=== PATIENT | male | born 1955 | race Caucasian/White ===

== ENCOUNTER 2016-11-24 07:02 | Inpatient (IN) | payer BC, OTHER ==
--- NOTE | 2016-11-24 07:23 | DR.GENAD ---
HPI - PCP Primary Care Physician: Dr Zhao - Complaint/Symptoms Chief Complaint Doctors Comments: Patient admits to vomiting up blood early this morning and had a large red rectal bleed this morning. PMH - PMH Past Medical History: Angina, Anxiety, Arthritis, Dyslipidemia, GERD, Hypertension, Kidney Stones, [place] Past Surgical History: Yes Surgical History: Angioplasty/Stents - Family History Family Medical History: Coronary Artery Disease, Heart Failure, Sudden Cardiac , Hypertension - Social History Do you use any recreational Drugs:: No ROS - Review of Systems Constitutional: negative: Diaphoresis Eyes: No Symptoms Reported ENTM: No Symptoms Reported Respiratoy: No Symptoms Reported Cardiovascular: No Symptoms Reported Gastrointestinal/Abdominal: No Symptoms Reported Genitourinary: No Symptoms Reported Neurological: No Symptoms Reported, Headache Integumentary: No Symptoms Reported Hematologic/Lymphatic: No Symptoms Reported Endocrine: No Symptoms Reported Psychiatric: No Symptoms Reported All Other Systems: Reviewed and Negative PE - Vital Signs Vitals: Temperature 98 F Pulse Rate 132 Respiratory Rate 18 Blood Pressure [Right Arm] 182/100 Blood Pressure [Left Arm] 154/99 Blood Pressure 149/69 - General Limitations: No Limitations General Appearance: Alert, In No Apparent Distress - Head Head Exam: Normal Inspection, Atraumatic - Eyes Eye exam: Normal Appearance, PERRL, EOMI - ENT ENT Exam: Normal Exam External Ear Exam: Normal External Inspection TM/Canal Exam: Bilateral Normal Nose Exam: Normal Nose Exam Mouth Exam: Normal Inspection Throat Exam: Normal Inspection - Neck Neck Exam: Normal Inspection, Full ROM - Chest Chest Inspection: Normal Inspection - Respiratory Respiratory Exam: Normal Lung Sounds Bilat Respiratory Exam: Bilateral Clear to Auscultation - Cardiovascular Cardiovascular Exam: Regular Rate, Normal Rhythm - Abdominal Exam Abdominal Exam: Normal Inspection, Normal Bowel Sounds Abdominal Tenderness: negative: RUQ, RLQ, LUQ, LLQ, Epigastrium, Suprapubic, Diffuse, Mild, Moderate, Severe, Other - Back Back Exam: Normal Inspection - Neurologic Neurological Exam: Alert, Oriented X3, CN II-XII Intact - Psychiatric Psychiatric Exam: Normal Affect, Normal Mood - Skin Skin Exam: Warm, Dry, Intact - Other Exam Other Exam: Rectally a large external hemorrhoid and bright red blood externally Course - Reevaluation 1st: Unchanged - Diagnosis Discharge Problem: GI bleed Qualifiers: GI bleed type/associated pathology: gastrointestinal hemorrhage with hematemesis Qualified Code(s): K92.0 - Hematemesis - Discharge Plan Condition: Stable - Follow ups/Referrals Follow ups/Referrals: Bronson Zhao [Primary Care Provider] - 3 days - Instructions
[2016-11-24 07:26] VITALS: BMI 25.0
--- NOTE | 2016-11-24 08:10 | RAD ---
AP abdomen Indication: NG tube placement. Vomiting. Findings: The tip of the gastric tube overlies the proximal stomach. The distal side port is not def initely seen, but is likely approximately at the level of the GE junction. The visualized bowel gas pattern is nonspecific. No free air is identified. Impression: Slightly high positioning of the gastric tube, although the tip overlies the proximal st omach. Consider advancing approximately 4-5 cm for more proper positioning. Reported By:
[2016-11-24] MEDS: NS 1000 ML 1,000 ML IV SCH ×2 (08:24→18:22)
[2016-11-24 09:05] LABS: BASOPHILS % (AUTO) 0.8 % (0.2-1.0); HEMOGLOBIN 8.1 g/dL (13.5-18.0); LYMPHOCYTES # (AUTO) 0.4 X10^3/uL (1.3-2.9); LYMPHOCYTES % (AUTO) 6.5 % (21.0-51.0); MEAN CORPUSCULAR HEMOGLOBIN 30.4 pg (27.0-34.0); MEAN CORPUSCULAR HGB CONC 32.5 g/dL (33.0-35.0); MEAN CORPUSCULAR VOLUME 93.4 fL (80.0-100.0); MEAN PLATELET VOLUME 8.6 fL (7.4-11.0); MONOCYTES # (AUTO) 0.9 x10^3/uL (0.3-0.8); MONOCYTES % (AUTO) 13.9 % (0.0-13.0); NEUTROPHILS # (AUTO) 4.9 x10^3/uL (2.2-4.8); NEUTROPHILS % (AUTO) 78.8 % (42.0-75.0); PLATELET COUNT 117 X10^3/uL (150.0-450.0); RED BLOOD COUNT 2.67 X10^6/uL (4.7-6.0); RED CELL DISTRIBUTION WIDTH 20.9 % (11.6-16.5); WHITE BLOOD COUNT 6.2 X10^3/uL (3.6-10.0)
[2016-11-24 09:10] LABS: ALANINE AMINOTRANSFERASE 24 Units/L (12-78); ALBUMIN 2.3 g/dL (3.4-5.0); ALKALINE PHOSPHATASE 134 Units/L (46-116); ASPARTATE AMINO TRANSFERASE 60 Units/L (15-37); BLOOD UREA NITROGEN 25 mg/dL (7-18); CARBON DIOXIDE 21.3 mmol/L (21-32); CHLORIDE 109 mmol/L (98-107); COR CA(FOR HYPOALB) 9.4 mg/dL (8.5-10.1); COR NA(FOR HYPERGLY) 149 mmol/L (136-145); CREATININE 1.14 mg/dL (0.70-1.30); GLUCOSE 120 mg/dL (65-99); SODIUM 149 mmol/L (136-145); TOTAL PROTEIN 6.3 g/dL (6.4-8.2); eGFR BLACK RACES > 60 (>60); eGFR NON BLACK RACES > 60 (>60)
[2016-11-24 09:26] LABS: ANISOCYTOSIS 1+; HYPOCHROMASIA SLIGHT; PLATELET MORPHOLOGY COMMENT NORMAL (NORMAL)
[2016-11-24] MEDS ORDERED: NS 500 ML IV 500 ML IV ONE (10:01)
--- NOTE | 2016-11-24 10:03 | RAD ---
History: Nasogastric tube placement Study: KUB Comparison: Today at 8:00 a.m. Findings: There is no significant change of a nasogastric tube with the tip in the proximal stomach. The visualized bowel gas pattern is unremarkable. Impression: Nasogastric tube in proximal stomach Reported By:
--- NOTE | 2016-11-24 11:03 | DR.H&P ---
H&P - History & Physical for Day of: H&P Date: 11/24/16 - Chief Complaint Chief Complaint: GI BLEED - Allergies Allergies/Adverse Reactions: Allergies Allergy/AdvReac Type Severity Reaction Status Date / Time No Known Drug Allergy Allergy Verified 11/24/16 07:17 - History of Present Illness History of Present Illness: MR. SANTORO IS A 61 YEAR OLD PATIENT OF OURS. HE PRESENTED TO THE ER THIS MORNING WITH COMPLAINTS OF VOMITING BLOOD AND HAVING LARGE AMOUNTS OF BRIGHT RED BLOOD IN STOOL. PATIENT REPORTS TAKING COUMADIN FOR PULMONARY EMBOLISMS, BUT STOPPED TAKING IT 1 WEEK AGO DUE TO HIS LIPS AND GUMS BLEEDING. ON EXAMINATION IN ER, PATIENT WAS NOTED WITH A LARGE EXTERNAL HEMORRHOID AND BRIGHT RED BLOOD FROM RECTUM EXTERNALLY. LABS AND XRAY WERE OBTAINED IN THE ER AND REPORT THE FOLLOWING CBC WNL EXCEPT HBG/HCT 8.1/25, PLATELET COUNT 117. CMP WNL EXCEPT SODIUM 149, CHLORIDE 109, BUN 25, GLUCOSE 120 , CALCIUM 8.0, TOTAL PROTEIN 6.3, ALBUMIN 2.3. INR 12.0, STOOL OCCULT BLOOD POSITIVE. NG TUBE WAS PLACED IN THE ER AND A KUB CONFIRMED PLACEMENT. PATIENT WILL BE ADMITTED FOR FURTHER TREATMENT AND EVALUATION. PATIENT WILL BE GIVEN 2 UNITS OF FFP WITH INR EVERY 6 HOURS, MONITOR ON TELEMETRY, H&H Q 6 HOURS, START ON PEPCID, PROTONIX, IVF, AND ALBUMIN IV. WE WILL FOLLOW UP ON LABS IN AM. - Past Medical History Past Medical History: Angina, Anxiety, Arthritis, Dyslipidemia, GERD, Hypertension, Kidney Stones, [place] Additional Medical History: Hx PVD, Hx DVT, Diarrhea, Back Pain - Past Surgical History Surgical History: Angioplasty/Stents Additional Surgical History: Cardiac Stent placement in December 2015 - Family History Family Medical History: Coronary Artery Disease, Heart Failure, Sudden Cardiac , Hypertension - Social History Does patient currently use any type of tobacco product: Yes Have you used tobacco products in the last 12 months: Yes Type of Tobacco Use: Cigarettes How many years tobacco product used: 42 Does any household member use tobacco: No Alcohol Use: Heavy - Review of Systems Constitutional: No Symptoms Reported. denies: Fever, Chills, Sweats, Weakness, Malaise, Other Eyes: No Symptoms Reported. denies: Pain, Vision Change, Conjunctivae Inflammation, Eyelid Inflammation, Redness, Other ENT: No Symptoms Reported. denies: Ear Pain, Ear Discharge, Nose Pain, Nose Discharge, Nose Congestion, Mouth Pain, Mouth Swelling, Throat Pain, Throat Swelling, Other Respiratory: No Symptoms Reported. denies: Cough, Dry, Shortness of Breath, Hemoptysis, SOB with Excertion, Pleuritic Pain, Sputum, Wheezing, Other Cardiovascular: No Symptoms Reported. denies: See HPI, Palpitations, Orthopnea , Paroxysmal Noc. Dyspnea, Edema, Light Headedness, Other Gastrointestinal: See HPI, Vomiting, Hematochezia Genitourinary: No Symptoms Reported Musculoskeletal: No Symptoms Reported Skin: No Symptoms Reported. denies: Bruising, Wound, Ecchymosis Neurological: No Symptoms Reported - Physical Exam Vital Signs: Temperature 99.5 F Pulse Rate [Left Brachial] 123 Respiratory Rate 18 Blood Pressure [Left Arm] 129/85 O2 Sat by Pulse Oximetry 95 Oriented: Normal, Time, Person, Place Eyes: Normal. negative: Blurred Vision, Diplopia, Discharge, Pain, Redness, Photophobia Ear: Normal. negative: Swelling, Ecchymosis, Hemotypanum, Abrasion, Laceration Nose: Normal. negative: Discharge, Blood Throat: Normal. negative: Tonsillar Hypertrophy, Exudate Respiratory: Clear Throughout Cardiovascular: Tachycardia. negative: Murmur : Normal. negative: Dysuria, Hematuria, Testicular Pain Auscultation: Bowel Sounds: Normal. negative: Bruit Palpation: Normal. negative: Spleen Enlarged, Liver Enlarged, Mass Pulsatile Tenderness: Normal. negative: Rebound, Guarding, Rigidity Skin: Decreased Turgur. negative: Wound, Bruising, Ecchymosis Musculoskeletal: Normal Psychiatric: Normal Mood Description: Calm Affect: Normal Speech Pattern: Clear, Appropriate - Assessment/Plan (1) GI bleed Qualifiers: GI bleed type/associated pathology: gastrointestinal hemorrhage with hematemesis Gastritis type: G Qualified Code(s): K92.0 - Hematemesis Status: Acute Plan: START ON IVF, NG TUBE, ADMINISTER FFP, START PEPCID, START PROTONIX, MONITOR LABS IN AM. (2) Hypothyroidism Qualifiers: Hypothyroidism type: acquired Qualified Code(s): E03.9 - Hypothyroidism, unspecified Status: Chronic Plan: CONTINUE TO MONITOR (3) Hypertension Qualifiers: Hypertension type: essential hypertension Qualified Code(s): I10 - Essential (primary) hypertension Status: Chronic Plan: CONTINUE TO MONITOR (4) Gastroesophageal reflux disease Status: Chronic Plan: CONTINUE TO MONITOR (5) History of DVT (deep vein thrombosis) Status: Chronic Plan: CONTINUE TO MONITOR (6) Hyperlipidemia Qualifiers: Hyperlipidemia type: mixed hyperlipidemia Qualified Code(s): E78.2 - Mixed hyperlipidemia Status: Chronic Plan: CONTINUE TO MONITOR
[2016-11-24] MEDS ORDERED: AQUA-MEPHYTON ADULT INJ SC ONE (11:29)
[2016-11-24] MEDS: PROTONIX INJ 40 MG VIAL IVP SCH ×2 (11:52→20:00)
[2016-11-24] MEDS: PEPCID 20 MG IV PREMIX* 20 MG/50 ML BAG IV SCH ×2 (11:52→20:00)
[2016-11-24 11:59] LABS: HEMATOCRIT 23.8 % (42.0-54.0); HEMOGLOBIN 7.9 g/dL (13.5-18.0)
[2016-11-24 12:37] LABS: CKMB % 1.2 % (<4); CREATINE KINASE 81 Units/L (39-308); CREATINE KINASE MB < 1.0 ng/mL (0-4.0); TROPONIN I 0.02 ng/mL (0-1.5)
[2016-11-24 14:22] LABS: HEMATOCRIT 21.6 % (42.0-54.0); HEMOGLOBIN 7.1 g/dL (13.5-18.0)
[2016-11-24 14:47] LABS: CKMB % 1.3 % (<4); CREATINE KINASE 77 Units/L (39-308); CREATINE KINASE MB < 1.0 ng/mL (0-4.0); TROPONIN I 0.02 ng/mL (0-1.5)
[2016-11-24] MEDS ORDERED: AQUA-MEPHYTON ADULT INJ SC SCH (15:00)
[2016-11-24 15:40] LABS: BILIRUBIN,URINE NEGATIVE (NEGATIVE); BLOOD/HEMOGLOBIN,URINE 1+ (NEGATIVE); GLUCOSE, URINE NEGATIVE (NEGATIVE); KETONES,URINE 2+ (NEGATIVE); LEUKOCYTE ESTERASE ,URINE NEGATIVE (NEGATIVE); NITRITES,URINE NEGATIVE (NEGATIVE); PROTEIN,URINE 2+ (NEGATIVE); UROBILINOGEN,URINE NORMAL (NORMAL)
[2016-11-24 15:53] LABS: APPEARANCE,URINE SLIGHTLY HAZY (CLEAR); COLOR,URINE AMBER (YELLOW)
[2016-11-24 15:58] LABS: BACTERIA,URINE TRACE /HPF (NEGATIVE); HYALINE CASTS, URINE FEW /LPF (NEGATIVE); SQUAMOUS EPITHELIAL CELL,UR FEW /HPF (NEGATIVE)
[2016-11-24 15:59] LABS: COARSE GRANULAR CASTS,URINE MODERATE /HPF (NEGATIVE); MUCUS,URINE FEW /HPF (NEGATIVE)
[2016-11-24] MEDS ORDERED: TYLENOL SUPP 650 MG PR PRN (16:30)
[2016-11-24] MEDS ORDERED: BENADRYL INJ 50 MG VIAL IVP ONE (18:34)
[2016-11-24] MEDS ORDERED: LASIX IVP ONE (18:35)
[2016-11-24 19:06] LABS: CKMB % 0.8 % (<4); TROPONIN I 0.06 ng/mL (0-1.5)
[2016-11-24 19:27] LABS: HEMATOCRIT 18.1 % (42.0-54.0)
[2016-11-24] MEDS ORDERED: NS 250 ML IV 250 ML IV ONE (19:46)
[2016-11-25] MEDS: NS 1000 ML 1,000 ML IV SCH (02:13)
[2016-11-25 04:34] LABS: BASOPHILS % (AUTO) 0.8 % (0.2-1.0); EOSINOPHILS % (AUTO) 0.1 % (0.9-2.9); HEMATOCRIT 23.8 % (42.0-54.0); HEMOGLOBIN 8.1 g/dL (13.5-18.0); LYMPHOCYTES # (AUTO) 0.6 X10^3/uL (1.3-2.9); LYMPHOCYTES % (AUTO) 19.4 % (21.0-51.0); MEAN CORPUSCULAR HEMOGLOBIN 30.5 pg (27.0-34.0); MEAN CORPUSCULAR HGB CONC 33.9 g/dL (33.0-35.0); MEAN CORPUSCULAR VOLUME 90.2 fL (80.0-100.0); MEAN PLATELET VOLUME 8.7 fL (7.4-11.0); MONOCYTES # (AUTO) 0.4 x10^3/uL (0.3-0.8); MONOCYTES % (AUTO) 13.9 % (0.0-13.0); NEUTROPHILS # (AUTO) 2.1 x10^3/uL (2.2-4.8); NEUTROPHILS % (AUTO) 65.8 % (42.0-75.0); PLATELET COUNT 48 X10^3/uL (150.0-450.0); RED BLOOD COUNT 2.64 X10^6/uL (4.7-6.0); WHITE BLOOD COUNT 3.2 X10^3/uL (3.6-10.0)
[2016-11-25 04:35] LABS: ALANINE AMINOTRANSFERASE 21 Units/L (12-78); ALBUMIN 2.5 g/dL (3.4-5.0); ALKALINE PHOSPHATASE 102 Units/L (46-116); ASPARTATE AMINO TRANSFERASE 53 Units/L (15-37); BLOOD UREA NITROGEN 31 mg/dL (7-18); CALCIUM 8.2 mg/dL (8.5-10.1); CARBON DIOXIDE 28.3 mmol/L (21-32); CHLORIDE 112 mmol/L (98-107); COR CA(FOR HYPOALB) 9.4 mg/dL (8.5-10.1); CREATININE 1.13 mg/dL (0.70-1.30); GLUCOSE 107 mg/dL (65-99); TOTAL PROTEIN 6.1 g/dL (6.4-8.2); eGFR BLACK RACES > 60 (>60); eGFR NON BLACK RACES > 60 (>60)
[2016-11-25 04:46] LABS: PLATELET MORPHOLOGY COMMENT NORMAL (NORMAL)
[2016-11-25 04:52] LABS: SODIUM 150 mmol/L (136-145)
[2016-11-25] MEDS ORDERED: POTASSIUM CHLORIDE LIQ 20 MEQ UDC PO PRN (05:00)
[2016-11-25] MEDS: K-RIDER 10 MEQ/NS 100 ML 10 MEQ/100 ML BAG IV PRN ×4 (05:24→12:42)
[2016-11-25] MEDS: BUTT CREAM (COMPOUND) TOP PRN ×4 (05:27→19:45)
[2016-11-25] MEDS ORDERED: BENADRYL INJ 50 MG VIAL IVP PRN (09:30)
[2016-11-25] MEDS ORDERED: TYLENOL 325 MG TAB PO PRN (09:30)
[2016-11-25] MEDS ORDERED: NS 500 ML IV 500 ML IV ONE (09:30)
[2016-11-25] MEDS ORDERED: LASIX IVP PRN (09:31)
[2016-11-25] MEDS: PROTONIX INJ 40 MG VIAL IVP SCH (09:40)
[2016-11-25] MEDS: PEPCID 20 MG IV PREMIX* 20 MG/50 ML BAG IV SCH ×2 (09:40→20:00)
[2016-11-25] MEDS ORDERED: AQUA-MEPHYTON ADULT INJ SC ONE (11:34)
--- NOTE | 2016-11-25 11:46 | PCM.PROG ---
Progress Note - Progress Note for Day of Date: 11/25/16 - Subjective Subjective: PATIENT RESTS IN BED, NG TUBE TO LOW INTERMITTENT SUCTION. BLOODY DRAINAGE IS NOTED IN SUCTION CANISTER. PATIENT STATES HE IS THIRSTY. GI HAS BEEN CONSULTED FOR GI BLEEDING. VOMITING HAS SLOWED; HOWEVER, ABDOMEN IS NOTED WITH HEMORRHAGIC BULLAE AND CAPUT MEDUSAE ALONG WITH SEVERE DISTENTION. ABDOMEN IS NOTED WITH DIFFUSE TENDERNESS UPON PALPATION. PATIENT REPORTS NUMEROUS BRIGHT, RED, BLOODY BOWEL MOVEMENTS THROUGH THE NIGHT. PATIENT'S HEMOGLOBIN DROPPED TO 6.0 LAST EVENING AND PATIENT RECEIVED TWO UNITS PRBC'S AND TOLERATED WELL. HEMOGLOBIN THIS MORNING IS 8.1. CBC WNL EXCEPT: WBC 3.2, H /H 8.1/23.8, PLT COUNT 48. CMP WNL EXCEPT: SODIUM 150, POTASSIUM 3.2, BUN 31, GLUCOSE 107, CALCIUM 8.2, TOT BILIRUBIN 1.30, AST 53, TOT PROTEIN 6.1, ALBUMIN 2.5. INR IS IMPROVED FROM 12.00 TO 2.02 AFTER RECEIVING FFP AND VITAMIN K YESTERDAY. WE WILL TRANSFUSE TWO MORE UNITS OF PRBC'S TODAY, START POTASSIUM PROTOCOL, CONTINUE PEPCID, PROTONIX, START PATIENT ON ICE CHIPS, CONTINUE NG TUBE, AND OBTAIN A NCCT OF ABD/PELVIS. WE WILL CONTINUE TO MONITOR H/H EVERY 6 HOURS. - Past Medical Family Social History Past Med/Fam/Surg Hx: No changes since H&P Allergies: Allergies No Known Drug Allergy Allergy (Verified 11/24/16 07:17) - Review of Systems ROS: No change since H&P - Vital Signs and I&O's Vital Signs: Temperature 99.1 F Pulse Rate [Apical] 95 Pulse Rate [Right Brachial] 137 Pulse Rate [Left Brachial] 123 Respiratory Rate 22 Blood Pressure [Right Arm] 120/85 Blood Pressure [Left Arm] 115/68 O2 Sat by Pulse Oximetry 98 Intake and Output: Intake & Output 11/22/16 11/23/16 11/24/16 11/25/16 11:59 11:59 11:59 11:59 Intake Total 2452 Output Total 150 2595 Balance -150 -143 - Physical Exam Oriented: Normal, Time, Person, Place Eyes: Normal. negative: Blurred Vision, Diplopia, Discharge, Pain, Redness, Photophobia Ear: Normal. negative: Swelling, Ecchymosis, Hemotypanum, Abrasion, Laceration Nose: Normal. negative: Discharge, Blood Throat: Normal. negative: Tonsillar Hypertrophy, Exudate Respiratory: Normal Cardiovascular: Tachycardia. negative: Murmur : Normal. negative: Dysuria, Hematuria, Testicular Pain Auscultation: Bowel Sounds: Normal. negative: Bruit Palpation: Normal. negative: Spleen Enlarged, Liver Enlarged, Mass Pulsatile Tenderness: Diffuse, Moderate, Other (Distention; Caput Medusae; Hemorrhagic bullae). negative: Rebound, Guarding, Rigidity Skin: Decreased Turgur. negative: Wound, Bruising, Ecchymosis Musculoskeletal: Normal Psychiatric: Normal Mood Description: Calm Affect: Normal Speech Pattern: Clear, Appropriate - Laboratory and Diagnostics Result Diagrams: 11/25/16 04:05 11/25/16 04:05 Labs: Laboratory WBC 3.2 X10^3/uL (3.6-10.0) L 11/25/16 04:05 RBC 2.64 X10^6/uL (4.7-6.0) L 11/25/16 04:05 Hgb 8.1 g/dL (13.5-18.0) L 11/25/16 04:05 Hct 23.8 % (42.0-54.0) L 11/25/16 04:05 MCV 90.2 fL (80.0-100.0) 11/25/16 04:05 MCH 30.5 pg (27.0-34.0) 11/25/16 04:05 MCHC 33.9 g/dL (33.0-35.0) 11/25/16 04:05 RDW 19.0 % (11.6-16.5) H 11/25/16 04:05 Plt Count 48 X10^3/uL (150.0-450.0) L 11/25/16 04:05 Plt Count Comment Decreased (ADEQUATE) 11/25/16 04:05 MPV 8.7 fL (7.4-11.0) 11/25/16 04:05 Neut % 65.8 % (42.0-75.0) 11/25/16 04:05 Lymph % 19.4 % (21.0-51.0) L 11/25/16 04:05 [place] % 13.9 % (0.0-13.0) H 11/25/16 04:05 Eos % 0.1 % (0.9-2.9) L 11/25/16 04:05 Baso % 0.8 % (0.2-1.0) 11/25/16 04:05 Neut # 2.1 x10^3/uL (2.2-4.8) L 11/25/16 04:05 Lymph # 0.6 X10^3/uL (1.3-2.9) L 11/25/16 04:05 [place] # 0.4 x10^3/uL (0.3-0.8) 11/25/16 04:05 Eos # 0.0 x10^3/uL (0.0-0.2) 11/25/16 04:05 Baso # 0.0 X10^3/uL (0.0-0.1) 11/25/16 04:05 Absolute Nucleated RBC 0.2 /100WBC 11/25/16 04:05 Plt Morphology Comment Normal (NORMAL) 11/25/16 04:05 RBC Morphology Abnormal (NORMAL) 11/25/16 04:05 Dimorphic RBCs Present 11/25/16 04:05 Hypochromasia Slight A 11/24/16 08:28 Anisocytosis 1+ A 11/24/16 08:28 INR Target Range - 11/25/16 07:45 INR 2.02 (0.8-1.3) H 11/25/16 07:45 Sodium 150 mmol/L (136-145) H* 11/25/16 04:05 Corrected Sodium TNP 11/25/16 04:05 Potassium 3.2 mmol/L (3.5-5.1) L 11/25/16 04:05 Chloride 112 mmol/L (98-107) H 11/25/16 04:05 Carbon Dioxide 28.3 mmol/L (21-32) 11/25/16 04:05 BUN 31 mg/dL (7-18) H 11/25/16 04:05 Creatinine 1.13 mg/dL (0.70-1.30) 11/25/16 04:05 Est GFR (MDRD) Af Amer > 60 (>60) 11/25/16 04:05 Est GFR (MDRD) Non-Af > 60 (>60) 11/25/16 04:05 Glucose 107 mg/dL (65-99) H 11/25/16 04:05 Calcium 8.2 mg/dL (8.5-10.1) L 11/25/16 04:05 Corrected Calcium 9.4 mg/dL (8.5-10.1) 11/25/16 04:05 Total Bilirubin 1.30 mg/dL (0.2-1.0) H 11/25/16 04:05 AST 53 Units/L (15-37) H 11/25/16 04:05 ALT 21 Units/L (12-78) 11/25/16 04:05 Alkaline Phosphatase 102 Units/L (46-116) 11/25/16 04:05 Creatine Kinase 120 Units/L (39-308) 11/24/16 18:33 CK-MB (CK-2) 1.0 ng/mL (0-4.0) 11/24/16 18:33 CK/CKMB % Calc 0.8 % (<4) 11/24/16 18:33 Troponin I 0.06 ng/mL (0-1.5) 11/24/16 18:33 Total Protein 6.1 g/dL (6.4-8.2) L 11/25/16 04:05 Albumin 2.5 g/dL (3.4-5.0) L 11/25/16 04:05 Globulin 3.6 g/dL (2.5-4.5) 11/25/16 04:05 Albumin/Globulin Ratio 0.7 Ratio (1.1-2.1) L 11/25/16 04:05 Specimen Type Clean catch urine 11/24/16: Urine Color Brenna (YELLOW) 11/24/16 15: Urine Appearance Slightly hazy (CLEAR) 11/24/16 15: Urine pH 5.0 (5.0 - 8.0) 11/24/16 15: Ur Specific [place] 1.020 (1.000-1.030) 11/24/16 15: Urine Protein 2+ (NEGATIVE) 11/24/16 15: Urine Glucose (UA) Negative (NEGATIVE) 11/24/16 15: Urine Ketones 2+ (NEGATIVE) 11/24/16: Urine Occult Blood 1+ (NEGATIVE) 11/24/16 15:19 Urine Nitrite Negative (NEGATIVE) 11/24/16 15:19 Urine Bilirubin Negative (NEGATIVE) 11/24/16 15:19 Urine Urobilinogen Normal (NORMAL) 11/24/16 15:19 Ur Leukocyte Esterase Negative (NEGATIVE) 11/24/16 15:19 Urine RBC 1 - 3 /HPF (NEGATIVE) 11/24/16 15:19 Urine WBC Rare /HPF (NEGATIVE) 11/24/16 15:19 Ur Squamous Epith Cells Few /HPF (NEGATIVE) 11/24/16 15:19 Urine Bacteria Trace /HPF (NEGATIVE) 11/24/16 15:19 Hyaline Casts Few /LPF (NEGATIVE) 11/24/16 15:19 Coarse Granular Casts Moderate /HPF (NEGATIVE) 11/24/16 15:19 Urine Mucus Few /HPF (NEGATIVE) 11/24/16 15:19 Ur Culture Indicated? No/not indicated 11/24/16 15:19 Stool Description Fob tube 11/24/16 07:53 Stl Occult Blood (IFOB) Positive (NEGATIVE) A 11/24/16 07:53 Blood Type A NEGATIVE 11/24/16 10:01 Antibody Screen Negative 11/24/16 10:01 Crossmatch See Detail 11/24/16 10:01 - Plan (1) Anemia due to GI blood loss Status: Acute Plan: TRANSFUSE TWO UNITS PRBC'S, MONITOR H/H Q6H. (2) GI bleed Status: Acute Qualifiers: GI bleed type/associated pathology: gastrointestinal hemorrhage with hematemesis Gastritis type: G Qualified Code(s): K92.0 - Hematemesis Plan: GI CONSULT, ABD/PELVIS NCCT, TRANSFUSE 2 UNITS PRBC'S, CONTINUE IVF, NG TUBE, PEPCID, PROTONIX, MONITOR LABS IN AM. (3) Hypothyroidism Status: Chronic Qualifiers: Hypothyroidism type: acquired Qualified Code(s): E03.9 - Hypothyroidism, unspecified Plan: CONTINUE TO MONITOR (4) Hypertension Status: Chronic Qualifiers: Hypertension type: essential hypertension Qualified Code(s): I10 - Essential (primary) hypertension Plan: CONTINUE TO MONITOR (5) Gastroesophageal reflux disease Status: Chronic Plan: CONTINUE TO MONITOR (6) History of DVT (deep vein thrombosis) Status: Chronic Plan: CONTINUE TO MONITOR (7) Hyperlipidemia Status: Chronic Qualifiers: Hyperlipidemia type: mixed hyperlipidemia Qualified Code(s): E78.2 - Mixed hyperlipidemia Plan: CONTINUE TO MONITOR
[2016-11-25] MEDS: PROTONIX INJ 40 MG VIAL 80 MG in NS 100 ML IV 80 ML IV SCH ×3 (12:00→17:20)
[2016-11-25] MEDS ORDERED: NS 1/2 1000 ML IV 1,000 ML IV ONE (13:42)
[2016-11-25] MEDS: NS 1/2 1000 ML IV 1,000 ML IV SCH ×2 (13:58→22:42)
[2016-11-25 14:47] LABS: HEMOGLOBIN 8.8 g/dL (13.5-18.0)
--- NOTE | 2016-11-25 18:09 | CT ---
HISTORY: Abdominal distention Study: CT abdomen and pelvis without contrast Comparison: September 07, 2016 Technique: Multiple axial images of the abdomen and pelvis were obtained from the lung bases to the pubic symph ysis without the administration of IV contrast. Sagittal and coronal reformations were provided. Findings: The visualized portions of the lung bases are unremarkable. There are bilateral small renal calculi . There is no hydronephrosis. The liver and spleen and pancreas and adrenal glands are unremarkable. . The gallbladder is unremarkable in its CT appearance. There is severe ascites. There is increased ill-defined density in the greater omentum. No bowel wall thickening or bowel dilatation is presen t. The colon is unremarkable. Specifically, there is no diverticulosis noted within the sigmoid co donald. The urinary bladder is grossly unremarkable. The bony structures are grossly intact. IMPRESSION: 1. Severe ascites 2. Abnormal omentum suggesting metastatic disease 3. Nasogastric tube in the stomach Reported By:
[2016-11-25] MEDS ORDERED: NS 250 ML IV 250 ML IV ONE (19:39)
[2016-11-25 20:52] LABS: HEMATOCRIT 22.2 % (42.0-54.0); HEMOGLOBIN 7.5 g/dL (13.5-18.0)
[2016-11-25] MEDS: NICODERM PATCH 21 MG/24 HR TD SCH (21:45)
[2016-11-26] MEDS: PROTONIX INJ 40 MG VIAL 80 MG in NS 100 ML IV 80 ML IV SCH ×5 (00:26→21:07)
[2016-11-26 03:19] LABS: HEMATOCRIT 31.2 % (42.0-54.0); HEMOGLOBIN 10.5 g/dL (13.5-18.0)
[2016-11-26] MEDS ORDERED: NS 1/2 1000 ML IV 1,000 ML IV ONE (05:06)
[2016-11-26] MEDS: NS 1/2 1000 ML IV 1,000 ML IV SCH ×2 (05:10→21:04)
[2016-11-26] MEDS: BUTT CREAM (COMPOUND) TOP PRN (05:35)
[2016-11-26] MEDS ORDERED: VALIUM INJ IVP PRN (07:32)
[2016-11-26] MEDS: NICODERM PATCH 21 MG/24 HR TD SCH (08:53)
[2016-11-26] MEDS ORDERED: AQUA-MEPHYTON ADULT INJ SC ONE (09:00)
[2016-11-26 09:40] LABS: BASOPHILS % (AUTO) 0.5 % (0.2-1.0); EOSINOPHILS % (AUTO) 0.2 % (0.9-2.9); HEMATOCRIT 30.2 % (42.0-54.0); HEMOGLOBIN 10.2 g/dL (13.5-18.0); LYMPHOCYTES # (AUTO) 0.5 X10^3/uL (1.3-2.9); LYMPHOCYTES % (AUTO) 13.7 % (21.0-51.0); MEAN CORPUSCULAR HGB CONC 33.8 g/dL (33.0-35.0); MEAN CORPUSCULAR VOLUME 88.7 fL (80.0-100.0); MEAN PLATELET VOLUME 9.3 fL (7.4-11.0); MONOCYTES # (AUTO) 0.4 x10^3/uL (0.3-0.8); MONOCYTES % (AUTO) 10.4 % (0.0-13.0); NEUTROPHILS # (AUTO) 2.7 x10^3/uL (2.2-4.8); NEUTROPHILS % (AUTO) 75.2 % (42.0-75.0); PLATELET COUNT 46 X10^3/uL (150.0-450.0); RED BLOOD COUNT 3.41 X10^6/uL (4.7-6.0); RED CELL DISTRIBUTION WIDTH 17.7 % (11.6-16.5); WHITE BLOOD COUNT 3.6 X10^3/uL (3.6-10.0)
[2016-11-26] MEDS ORDERED: NS 1000 ML 2,000 ML IV ONE (09:41)
[2016-11-26 09:44] LABS: PLATELET MORPHOLOGY COMMENT NORMAL (NORMAL)
[2016-11-26 10:01] LABS: ALANINE AMINOTRANSFERASE 21 Units/L (12-78); ALBUMIN 2.7 g/dL (3.4-5.0); ALKALINE PHOSPHATASE 100 Units/L (46-116); ASPARTATE AMINO TRANSFERASE 43 Units/L (15-37); BLOOD UREA NITROGEN 22 mg/dL (7-18); CALCIUM 8.6 mg/dL (8.5-10.1); CARBON DIOXIDE 28.7 mmol/L (21-32); CHLORIDE 110 mmol/L (98-107); COR CA(FOR HYPOALB) 9.6 mg/dL (8.5-10.1); CREATININE 1.04 mg/dL (0.70-1.30); GLUCOSE 75 mg/dL (65-99); TOTAL PROTEIN 6.6 g/dL (6.4-8.2); eGFR BLACK RACES > 60 (>60); eGFR NON BLACK RACES > 60 (>60)
[2016-11-26 10:07] LABS: SODIUM 151 mmol/L (136-145)
--- NOTE | 2016-11-26 10:32 | PCM.PROG ---
Progress Note - Progress Note for Day of Date: 11/26/16 - Subjective Subjective: PATIENT IS ALERT IN BED ON MORNING ROUNDS. PATIENT IS CONFUSED. STAFF REPORTS THAT PATIENT IS AGITATED AND HAS JUST REMOVED HIS NG TUBE. WE WILL LEAVE NG TUBE OUT AND CONTINUE TO MONITOR. GI HAS BEEN CONSULTED AND SAW PATIENT YESTERDAY. THEY PLAN TO DO EGD IN AM. VOMITING HAS SLOWED; HOWEVER, ABDOMEN IS NOTED WITH HEMORRHAGIC BULLAE AND CAPUT MEDUSAE ALONG WITH SEVERE DISTENTION. ABDOMEN IS NOTED WITH DIFFUSE TENDERNESS UPON PALPATION. PATIENT REPORTS NUMEROUS BRIGHT, RED, BLOODY BOWEL MOVEMENTS THROUGH THE NIGHT. CBC WNL EXCEPT: H/H 10.2/30.2, PLT COUNT 46. CMP WNL EXCEPT: SODIUM 151, POTASSIUM 2.2 , BUN 22, TOT BILIRUBIN 1.40, AST 43, ALBUMIN 2.7. INR IS IMPROVED FROM 12.00 TO 1.17 AFTER RECEIVING FFP AND VITAMIN K YESTERDAY. CT ABD/PELVIS FROM YESTERDAY REPORTS SEVERE ASCITES AND ABNORMAL OMENTUM SUGGESTING METASTATIC DISEASE. WE WILL OBTAIN A CT CHEST AND ABDOMEN WITH CONTRAST AND BOLUS [address] PRIOR TO CT. WE WILL OBTAIN PSA, CEA, AND CA19-9 LEVELS. WE WILL CONTINUE POTASSIUM PROTOCOL, CONTINUE PEPCID, PROTONIX, START CLEAR LIQUID DIET AT DINNER. WE WILL ALSO START VALIUM PO FOR AGITATION. WE WILL CONTINUE TO MONITOR H/H EVERY 6 HOURS AND CBC/CMP/INR IN AM. BILATERAL VENOUS DOPPLER WILL BE OBTAINED TO RULE OUT CLOTS. - Past Medical Family Social History Past Med/Fam/Surg Hx: No changes since H&P Allergies: Allergies No Known Drug Allergy Allergy (Verified 11/24/16 07:17) - Review of Systems ROS: No change since H&P - Vital Signs and I&O's Vital Signs: Temperature 99.0 F Pulse Rate [Apical] 73 Pulse Rate [Right Brachial] 137 Pulse Rate [Left Brachial] 84 Respiratory Rate 15 Blood Pressure [Right Arm] 120/85 Blood Pressure [Left Arm] 135/79 O2 Sat by Pulse Oximetry 96 Intake and Output: Intake & Output 11/23/16 11/24/16 11/25/16 11/26/16 11:59 11:59 11:59 11:59 Intake Total 6184 3567 Output Total 150 5215 7033 Balance -006 -461 -1623 - Physical Exam Oriented: Normal, Time, Person, Place Eyes: Normal. negative: Blurred Vision, Diplopia, Discharge, Pain, Redness, Photophobia Ear: Normal. negative: Swelling, Ecchymosis, Hemotypanum, Abrasion, Laceration Nose: Normal. negative: Discharge, Blood Throat: Normal. negative: Tonsillar Hypertrophy, Exudate Respiratory: Normal Cardiovascular: Tachycardia. negative: Murmur : Normal. negative: Dysuria, Hematuria, Testicular Pain Auscultation: Bowel Sounds: Normal. negative: Bruit Palpation: Normal Tenderness: Normal. negative: Rebound, Guarding, Rigidity Skin: Decreased [place], Bruising. negative: Wound, Ecchymosis Musculoskeletal: Normal Psychiatric: Normal Mood Description: Calm Affect: Normal Speech Pattern: Clear - Laboratory and Diagnostics Result Diagrams: 11/26/16 08:37 11/26/16 08:37 Labs: Laboratory WBC 3.6 X10^3/uL (3.6-10.0) 11/26/16 08:37 RBC 3.41 X10^6/uL (4.7-6.0) L 11/26/16 08:37 Hgb 10.2 g/dL (13.5-18.0) L 11/26/16 08:37 Hct 30.2 % (42.0-54.0) L 11/26/16 08:37 MCV 88.7 fL (80.0-100.0) 11/26/16 08:37 MCH 30.0 pg (27.0-34.0) 11/26/16 08:37 MCHC 33.8 g/dL (33.0-35.0) 11/26/16 08:37 RDW 17.7 % (11.6-16.5) H 11/26/16 08:37 Plt Count 46 X10^3/uL (150.0-450.0) L 11/26/16 08:37 Plt Count Comment Adequate (ADEQUATE) 11/26/16 08:37 MPV 9.3 fL (7.4-11.0) 11/26/16 08:37 Neut % 75.2 % (42.0-75.0) H 11/26/16 08:37 Lymph % 13.7 % (21.0-51.0) L 11/26/16 08:37 [place] % 10.4 % (0.0-13.0) 11/26/16 08:37 Eos % 0.2 % (0.9-2.9) L 11/26/16 08:37 Baso % 0.5 % (0.2-1.0) 11/26/16 08:37 Neut # 2.7 x10^3/uL (2.2-4.8) 11/26/16 08:37 Lymph # 0.5 X10^3/uL (1.3-2.9) L 11/26/16 08:37 [place] # 0.4 x10^3/uL (0.3-0.8) 11/26/16 08:37 Eos # 0.0 x10^3/uL (0.0-0.2) 11/26/16 08:37 Baso # 0.0 X10^3/uL (0.0-0.1) 11/26/16 08:37 Absolute Nucleated RBC 0.2 /100WBC 11/26/16 08:37 Plt Morphology Comment Normal (NORMAL) 11/26/16 08:37 RBC Morphology Normal (NORMAL) 11/26/16 08:37 Dimorphic RBCs Present 11/25/16 04:05 Hypochromasia Slight A 11/24/16 08:28 Anisocytosis 1+ A 11/24/16 08:28 INR Target Range - 11/26/16 02:55 INR 1.17 (0.8-1.3) 11/26/16 02:55 Sodium 151 mmol/L (136-145) H* 11/26/16 08:37 Corrected Sodium TNP 11/26/16 08:37 Potassium 2.2 mmol/L (3.5-5.1) L* 11/26/16 08:37 Chloride 110 mmol/L (98-107) H 11/26/16 08:37 Carbon Dioxide 28.7 mmol/L (21-32) 11/26/16 08:37 BUN 22 mg/dL (7-18) H 11/26/16 08:37 Creatinine 1.04 mg/dL (0.70-1.30) 11/26/16 08:37 Est GFR (MDRD) Af Amer > 60 (>60) 11/26/16 08:37 Est GFR (MDRD) Non-Af > 60 (>60) 11/26/16 08:37 Glucose 75 mg/dL (65-99) 11/26/16 08:37 Calcium 8.6 mg/dL (8.5-10.1) 11/26/16 08:37 Corrected Calcium 9.6 mg/dL (8.5-10.1) 11/26/16 08:37 Total Bilirubin 1.40 mg/dL (0.2-1.0) H 11/26/16 08:37 AST 43 Units/L (15-37) H 11/26/16 08:37 ALT 21 Units/L (12-78) 11/26/16 08:37 Alkaline Phosphatase 100 Units/L (46-116) 11/26/16 08:37 Creatine Kinase 120 Units/L (39-308) 11/24/16 18:33 CK-MB (CK-2) 1.0 ng/mL (0-4.0) 11/24/16 18:33 CK/CKMB % Calc 0.8 % (<4) 11/24/16 18:33 Troponin I 0.06 ng/mL (0-1.5) 11/24/16 18:33 Total Protein 6.6 g/dL (6.4-8.2) 11/26/16 08:37 Albumin 2.7 g/dL (3.4-5.0) L 11/26/16 08:37 Globulin 3.9 g/dL (2.5-4.5) 11/26/16 08:37 Albumin/Globulin Ratio 0.7 Ratio (1.1-2.1) L 11/26/16 08:37 Specimen Type Clean catch urine 11/24/16: Urine Color Brenna (YELLOW) 11/24/16 15: Urine Appearance Slightly hazy (CLEAR) 11/24/16 15: Urine pH 5.0 (5.0 - 8.0) 11/24/16: Ur Specific [place] 1.020 (1.000-1.030) 11/24/16 15: Urine Protein 2+ (NEGATIVE) 11/24/16: Urine Glucose (UA) Negative (NEGATIVE) 11/24/16: Urine Ketones 2+ (NEGATIVE) 11/24/16: Urine Occult Blood 1+ (NEGATIVE) 11/24/16 15:19 Urine Nitrite Negative (NEGATIVE) 11/24/16 15:19 Urine Bilirubin Negative (NEGATIVE) 11/24/16 15:19 Urine Urobilinogen Normal (NORMAL) 11/24/16 15:19 Ur Leukocyte Esterase Negative (NEGATIVE) 11/24/16 15:19 Urine RBC 1 - 3 /HPF (NEGATIVE) 11/24/16 15:19 Urine WBC Rare /HPF (NEGATIVE) 11/24/16 15:19 Ur Squamous Epith Cells Few /HPF (NEGATIVE) 11/24/16 15:19 Urine Bacteria Trace /HPF (NEGATIVE) 11/24/16 15:19 Hyaline Casts Few /LPF (NEGATIVE) 11/24/16 15:19 Coarse Granular Casts Moderate /HPF (NEGATIVE) 11/24/16 15:19 Urine Mucus Few /HPF (NEGATIVE) 11/24/16 15:19 Ur Culture Indicated? No/not indicated 11/24/16 15:19 Stool Description Fob tube 11/24/16 07:53 Stl Occult Blood (IFOB) Positive (NEGATIVE) A 11/24/16 07:53 Blood Type A NEGATIVE 11/24/16 10:01 Antibody Screen Negative 11/24/16 10:01 Crossmatch See Detail 11/24/16 10:01 - Plan (1) GI bleed Status: Acute Qualifiers: GI bleed type/associated pathology: gastrointestinal hemorrhage with hematemesis Gastritis type: G Qualified Code(s): K92.0 - Hematemesis Plan: CONTINUE ON IVF, PEPCID,PROTONIX, MONITOR LABS IN AM. (2) Hypothyroidism Status: Chronic Qualifiers: Hypothyroidism type: acquired Qualified Code(s): E03.9 - Hypothyroidism, unspecified Plan: CONTINUE TO MONITOR (3) Hypertension Status: Chronic Qualifiers: Hypertension type: essential hypertension Qualified Code(s): I10 - Essential (primary) hypertension Plan: CONTINUE TO MONITOR (4) Gastroesophageal reflux disease Status: Chronic Plan: CONTINUE TO MONITOR (5) History of DVT (deep vein thrombosis) Status: Chronic Plan: CONTINUE TO MONITOR (6) Hyperlipidemia Status: Chronic Qualifiers: Hyperlipidemia type: mixed hyperlipidemia Qualified Code(s): E78.2 - Mixed hyperlipidemia Plan: CONTINUE TO MONITOR
[2016-11-26] MEDS ORDERED: LR 1000 ML IV 2,000 ML IV ONE (10:42)
[2016-11-26] MEDS: PEPCID 20 MG IV PREMIX* 20 MG/50 ML BAG IV SCH ×2 (10:44→20:30)
[2016-11-26] MEDS: VALIUM PO SCH ×3 (10:45→22:30)
[2016-11-26] MEDS: K-RIDER 10 MEQ/NS 100 ML 10 MEQ/100 ML BAG IV PRN ×5 (13:15→22:15)
[2016-11-26] MEDS ORDERED: NS 100 ML IV 100 ML IV ONE (15:03)
[2016-11-26] MEDS: PHENOBARBITAL SODIUM INJ 65 MG VIAL IVP PRN (17:05)
--- NOTE | 2016-11-26 17:08 | VAS ---
HISTORY: Bilateral calf pain Study: Doppler ultrasound of the deep veins of both legs Comparison: February 2015 TECHNIQUE: Multiple godoy scale and color flow Doppler images of the deep venous system were obtaine d of the right and left lower extremity. FINDINGS: The deep venous system of the right and left lower extremities were evaluated from the level of the common femoral vein through the popliteal vein. Normal color flow and augmentation can be observed. In addition, normal compression is seen throughout the deep venous system. IMPRESSION: 1. Negative for DVT. Reported By:
[2016-11-26] MEDS ORDERED: HALDOL INJ IM ONE (17:15)
[2016-11-26] MEDS ORDERED: HALDOL INJ IVP PRN (17:15)
--- NOTE | 2016-11-26 17:20 | CT ---
HISTORY: Abdominal distention for 6 months and diarrhea Study: CT abdomen and pelvis with IV and oral contrast Comparison: Yesterday Technique: Multiple axial images of the abdomen and pelvis were obtained from the lung bases to the pubic symph ysis with the administration of IV contrast. Sagittal and coronal reformations were provided. Findings: There is a very small right pleural effusion. There is mild splenomegaly with the spleen measuring over 13 centimeters sagittal length. The liver is small without focal mass. The pancreas and kidney s and adrenal glands are unremarkable except for a small cyst in the right kidney. There is no hydro nephrosis.. The gallbladder is contracted.. There is severe ascites.. There is stranding and incre ased density in the greater omentum . No bowel wall thickening or bowel dilatation is present. The colon is unremarkable. Specifically, there is no diverticulosis noted within the sigmoid colon. The urinary bladder is grossly unremarkable. The bony structures are grossly intact. IMPRESSION: 1. Unchanged severe ascites and tiny right pleural effusion 2. Abnormal greater omentum that may reflect metastatic disease 3. Mild splenomegaly 4. Suggest paracentesis with cytology for further evaluation Reported By:
--- NOTE | 2016-11-26 18:09 | CT ---
CT CHEST WITH IV CONTRAST HISTORY: Shortness of breath Comparison: 09/07/2016 showing bilateral pulmonary emboli Technique: Multiple axial images of the chest were obtained from the thoracic inlet to the upper abd omen after the administration of IV contrast.Dose reduction techniques including Automated Exposure Control (AEC) and adjustment of mA and kV were utlized. Findings: The heart is normal in size. No pericardial effusion. No suspicious mediastinal or axillary lymph n odes. No identifiable residual pulmonary emboli can be seen. No focal consolidations, pleural effusions or pneumothorax. Mild emphysema. Airways are patent. No s uspicious pulmonary nodules or masses. Cirrhosis and large volume ascites. No aggressive osseous lesions. IMPRESSION: 1. No definite source of patient's shortness of breath is identified on this examination. 2. Apparent interval resolution of macroscopic pulmonary emboli. 3. Cirrhosis and large volume ascites. Reported By:
[2016-11-26] MEDS ORDERED: NS 500 ML IV 500 ML IV ONE (20:13)
[2016-11-27] MEDS: HALDOL INJ IVP PRN ×3 (01:15→14:47)
[2016-11-27] MEDS ORDERED: NS 1/2 1000 ML IV 1,000 ML IV ONE ×2 (04:06→20:14)
[2016-11-27] MEDS: PROTONIX INJ 40 MG VIAL 80 MG in NS 100 ML IV 80 ML IV SCH ×2 (04:14→16:37)
[2016-11-27] MEDS: NS 1/2 1000 ML IV 1,000 ML IV SCH ×3 (04:14→20:47)
[2016-11-27] MEDS: VALIUM PO SCH ×3 (06:01→22:08)
[2016-11-27 06:38] LABS: BASOPHILS % (AUTO) 0.4 % (0.2-1.0); EOSINOPHILS # (AUTO) 0.1 x10^3/uL (0.0-0.2); EOSINOPHILS % (AUTO) 2.6 % (0.9-2.9); HEMOGLOBIN 9.4 g/dL (13.5-18.0); LYMPHOCYTES # (AUTO) 0.5 X10^3/uL (1.3-2.9); LYMPHOCYTES % (AUTO) 11.9 % (21.0-51.0); MEAN CORPUSCULAR HEMOGLOBIN 30.8 pg (27.0-34.0); MEAN CORPUSCULAR HGB CONC 34.8 g/dL (33.0-35.0); MEAN CORPUSCULAR VOLUME 88.6 fL (80.0-100.0); MEAN PLATELET VOLUME 9.5 fL (7.4-11.0); MONOCYTES # (AUTO) 0.4 x10^3/uL (0.3-0.8); NEUTROPHILS # (AUTO) 3.2 x10^3/uL (2.2-4.8); NEUTROPHILS % (AUTO) 75.1 % (42.0-75.0); PLATELET COUNT 50 X10^3/uL (150.0-450.0); RED BLOOD COUNT 3.05 X10^6/uL (4.7-6.0); WHITE BLOOD COUNT 4.3 X10^3/uL (3.6-10.0)
[2016-11-27 06:40] LABS: ALANINE AMINOTRANSFERASE 17 Units/L (12-78); ALBUMIN 2.4 g/dL (3.4-5.0); ALKALINE PHOSPHATASE 86 Units/L (46-116); ASPARTATE AMINO TRANSFERASE 34 Units/L (15-37); BLOOD UREA NITROGEN 17 mg/dL (7-18); CALCIUM 8.1 mg/dL (8.5-10.1); CARBON DIOXIDE 24.5 mmol/L (21-32); CHLORIDE 110 mmol/L (98-107); COR CA(FOR HYPOALB) 9.4 mg/dL (8.5-10.1); CREATININE 0.92 mg/dL (0.70-1.30); GLUCOSE 70 mg/dL (65-99); SODIUM 147 mmol/L (136-145); TOTAL PROTEIN 5.7 g/dL (6.4-8.2); eGFR BLACK RACES > 60 (>60); eGFR NON BLACK RACES > 60 (>60)
[2016-11-27 07:00] LABS: PLATELET MORPHOLOGY COMMENT NORMAL (NORMAL)
[2016-11-27] MEDS: K-RIDER 10 MEQ/NS 100 ML 10 MEQ/100 ML BAG IV PRN ×6 (07:42→16:38)
[2016-11-27] MEDS ORDERED: MAGNESIUM SULFATE 1 GM/100 mL PREMIX 1 GM/100 ML BAG IV SCH (08:00)
[2016-11-27] MEDS: PHENOBARBITAL SODIUM INJ 65 MG VIAL IVP PRN (08:03)
[2016-11-27] MEDS ORDERED: D5 LR 1000 ML 1,000 ML IV ONE (09:26)
[2016-11-27] MEDS ORDERED: DIPRIVAN VIAL 20 ML ONE (10:30)
[2016-11-27] MEDS: PEPCID 20 MG IV PREMIX* 20 MG/50 ML BAG IV SCH ×2 (11:04→20:45)
[2016-11-27] MEDS: NICODERM PATCH 21 MG/24 HR TD SCH (11:04)
[2016-11-27] MEDS: ALBUMIN HUMAN 25%- 100ML 100 ML IV SCH (11:05)
[2016-11-27] MEDS: MAGNESIUM SULFATE 1 GM/100 mL PREMIX 1 GM/100 ML BAG IV SCH ×2 (11:51→13:14)
[2016-11-27] MEDS ORDERED: ALDACTONE TAB 25 MG PO SCH ×3 (12:00→13:00)
[2016-11-27] MEDS: LOPRESSOR TAB 25 MG PO SCH ×2 (13:12→20:46)
[2016-11-27] MEDS: NEURONTIN CAP 300 MG PO SCH (13:13)
[2016-11-27] MEDS: ALDACTONE TAB 25 MG PO SCH (13:18)
--- NOTE | 2016-11-27 14:11 | PCM.PROG ---
Progress Note - Progress Note for Day of Date: 11/27/16 - Subjective Subjective: PATIENT HAS BEEN CONFUSED THROUGHOUT THE NIGHT. PATIENT WAS STARTED ON HALDOL DUE TO EXTREME AGITATION AND BEING UNCOOPERATIVE WITH TREATMENT. PATIENT IS SLEEPING UPON ROUNDS. AT BEDSIDE. PATIENT IS CURRENTLY NPO FOR AN EGD TODAY PER DR. PERALTA. PATIENT HAS NO VOMITING. ABDOMEN CONTINUES WITH DISTENTION AND DIFFUSE TENDERNESS UPON PALPATION. WE OBTAINED A CHEST CT YESTERDAY AND IT REPORTED: APPARENT INTERVAL RESOLUTION OF MACROSCOPIC PULMONARY EMBOLI; CIRRHOSIS AND LARGE VOLUME ASCITES. CT OF ABD/ PELVIS WITH IV AND PO CONTRAST REPORTS: UNCHANGED SEVERE ASCITES AND TINY RIGHT PLEURAL EFFUSION; ABNORMAL GREATER OMENTUM THAT MAY REFLECT METASTATIC DISEASE; MILD SPLENOMEGALY. CBC WNL EXCEPT: H/H 9.4/27.0, PLT COUNT 50. CMP WNL EXCEPT : SODIUM 147, POTASSIUM 2.5, TOT BILIRUBIN 1.50, TOT PROTEIN 5.7, ALBUMIN 2.4. BILATERAL VENOUS DOPLLER REPORTED NEGATIVE FOR DVT. PSA, CEA, AND CA19-9 ARE PENDING. WE WILL CONTINUE POTASSIUM PROTOCOL, CONTINUE PEPCID, PROTONIX. WE WILL CONTINUE TO MONITOR AND FOLLOW UP IN AM WITH LABS. - Past Medical Family Social History Past Med/Fam/Surg Hx: No changes since H&P Allergies: Allergies No Known Drug Allergy Allergy (Verified 11/24/16 07:17) - Review of Systems ROS: No change since H&P - Vital Signs and I&O's Vital Signs: Temperature 97.9 F Pulse Rate [Apical] 72 Pulse Rate [Right Brachial] 137 Pulse Rate [Left Brachial] 65 Pulse Rate 84 Respiratory Rate 22 Blood Pressure [Right Calf] 126/74 Blood Pressure [Right Arm] 120/85 Blood Pressure [Left Arm] 131/66 Blood Pressure 135/76 O2 Sat by Pulse Oximetry 100 Intake and Output: Intake & Output 11/25/16 11/26/16 11/27/16 11/28/16 11:59 11:59 11:59 11:59 Intake Total 5705 1867 3462 Output Total 3868 8768 Balance -143 -2061 3462 - Physical Exam Oriented: Normal, Time, Person, Place Eyes: Normal. negative: Blurred Vision, Diplopia, Discharge, Pain, Redness, Photophobia Ear: Normal. negative: Swelling, Ecchymosis, Hemotypanum, Abrasion, Laceration Nose: Normal. negative: Discharge, Blood Throat: Normal. negative: Tonsillar Hypertrophy, Exudate Respiratory: Normal Cardiovascular: Tachycardia. negative: Murmur : Normal. negative: Dysuria, Hematuria, Testicular Pain Auscultation: Bowel Sounds: Normal. negative: Bruit Palpation: Normal. negative: Spleen Enlarged, Liver Enlarged, Mass Pulsatile Tenderness: Diffuse, Mild. negative: Rebound, Guarding, Rigidity Skin: Normal, Bruising. negative: Wound, Ecchymosis Musculoskeletal: Normal Mood Description: Calm Affect: Normal Speech Pattern: Inappropriate - Laboratory and Diagnostics Result Diagrams: 11/27/16 04:50 11/27/16 04:50 Labs: Laboratory WBC 4.3 X10^3/uL (3.6-10.0) 11/27/16 04:50 RBC 3.05 X10^6/uL (4.7-6.0) L 11/27/16 04:50 Hgb 9.4 g/dL (13.5-18.0) L 11/27/16 04:50 Hct 27.0 % (42.0-54.0) L 11/27/16 04:50 MCV 88.6 fL (80.0-100.0) 11/27/16 04:50 MCH 30.8 pg (27.0-34.0) 11/27/16 04:50 MCHC 34.8 g/dL (33.0-35.0) 11/27/16 04:50 RDW 18.0 % (11.6-16.5) H 11/27/16 04:50 Plt Count 50 X10^3/uL (150.0-450.0) L 11/27/16 04:50 Plt Count Comment Decreased (ADEQUATE) 11/27/16 04:50 MPV 9.5 fL (7.4-11.0) 11/27/16 04:50 Neut % 75.1 % (42.0-75.0) H 11/27/16 04:50 Lymph % 11.9 % (21.0-51.0) L 11/27/16 04:50 [place] % 10.0 % (0.0-13.0) 11/27/16 04:50 Eos % 2.6 % (0.9-2.9) 11/27/16 04:50 Baso % 0.4 % (0.2-1.0) 11/27/16 04:50 Neut # 3.2 x10^3/uL (2.2-4.8) 11/27/16 04:50 Lymph # 0.5 X10^3/uL (1.3-2.9) L 11/27/16 04:50 [place] # 0.4 x10^3/uL (0.3-0.8) 11/27/16 04:50 Eos # 0.1 x10^3/uL (0.0-0.2) 11/27/16 04:50 Baso # 0.0 X10^3/uL (0.0-0.1) 11/27/16 04:50 Absolute Nucleated RBC 0.1 /100WBC 11/27/16 04:50 Plt Morphology Comment Normal (NORMAL) 11/27/16 04:50 RBC Morphology Normal (NORMAL) 11/27/16 04:50 Dimorphic RBCs Present 11/25/16 04:05 Hypochromasia Slight A 11/24/16 08:28 Anisocytosis 1+ A 11/24/16 08:28 INR Target Range - 11/27/16 04:50 INR 1.15 (0.8-1.3) 11/27/16 04:50 Sodium 147 mmol/L (136-145) H 11/27/16 04:50 Corrected Sodium TNP 11/27/16 04:50 Potassium 2.5 mmol/L (3.5-5.1) L* 11/27/16 04:50 Chloride 110 mmol/L (98-107) H 11/27/16 04:50 Carbon Dioxide 24.5 mmol/L (21-32) 11/27/16 04:50 BUN 17 mg/dL (7-18) 11/27/16 04:50 Creatinine 0.92 mg/dL (0.70-1.30) 11/27/16 04:50 Est GFR (MDRD) Af Amer > 60 (>60) 11/27/16 04:50 Est GFR (MDRD) Non-Af > 60 (>60) 11/27/16 04:50 Glucose 70 mg/dL (65-99) 11/27/16 04:50 Calcium 8.1 mg/dL (8.5-10.1) L 11/27/16 04:50 Corrected Calcium 9.4 mg/dL (8.5-10.1) 11/27/16 04:50 Magnesium 1.3 mg/dL (1.7-2.9) L 11/27/16 04:50 Total Bilirubin 1.50 mg/dL (0.2-1.0) H 11/27/16 04:50 AST 34 Units/L (15-37) 11/27/16 04:50 ALT 17 Units/L (12-78) 11/27/16 04:50 Alkaline Phosphatase 86 Units/L (46-116) 11/27/16 04:50 Ammonia 22 umol/L (11-32) 11/27/16 07:45 Creatine Kinase 120 Units/L (39-308) 11/24/16 18:33 CK-MB (CK-2) 1.0 ng/mL (0-4.0) 11/24/16 18:33 CK/CKMB % Calc 0.8 % (<4) 11/24/16 18:33 Troponin I 0.06 ng/mL (0-1.5) 11/24/16 18:33 Total Protein 5.7 g/dL (6.4-8.2) L 11/27/16 04:50 Albumin 2.4 g/dL (3.4-5.0) L 11/27/16 04:50 Globulin 3.3 g/dL (2.5-4.5) 11/27/16 04:50 Albumin/Globulin Ratio 0.7 Ratio (1.1-2.1) L 11/27/16 04:50 Specimen Type Clean catch urine 11/24/16: Urine Color [place]na (YELLOW) 11/24/16 15: Urine Appearance Slightly hazy (CLEAR) 11/24/16 15: Urine pH 5.0 (5.0 - 8.0) 11/24/16 15: Ur Specific [place] 1.020 (1.000-1.030) 11/24/16 15: Urine Protein 2+ (NEGATIVE) 11/24/16: Urine Glucose (UA) Negative (NEGATIVE) 11/24/16 15: Urine Ketones 2+ (NEGATIVE) 11/24/16: Urine Occult Blood 1+ (NEGATIVE) 11/24/16 15:19 Urine Nitrite Negative (NEGATIVE) 11/24/16 15:19 Urine Bilirubin Negative (NEGATIVE) 11/24/16 15:19 Urine Urobilinogen Normal (NORMAL) 11/24/16 15:19 Ur Leukocyte Esterase Negative (NEGATIVE) 11/24/16 15:19 Urine RBC 1 - 3 /HPF (NEGATIVE) 11/24/16 15:19 Urine WBC Rare /HPF (NEGATIVE) 11/24/16 15:19 Ur Squamous Epith Cells Few /HPF (NEGATIVE) 11/24/16 15:19 Urine Bacteria Trace /HPF (NEGATIVE) 11/24/16 15:19 Hyaline Casts Few /LPF (NEGATIVE) 11/24/16 15:19 Coarse Granular Casts Moderate /HPF (NEGATIVE) 11/24/16 15:19 Urine Mucus Few /HPF (NEGATIVE) 11/24/16 15:19 Ur Culture Indicated? No/not indicated 11/24/16 15:19 Stool Description Fob tube 11/24/16 07:53 Stl Occult Blood (IFOB) Positive (NEGATIVE) A 11/24/16 07:53 Blood Type A NEGATIVE 11/24/16 10:01 Antibody Screen Negative 11/24/16 10:01 Crossmatch See Detail 11/24/16 10:01 - Plan (1) GI bleed Status: Acute Qualifiers: GI bleed type/associated pathology: gastrointestinal hemorrhage with hematemesis Gastritis type: G Qualified Code(s): K92.0 - Hematemesis Plan: EGD TODAY, CONTINUE ON IVF, PEPCID, PROTONIX, MONITOR LABS IN AM. (2) Anemia due to GI blood loss Status: Acute Plan: CONTINUE TO MONITOR H/H, TRANSFUSE NEEDED. (3) Hypokalemia Status: Acute Plan: CONTINUE POTASSIUM PROTOCOL, MONITOR LABS. (4) Hypomagnesemia Status: Acute Plan: ADMINISTER TWO MAG-RIDERS, MONITOR LABS. (5) Hypoalbuminemia Status: Acute Plan: CONTINUE ALBUMIN IV DAILY, MONITOR LABS. 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 (7) Hypertension Status: Chronic Qualifiers: Hypertension type: essential hypertension Qualified Code(s): I10 - Essential (primary) hypertension Plan: CONTINUE TO MONITOR (8) Gastroesophageal reflux disease Status: Chronic Plan: CONTINUE TO MONITOR (9) History of DVT (deep vein thrombosis) Status: Chronic Plan: CONTINUE TO MONITOR (10) Hyperlipidemia Status: Chronic Qualifiers: Hyperlipidemia type: mixed hyperlipidemia Qualified Code(s): E78.2 - Mixed hyperlipidemia Plan: CONTINUE TO MONITOR (11) Hypothyroidism Status: Chronic Qualifiers: Hypothyroidism type: acquired Qualified Code(s): E03.9 - Hypothyroidism, unspecified Plan: CONTINUE TO MONITOR
[2016-11-27] MEDS: LASIX PO SCH (14:41)
[2016-11-27] MEDS: LIPITOR TAB 40 MG PO SCH (20:46)
[2016-11-27] MEDS ORDERED: LIPITOR TAB 40 MG PO SCH (21:00)
[2016-11-27] MEDS ORDERED: PATIENT'S HOME MEDICATION (Atorvastatin Calcium [Lipitor] 80 MG) PO SCH (21:00)
[2016-11-27] MEDS: K-LYTE EFFERVESCENT PO PRN (22:06)
[2016-11-28] MEDS: PROTONIX INJ 40 MG VIAL 80 MG in NS 100 ML IV 80 ML IV SCH ×3 (03:48→20:00)
[2016-11-28] MEDS: NS 1/2 1000 ML IV 1,000 ML IV SCH ×3 (05:05→21:00)
[2016-11-28] MEDS ORDERED: NS 1/2 1000 ML IV 1,000 ML IV ONE ×2 (05:11→13:20)
[2016-11-28 05:51] LABS: BASOPHILS % (AUTO) 0.4 % (0.2-1.0); EOSINOPHILS # (AUTO) 0.1 x10^3/uL (0.0-0.2); EOSINOPHILS % (AUTO) 3.7 % (0.9-2.9); HEMATOCRIT 30.2 % (42.0-54.0); HEMOGLOBIN 10.1 g/dL (13.5-18.0); LYMPHOCYTES # (AUTO) 0.6 X10^3/uL (1.3-2.9); LYMPHOCYTES % (AUTO) 14.4 % (21.0-51.0); MEAN CORPUSCULAR HEMOGLOBIN 30.3 pg (27.0-34.0); MEAN CORPUSCULAR HGB CONC 33.5 g/dL (33.0-35.0); MEAN CORPUSCULAR VOLUME 90.4 fL (80.0-100.0); MEAN PLATELET VOLUME 9.2 fL (7.4-11.0); MONOCYTES # (AUTO) 0.5 x10^3/uL (0.3-0.8); MONOCYTES % (AUTO) 13.2 % (0.0-13.0); NEUTROPHILS # (AUTO) 2.8 x10^3/uL (2.2-4.8); NEUTROPHILS % (AUTO) 68.3 % (42.0-75.0); PLATELET COUNT 67 X10^3/uL (150.0-450.0); RED BLOOD COUNT 3.34 X10^6/uL (4.7-6.0); RED CELL DISTRIBUTION WIDTH 18.2 % (11.6-16.5)
[2016-11-28 05:56] LABS: ALANINE AMINOTRANSFERASE 16 Units/L (12-78); ALBUMIN 2.5 g/dL (3.4-5.0); ALKALINE PHOSPHATASE 85 Units/L (46-116); ASPARTATE AMINO TRANSFERASE 29 Units/L (15-37); BLOOD UREA NITROGEN 14 mg/dL (7-18); CALCIUM 8.3 mg/dL (8.5-10.1); CARBON DIOXIDE 29.9 mmol/L (21-32); CHLORIDE 110 mmol/L (98-107); COR CA(FOR HYPOALB) 9.5 mg/dL (8.5-10.1); CREATININE 0.99 mg/dL (0.70-1.30); GLUCOSE 95 mg/dL (65-99); SODIUM 146 mmol/L (136-145); TOTAL PROTEIN 5.9 g/dL (6.4-8.2); eGFR BLACK RACES > 60 (>60); eGFR NON BLACK RACES > 60 (>60)
[2016-11-28] MEDS: VALIUM PO SCH ×3 (06:25→22:00)
[2016-11-28] MEDS: K-DUR TAB 20 MEQ PO PRN (06:26)
[2016-11-28 07:25] LABS: PSA TOTAL 0.4 ng/mL (0.0-4.0)
[2016-11-28] MEDS: ALDACTONE TAB 25 MG PO SCH (08:05)
[2016-11-28] MEDS: ALBUMIN HUMAN 25%- 100ML 100 ML IV SCH (10:46)
[2016-11-28] MEDS: LOPRESSOR TAB 25 MG PO SCH ×2 (10:46→21:27)
[2016-11-28] MEDS: PEPCID 20 MG IV PREMIX* 20 MG/50 ML BAG IV SCH ×2 (10:46→21:27)
[2016-11-28] MEDS: NICODERM PATCH 21 MG/24 HR TD SCH (10:47)
[2016-11-28] MEDS: NEURONTIN CAP 300 MG PO SCH (10:48)
[2016-11-28] MEDS: LASIX PO SCH (10:48)
--- NOTE | 2016-11-28 16:16 | PCM.PROG ---
Progress Note - Progress Note for Day of Date: 11/28/16 - Subjective Subjective: PATIENT CONTINUES WITH INTERMITTENT CONFUSION. PATIENT IS AWAKE AND EATING BREAKFAST. AND SON AT BEDSIDE. EGD WAS PERFORMED PER DR. 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 PATIENT HAS HAD NO FURTHER VOMITING AND IS TOLERATING SOFT DIET FAIR. ABDOMEN CONTINUES WITH DISTENTION AND DIFFUSE TENDERNESS UPON PALPATION. CBC WNL EXCEPT: H/H 10.1/30.2, PLT COUNT 67. CMP WNL EXCEPT: SODIUM 146, POTASSIUM 3.1, TOT BILIRUBIN 1.50, TOT PROTEIN 5.9, ALBUMIN 2.5. MAGNESIUM 1.6. PSA 0.4. CEA 4.3. CA19-9 39. WE WILL CONTINUE POTASSIUM PROTOCOL, SUPPLEMENT MAGNESIUM, CONTINUE PEPCID, PROTONIX, ALBUMIN. WE WILL CONTINUE TO MONITOR AND FOLLOW UP IN AM WITH LABS. - Past Medical Family Social History Past Med/Fam/Surg Hx: No changes since H&P Allergies: Allergies No Known Drug Allergy Allergy (Verified 11/24/16 07:17) - Review of Systems ROS: No change since H&P - Vital Signs and I&O's Vital Signs: Temperature 97.3 F Pulse Rate [Apical] 83 Pulse Rate [Right Brachial] 137 Pulse Rate [Left Brachial] 72 Pulse Rate 84 Respiratory Rate 18 Blood Pressure [Right Calf] 126/74 Blood Pressure [Right Arm] 120/85 Blood Pressure [Left Arm] 129/86 Blood Pressure 135/76 O2 Sat by Pulse Oximetry 95 Intake and Output: Intake & Output 11/26/16 11/27/16 11/28/16 11/29/16 11:59 11:59 11:59 11:59 Intake Total 3567 3462 3883 0 Output Total 7050 Balance -3483 3462 3883 0 - Physical Exam Oriented: Normal, Time, Person, Place Eyes: Normal. negative: Blurred Vision, Diplopia, Discharge, Pain, Redness, Photophobia Ear: Normal. negative: Swelling, Ecchymosis, Hemotypanum, Abrasion, Laceration Nose: Normal. negative: Discharge, Blood Throat: Normal. negative: Tonsillar Hypertrophy, Exudate Respiratory: Normal Cardiovascular: Tachycardia. negative: Murmur : Normal. negative: Dysuria, Hematuria, Testicular Pain Auscultation: Bowel Sounds: Normal. negative: Bruit Palpation: Normal. negative: Spleen Enlarged, Liver Enlarged, Mass Pulsatile Tenderness: Diffuse, Mild, Other (Distention). negative: Rebound, Guarding, Rigidity Skin: Normal, Bruising (scattered). negative: Wound, Ecchymosis Musculoskeletal: Normal Psychiatric: Normal Mood Description: Calm Affect: Normal Speech Pattern: Clear, Appropriate - Laboratory and Diagnostics Result Diagrams: 11/28/16 03:40 11/28/16 09:30 Labs: Laboratory WBC 4.0 X10^3/uL (3.6-10.0) 11/28/16 03:40 RBC 3.34 X10^6/uL (4.7-6.0) L 11/28/16 03:40 Hgb 10.1 g/dL (13.5-18.0) L 11/28/16 03:40 Hct 30.2 % (42.0-54.0) L 11/28/16 03:40 MCV 90.4 fL (80.0-100.0) 11/28/16 03:40 MCH 30.3 pg (27.0-34.0) 11/28/16 03:40 MCHC 33.5 g/dL (33.0-35.0) 11/28/16 03:40 RDW 18.2 % (11.6-16.5) H 11/28/16 03:40 Plt Count 67 X10^3/uL (150.0-450.0) L 11/28/16 03:40 Plt Count Comment Decreased (ADEQUATE) 11/27/16 04:50 MPV 9.2 fL (7.4-11.0) 11/28/16 03:40 Neut % 68.3 % (42.0-75.0) 11/28/16 03:40 Lymph % 14.4 % (21.0-51.0) L 11/28/16 03:40 [place] % 13.2 % (0.0-13.0) H 11/28/16 03:40 Eos % 3.7 % (0.9-2.9) H 11/28/16 03:40 Baso % 0.4 % (0.2-1.0) 11/28/16 03:40 Neut # 2.8 x10^3/uL (2.2-4.8) 11/28/16 03:40 Lymph # 0.6 X10^3/uL (1.3-2.9) L 11/28/16 03:40 [place] # 0.5 x10^3/uL (0.3-0.8) 11/28/16 03:40 Eos # 0.1 x10^3/uL (0.0-0.2) 11/28/16 03:40 Baso # 0.0 X10^3/uL (0.0-0.1) 11/28/16 03:40 Absolute Nucleated RBC 0.2 /100WBC 11/28/16 03:40 Plt Morphology Comment Normal (NORMAL) 11/27/16 04:50 RBC Morphology Normal (NORMAL) 11/27/16 04:50 Dimorphic RBCs Present 11/25/16 04:05 Hypochromasia Slight A 11/24/16 08:28 Anisocytosis 1+ A 11/24/16 08:28 INR Target Range - 11/28/16 03:40 INR 1.05 (0.8-1.3) 11/28/16 03:40 Sodium 146 mmol/L (136-145) H 11/28/16 03:40 Corrected Sodium TNP 11/28/16 03:40 Potassium 4.0 mmol/L (3.5-5.1) 11/28/16 09:30 Chloride 110 mmol/L (98-107) H 11/28/16 03:40 Carbon Dioxide 29.9 mmol/L (21-32) 11/28/16 03:40 BUN 14 mg/dL (7-18) 11/28/16 03:40 Creatinine 0.99 mg/dL (0.70-1.30) 11/28/16 03:40 Est GFR (MDRD) Af Amer > 60 (>60) 11/28/16 03:40 Est GFR (MDRD) Non-Af > 60 (>60) 11/28/16 03:40 Glucose 95 mg/dL (65-99) 11/28/16 03:40 Calcium 8.3 mg/dL (8.5-10.1) L 11/28/16 03:40 Corrected Calcium 9.5 mg/dL (8.5-10.1) 11/28/16 03:40 Magnesium 1.6 mg/dL (1.7-2.9) L 11/28/16 03:40 Total Bilirubin 1.50 mg/dL (0.2-1.0) H 11/28/16 03:40 AST 29 Units/L (15-37) 11/28/16 03:40 ALT 16 Units/L (12-78) 11/28/16 03:40 Alkaline Phosphatase 85 Units/L (46-116) 11/28/16 03:40 Ammonia 22 umol/L (11-32) 11/27/16 07:45 Creatine Kinase 120 Units/L (39-308) 11/24/16 18:33 CK-MB (CK-2) 1.0 ng/mL (0-4.0) 11/24/16 18:33 CK/CKMB % Calc 0.8 % (<4) 11/24/16 18:33 Troponin I 0.06 ng/mL (0-1.5) 11/24/16 18:33 Total Protein 5.9 g/dL (6.4-8.2) L 11/28/16 03:40 Albumin 2.5 g/dL (3.4-5.0) L 11/28/16 03:40 Globulin 3.4 g/dL (2.5-4.5) 11/28/16 03:40 Albumin/Globulin Ratio 0.7 Ratio (1.1-2.1) L 11/28/16 03:40 Carcinoembryonic Ag 4.3 ng/mL (0.0-3.0) H 11/26/16 04:05 CA 19-9 Antigen 39 U/mL (0-37) H 11/26/16 04:05 Free PSA 0.1 ng/mL 11/26/16 04:05 % Free PSA Calc 25 % 11/26/16 04:05 Total PSA 0.4 ng/mL (0.0-4.0) 11/26/16 04:05 Specimen Type Clean catch urine 11/24/16 15:19 Urine Color Brenna (YELLOW) 11/24/16 15:19 Urine Appearance Slightly hazy (CLEAR) 11/24/16 15: Urine pH 5.0 (5.0 - 8.0) 11/24/16 15:19 Ur Specific [place] 1.020 (1.000-1.030) 11/24/16 15: Urine Protein 2+ (NEGATIVE) 11/24/16 15: Urine Glucose (UA) Negative (NEGATIVE) 11/24/16 15:19 Urine Ketones 2+ (NEGATIVE) 11/24/16 15:19 Urine Occult Blood 1+ (NEGATIVE) 11/24/16 15: Urine Nitrite Negative (NEGATIVE) 11/24/16 15: Urine Bilirubin Negative (NEGATIVE) 11/24/16 15: Urine Urobilinogen Normal (NORMAL) 11/24/16 15:19 Ur Leukocyte Esterase Negative (NEGATIVE) 11/24/16 15: Urine RBC 1 - 3 /HPF (NEGATIVE) 11/24/16 15: Urine WBC Rare /HPF (NEGATIVE) 11/24/16 15:19 Ur Squamous Epith Cells Few /HPF (NEGATIVE) 11/24/16 15: Urine Bacteria Trace /HPF (NEGATIVE) 11/24/16 15: Hyaline Casts Few /LPF (NEGATIVE) 11/24/16 15: Coarse Granular Casts Moderate /HPF (NEGATIVE) 11/24/16 15: Urine Mucus Few /HPF (NEGATIVE) 11/24/16 15:19 Ur Culture Indicated? No/not indicated 11/24/16 15: Stool Description Fob tube 11/24/16 07:53 Stl Occult Blood (IFOB) Positive (NEGATIVE) A 11/24/16 07:53 Blood Type A NEGATIVE 11/24/16 10:01 Antibody Screen Negative 11/24/16 10:01 Crossmatch See Detail 11/24/16 10:01 - Plan (1) GI bleed Status: Acute Qualifiers: GI bleed type/associated pathology: gastrointestinal hemorrhage with hematemesis Gastritis type: G Qualified Code(s): K92.0 - Hematemesis Plan: CONTINUE ON IVF, PEPCID, PROTONIX, MONITOR LABS IN AM. (2) Anemia due to GI blood loss Status: Acute Plan: CONTINUE TO MONITOR H/H, TRANSFUSE NEEDED. (3) Hypokalemia Status: Acute Plan: CONTINUE POTASSIUM PROTOCOL, MONITOR LABS. (4) Hypomagnesemia Status: Acute Plan: ADMINISTER TWO MAG-RIDERS, MONITOR LABS. (5) Hypoalbuminemia Status: Acute Plan: CONTINUE ALBUMIN IV DAILY, MONITOR LABS. 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 (7) Hypertension Status: Chronic Qualifiers: Hypertension type: essential hypertension Qualified Code(s): I10 - Essential (primary) hypertension Plan: CONTINUE TO MONITOR (8) Gastroesophageal reflux disease Status: Chronic Plan: CONTINUE TO MONITOR (9) History of DVT (deep vein thrombosis) Status: Chronic Plan: CONTINUE TO MONITOR (10) Hyperlipidemia Status: Chronic Qualifiers: Hyperlipidemia type: mixed hyperlipidemia Qualified Code(s): E78.2 - Mixed hyperlipidemia Plan: CONTINUE TO MONITOR (11) Hypothyroidism Status: Chronic Qualifiers: Hypothyroidism type: acquired Qualified Code(s): E03.9 - Hypothyroidism, unspecified Plan: CONTINUE TO MONITOR
[2016-11-28] MEDS: MAGNESIUM SULFATE 1 GM/100 mL PREMIX 1 GM/100 ML BAG IV SCH ×2 (17:15→18:05)
[2016-11-28] MEDS: LIPITOR TAB 40 MG PO SCH (21:27)
[2016-11-29] MEDS: PROTONIX INJ 40 MG VIAL 80 MG in NS 100 ML IV 80 ML IV SCH (02:40)
[2016-11-29] MEDS: NS 1/2 1000 ML IV 1,000 ML IV SCH (05:00)
[2016-11-29] MEDS: VALIUM PO SCH ×3 (06:14→21:55)
[2016-11-29 06:20] LABS: ALANINE AMINOTRANSFERASE 17 Units/L (12-78); ALBUMIN 2.8 g/dL (3.4-5.0); ALKALINE PHOSPHATASE 87 Units/L (46-116); ASPARTATE AMINO TRANSFERASE 23 Units/L (15-37); BLOOD UREA NITROGEN 11 mg/dL (7-18); CALCIUM 8.4 mg/dL (8.5-10.1); CARBON DIOXIDE 29.5 mmol/L (21-32); CHLORIDE 109 mmol/L (98-107); COR CA(FOR HYPOALB) 9.4 mg/dL (8.5-10.1); CREATININE 1.02 mg/dL (0.70-1.30); GLUCOSE 99 mg/dL (65-99); MAGNESIUM 1.8 mg/dL (1.7-2.9); SODIUM 144 mmol/L (136-145); TOTAL PROTEIN 6.5 g/dL (6.4-8.2); eGFR BLACK RACES > 60 (>60); eGFR NON BLACK RACES > 60 (>60)
[2016-11-29 06:30] LABS: BASOPHILS % (AUTO) 0.4 % (0.2-1.0); EOSINOPHILS # (AUTO) 0.1 x10^3/uL (0.0-0.2); EOSINOPHILS % (AUTO) 2.7 % (0.9-2.9); HEMATOCRIT 33.7 % (42.0-54.0); HEMOGLOBIN 11.2 g/dL (13.5-18.0); LYMPHOCYTES # (AUTO) 0.6 X10^3/uL (1.3-2.9); MEAN CORPUSCULAR HGB CONC 33.3 g/dL (33.0-35.0); MEAN CORPUSCULAR VOLUME 89.9 fL (80.0-100.0); MEAN PLATELET VOLUME 9.2 fL (7.4-11.0); MONOCYTES # (AUTO) 0.7 x10^3/uL (0.3-0.8); NEUTROPHILS # (AUTO) 3.2 x10^3/uL (2.2-4.8); NEUTROPHILS % (AUTO) 68.9 % (42.0-75.0); PLATELET COUNT 91 X10^3/uL (150.0-450.0); RED BLOOD COUNT 3.75 X10^6/uL (4.7-6.0); RED CELL DISTRIBUTION WIDTH 18.6 % (11.6-16.5); WHITE BLOOD COUNT 4.7 X10^3/uL (3.6-10.0)
[2016-11-29] MEDS: PEPCID 20 MG IV PREMIX* 20 MG/50 ML BAG IV SCH ×2 (08:36→20:20)
[2016-11-29] MEDS: NICODERM PATCH 21 MG/24 HR TD SCH (08:37)
[2016-11-29] MEDS: ALBUMIN HUMAN 25%- 100ML 100 ML IV SCH (08:37)
[2016-11-29] MEDS: NEURONTIN CAP 300 MG PO SCH (08:40)
[2016-11-29] MEDS: ALDACTONE TAB 25 MG PO SCH (08:40)
[2016-11-29] MEDS: LOPRESSOR TAB 25 MG PO SCH ×2 (08:40→20:21)
[2016-11-29] MEDS: LASIX PO SCH (08:41)
[2016-11-29] MEDS: MORPHINE SULFATE INJ 2 MG IVP PRN (12:07)
[2016-11-29] MEDS: ULTRAM PO PRN (14:19)
[2016-11-29] MEDS: K-DUR TAB 20 MEQ PO PRN (14:20)
[2016-11-29] MEDS: PROTONIX INJ 40 MG VIAL IVP SCH (20:20)
[2016-11-29] MEDS: LIPITOR TAB 40 MG PO SCH (20:21)
[2016-11-30] MEDS ORDERED: NS 1/2 1000 ML IV 1,000 ML IV ONE (05:07)
[2016-11-30] MEDS: NS 1/2 1000 ML IV 1,000 ML IV SCH ×3 (05:26→17:37)
[2016-11-30] MEDS: VALIUM PO SCH ×3 (05:27→21:55)
[2016-11-30 06:56] LABS: BASOPHILS % (AUTO) 0.6 % (0.2-1.0); EOSINOPHILS # (AUTO) 0.1 x10^3/uL (0.0-0.2); EOSINOPHILS % (AUTO) 1.8 % (0.9-2.9); HEMATOCRIT 33.1 % (42.0-54.0); HEMOGLOBIN 10.9 g/dL (13.5-18.0); LYMPHOCYTES # (AUTO) 0.5 X10^3/uL (1.3-2.9); LYMPHOCYTES % (AUTO) 11.3 % (21.0-51.0); MEAN CORPUSCULAR HEMOGLOBIN 29.8 pg (27.0-34.0); MEAN CORPUSCULAR HGB CONC 33.1 g/dL (33.0-35.0); MEAN CORPUSCULAR VOLUME 89.9 fL (80.0-100.0); MEAN PLATELET VOLUME 9.2 fL (7.4-11.0); MONOCYTES # (AUTO) 0.9 x10^3/uL (0.3-0.8); MONOCYTES % (AUTO) 18.8 % (0.0-13.0); NEUTROPHILS # (AUTO) 3.1 x10^3/uL (2.2-4.8); NEUTROPHILS % (AUTO) 67.5 % (42.0-75.0); PLATELET COUNT 105 X10^3/uL (150.0-450.0); RED BLOOD COUNT 3.68 X10^6/uL (4.7-6.0); RED CELL DISTRIBUTION WIDTH 18.5 % (11.6-16.5); WHITE BLOOD COUNT 4.6 X10^3/uL (3.6-10.0)
[2016-11-30 07:12] LABS: ALANINE AMINOTRANSFERASE 15 Units/L (12-78); ALBUMIN 2.8 g/dL (3.4-5.0); ALKALINE PHOSPHATASE 79 Units/L (46-116); ASPARTATE AMINO TRANSFERASE 19 Units/L (15-37); BLOOD UREA NITROGEN 11 mg/dL (7-18); CALCIUM 8.5 mg/dL (8.5-10.1); CARBON DIOXIDE 28.2 mmol/L (21-32); CHLORIDE 109 mmol/L (98-107); COR CA(FOR HYPOALB) 9.5 mg/dL (8.5-10.1); CREATININE 1.02 mg/dL (0.70-1.30); GLUCOSE 89 mg/dL (65-99); SODIUM 146 mmol/L (136-145); TOTAL PROTEIN 6.2 g/dL (6.4-8.2); eGFR BLACK RACES > 60 (>60); eGFR NON BLACK RACES > 60 (>60)
[2016-11-30] MEDS: PEPCID 20 MG IV PREMIX* 20 MG/50 ML BAG IV SCH ×2 (09:36→20:12)
[2016-11-30] MEDS: LASIX PO SCH (09:37)
[2016-11-30] MEDS: NICODERM PATCH 21 MG/24 HR TD SCH (09:37)
[2016-11-30] MEDS: ALDACTONE TAB 25 MG PO SCH (09:39)
[2016-11-30] MEDS: LOPRESSOR TAB 25 MG PO SCH ×2 (09:39→20:11)
[2016-11-30] MEDS: PROTONIX INJ 40 MG VIAL IVP SCH ×2 (09:40→20:11)
[2016-11-30] MEDS: NEURONTIN CAP 300 MG PO SCH (09:41)
[2016-11-30] MEDS: MORPHINE SULFATE INJ 2 MG IVP PRN (09:56)
[2016-11-30] MEDS: ALBUMIN HUMAN 25%- 100ML 100 ML IV SCH (09:57)
[2016-11-30] MEDS: K-LYTE EFFERVESCENT PO PRN (12:33)
[2016-11-30] MEDS: K-DUR TAB 20 MEQ PO PRN (16:12)
[2016-11-30] MEDS: LIPITOR TAB 40 MG PO SCH (20:11)
[2016-12-01] MEDS: NS 1/2 1000 ML IV 1,000 ML IV SCH (04:20)
[2016-12-01 04:55] LABS: BASOPHILS % (AUTO) 0.7 % (0.2-1.0); EOSINOPHILS # (AUTO) 0.2 x10^3/uL (0.0-0.2); EOSINOPHILS % (AUTO) 3.3 % (0.9-2.9); HEMATOCRIT 30.4 % (42.0-54.0); HEMOGLOBIN 10.2 g/dL (13.5-18.0); LYMPHOCYTES # (AUTO) 0.6 X10^3/uL (1.3-2.9); LYMPHOCYTES % (AUTO) 12.4 % (21.0-51.0); MEAN CORPUSCULAR HEMOGLOBIN 30.7 pg (27.0-34.0); MEAN CORPUSCULAR HGB CONC 33.6 g/dL (33.0-35.0); MEAN CORPUSCULAR VOLUME 91.2 fL (80.0-100.0); MONOCYTES # (AUTO) 1.2 x10^3/uL (0.3-0.8); MONOCYTES % (AUTO) 24.9 % (0.0-13.0); NEUTROPHILS # (AUTO) 2.7 x10^3/uL (2.2-4.8); NEUTROPHILS % (AUTO) 58.7 % (42.0-75.0); PLATELET COUNT 123 X10^3/uL (150.0-450.0); RED BLOOD COUNT 3.33 X10^6/uL (4.7-6.0); RED CELL DISTRIBUTION WIDTH 18.9 % (11.6-16.5); WHITE BLOOD COUNT 4.7 X10^3/uL (3.6-10.0)
[2016-12-01 05:12] LABS: ALANINE AMINOTRANSFERASE 12 Units/L (12-78); ALBUMIN 2.8 g/dL (3.4-5.0); ALKALINE PHOSPHATASE 75 Units/L (46-116); ASPARTATE AMINO TRANSFERASE 21 Units/L (15-37); BLOOD UREA NITROGEN 12 mg/dL (7-18); CALCIUM 8.6 mg/dL (8.5-10.1); CARBON DIOXIDE 29.4 mmol/L (21-32); CHLORIDE 109 mmol/L (98-107); COR CA(FOR HYPOALB) 9.6 mg/dL (8.5-10.1); CREATININE 0.95 mg/dL (0.70-1.30); GLUCOSE 83 mg/dL (65-99); SODIUM 145 mmol/L (136-145); TOTAL PROTEIN 6.1 g/dL (6.4-8.2); eGFR BLACK RACES > 60 (>60); eGFR NON BLACK RACES > 60 (>60)
[2016-12-01 05:20] LABS: PLATELET MORPHOLOGY COMMENT NORMAL (NORMAL)
[2016-12-01] MEDS: VALIUM PO SCH ×3 (06:20→21:45)
[2016-12-01] MEDS: PEPCID 20 MG IV PREMIX* 20 MG/50 ML BAG IV SCH ×2 (08:31→20:29)
[2016-12-01] MEDS: ALBUMIN HUMAN 25%- 100ML 100 ML IV SCH (08:31)
[2016-12-01] MEDS: LOPRESSOR TAB 25 MG PO SCH ×2 (08:31→20:30)
[2016-12-01] MEDS: ALDACTONE TAB 25 MG PO SCH (08:32)
[2016-12-01] MEDS: LASIX PO SCH (08:32)
[2016-12-01] MEDS: PROTONIX INJ 40 MG VIAL IVP SCH ×2 (08:33→20:30)
[2016-12-01] MEDS: NEURONTIN CAP 300 MG PO SCH (08:33)
[2016-12-01] MEDS: NICODERM PATCH 21 MG/24 HR TD SCH (08:34)
[2016-12-01] MEDS: MORPHINE SULFATE INJ 2 MG IVP PRN ×2 (10:16→19:15)
--- NOTE | 2016-12-01 12:03 | PCM.PROG ---
Progress Note - Progress Note for Day of Date: 12/01/16 - Subjective Subjective: PATIENT IS MORE ALERT THIS MORNING. PATIENT'S APPETITE IS GOOD. AT BEDSIDE. ABDOMEN CONTINUES WITH DISTENTION. SINCE PATIENT HAS HAD NO FURTHER BLOODY BOWEL MOVEMENTS AND VOMITING, WE WILL CONSULT GI FOR POSSIBLE PARACENTESIS. HEMOGLOBIN REMAINS STABLE AT 10.2 TODAY. REPORTS PATIENT HAD A PRIOR PARACENTESIS IN [place], [place]. CBC WNL EXCEPT: H/H 10.2/30.4, PLT COUNT 123. CMP WNL EXCEPT: CHL 109, TOT PROTEIN 6.1, ALBUMIN 2.8. WE WILL CONSULT GI, CONTINUE PEPCID, PROTONIX, ALBUMIN. WE WILL CONTINUE TO MONITOR AND FOLLOW UP IN AM WITH LABS. - Past Medical Family Social History Past Med/Fam/Surg Hx: No changes since H&P Allergies: Allergies No Known Drug Allergy Allergy (Verified 11/24/16 07:17) - Review of Systems ROS: No change since H&P - Vital Signs and I&O's Vital Signs: Temperature 97.9 F Pulse Rate [Apical] 83 Pulse Rate [Right Brachial] 137 Pulse Rate [Left Brachial] 84 Pulse Rate 84 Respiratory Rate 18 Blood Pressure [Right Calf] 126/74 Blood Pressure [Right Arm] 120/85 Blood Pressure [Left Arm] 114/76 Blood Pressure 135/76 O2 Sat by Pulse Oximetry 99 Intake and Output: Intake & Output 11/28/16 11/29/16 11/30/16 12/01/16 11:59 11:59 11:59 11:59 Intake Total 3883 1312 1495 1309 Output Total 400 200 Balance 3883 912 1295 1309 - Physical Exam Oriented: Normal, Time, Person, Place Eyes: Normal. negative: Blurred Vision, Diplopia, Discharge, Pain, Redness, Photophobia Ear: Normal. negative: Swelling, Ecchymosis, Hemotypanum, Abrasion, Laceration Nose: Normal. negative: Discharge, Blood Throat: Normal. negative: Tonsillar Hypertrophy, Exudate Respiratory: Normal Cardiovascular: Normal. negative: Murmur, Edema : Normal. negative: Dysuria, Hematuria, Testicular Pain Auscultation: Bowel Sounds: Normal. negative: Bruit Palpation: Normal. negative: Spleen Enlarged, Liver Enlarged, Mass Pulsatile Tenderness: Diffuse, Mild, Other (Distention). negative: Rebound, Guarding, Rigidity Skin: Normal, Bruising (scattered). negative: Wound, Ecchymosis Musculoskeletal: Instability Psychiatric: Normal Mood Description: Calm Affect: Normal Speech Pattern: Clear, Appropriate - Laboratory and Diagnostics Result Diagrams: 12/01/16 03:20 12/01/16 03:20 Labs: Laboratory WBC 4.7 X10^3/uL (3.6-10.0) 12/01/16 03:20 RBC 3.33 X10^6/uL (4.7-6.0) L 12/01/16 03:20 Hgb 10.2 g/dL (13.5-18.0) L 12/01/16 03:20 Hct 30.4 % (42.0-54.0) L 12/01/16 03:20 MCV 91.2 fL (80.0-100.0) 12/01/16 03:20 MCH 30.7 pg (27.0-34.0) 12/01/16 03:20 MCHC 33.6 g/dL (33.0-35.0) 12/01/16 03:20 RDW 18.9 % (11.6-16.5) H 12/01/16 03:20 Plt Count 123 X10^3/uL (150.0-450.0) L 12/01/16 03:20 Plt Count Comment Adequate (ADEQUATE) 12/01/16 03:20 MPV 9.0 fL (7.4-11.0) 12/01/16 03:20 Neut % 58.7 % (42.0-75.0) 12/01/16 03:20 Lymph % 12.4 % (21.0-51.0) L 12/01/16 03:20 [place] % 24.9 % (0.0-13.0) H 12/01/16 03:20 Eos % 3.3 % (0.9-2.9) H 12/01/16 03:20 Baso % 0.7 % (0.2-1.0) 12/01/16 03:20 Neut # 2.7 x10^3/uL (2.2-4.8) 12/01/16 03:20 Lymph # 0.6 X10^3/uL (1.3-2.9) L 12/01/16 03:20 [place] # 1.2 x10^3/uL (0.3-0.8) H 12/01/16 03:20 Eos # 0.2 x10^3/uL (0.0-0.2) 12/01/16 03:20 Baso # 0.0 X10^3/uL (0.0-0.1) 12/01/16 03:20 Absolute Nucleated RBC 0.1 /100WBC 12/01/16 03:20 Total Counted 100 12/01/16 03:20 Neutrophils % (Manual) 51 % (39-76) 12/01/16 03:20 Lymphocytes % (Manual) 19 % (13-43) 12/01/16 03:20 Monocytes % (Manual) 24 % (4-9) H 12/01/16 03:20 Eosinophils % (Manual) 6 % (0-6) 12/01/16 03:20 Plt Morphology Comment Normal (NORMAL) 12/01/16 03:20 RBC Morphology Normal (NORMAL) 12/01/16 03:20 Dimorphic RBCs Present 11/25/16 04:05 Hypochromasia [place] 12/01/16 03:20 Anisocytosis 1+ A 11/24/16 08:28 INR Target Range - 12/01/16 03:20 INR 1.09 (0.8-1.3) 12/01/16 03:20 Sodium 145 mmol/L (136-145) 12/01/16 03:20 Corrected Sodium TNP 12/01/16 03:20 Potassium 3.7 mmol/L (3.5-5.1) 12/01/16 03:20 Chloride 109 mmol/L (98-107) H 12/01/16 03:20 Carbon Dioxide 29.4 mmol/L (21-32) 12/01/16 03:20 BUN 12 mg/dL (7-18) 12/01/16 03:20 Creatinine 0.95 mg/dL (0.70-1.30) 12/01/16 03:20 Est GFR (MDRD) Af Amer > 60 (>60) 12/01/16 03:20 Est GFR (MDRD) Non-Af > 60 (>60) 12/01/16 03:20 Glucose 83 mg/dL (65-99) 12/01/16 03:20 Calcium 8.6 mg/dL (8.5-10.1) 12/01/16 03:20 Corrected Calcium 9.6 mg/dL (8.5-10.1) 12/01/16 03:20 Magnesium 1.8 mg/dL (1.7-2.9) 11/29/16 05:01 Total Bilirubin 0.80 mg/dL (0.2-1.0) 12/01/16 03:20 AST 21 Units/L (15-37) 12/01/16 03:20 ALT 12 Units/L (12-78) 12/01/16 03:20 Alkaline Phosphatase 75 Units/L (46-116) 12/01/16 03:20 Ammonia 22 umol/L (11-32) 11/27/16 07:45 Creatine Kinase 120 Units/L (39-308) 11/24/16 18:33 CK-MB (CK-2) 1.0 ng/mL (0-4.0) 11/24/16 18:33 CK/CKMB % Calc 0.8 % (<4) 11/24/16 18:33 Troponin I 0.06 ng/mL (0-1.5) 11/24/16 18:33 Total Protein 6.1 g/dL (6.4-8.2) L 12/01/16 03:20 Albumin 2.8 g/dL (3.4-5.0) L 12/01/16 03:20 Globulin 3.3 g/dL (2.5-4.5) 12/01/16 03:20 Albumin/Globulin Ratio 0.8 Ratio (1.1-2.1) L 12/01/16 03:20 Carcinoembryonic Ag 4.3 ng/mL (0.0-3.0) H 11/26/16 04:05 CA 19-9 Antigen 39 U/mL (0-37) H 11/26/16 04:05 Free PSA 0.1 ng/mL 11/26/16 04:05 % Free PSA Calc 25 % 11/26/16 04:05 Total PSA 0.4 ng/mL (0.0-4.0) 11/26/16 04:05 Specimen Type Clean catch urine 11/24/16 15:19 Urine Color Brenna (YELLOW) 11/24/16 15:19 Urine Appearance Slightly hazy (CLEAR) 11/24/16 15: Urine pH 5.0 (5.0 - 8.0) 11/24/16 15: Ur Specific [place] 1.020 (1.000-1.030) 11/24/16 15: Urine Protein 2+ (NEGATIVE) 11/24/16 15: Urine Glucose (UA) Negative (NEGATIVE) 11/24/16 15: Urine Ketones 2+ (NEGATIVE) 11/24/16 15: Urine Occult Blood 1+ (NEGATIVE) 11/24/16 15: Urine Nitrite Negative (NEGATIVE) 11/24/16 15: Urine Bilirubin Negative (NEGATIVE) 11/24/16 15: Urine Urobilinogen Normal (NORMAL) 11/24/16 15: Ur Leukocyte Esterase Negative (NEGATIVE) 11/24/16 15: Urine RBC 1 - 3 /HPF (NEGATIVE) 11/24/16 15: Urine WBC Rare /HPF (NEGATIVE) 11/24/16 15: Ur Squamous Epith Cells Few /HPF (NEGATIVE) 11/24/16 15: Urine Bacteria Trace /HPF (NEGATIVE) 11/24/16 15: Hyaline Casts Few /LPF (NEGATIVE) 11/24/16 15: Coarse Granular Casts Moderate /HPF (NEGATIVE) 11/24/16 15: Urine Mucus Few /HPF (NEGATIVE) 11/24/16 15:19 Ur Culture Indicated? No/not indicated 11/24/16 15: Stool Description Fob tube 11/24/16 07:53 Stl Occult Blood (IFOB) Positive (NEGATIVE) A 11/24/16 07:53 Blood Type A NEGATIVE 11/24/16 10:01 Antibody Screen Negative 11/24/16 10:01 Crossmatch See Detail 11/24/16 10:01 - Plan (1) Ascites Status: Acute Plan: CONSULT GI FOR POSSIBLE PARACENTESIS, CONTINUE TO MONITOR. (2) GI bleed Status: Acute Qualifiers: GI bleed type/associated pathology: gastrointestinal hemorrhage with hematemesis Gastritis type: G Qualified Code(s): K92.0 - Hematemesis Plan: CONTINUE IVF, PEPCID, PROTONIX, MONITOR LABS IN AM. (3) Anemia due to GI blood loss Status: Acute Plan: CONTINUE TO MONITOR. (4) Hypokalemia Status: Acute Plan: CONTINUE POTASSIUM PROTOCOL, MONITOR LABS. (5) Hypomagnesemia Status: Acute Plan: MONITOR LABS. (6) Hypoalbuminemia Status: Acute Plan: CONTINUE ALBUMIN IV DAILY, MONITOR LABS. 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 (8) Hypertension Status: Chronic Qualifiers: Hypertension type: essential hypertension Qualified Code(s): I10 - Essential (primary) hypertension Plan: CONTINUE TO MONITOR (9) Gastroesophageal reflux disease Status: Chronic Plan: CONTINUE TO MONITOR (10) History of DVT (deep vein thrombosis) Status: Chronic Plan: CONTINUE TO MONITOR (11) Hyperlipidemia Status: Chronic Qualifiers: Hyperlipidemia type: mixed hyperlipidemia Qualified Code(s): E78.2 - Mixed hyperlipidemia Plan: CONTINUE TO MONITOR (12) Hypothyroidism Status: Chronic Qualifiers: Hypothyroidism type: acquired Qualified Code(s): E03.9 - Hypothyroidism, unspecified Plan: CONTINUE TO MONITOR
[2016-12-01] MEDS: LIPITOR TAB 40 MG PO SCH (20:30)
[2016-12-02 05:21] LABS: BASOPHILS % (AUTO) 0.8 % (0.2-1.0); EOSINOPHILS # (AUTO) 0.1 x10^3/uL (0.0-0.2); EOSINOPHILS % (AUTO) 2.3 % (0.9-2.9); HEMATOCRIT 28.5 % (42.0-54.0); HEMOGLOBIN 9.6 g/dL (13.5-18.0); LYMPHOCYTES # (AUTO) 0.6 X10^3/uL (1.3-2.9); LYMPHOCYTES % (AUTO) 12.4 % (21.0-51.0); MEAN CORPUSCULAR HGB CONC 33.8 g/dL (33.0-35.0); MEAN CORPUSCULAR VOLUME 91.5 fL (80.0-100.0); MEAN PLATELET VOLUME 8.7 fL (7.4-11.0); MONOCYTES # (AUTO) 1.1 x10^3/uL (0.3-0.8); MONOCYTES % (AUTO) 25.3 % (0.0-13.0); NEUTROPHILS # (AUTO) 2.7 x10^3/uL (2.2-4.8); NEUTROPHILS % (AUTO) 59.2 % (42.0-75.0); PLATELET COUNT 150 X10^3/uL (150.0-450.0); RED BLOOD COUNT 3.11 X10^6/uL (4.7-6.0); RED CELL DISTRIBUTION WIDTH 18.6 % (11.6-16.5); WHITE BLOOD COUNT 4.5 X10^3/uL (3.6-10.0)
[2016-12-02 05:27] LABS: ALANINE AMINOTRANSFERASE 15 Units/L (12-78); ALKALINE PHOSPHATASE 75 Units/L (46-116); ASPARTATE AMINO TRANSFERASE 21 Units/L (15-37); BLOOD UREA NITROGEN 13 mg/dL (7-18); CALCIUM 8.8 mg/dL (8.5-10.1); CARBON DIOXIDE 30.4 mmol/L (21-32); CHLORIDE 108 mmol/L (98-107); COR CA(FOR HYPOALB) 9.6 mg/dL (8.5-10.1); CREATININE 0.97 mg/dL (0.70-1.30); GLUCOSE 83 mg/dL (65-99); SODIUM 145 mmol/L (136-145); TOTAL PROTEIN 6.3 g/dL (6.4-8.2); eGFR BLACK RACES > 60 (>60); eGFR NON BLACK RACES > 60 (>60)
[2016-12-02] MEDS: NS 1/2 1000 ML IV 1,000 ML IV SCH (06:03)
[2016-12-02] MEDS: VALIUM PO SCH ×3 (06:05→21:05)
[2016-12-02 06:18] LABS: PLATELET MORPHOLOGY COMMENT NORMAL (NORMAL)
[2016-12-02] MEDS: NICODERM PATCH 21 MG/24 HR TD SCH (10:48)
[2016-12-02] MEDS: NEURONTIN CAP 300 MG PO SCH (10:49)
[2016-12-02] MEDS: LOPRESSOR TAB 25 MG PO SCH ×2 (10:49→21:04)
[2016-12-02] MEDS: PROTONIX INJ 40 MG VIAL IVP SCH ×2 (10:49→21:04)
[2016-12-02] MEDS: ALBUMIN HUMAN 25%- 100ML 100 ML IV SCH (10:50)
[2016-12-02] MEDS: LASIX PO SCH (10:50)
[2016-12-02] MEDS: ALDACTONE TAB 25 MG PO SCH (10:50)
[2016-12-02] MEDS: PEPCID 20 MG IV PREMIX* 20 MG/50 ML BAG IV SCH ×2 (10:50→21:04)
--- NOTE | 2016-12-02 12:02 | PCM.PROG ---
Progress Note - Progress Note for Day of Date: 12/02/16 - Subjective Subjective: PATIENT IS DOING FAIR THIS MORNING. PATIENT'S APPETITE IS GOOD. ABDOMEN CONTINUES WITH DISTENTION. WE ARE AWAITING GI CONSULT FOR POSSIBLE PARACENTESIS FOR ABDOMINAL ASCITES. HEMOGLOBIN REMAINS STABLE. PATIENT HAS REQUESTED SHORT-TERM REHAB AT OUR [facility] FOR STRENGTHENING. CASE MANAGEMENT IS WORKING ON PLACEMENT. CBC WNL EXCEPT: H/H 9.6/28.5. CMP WNL EXCEPT: CHL 108, TOT PROTEIN 6.3, ALBUMIN 3.0. WE WILL CONTINUE PEPCID, PROTONIX, ALBUMIN, AND IV FLUIDS. WE WILL CONTINUE TO MONITOR AND FOLLOW UP IN AM WITH LABS. - Past Medical Family Social History Past Med/Fam/Surg Hx: No changes since H&P Allergies: Allergies No Known Drug Allergy Allergy (Verified 11/24/16 07:17) - Review of Systems ROS: No change since H&P - Vital Signs and I&O's Vital Signs: Temperature 97.8 F Pulse Rate [Apical] 83 Pulse Rate [Right Brachial] 137 Pulse Rate [Left Brachial] 94 Pulse Rate 84 Respiratory Rate 16 Blood Pressure [Right Calf] 126/74 Blood Pressure [Right Arm] 99/81 Blood Pressure [Left Arm] 132/91 Blood Pressure 135/76 O2 Sat by Pulse Oximetry 99 Intake and Output: Intake & Output 11/30/16 12/01/16 12/02/16 12/03/16 11:59 11:59 11:59 11:59 Intake Total 1495 1309 1730 Output Total 200 2 Balance 1295 1309 1728 - Physical Exam Oriented: Normal, Time, Person, Place Eyes: Normal. negative: Blurred Vision, Diplopia, Discharge, Pain, Redness, Photophobia Ear: Normal. negative: Swelling, Ecchymosis, Hemotypanum, Abrasion, Laceration Nose: Normal. negative: Discharge, Blood Throat: Normal. negative: Tonsillar Hypertrophy, Exudate Respiratory: Normal Cardiovascular: Normal. negative: Murmur, Edema : Normal. negative: Dysuria, Hematuria, Testicular Pain Auscultation: Bowel Sounds: Normal. negative: Bruit Tenderness: Diffuse, Mild, Other (Distention). negative: Rebound, Guarding, Rigidity Skin: Normal, Bruising (scattered). negative: Wound, Ecchymosis Musculoskeletal: Instability Psychiatric: Normal Mood Description: Calm Affect: Normal Speech Pattern: Clear, Appropriate - Laboratory and Diagnostics Result Diagrams: 12/02/16 03:25 12/02/16 03:25 Labs: Laboratory WBC 4.5 X10^3/uL (3.6-10.0) 12/02/16 03:25 RBC 3.11 X10^6/uL (4.7-6.0) L 12/02/16 03:25 Hgb 9.6 g/dL (13.5-18.0) L 12/02/16 03:25 Hct 28.5 % (42.0-54.0) L 12/02/16 03:25 MCV 91.5 fL (80.0-100.0) 12/02/16 03:25 MCH 31.0 pg (27.0-34.0) 12/02/16 03:25 MCHC 33.8 g/dL (33.0-35.0) 12/02/16 03:25 RDW 18.6 % (11.6-16.5) H 12/02/16 03:25 Plt Count 150 X10^3/uL (150.0-450.0) 12/02/16 03:25 Plt Count Comment Adequate (ADEQUATE) 12/02/16 03:25 MPV 8.7 fL (7.4-11.0) 12/02/16 03:25 Neut % 59.2 % (42.0-75.0) 12/02/16 03:25 Lymph % 12.4 % (21.0-51.0) L 12/02/16 03:25 [place] % 25.3 % (0.0-13.0) H 12/02/16 03:25 Eos % 2.3 % (0.9-2.9) 12/02/16 03:25 Baso % 0.8 % (0.2-1.0) 12/02/16 03:25 Neut # 2.7 x10^3/uL (2.2-4.8) 12/02/16 03:25 Lymph # 0.6 X10^3/uL (1.3-2.9) L 12/02/16 03:25 [place] # 1.1 x10^3/uL (0.3-0.8) H 12/02/16 03:25 Eos # 0.1 x10^3/uL (0.0-0.2) 12/02/16 03:25 Baso # 0.0 X10^3/uL (0.0-0.1) 12/02/16 03:25 Absolute Nucleated RBC 0.0 /100WBC 12/02/16 03:25 Total Counted 100 12/02/16 03:25 Neutrophils % (Manual) 60 % (39-76) 12/02/16 03:25 Lymphocytes % (Manual) 12 % (13-43) L 12/02/16 03:25 Monocytes % (Manual) 26 % (4-9) H 12/02/16 03:25 Eosinophils % (Manual) 2 % (0-6) 12/02/16 03:25 Plt Morphology Comment Normal (NORMAL) 12/02/16 03:25 RBC Morphology Normal (NORMAL) 12/02/16 03:25 Dimorphic RBCs Present 11/25/16 04:05 Hypochromasia [employer] 12/01/16 03:20 Anisocytosis 1+ A 11/24/16 08:28 INR Target Range - 12/02/16 03:25 INR 1.02 (0.8-1.3) 12/02/16 03:25 Sodium 145 mmol/L (136-145) 12/02/16 03:25 Corrected Sodium TNP 12/02/16 03:25 Potassium 3.5 mmol/L (3.5-5.1) 12/02/16 03:25 Chloride 108 mmol/L (98-107) H 12/02/16 03:25 Carbon Dioxide 30.4 mmol/L (21-32) 12/02/16 03:25 BUN 13 mg/dL (7-18) 12/02/16 03:25 Creatinine 0.97 mg/dL (0.70-1.30) 12/02/16 03:25 Est GFR (MDRD) Af Amer > 60 (>60) 12/02/16 03:25 Est GFR (MDRD) Non-Af > 60 (>60) 12/02/16 03:25 Glucose 83 mg/dL (65-99) 12/02/16 03:25 Calcium 8.8 mg/dL (8.5-10.1) 12/02/16 03:25 Corrected Calcium 9.6 mg/dL (8.5-10.1) 12/02/16 03:25 Magnesium 1.8 mg/dL (1.7-2.9) 11/29/16 05:01 Total Bilirubin 0.70 mg/dL (0.2-1.0) 12/02/16 03:25 AST 21 Units/L (15-37) 12/02/16 03:25 ALT 15 Units/L (12-78) 12/02/16 03:25 Alkaline Phosphatase 75 Units/L (46-116) 12/02/16 03:25 Ammonia 22 umol/L (11-32) 11/27/16 07:45 Creatine Kinase 120 Units/L (39-308) 11/24/16 18:33 CK-MB (CK-2) 1.0 ng/mL (0-4.0) 11/24/16 18:33 CK/CKMB % Calc 0.8 % (<4) 11/24/16 18:33 Troponin I 0.06 ng/mL (0-1.5) 11/24/16 18:33 Total Protein 6.3 g/dL (6.4-8.2) L 12/02/16 03:25 Albumin 3.0 g/dL (3.4-5.0) L 12/02/16 03:25 Globulin 3.3 g/dL (2.5-4.5) 12/02/16 03:25 Albumin/Globulin Ratio 0.9 Ratio (1.1-2.1) L 12/02/16 03:25 Carcinoembryonic Ag 4.3 ng/mL (0.0-3.0) H 11/26/16 04:05 CA 19-9 Antigen 39 U/mL (0-37) H 11/26/16 04:05 Free PSA 0.1 ng/mL 11/26/16 04:05 % Free PSA Calc 25 % 11/26/16 04:05 Total PSA 0.4 ng/mL (0.0-4.0) 11/26/16 04:05 Specimen Type Clean catch urine 11/24/16 15:19 Urine Color Brenna (YELLOW) 11/24/16 15:19 Urine Appearance Slightly hazy (CLEAR) 11/24/16 15:19 Urine pH 5.0 (5.0 - 8.0) 11/24/16 15:19 Ur Specific [place] 1.020 (1.000-1.030) 11/24/16 15: Urine Protein 2+ (NEGATIVE) 11/24/16 15:19 Urine Glucose (UA) Negative (NEGATIVE) 11/24/16 15:19 Urine Ketones 2+ (NEGATIVE) 11/24/16 15:19 Urine Occult Blood 1+ (NEGATIVE) 11/24/16 15: Urine Nitrite Negative (NEGATIVE) 11/24/16 15: Urine Bilirubin Negative (NEGATIVE) 11/24/16 15:19 Urine Urobilinogen Normal (NORMAL) 11/24/16 15:19 Ur Leukocyte Esterase Negative (NEGATIVE) 11/24/16 15: Urine RBC 1 - 3 /HPF (NEGATIVE) 11/24/16 15: Urine WBC Rare /HPF (NEGATIVE) 11/24/16 15:19 Ur Squamous Epith Cells Few /HPF (NEGATIVE) 11/24/16 15:19 Urine Bacteria Trace /HPF (NEGATIVE) 11/24/16 15: Hyaline Casts Few /LPF (NEGATIVE) 11/24/16 15: Coarse Granular Casts Moderate /HPF (NEGATIVE) 11/24/16 15: Urine Mucus Few /HPF (NEGATIVE) 11/24/16 15:19 Ur Culture Indicated? No/not indicated 11/24/16 15: Stool Description Fob tube 11/24/16 07:53 Stl Occult Blood (IFOB) Positive (NEGATIVE) A 11/24/16 07:53 Blood Type A NEGATIVE 11/24/16 10:01 Antibody Screen Negative 11/24/16 10:01 Crossmatch See Detail 11/24/16 10:01 - Plan (1) Ascites Status: Acute Qualifiers: Ascites type: A Plan: CONSULT GI FOR POSSIBLE PARACENTESIS, CONTINUE TO MONITOR. (2) GI bleed Status: Acute Qualifiers: GI bleed type/associated pathology: gastrointestinal hemorrhage with hematemesis Gastritis type: G Qualified Code(s): K92.0 - Hematemesis Plan: CONTINUE IVF, PEPCID, PROTONIX, MONITOR LABS IN AM. (3) Anemia due to GI blood loss Status: Acute Plan: CONTINUE TO MONITOR. (4) Hypokalemia Status: Acute Plan: CONTINUE POTASSIUM PROTOCOL, MONITOR LABS. (5) Hypomagnesemia Status: Acute Plan: MONITOR LABS. (6) Hypoalbuminemia Status: Acute Plan: CONTINUE ALBUMIN IV DAILY, MONITOR LABS. 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 (8) Hypertension Status: Chronic Qualifiers: Hypertension type: essential hypertension Qualified Code(s): I10 - Essential (primary) hypertension Plan: CONTINUE TO MONITOR (9) Gastroesophageal reflux disease Status: Chronic Plan: CONTINUE TO MONITOR (10) History of DVT (deep vein thrombosis) Status: Chronic Plan: CONTINUE TO MONITOR (11) Hyperlipidemia Status: Chronic Qualifiers: Hyperlipidemia type: mixed hyperlipidemia Qualified Code(s): E78.2 - Mixed hyperlipidemia Plan: CONTINUE TO MONITOR (12) Hypothyroidism Status: Chronic Qualifiers: Hypothyroidism type: acquired Qualified Code(s): E03.9 - Hypothyroidism, unspecified Plan: CONTINUE TO MONITOR
[2016-12-02] MEDS: LIPITOR TAB 40 MG PO SCH (21:04)
[2016-12-02] MEDS: MORPHINE SULFATE INJ 2 MG IVP PRN (21:44)
[2016-12-03 04:50] LABS: BASOPHILS # (AUTO) 0.1 X10^3/uL (0.0-0.1); BASOPHILS % (AUTO) 1.3 % (0.2-1.0); EOSINOPHILS # (AUTO) 0.1 x10^3/uL (0.0-0.2); EOSINOPHILS % (AUTO) 2.4 % (0.9-2.9); HEMATOCRIT 27.5 % (42.0-54.0); HEMOGLOBIN 9.2 g/dL (13.5-18.0); LYMPHOCYTES # (AUTO) 0.5 X10^3/uL (1.3-2.9); LYMPHOCYTES % (AUTO) 11.9 % (21.0-51.0); MEAN CORPUSCULAR HEMOGLOBIN 30.4 pg (27.0-34.0); MEAN CORPUSCULAR HGB CONC 33.5 g/dL (33.0-35.0); MEAN CORPUSCULAR VOLUME 90.7 fL (80.0-100.0); MEAN PLATELET VOLUME 8.6 fL (7.4-11.0); MONOCYTES # (AUTO) 1.1 x10^3/uL (0.3-0.8); MONOCYTES % (AUTO) 25.1 % (0.0-13.0); NEUTROPHILS # (AUTO) 2.6 x10^3/uL (2.2-4.8); NEUTROPHILS % (AUTO) 59.3 % (42.0-75.0); PLATELET COUNT 166 X10^3/uL (150.0-450.0); RED BLOOD COUNT 3.03 X10^6/uL (4.7-6.0); RED CELL DISTRIBUTION WIDTH 18.4 % (11.6-16.5); WHITE BLOOD COUNT 4.4 X10^3/uL (3.6-10.0)
[2016-12-03 04:59] LABS: ALANINE AMINOTRANSFERASE 14 Units/L (12-78); ALKALINE PHOSPHATASE 78 Units/L (46-116); ASPARTATE AMINO TRANSFERASE 20 Units/L (15-37); BLOOD UREA NITROGEN 12 mg/dL (7-18); CALCIUM 8.7 mg/dL (8.5-10.1); CARBON DIOXIDE 30.3 mmol/L (21-32); CHLORIDE 107 mmol/L (98-107); COR CA(FOR HYPOALB) 9.5 mg/dL (8.5-10.1); CREATININE 1.15 mg/dL (0.70-1.30); GLUCOSE 101 mg/dL (65-99); SODIUM 145 mmol/L (136-145); TOTAL PROTEIN 6.2 g/dL (6.4-8.2); eGFR BLACK RACES > 60 (>60); eGFR NON BLACK RACES > 60 (>60)
[2016-12-03 05:19] LABS: ANISOCYTOSIS SLIGHT; BAND NEUTROPHILS % 4 % (0-10); HYPOCHROMASIA SLIGHT; PLATELET MORPHOLOGY COMMENT NORMAL (NORMAL)
[2016-12-03] MEDS: MORPHINE SULFATE INJ 2 MG IVP PRN ×2 (05:35→23:36)
[2016-12-03] MEDS: VALIUM PO SCH ×3 (05:35→21:33)
[2016-12-03] MEDS: PEPCID 20 MG IV PREMIX* 20 MG/50 ML BAG IV SCH ×2 (09:18→21:33)
[2016-12-03] MEDS: ALBUMIN HUMAN 25%- 100ML 100 ML IV SCH (09:18)
[2016-12-03] MEDS: PROTONIX INJ 40 MG VIAL IVP SCH ×2 (09:19→21:31)
[2016-12-03] MEDS: NICODERM PATCH 21 MG/24 HR TD SCH (09:20)
[2016-12-03] MEDS: NEURONTIN CAP 300 MG PO SCH (09:22)
[2016-12-03] MEDS: LOPRESSOR TAB 25 MG PO SCH ×2 (09:23→21:32)
[2016-12-03] MEDS: ALDACTONE TAB 25 MG PO SCH (09:24)
[2016-12-03] MEDS: LASIX PO SCH (09:24)
[2016-12-03] MEDS ORDERED: XYLOCAINE 1 % (PLAIN) ONE (12:26)
[2016-12-03] MEDS: COLACE CAP 100 MG PO SCH ×2 (13:23→21:32)
[2016-12-03] MEDS: MIRALAX POWDER (1 DOSE 17GM) PO SCH (13:24)
[2016-12-03] MEDS: MILK OF MAGNESIA PO SCH ×4 (13:24→21:31)
--- NOTE | 2016-12-03 14:12 | PCM.PROG ---
Progress Note - Progress Note for Day of Date: 12/03/16 - Subjective Subjective: PATIENT IS SITTING UP AND REPORTS HE FEELS WEAK AND SHORT OF BREATH. PATIENT IS SCHEDULED FOR A PARACENTESIS TODAY. ABDOMEN CONTINUES WITH DISTENTION AND DIFFUSE TENDERNESS. PATIENT IS SHORT OF BREATH LIKELY DUE TO ABDOMINAL DISTENTION, WHICH SHOULD IMPROVE WITH PARACENTESIS. CASE MANAGEMENT CONTINUES WORKING ON PLACEMENT FOR SHORT-TERM REHAB. PATIENT IS REPORTING CONSTIPATION. LUNGS ARE DIMINISHED ON AUSCULTATION. CBC WNL EXCEPT: H/H 9.2/ 27.5. CMP WNL EXCEPT: POTASSIUM 3.3, GLUCOSE 101, TOT PROTEIN 6.2, ALBUMIN 3.0. WE WILL CONTINUE PEPCID, PROTONIX, ALBUMIN, AND IV FLUIDS. WE WILL CONTINUE TO MONITOR AND FOLLOW UP IN AM WITH LABS. - Past Medical Family Social History Past Med/Fam/Surg Hx: No changes since H&P Allergies: Allergies No Known Drug Allergy Allergy (Verified 11/24/16 07:17) - Review of Systems ROS: No change since H&P - Vital Signs and I&O's Vital Signs: Temperature 98.9 F Pulse Rate [Apical] 83 Pulse Rate [Right Brachial] 137 Pulse Rate [Left Brachial] 95 Pulse Rate 84 Respiratory Rate 18 Blood Pressure [Right Calf] 126/74 Blood Pressure [Right Arm] 113/76 Blood Pressure [Left Arm] 132/91 Blood Pressure 135/76 O2 Sat by Pulse Oximetry 100 Intake and Output: Intake & Output 12/01/16 12/02/16 12/03/16 12/04/16 11:59 11:59 11:59 11:59 Intake Total 1309 1730 895 Output Total 2 Balance 1309 1728 895 - Physical Exam Oriented: Normal, Time, Person, Place Eyes: Normal. negative: Blurred Vision, Diplopia, Discharge, Pain, Redness, Photophobia Ear: Normal. negative: Swelling, Ecchymosis, Hemotypanum, Abrasion, Laceration Nose: Normal. negative: Discharge, Blood Throat: Normal. negative: Tonsillar Hypertrophy, Exudate Respiratory: Generalized, Diminished Cardiovascular: Normal. negative: Murmur, Edema : Normal. negative: Dysuria, Hematuria, Testicular Pain Auscultation: Bowel Sounds: Decreased. negative: Bruit Palpation: Normal. negative: Spleen Enlarged, Liver Enlarged, Mass Pulsatile Tenderness: Diffuse, Mild, Other (Distention). negative: Rebound, Guarding, Rigidity Skin: Normal, Bruising (scattered). negative: Wound, Ecchymosis Musculoskeletal: Instability Psychiatric: Normal Mood Description: Calm Affect: Normal Speech Pattern: Clear, Appropriate - Laboratory and Diagnostics Result Diagrams: 12/03/16 03:30 12/03/16 03:30 Labs: Laboratory WBC 4.4 X10^3/uL (3.6-10.0) 12/03/16 03:30 RBC 3.03 X10^6/uL (4.7-6.0) L 12/03/16 03:30 Hgb 9.2 g/dL (13.5-18.0) L 12/03/16 03:30 Hct 27.5 % (42.0-54.0) L 12/03/16 03:30 MCV 90.7 fL (80.0-100.0) 12/03/16 03:30 MCH 30.4 pg (27.0-34.0) 12/03/16 03:30 MCHC 33.5 g/dL (33.0-35.0) 12/03/16 03:30 RDW 18.4 % (11.6-16.5) H 12/03/16 03:30 Plt Count 166 X10^3/uL (150.0-450.0) 12/03/16 03:30 Plt Count Comment Adequate (ADEQUATE) 12/03/16 03:30 MPV 8.6 fL (7.4-11.0) 12/03/16 03:30 Neut % 59.3 % (42.0-75.0) 12/03/16 03:30 Lymph % 11.9 % (21.0-51.0) L 12/03/16 03:30 [place] % 25.1 % (0.0-13.0) H 12/03/16 03:30 Eos % 2.4 % (0.9-2.9) 12/03/16 03:30 Baso % 1.3 % (0.2-1.0) H 12/03/16 03:30 Neut # 2.6 x10^3/uL (2.2-4.8) 12/03/16 03:30 Lymph # 0.5 X10^3/uL (1.3-2.9) L 12/03/16 03:30 [place] # 1.1 x10^3/uL (0.3-0.8) H 12/03/16 03:30 Eos # 0.1 x10^3/uL (0.0-0.2) 12/03/16 03:30 Baso # 0.1 X10^3/uL (0.0-0.1) 12/03/16 03:30 Absolute Nucleated RBC 0.0 /100WBC 12/03/16 03:30 Total Counted 100 12/03/16 03:30 Neutrophils % (Manual) 58 % (39-76) 12/03/16 03:30 Band Neutrophils % 4 % (0-10) 12/03/16 03:30 Lymphocytes % (Manual) 14 % (13-43) 12/03/16 03:30 Monocytes % (Manual) 24 % (4-9) H 12/03/16 03:30 Eosinophils % (Manual) 2 % (0-6) 12/02/16 03:25 Plt Morphology Comment Normal (NORMAL) 12/03/16 03:30 RBC Morphology Abnormal (NORMAL) 12/03/16 03:30 Dimorphic RBCs Present 11/25/16 04:05 Hypochromasia Slight A 12/03/16 03:30 Anisocytosis Slight A 12/03/16 03:30 INR Target Range - 12/03/16 03:30 INR 1.08 (0.8-1.3) 12/03/16 03:30 Sodium 145 mmol/L (136-145) 12/03/16 03:30 Corrected Sodium TNP 12/03/16 03:30 Potassium 3.3 mmol/L (3.5-5.1) L 12/03/16 03:30 Chloride 107 mmol/L (98-107) 12/03/16 03:30 Carbon Dioxide 30.3 mmol/L (21-32) 12/03/16 03:30 BUN 12 mg/dL (7-18) 12/03/16 03:30 Creatinine 1.15 mg/dL (0.70-1.30) 12/03/16 03:30 Est GFR (MDRD) Af Amer > 60 (>60) 12/03/16 03:30 Est GFR (MDRD) Non-Af > 60 (>60) 12/03/16 03:30 Glucose 101 mg/dL (65-99) H 12/03/16 03:30 Calcium 8.7 mg/dL (8.5-10.1) 12/03/16 03:30 Corrected Calcium 9.5 mg/dL (8.5-10.1) 12/03/16 03:30 Magnesium 1.8 mg/dL (1.7-2.9) 11/29/16 05:01 Total Bilirubin 0.70 mg/dL (0.2-1.0) 12/03/16 03:30 AST 20 Units/L (15-37) 12/03/16 03:30 ALT 14 Units/L (12-78) 12/03/16 03:30 Alkaline Phosphatase 78 Units/L (46-116) 12/03/16 03:30 Ammonia 22 umol/L (11-32) 11/27/16 07:45 Creatine Kinase 120 Units/L (39-308) 11/24/16 18:33 CK-MB (CK-2) 1.0 ng/mL (0-4.0) 11/24/16 18:33 CK/CKMB % Calc 0.8 % (<4) 11/24/16 18:33 Troponin I 0.06 ng/mL (0-1.5) 11/24/16 18:33 Total Protein 6.2 g/dL (6.4-8.2) L 12/03/16 03:30 Albumin 3.0 g/dL (3.4-5.0) L 12/03/16 03:30 Globulin 3.2 g/dL (2.5-4.5) 12/03/16 03:30 Albumin/Globulin Ratio 0.9 Ratio (1.1-2.1) L 12/03/16 03:30 Carcinoembryonic Ag 4.3 ng/mL (0.0-3.0) H 11/26/16 04:05 CA 19-9 Antigen 39 U/mL (0-37) H 11/26/16 04:05 Free PSA 0.1 ng/mL 11/26/16 04:05 % Free PSA Calc 25 % 11/26/16 04:05 Total PSA 0.4 ng/mL (0.0-4.0) 11/26/16 04:05 Specimen Type Clean catch urine 11/24/16 15: Urine Color Brenna (YELLOW) 11/24/16 15: Urine Appearance Slightly hazy (CLEAR) 11/24/16 15: Urine pH 5.0 (5.0 - 8.0) 11/24/16 15:19 Ur Specific [place] 1.020 (1.000-1.030) 11/24/16 15: Urine Protein 2+ (NEGATIVE) 11/24/16 15: Urine Glucose (UA) Negative (NEGATIVE) 11/24/16 15: Urine Ketones 2+ (NEGATIVE) 11/24/16 15: Urine Occult Blood 1+ (NEGATIVE) 11/24/16 15: Urine Nitrite Negative (NEGATIVE) 11/24/16 15: Urine Bilirubin Negative (NEGATIVE) 11/24/16 15: Urine Urobilinogen Normal (NORMAL) 11/24/16 15:19 Ur Leukocyte Esterase Negative (NEGATIVE) 11/24/16 15: Urine RBC 1 - 3 /HPF (NEGATIVE) 11/24/16 15: Urine WBC Rare /HPF (NEGATIVE) 11/24/16 15:19 Ur Squamous Epith Cells Few /HPF (NEGATIVE) 11/24/16 15: Urine Bacteria Trace /HPF (NEGATIVE) 11/24/16 15: Hyaline Casts Few /LPF (NEGATIVE) 11/24/16 15: Coarse Granular Casts Moderate /HPF (NEGATIVE) 11/24/16 15:19 Urine Mucus Few /HPF (NEGATIVE) 11/24/16 15:19 Ur Culture Indicated? No/not indicated 11/24/16 15: Stool Description Fob tube 11/24/16 07:53 Stl Occult Blood (IFOB) Positive (NEGATIVE) A 11/24/16 07:53 Blood Type A NEGATIVE 11/24/16 10:01 Antibody Screen Negative 11/24/16 10:01 Crossmatch See Detail 11/24/16 10:01 - Plan (1) Ascites Status: Acute Qualifiers: Ascites type: A Plan: PARACENTESIS TODAY, CONTINUE TO MONITOR. (2) GI bleed Status: Acute Qualifiers: GI bleed type/associated pathology: gastrointestinal hemorrhage with hematemesis Gastritis type: G Qualified Code(s): K92.0 - Hematemesis Plan: CONTINUE IVF, PEPCID, PROTONIX, MONITOR LABS IN AM. (3) Anemia due to GI blood loss Status: Acute Plan: CONTINUE TO MONITOR. (4) Hypokalemia Status: Acute Plan: CONTINUE POTASSIUM PROTOCOL, MONITOR LABS. (5) Hypomagnesemia Status: Acute Plan: MONITOR LABS. (6) Hypoalbuminemia Status: Acute Plan: CONTINUE ALBUMIN IV DAILY, MONITOR LABS. 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 (8) Hypertension Status: Chronic Qualifiers: Hypertension type: essential hypertension Qualified Code(s): I10 - Essential (primary) hypertension Plan: CONTINUE TO MONITOR (9) Gastroesophageal reflux disease Status: Chronic Plan: CONTINUE TO MONITOR (10) History of DVT (deep vein thrombosis) Status: Chronic Plan: CONTINUE TO MONITOR (11) Hyperlipidemia Status: Chronic Qualifiers: Hyperlipidemia type: mixed hyperlipidemia Qualified Code(s): E78.2 - Mixed hyperlipidemia Plan: CONTINUE TO MONITOR (12) Hypothyroidism Status: Chronic Qualifiers: Hypothyroidism type: acquired Qualified Code(s): E03.9 - Hypothyroidism, unspecified Plan: CONTINUE TO MONITOR
[2016-12-03 14:15] LABS: RBC BODY FLUID 199 Cubic/mm
[2016-12-03 14:20] LABS: WBC BODY FLUID 187 Cubic/mm
--- NOTE | 2016-12-03 16:47 | US ---
Ultrasound guided paracentesis Indication: Ascites Comparison: November 26, 2016 CT. Technique: Dynamic grayscale imaging through the abdomen was performed to evaluate for ascites. After discussion of risks and benefits, consent was obtained. A time-out was performed. Slight was l ocalized using ultrasound. Patient was prepped and draped in the usual sterile fashion. Local anesth etic was applied. 6 [place] paracentesis catheter was advanced into the ascites without complication. 7 L of translucent slightly yellow ascites was removed. A small bone with submitted to the laborato ry for analysis. Findings: Large volume ascites. Impression: Successful ultrasound-guided paracentesis as above. 7 L of total volume removed. The pat ient tolerated the procedure well and there were no immediate or delayed complications. Reported By:
[2016-12-03] MEDS: LIPITOR TAB 40 MG PO SCH (21:33)
[2016-12-04] MEDS: VALIUM PO SCH ×3 (05:09→21:48)
[2016-12-04 05:34] LABS: ALANINE AMINOTRANSFERASE 15 Units/L (12-78); ALBUMIN 3.2 g/dL (3.4-5.0); ALKALINE PHOSPHATASE 75 Units/L (46-116); ASPARTATE AMINO TRANSFERASE 21 Units/L (15-37); BLOOD UREA NITROGEN 11 mg/dL (7-18); CALCIUM 8.9 mg/dL (8.5-10.1); CARBON DIOXIDE 31.4 mmol/L (21-32); CHLORIDE 106 mmol/L (98-107); COR CA(FOR HYPOALB) 9.5 mg/dL (8.5-10.1); GLUCOSE 88 mg/dL (65-99); SODIUM 145 mmol/L (136-145); TOTAL PROTEIN 6.6 g/dL (6.4-8.2); eGFR BLACK RACES > 60 (>60); eGFR NON BLACK RACES > 60 (>60)
[2016-12-04 06:21] LABS: BASOPHILS # (AUTO) 0.1 X10^3/uL (0.0-0.1); BASOPHILS % (AUTO) 1.9 % (0.2-1.0); EOSINOPHILS # (AUTO) 0.1 x10^3/uL (0.0-0.2); EOSINOPHILS % (AUTO) 2.2 % (0.9-2.9); HEMATOCRIT 28.9 % (42.0-54.0); HEMOGLOBIN 9.8 g/dL (13.5-18.0); LYMPHOCYTES # (AUTO) 0.7 X10^3/uL (1.3-2.9); LYMPHOCYTES % (AUTO) 15.3 % (21.0-51.0); MEAN CORPUSCULAR HEMOGLOBIN 30.8 pg (27.0-34.0); MEAN CORPUSCULAR HGB CONC 33.9 g/dL (33.0-35.0); MEAN CORPUSCULAR VOLUME 90.9 fL (80.0-100.0); MEAN PLATELET VOLUME 8.3 fL (7.4-11.0); MONOCYTES # (AUTO) 0.9 x10^3/uL (0.3-0.8); MONOCYTES % (AUTO) 20.6 % (0.0-13.0); NEUTROPHILS # (AUTO) 2.6 x10^3/uL (2.2-4.8); PLATELET COUNT 188 X10^3/uL (150.0-450.0); RED BLOOD COUNT 3.17 X10^6/uL (4.7-6.0); RED CELL DISTRIBUTION WIDTH 18.2 % (11.6-16.5); WHITE BLOOD COUNT 4.3 X10^3/uL (3.6-10.0)
--- NOTE | 2016-12-04 06:30 | RAD ---
HISTORY: Cough, congestion Study: Chest one view Comparison: September 07, 2016, CT chest November 26, 2016 Findings: The trachea is midline. The cardiac silhouette is unremarkable. The lungs are clear without focal infiltrate or effusion. The bony thorax is unremarkable. IMPRESSION: 1. No acute cardiopulmonary disease. Reported By:
[2016-12-04] MEDS: MORPHINE SULFATE INJ 2 MG IVP PRN (06:42)
[2016-12-04 07:09] LABS: BAND NEUTROPHILS % 4 % (0-10); PLATELET MORPHOLOGY COMMENT NORMAL (NORMAL)
[2016-12-04] MEDS: LASIX PO SCH (08:46)
[2016-12-04] MEDS: ALDACTONE TAB 25 MG PO SCH (08:46)
[2016-12-04] MEDS: ALBUMIN HUMAN 25%- 100ML 100 ML IV SCH (08:46)
[2016-12-04] MEDS: NICODERM PATCH 21 MG/24 HR TD SCH (08:47)
[2016-12-04] MEDS: PROTONIX INJ 40 MG VIAL IVP SCH ×2 (08:47→21:48)
[2016-12-04] MEDS: MIRALAX POWDER (1 DOSE 17GM) PO SCH (08:47)
[2016-12-04] MEDS: LOPRESSOR TAB 25 MG PO SCH ×2 (08:47→21:52)
[2016-12-04] MEDS: NEURONTIN CAP 300 MG PO SCH (08:47)
[2016-12-04] MEDS: PEPCID 20 MG IV PREMIX* 20 MG/50 ML BAG IV SCH ×2 (08:47→21:48)
[2016-12-04] MEDS: COLACE CAP 100 MG PO SCH ×2 (08:48→21:48)
[2016-12-04] MEDS: MILK OF MAGNESIA PO SCH ×5 (08:49→21:47)
[2016-12-04] MEDS: NS 1/2 1000 ML IV 1,000 ML IV SCH (13:54)
--- NOTE | 2016-12-04 13:56 | PCM.PROG ---
Progress Note - Progress Note for Day of Date: 12/04/16 - Subjective Subjective: PATIENT HAD PARACENTESIS YESTERDAY AND SEVEN LITERS OF TRANSLUCENT SLIGHTLY YELLOW ASCITES WAS REMOVED FROM ABDOMEN. PATIENT TOLERATED PROCEDURE WEELL AND REPORTS HE IS LESS SHORT OF BREATH THIS MORNING. CASE MANAGEMENT CONTINUES WORKING ON PLACEMENT FOR SHORT-TERM REHAB. PATIENT CONTINUES WITH CONSTIPATION. ABDOMEN IS SOFT, NON-TENDER. LUNGS ARE CLEAR. CBC WNL EXCEPT: H /H 9.8/28.9. CMP WNL EXCEPT: ALBUMIN 3.2. CHEST XRAY REPORTS NO ACUTE CARDIOPULMONARY DISEASE. WE WILL ADMINISTER DULCOLAX SUPPOSITORY, CONTINUE PEPCID, PROTONIX, ALBUMIN, AND IV FLUIDS. WE WILL CONTINUE TO MONITOR AND FOLLOW UP IN AM WITH LABS. - Past Medical Family Social History Past Med/Fam/Surg Hx: No changes since H&P Allergies: Allergies No Known Drug Allergy Allergy (Verified 11/24/16 07:17) - Review of Systems ROS: No change since H&P - Vital Signs and I&O's Vital Signs: Temperature 98.2 F Pulse Rate [Apical] 83 Pulse Rate [Right Brachial] 137 Pulse Rate [Left Brachial] 85 Pulse Rate 84 Respiratory Rate 15 Blood Pressure [Right Calf] 126/74 Blood Pressure [Right Arm] 88/61 Blood Pressure [Left Arm] 132/91 Blood Pressure 135/76 O2 Sat by Pulse Oximetry 100 Intake and Output: Intake & Output 12/02/16 12/03/16 12/04/16 12/05/16 11:59 11:59 11:59 11:59 Intake Total 4056 644 2640 Output Total 2 7000 Balance 1728 895 5202 - Physical Exam Oriented: Normal, Time, Person, Place Eyes: Normal. negative: Blurred Vision, Diplopia, Discharge, Pain, Redness, Photophobia Ear: Normal. negative: Swelling, Ecchymosis, Hemotypanum, Abrasion, Laceration Nose: Normal. negative: Discharge, Blood Throat: Normal. negative: Tonsillar Hypertrophy, Exudate Respiratory: Normal Cardiovascular: Normal. negative: Murmur, Edema : Normal. negative: Dysuria, Hematuria, Testicular Pain Auscultation: Bowel Sounds: Decreased. negative: Bruit Palpation: Normal. negative: Spleen Enlarged, Liver Enlarged, Mass Pulsatile Tenderness: Normal. negative: Rebound, Guarding, Rigidity Skin: Normal, Bruising (scattered). negative: Wound, Ecchymosis Musculoskeletal: Instability Psychiatric: Normal Mood Description: Calm Affect: Normal Speech Pattern: Clear, Appropriate - Laboratory and Diagnostics Result Diagrams: 12/04/16 04:45 12/04/16 04:45 Labs: Laboratory WBC 4.3 X10^3/uL (3.6-10.0) 12/04/16 04:45 RBC 3.17 X10^6/uL (4.7-6.0) L 12/04/16 04:45 Hgb 9.8 g/dL (13.5-18.0) L 12/04/16 04:45 Hct 28.9 % (42.0-54.0) L 12/04/16 04:45 MCV 90.9 fL (80.0-100.0) 12/04/16 04:45 MCH 30.8 pg (27.0-34.0) 12/04/16 04:45 MCHC 33.9 g/dL (33.0-35.0) 12/04/16 04:45 RDW 18.2 % (11.6-16.5) H 12/04/16 04:45 Plt Count 188 X10^3/uL (150.0-450.0) 12/04/16 04:45 Plt Count Comment Adequate (ADEQUATE) 12/04/16 04:45 MPV 8.3 fL (7.4-11.0) 12/04/16 04:45 Neut % 60.0 % (42.0-75.0) 12/04/16 04:45 Lymph % 15.3 % (21.0-51.0) L 12/04/16 04:45 [place] % 20.6 % (0.0-13.0) H 12/04/16 04:45 Eos % 2.2 % (0.9-2.9) 12/04/16 04:45 Baso % 1.9 % (0.2-1.0) H 12/04/16 04:45 Neut # 2.6 x10^3/uL (2.2-4.8) 12/04/16 04:45 Lymph # 0.7 X10^3/uL (1.3-2.9) L 12/04/16 04:45 [place] # 0.9 x10^3/uL (0.3-0.8) H 12/04/16 04:45 Eos # 0.1 x10^3/uL (0.0-0.2) 12/04/16 04:45 Baso # 0.1 X10^3/uL (0.0-0.1) 12/04/16 04:45 Absolute Nucleated RBC 0.0 /100WBC 12/04/16 04:45 Total Counted 100 12/04/16 04:45 Neutrophils % (Manual) 62 % (39-76) 12/04/16 04:45 Band Neutrophils % 4 % (0-10) 12/04/16 04:45 Lymphocytes % (Manual) 24 % (13-43) 12/04/16 04:45 Monocytes % (Manual) 10 % (4-9) H 12/04/16 04:45 Eosinophils % (Manual) 2 % (0-6) 12/02/16 03:25 Plt Morphology Comment Normal (NORMAL) 12/04/16 04:45 RBC Morphology Normal (NORMAL) 12/04/16 04:45 Dimorphic RBCs Present 11/25/16 04:05 Hypochromasia Slight A 12/03/16 03:30 Anisocytosis Slight A 12/03/16 03:30 INR Target Range - 12/04/16 04:45 INR 1.14 (0.8-1.3) 12/04/16 04:45 Sodium 145 mmol/L (136-145) 12/04/16 04:45 Corrected Sodium TNP 12/04/16 04:45 Potassium 3.5 mmol/L (3.5-5.1) 12/04/16 04:45 Chloride 106 mmol/L (98-107) 12/04/16 04:45 Carbon Dioxide 31.4 mmol/L (21-32) 12/04/16 04:45 BUN 11 mg/dL (7-18) 12/04/16 04:45 Creatinine 1.20 mg/dL (0.70-1.30) 12/04/16 04:45 Est GFR (MDRD) Af Amer > 60 (>60) 12/04/16 04:45 Est GFR (MDRD) Non-Af > 60 (>60) 12/04/16 04:45 Glucose 88 mg/dL (65-99) 12/04/16 04:45 Calcium 8.9 mg/dL (8.5-10.1) 12/04/16 04:45 Corrected Calcium 9.5 mg/dL (8.5-10.1) 12/04/16 04:45 Magnesium 1.8 mg/dL (1.7-2.9) 11/29/16 05:01 Total Bilirubin 1.00 mg/dL (0.2-1.0) 12/04/16 04:45 AST 21 Units/L (15-37) 12/04/16 04:45 ALT 15 Units/L (12-78) 12/04/16 04:45 Alkaline Phosphatase 75 Units/L (46-116) 12/04/16 04:45 Ammonia 22 umol/L (11-32) 11/27/16 07:45 Creatine Kinase 120 Units/L (39-308) 11/24/16 18:33 CK-MB (CK-2) 1.0 ng/mL (0-4.0) 11/24/16 18:33 CK/CKMB % Calc 0.8 % (<4) 11/24/16 18:33 Troponin I 0.06 ng/mL (0-1.5) 11/24/16 18:33 Total Protein 6.6 g/dL (6.4-8.2) 12/04/16 04:45 Albumin 3.2 g/dL (3.4-5.0) L 12/04/16 04:45 Globulin 3.4 g/dL (2.5-4.5) 12/04/16 04:45 Albumin/Globulin Ratio 0.9 Ratio (1.1-2.1) L 12/04/16 04:45 Carcinoembryonic Ag 4.3 ng/mL (0.0-3.0) H 11/26/16 04:05 CA 19-9 Antigen 39 U/mL (0-37) H 11/26/16 04:05 Free PSA 0.1 ng/mL 11/26/16 04:05 % Free PSA Calc 25 % 11/26/16 04:05 Total PSA 0.4 ng/mL (0.0-4.0) 11/26/16 04:05 Specimen Type Clean catch urine 11/24/16 15:19 Urine Color Brenna (YELLOW) 11/24/16 15: Urine Appearance Slightly hazy (CLEAR) 11/24/16 15: Urine pH 5.0 (5.0 - 8.0) 11/24/16 15:19 Ur Specific [place] 1.020 (1.000-1.030) 11/24/16 15:19 Urine Protein 2+ (NEGATIVE) 11/24/16 15: Urine Glucose (UA) Negative (NEGATIVE) 11/24/16 15: Urine Ketones 2+ (NEGATIVE) 11/24/16 15: Urine Occult Blood 1+ (NEGATIVE) 11/24/16 15: Urine Nitrite Negative (NEGATIVE) 11/24/16 15: Urine Bilirubin Negative (NEGATIVE) 11/24/16 15: Urine Urobilinogen Normal (NORMAL) 11/24/16 15:19 Ur Leukocyte Esterase Negative (NEGATIVE) 11/24/16 15:19 Urine RBC 1 - 3 /HPF (NEGATIVE) 11/24/16 15:19 Urine WBC Rare /HPF (NEGATIVE) 11/24/16 15:19 Ur Squamous Epith Cells Few /HPF (NEGATIVE) 11/24/16 15:19 Urine Bacteria Trace /HPF (NEGATIVE) 11/24/16 15: Hyaline Casts Few /LPF (NEGATIVE) 11/24/16 15: Coarse Granular Casts Moderate /HPF (NEGATIVE) 11/24/16 15:19 Urine Mucus Few /HPF (NEGATIVE) 11/24/16 15:19 Ur Culture Indicated? No/not indicated 11/24/16 15:19 Fluid WBC 187 Cubic/mm 12/03/16 13:46 Fluid RBC 199 Cubic/mm 12/03/16 13:46 Fluid Albumin 1.2 12/03/16 13:46 Stool Description Fob tube 11/24/16 07:53 Stl Occult Blood (IFOB) Positive (NEGATIVE) A 11/24/16 07:53 Cytology Specimen To follow 12/03/16 13:46 Blood Type A NEGATIVE 11/24/16 10:01 Antibody Screen Negative 11/24/16 10:01 Crossmatch See Detail 11/24/16 10:01 - Plan (1) Ascites Status: Acute Qualifiers: Ascites type: A Plan: CONTINUE TO MONITOR. (2) GI bleed Status: Acute Qualifiers: GI bleed type/associated pathology: gastrointestinal hemorrhage with hematemesis Gastritis type: G Qualified Code(s): K92.0 - Hematemesis Plan: CONTINUE IVF, PEPCID, PROTONIX, MONITOR LABS IN AM. (3) Anemia due to GI blood loss Status: Acute Plan: CONTINUE TO MONITOR. (4) Hypokalemia Status: Acute Plan: CONTINUE POTASSIUM PROTOCOL, MONITOR LABS. (5) Hypomagnesemia Status: Acute Plan: MONITOR LABS. (6) Hypoalbuminemia Status: Acute Plan: CONTINUE ALBUMIN IV DAILY, MONITOR LABS. (7) Constipation by delayed colonic transit Status: Acute Plan: DULCOLAX SUPPOSITORY, CONITNUE MILK OF MAGNESIA, COLACE, AND MIRALAX. (8) Hypertension Status: Chronic Qualifiers: Hypertension type: essential hypertension Qualified Code(s): I10 - Essential (primary) hypertension Plan: CONTINUE TO MONITOR (9) Gastroesophageal reflux disease Status: Chronic Plan: CONTINUE TO MONITOR (10) History of DVT (deep vein thrombosis) Status: Chronic Plan: CONTINUE TO MONITOR (11) Hyperlipidemia Status: Chronic Qualifiers: Hyperlipidemia type: mixed hyperlipidemia Qualified Code(s): E78.2 - Mixed hyperlipidemia Plan: CONTINUE TO MONITOR (12) Hypothyroidism Status: Chronic Qualifiers: Hypothyroidism type: acquired Qualified Code(s): E03.9 - Hypothyroidism, unspecified Plan: CONTINUE TO MONITOR (13) Alcoholic psychosis with hallucinosis Status: Resolved
[2016-12-04] MEDS ORDERED: DULCOLAX SUPPOSITORY 10 MG RECTAL ONE (13:57)
[2016-12-04] MEDS ORDERED: DULCOLAX SUPPOSITORY 10 MG ONE (16:21)
[2016-12-04] MEDS: LIPITOR TAB 40 MG PO SCH (21:48)
[2016-12-05] MEDS: VALIUM PO SCH ×3 (05:25→21:00)
--- NOTE | 2016-12-05 06:20 | RAD ---
HISTORY: Cough, congestion Study: Chest one view Comparison: December 04, 2016 Findings: The trachea is midline. The cardiac silhouette is unremarkable. The lungs are clear without focal infiltrate or effusion. The bony thorax is unremarkable. IMPRESSION: 1. No acute cardiopulmonary disease. Reported By:
[2016-12-05 06:21] LABS: BASOPHILS # (AUTO) 0.1 X10^3/uL (0.0-0.1); BASOPHILS % (AUTO) 1.3 % (0.2-1.0); EOSINOPHILS # (AUTO) 0.1 x10^3/uL (0.0-0.2); EOSINOPHILS % (AUTO) 2.2 % (0.9-2.9); HEMATOCRIT 29.1 % (42.0-54.0); HEMOGLOBIN 9.7 g/dL (13.5-18.0); LYMPHOCYTES # (AUTO) 0.7 X10^3/uL (1.3-2.9); LYMPHOCYTES % (AUTO) 14.7 % (21.0-51.0); MEAN CORPUSCULAR HEMOGLOBIN 30.4 pg (27.0-34.0); MEAN CORPUSCULAR HGB CONC 33.5 g/dL (33.0-35.0); MEAN CORPUSCULAR VOLUME 90.7 fL (80.0-100.0); MEAN PLATELET VOLUME 8.2 fL (7.4-11.0); MONOCYTES # (AUTO) 0.9 x10^3/uL (0.3-0.8); MONOCYTES % (AUTO) 18.3 % (0.0-13.0); NEUTROPHILS # (AUTO) 3.2 x10^3/uL (2.2-4.8); NEUTROPHILS % (AUTO) 63.5 % (42.0-75.0); PLATELET COUNT 209 X10^3/uL (150.0-450.0); RED BLOOD COUNT 3.21 X10^6/uL (4.7-6.0); RED CELL DISTRIBUTION WIDTH 18.8 % (11.6-16.5); WHITE BLOOD COUNT 5.1 X10^3/uL (3.6-10.0)
[2016-12-05 06:28] LABS: ALANINE AMINOTRANSFERASE 15 Units/L (12-78); ALBUMIN 3.2 g/dL (3.4-5.0); ALKALINE PHOSPHATASE 80 Units/L (46-116); ASPARTATE AMINO TRANSFERASE 21 Units/L (15-37); BLOOD UREA NITROGEN 12 mg/dL (7-18); CALCIUM 8.9 mg/dL (8.5-10.1); CARBON DIOXIDE 30.9 mmol/L (21-32); CHLORIDE 106 mmol/L (98-107); COR CA(FOR HYPOALB) 9.5 mg/dL (8.5-10.1); GLUCOSE 90 mg/dL (65-99); SODIUM 145 mmol/L (136-145); TOTAL PROTEIN 6.6 g/dL (6.4-8.2); eGFR BLACK RACES > 60 (>60); eGFR NON BLACK RACES > 60 (>60)
[2016-12-05] MEDS: PROTONIX INJ 40 MG VIAL IVP SCH ×2 (08:09→21:01)
[2016-12-05] MEDS: MILK OF MAGNESIA PO SCH ×4 (08:09→21:01)
[2016-12-05] MEDS: MIRALAX POWDER (1 DOSE 17GM) PO SCH (08:09)
[2016-12-05] MEDS: PEPCID 20 MG IV PREMIX* 20 MG/50 ML BAG IV SCH ×2 (08:09→21:00)
[2016-12-05] MEDS: NICODERM PATCH 21 MG/24 HR TD SCH (08:10)
[2016-12-05] MEDS: NEURONTIN CAP 300 MG PO SCH (08:10)
[2016-12-05] MEDS: LOPRESSOR TAB 25 MG PO SCH ×2 (08:10→21:01)
[2016-12-05] MEDS: ALBUMIN HUMAN 25%- 100ML 100 ML IV SCH (08:11)
[2016-12-05] MEDS: LASIX PO SCH (08:11)
[2016-12-05] MEDS: ALDACTONE TAB 25 MG PO SCH (08:11)
[2016-12-05] MEDS: COLACE CAP 100 MG PO SCH ×2 (08:12→21:00)
--- NOTE | 2016-12-05 10:59 | PCM.PROG ---
Progress Note - Progress Note for Day of Date: 12/05/16 - Subjective Subjective: PATIENT CONTINUES TO DO WELL FOLLOWING PARACENTESIS. PATIENT HAS SHORTNESS OF BREATH ON EXERTION. CASE MANAGEMENT CONTINUES WORKING ON PLACEMENT FOR SHORT-TERM REHAB. ABDOMEN IS SOFT, NON-TENDER. LUNGS ARE CLEAR. CBC WNL EXCEPT: H/H 9.7/29.1. CMP WNL EXCEPT: ALBUMIN 3.2. INR 1.10. CHEST XRAY REPORTS NO ACUTE CARDIOPULMONARY DISEASE. WE WILL ADMINISTER CONTINUE PEPCID, PROTONIX, ALBUMIN, AND IV FLUIDS. WE WILL CONTINUE TO MONITOR AND FOLLOW UP IN AM WITH LABS. WE WILL PLAN FOR DISCHARGE TO SHORT-TERM REHAB WHEN BED IS AVAILABLE. - Past Medical Family Social History Past Med/Fam/Surg Hx: No changes since H&P Allergies: Allergies No Known Drug Allergy Allergy (Verified 11/24/16 07:17) - Review of Systems ROS: No change since H&P - Vital Signs and I&O's Vital Signs: Temperature 98.3 F Pulse Rate [Apical] 83 Pulse Rate [Right Brachial] 137 Pulse Rate [Left Brachial] 95 Pulse Rate 84 Respiratory Rate 16 Blood Pressure [Right Calf] 126/74 Blood Pressure [Right Arm] 126/70 Blood Pressure [Left Arm] 132/91 Blood Pressure 135/76 O2 Sat by Pulse Oximetry 100 Intake and Output: Intake & Output 12/02/16 12/03/16 12/04/16 12/05/16 11:59 11:59 11:59 11:59 Intake Total 8337 006 9375 1525 Output Total 2 7000 Balance 1728 895 -[phone] - Physical Exam Oriented: Normal, Time, Person, Place Eyes: Normal. negative: Blurred Vision, Diplopia, Discharge, Pain, Redness, Photophobia Ear: Normal. negative: Swelling, Ecchymosis, Hemotypanum, Abrasion, Laceration Nose: Normal. negative: Discharge, Blood Throat: Normal. negative: Tonsillar Hypertrophy, Exudate Respiratory: Normal Cardiovascular: Normal. negative: Murmur, Edema : Normal. negative: Dysuria, Hematuria, Testicular Pain Auscultation: Bowel Sounds: Decreased. negative: Bruit Palpation: Normal Tenderness: Normal. negative: Rebound, Guarding, Rigidity Skin: Normal, Bruising (scattered). negative: Wound, Ecchymosis Musculoskeletal: Instability Psychiatric: Normal Mood Description: Calm Affect: Normal Speech Pattern: Clear, Appropriate - Laboratory and Diagnostics Result Diagrams: 12/05/16 04:55 12/05/16 04:55 Labs: Laboratory WBC 5.1 X10^3/uL (3.6-10.0) 12/05/16 04:55 RBC 3.21 X10^6/uL (4.7-6.0) L 12/05/16 04:55 Hgb 9.7 g/dL (13.5-18.0) L 12/05/16 04:55 Hct 29.1 % (42.0-54.0) L 12/05/16 04:55 MCV 90.7 fL (80.0-100.0) 12/05/16 04:55 MCH 30.4 pg (27.0-34.0) 12/05/16 04:55 MCHC 33.5 g/dL (33.0-35.0) 12/05/16 04:55 RDW 18.8 % (11.6-16.5) H 12/05/16 04:55 Plt Count 209 X10^3/uL (150.0-450.0) 12/05/16 04:55 Plt Count Comment Adequate (ADEQUATE) 12/04/16 04:45 MPV 8.2 fL (7.4-11.0) 12/05/16 04:55 Neut % 63.5 % (42.0-75.0) 12/05/16 04:55 Lymph % 14.7 % (21.0-51.0) L 12/05/16 04:55 [place] % 18.3 % (0.0-13.0) H 12/05/16 04:55 Eos % 2.2 % (0.9-2.9) 12/05/16 04:55 Baso % 1.3 % (0.2-1.0) H 12/05/16 04:55 Neut # 3.2 x10^3/uL (2.2-4.8) 12/05/16 04:55 Lymph # 0.7 X10^3/uL (1.3-2.9) L 12/05/16 04:55 [place] # 0.9 x10^3/uL (0.3-0.8) H 12/05/16 04:55 Eos # 0.1 x10^3/uL (0.0-0.2) 12/05/16 04:55 Baso # 0.1 X10^3/uL (0.0-0.1) 12/05/16 04:55 Absolute Nucleated RBC 0.1 /100WBC 12/05/16 04:55 Total Counted 100 12/04/16 04:45 Neutrophils % (Manual) 62 % (39-76) 12/04/16 04:45 Band Neutrophils % 4 % (0-10) 12/04/16 04:45 Lymphocytes % (Manual) 24 % (13-43) 12/04/16 04:45 Monocytes % (Manual) 10 % (4-9) H 12/04/16 04:45 Eosinophils % (Manual) 2 % (0-6) 12/02/16 03:25 Plt Morphology Comment Normal (NORMAL) 12/04/16 04:45 RBC Morphology Normal (NORMAL) 12/04/16 04:45 Dimorphic RBCs Present 11/25/16 04:05 Hypochromasia Slight A 12/03/16 03:30 Anisocytosis Slight A 12/03/16 03:30 INR Target Range - 12/05/16 04:55 INR 1.10 (0.8-1.3) 12/05/16 04:55 Sodium 145 mmol/L (136-145) 12/05/16 04:55 Corrected Sodium TNP 12/05/16 04:55 Potassium 3.7 mmol/L (3.5-5.1) 12/05/16 04:55 Chloride 106 mmol/L (98-107) 12/05/16 04:55 Carbon Dioxide 30.9 mmol/L (21-32) 12/05/16 04:55 BUN 12 mg/dL (7-18) 12/05/16 04:55 Creatinine 1.20 mg/dL (0.70-1.30) 12/05/16 04:55 Est GFR (MDRD) Af Amer > 60 (>60) 12/05/16 04:55 Est GFR (MDRD) Non-Af > 60 (>60) 12/05/16 04:55 Glucose 90 mg/dL (65-99) 12/05/16 04:55 Calcium 8.9 mg/dL (8.5-10.1) 12/05/16 04:55 Corrected Calcium 9.5 mg/dL (8.5-10.1) 12/05/16 04:55 Magnesium 1.8 mg/dL (1.7-2.9) 11/29/16 05:01 Total Bilirubin 0.70 mg/dL (0.2-1.0) 12/05/16 04:55 AST 21 Units/L (15-37) 12/05/16 04:55 ALT 15 Units/L (12-78) 12/05/16 04:55 Alkaline Phosphatase 80 Units/L (46-116) 12/05/16 04:55 Ammonia 22 umol/L (11-32) 11/27/16 07:45 Creatine Kinase 120 Units/L (39-308) 11/24/16 18:33 CK-MB (CK-2) 1.0 ng/mL (0-4.0) 11/24/16 18:33 CK/CKMB % Calc 0.8 % (<4) 11/24/16 18:33 Troponin I 0.06 ng/mL (0-1.5) 11/24/16 18:33 Total Protein 6.6 g/dL (6.4-8.2) 12/05/16 04:55 Albumin 3.2 g/dL (3.4-5.0) L 12/05/16 04:55 Globulin 3.4 g/dL (2.5-4.5) 12/05/16 04:55 Albumin/Globulin Ratio 0.9 Ratio (1.1-2.1) L 12/05/16 04:55 Carcinoembryonic Ag 4.3 ng/mL (0.0-3.0) H 11/26/16 04:05 CA 19-9 Antigen 39 U/mL (0-37) H 11/26/16 04:05 Free PSA 0.1 ng/mL 11/26/16 04:05 % Free PSA Calc 25 % 11/26/16 04:05 Total PSA 0.4 ng/mL (0.0-4.0) 11/26/16 04:05 Specimen Type Clean catch urine 11/24/16 15:19 Urine Color Brenna (YELLOW) 11/24/16 15:19 Urine Appearance Slightly hazy (CLEAR) 11/24/16 15:19 Urine pH 5.0 (5.0 - 8.0) 11/24/16 15:19 Ur Specific [place] 1.020 (1.000-1.030) 11/24/16 15: Urine Protein 2+ (NEGATIVE) 11/24/16 15:19 Urine Glucose (UA) Negative (NEGATIVE) 11/24/16 15:19 Urine Ketones 2+ (NEGATIVE) 11/24/16 15: Urine Occult Blood 1+ (NEGATIVE) 11/24/16 15: Urine Nitrite Negative (NEGATIVE) 11/24/16 15: Urine Bilirubin Negative (NEGATIVE) 11/24/16 15:19 Urine Urobilinogen Normal (NORMAL) 11/24/16 15:19 Ur Leukocyte Esterase Negative (NEGATIVE) 11/24/16 15: Urine RBC 1 - 3 /HPF (NEGATIVE) 11/24/16 15:19 Urine WBC Rare /HPF (NEGATIVE) 11/24/16 15:19 Ur Squamous Epith Cells Few /HPF (NEGATIVE) 11/24/16 15:19 Urine Bacteria Trace /HPF (NEGATIVE) 11/24/16 15: Hyaline Casts Few /LPF (NEGATIVE) 11/24/16 15: Coarse Granular Casts Moderate /HPF (NEGATIVE) 11/24/16 15:19 Urine Mucus Few /HPF (NEGATIVE) 11/24/16 15:19 Ur Culture Indicated? No/not indicated 11/24/16 15:19 Fluid WBC 187 Cubic/mm 12/03/16 13:46 Fluid RBC 199 Cubic/mm 12/03/16 13:46 Fluid Albumin 1.2 12/03/16 13:46 Stool Description Fob tube 11/24/16 07:53 Stl Occult Blood (IFOB) Positive (NEGATIVE) A 11/24/16 07:53 Cytology Specimen To follow 12/03/16 13:46 Blood Type A NEGATIVE 11/24/16 10:01 Antibody Screen Negative 11/24/16 10:01 Crossmatch See Detail 11/24/16 10:01 - Plan (1) Ascites Status: Acute Qualifiers: Ascites type: A Plan: CONTINUE TO MONITOR. (2) GI bleed Status: Acute Qualifiers: GI bleed type/associated pathology: gastrointestinal hemorrhage with hematemesis Gastritis type: G Qualified Code(s): K92.0 - Hematemesis Plan: CONTINUE IVF, PEPCID, PROTONIX, MONITOR LABS IN AM. (3) Anemia due to GI blood loss Status: Acute Plan: CONTINUE TO MONITOR. (4) Hypokalemia Status: Acute Plan: CONTINUE POTASSIUM PROTOCOL, MONITOR LABS. (5) Hypomagnesemia Status: Acute Plan: MONITOR LABS. (6) Hypoalbuminemia Status: Acute Plan: CONTINUE ALBUMIN IV DAILY, MONITOR LABS. (7) Constipation by delayed colonic transit Status: Acute Plan: CONITNUE MILK OF MAGNESIA, COLACE, AND MIRALAX. (8) Hypertension Status: Chronic Qualifiers: Hypertension type: essential hypertension Qualified Code(s): I10 - Essential (primary) hypertension Plan: CONTINUE TO MONITOR (9) Gastroesophageal reflux disease Status: Chronic Plan: CONTINUE TO MONITOR (10) History of DVT (deep vein thrombosis) Status: Chronic Plan: CONTINUE TO MONITOR (11) Hyperlipidemia Status: Chronic Qualifiers: Hyperlipidemia type: mixed hyperlipidemia Qualified Code(s): E78.2 - Mixed hyperlipidemia Plan: CONTINUE TO MONITOR (12) Hypothyroidism Status: Chronic Qualifiers: Hypothyroidism type: acquired Qualified Code(s): E03.9 - Hypothyroidism, unspecified Plan: CONTINUE TO MONITOR
[2016-12-05] MEDS: LIPITOR TAB 40 MG PO SCH (21:00)
[2016-12-06] MEDS: VALIUM PO SCH ×3 (05:35→21:04)
[2016-12-06] MEDS: MORPHINE SULFATE INJ 2 MG IVP PRN (05:40)
[2016-12-06 06:23] LABS: ALANINE AMINOTRANSFERASE 15 Units/L (12-78); ALBUMIN 3.1 g/dL (3.4-5.0); ALKALINE PHOSPHATASE 81 Units/L (46-116); ASPARTATE AMINO TRANSFERASE 24 Units/L (15-37); BLOOD UREA NITROGEN 11 mg/dL (7-18); CALCIUM 8.9 mg/dL (8.5-10.1); CARBON DIOXIDE 29.3 mmol/L (21-32); CHLORIDE 107 mmol/L (98-107); COR CA(FOR HYPOALB) 9.6 mg/dL (8.5-10.1); CREATININE 1.31 mg/dL (0.70-1.30); GLUCOSE 89 mg/dL (65-99); SODIUM 144 mmol/L (136-145); TOTAL PROTEIN 6.4 g/dL (6.4-8.2); eGFR BLACK RACES > 60 (>60); eGFR NON BLACK RACES 59 (>60)
[2016-12-06 06:56] LABS: EOSINOPHILS # (AUTO) 0.1 x10^3/uL (0.0-0.2); EOSINOPHILS % (AUTO) 2.1 % (0.9-2.9); HEMATOCRIT 27.6 % (42.0-54.0); HEMOGLOBIN 9.1 g/dL (13.5-18.0); LYMPHOCYTES # (AUTO) 0.6 X10^3/uL (1.3-2.9); LYMPHOCYTES % (AUTO) 14.4 % (21.0-51.0); MEAN CORPUSCULAR HEMOGLOBIN 30.2 pg (27.0-34.0); MEAN CORPUSCULAR VOLUME 91.5 fL (80.0-100.0); MONOCYTES # (AUTO) 0.8 x10^3/uL (0.3-0.8); MONOCYTES % (AUTO) 18.2 % (0.0-13.0); NEUTROPHILS # (AUTO) 2.9 x10^3/uL (2.2-4.8); NEUTROPHILS % (AUTO) 64.3 % (42.0-75.0); PLATELET COUNT 190 X10^3/uL (150.0-450.0); RED BLOOD COUNT 3.02 X10^6/uL (4.7-6.0); RED CELL DISTRIBUTION WIDTH 18.5 % (11.6-16.5); WHITE BLOOD COUNT 4.5 X10^3/uL (3.6-10.0)
--- NOTE | 2016-12-06 08:07 | RAD ---
HISTORY: Shortness of breath Study: Single view chest Comparison: 12/05/2016 Findings: Single portable view. The lungs are clear without consolidation, effusion or pneumothorax. The cardi ac and mediastinal contours are within normal limits. The soft tissues are unremarkable. IMPRESSION: 1. No acute cardiopulmonary abnormality. Reported By:
[2016-12-06] MEDS: ALBUMIN HUMAN 25%- 100ML 100 ML IV SCH (08:38)
[2016-12-06] MEDS: COLACE CAP 100 MG PO SCH ×2 (08:38→20:05)
[2016-12-06] MEDS: ALDACTONE TAB 25 MG PO SCH (08:38)
[2016-12-06] MEDS: LASIX PO SCH (08:38)
[2016-12-06] MEDS: PEPCID 20 MG IV PREMIX* 20 MG/50 ML BAG IV SCH ×2 (08:39→20:04)
[2016-12-06] MEDS: MILK OF MAGNESIA PO SCH ×4 (08:39→20:04)
[2016-12-06] MEDS: NEURONTIN CAP 300 MG PO SCH (08:39)
[2016-12-06] MEDS: PROTONIX INJ 40 MG VIAL IVP SCH ×2 (08:39→20:04)
[2016-12-06] MEDS: LOPRESSOR TAB 25 MG PO SCH ×2 (08:39→20:05)
[2016-12-06] MEDS: MIRALAX POWDER (1 DOSE 17GM) PO SCH (08:39)
[2016-12-06] MEDS: NICODERM PATCH 21 MG/24 HR TD SCH (08:58)
[2016-12-06] MEDS: ULTRAM PO PRN (09:00)
[2016-12-06] MEDS: LIPITOR TAB 40 MG PO SCH (20:05)
[2016-12-06 22:50] LABS: HEPATITIS A ANTIBODY IGM Negative (Negative)
[2016-12-07 04:57] LABS: BASOPHILS # (AUTO) 0.1 X10^3/uL (0.0-0.1); BASOPHILS % (AUTO) 2.4 % (0.2-1.0); EOSINOPHILS # (AUTO) 0.1 x10^3/uL (0.0-0.2); EOSINOPHILS % (AUTO) 2.4 % (0.9-2.9); HEMOGLOBIN 9.8 g/dL (13.5-18.0); LYMPHOCYTES # (AUTO) 0.7 X10^3/uL (1.3-2.9); LYMPHOCYTES % (AUTO) 12.3 % (21.0-51.0); MEAN CORPUSCULAR HEMOGLOBIN 29.9 pg (27.0-34.0); MEAN CORPUSCULAR HGB CONC 32.7 g/dL (33.0-35.0); MEAN CORPUSCULAR VOLUME 91.6 fL (80.0-100.0); MEAN PLATELET VOLUME 8.5 fL (7.4-11.0); MONOCYTES # (AUTO) 0.8 x10^3/uL (0.3-0.8); MONOCYTES % (AUTO) 14.6 % (0.0-13.0); NEUTROPHILS # (AUTO) 3.9 x10^3/uL (2.2-4.8); NEUTROPHILS % (AUTO) 68.3 % (42.0-75.0); PLATELET COUNT 216 X10^3/uL (150.0-450.0); RED BLOOD COUNT 3.28 X10^6/uL (4.7-6.0); RED CELL DISTRIBUTION WIDTH 18.4 % (11.6-16.5); WHITE BLOOD COUNT 5.8 X10^3/uL (3.6-10.0)
[2016-12-07 05:09] LABS: ALANINE AMINOTRANSFERASE 14 Units/L (12-78); ALBUMIN 3.1 g/dL (3.4-5.0); ALKALINE PHOSPHATASE 88 Units/L (46-116); ASPARTATE AMINO TRANSFERASE 21 Units/L (15-37); BLOOD UREA NITROGEN 13 mg/dL (7-18); CHLORIDE 103 mmol/L (98-107); COR CA(FOR HYPOALB) 9.7 mg/dL (8.5-10.1); CREATININE 1.48 mg/dL (0.70-1.30); GLUCOSE 85 mg/dL (65-99); SODIUM 141 mmol/L (136-145); TOTAL PROTEIN 6.6 g/dL (6.4-8.2); eGFR BLACK RACES > 60 (>60); eGFR NON BLACK RACES 51 (>60)
[2016-12-07] MEDS: VALIUM PO SCH ×3 (05:50→21:05)
--- NOTE | 2016-12-07 08:18 | RAD ---
HISTORY: Respiratory distress, CHF Study: Single view chest Comparison: 12/06/2016 Findings: Single portable view. Lung volumes are reduced. The lungs are clear without consolidation, effusion or pneumothorax. The cardiac and mediastinal contours are within normal limits. The soft tissues ar e unremarkable. IMPRESSION: 1. No acute cardiopulmonary abnormality. Reported By:
[2016-12-07] MEDS: PROTONIX INJ 40 MG VIAL IVP SCH ×2 (09:15→20:27)
[2016-12-07] MEDS: MIRALAX POWDER (1 DOSE 17GM) PO SCH (09:15)
[2016-12-07] MEDS: NEURONTIN CAP 300 MG PO SCH (09:16)
[2016-12-07] MEDS: COLACE CAP 100 MG PO SCH ×2 (09:16→20:27)
[2016-12-07] MEDS: LOPRESSOR TAB 25 MG PO SCH ×2 (09:16→20:26)
[2016-12-07] MEDS: ALDACTONE TAB 25 MG PO SCH (09:16)
[2016-12-07] MEDS: LASIX PO SCH (09:17)
[2016-12-07] MEDS: MILK OF MAGNESIA PO SCH ×4 (09:17→20:27)
[2016-12-07] MEDS: PEPCID 20 MG IV PREMIX* 20 MG/50 ML BAG IV SCH ×2 (09:17→20:27)
[2016-12-07] MEDS: ALBUMIN HUMAN 25%- 100ML 100 ML IV SCH (09:28)
[2016-12-07] MEDS: NICODERM PATCH 21 MG/24 HR TD SCH ×2 (11:32→12:15)
[2016-12-07] MEDS: LIPITOR TAB 40 MG PO SCH (20:27)
[2016-12-08] MEDS: HALDOL INJ IVP PRN (02:09)
[2016-12-08] MEDS: VALIUM PO SCH ×3 (06:12→21:19)
[2016-12-08 06:27] LABS: BASOPHILS # (AUTO) 0.1 X10^3/uL (0.0-0.1); BASOPHILS % (AUTO) 1.5 % (0.2-1.0); EOSINOPHILS # (AUTO) 0.1 x10^3/uL (0.0-0.2); HEMATOCRIT 28.9 % (42.0-54.0); HEMOGLOBIN 9.5 g/dL (13.5-18.0); LYMPHOCYTES # (AUTO) 0.6 X10^3/uL (1.3-2.9); LYMPHOCYTES % (AUTO) 12.6 % (21.0-51.0); MEAN CORPUSCULAR HEMOGLOBIN 29.8 pg (27.0-34.0); MEAN CORPUSCULAR HGB CONC 32.9 g/dL (33.0-35.0); MEAN CORPUSCULAR VOLUME 90.7 fL (80.0-100.0); MEAN PLATELET VOLUME 8.5 fL (7.4-11.0); MONOCYTES # (AUTO) 0.9 x10^3/uL (0.3-0.8); MONOCYTES % (AUTO) 17.2 % (0.0-13.0); NEUTROPHILS # (AUTO) 3.4 x10^3/uL (2.2-4.8); NEUTROPHILS % (AUTO) 66.7 % (42.0-75.0); PLATELET COUNT 215 X10^3/uL (150.0-450.0); RED BLOOD COUNT 3.18 X10^6/uL (4.7-6.0); RED CELL DISTRIBUTION WIDTH 18.2 % (11.6-16.5); WHITE BLOOD COUNT 5.1 X10^3/uL (3.6-10.0)
[2016-12-08 07:08] LABS: ALANINE AMINOTRANSFERASE 16 Units/L (12-78); ALBUMIN 3.3 g/dL (3.4-5.0); ALKALINE PHOSPHATASE 89 Units/L (46-116); ASPARTATE AMINO TRANSFERASE 21 Units/L (15-37); BLOOD UREA NITROGEN 15 mg/dL (7-18); CALCIUM 9.4 mg/dL (8.5-10.1); CARBON DIOXIDE 29.4 mmol/L (21-32); CHLORIDE 104 mmol/L (98-107); CREATININE 1.48 mg/dL (0.70-1.30); GLUCOSE 96 mg/dL (65-99); SODIUM 143 mmol/L (136-145); TOTAL PROTEIN 6.7 g/dL (6.4-8.2); eGFR BLACK RACES > 60 (>60); eGFR NON BLACK RACES 51 (>60)
[2016-12-08 07:21] LABS: HEPATITIS B CORE IGM Negative (Negative); HEPATITIS B SURFACE ANTIGEN Negative (Negative)
[2016-12-08] MEDS: ALBUMIN HUMAN 25%- 100ML 100 ML IV SCH (08:27)
[2016-12-08] MEDS: ALDACTONE TAB 25 MG PO SCH (08:30)
[2016-12-08] MEDS: NEURONTIN CAP 300 MG PO SCH (08:30)
[2016-12-08] MEDS: LOPRESSOR TAB 25 MG PO SCH ×2 (08:30→20:42)
[2016-12-08] MEDS: LASIX PO SCH (08:31)
[2016-12-08] MEDS: COLACE CAP 100 MG PO SCH ×2 (08:31→20:40)
[2016-12-08] MEDS: MILK OF MAGNESIA PO SCH ×4 (08:31→20:40)
[2016-12-08] MEDS: MIRALAX POWDER (1 DOSE 17GM) PO SCH (08:32)
[2016-12-08] MEDS: NICODERM PATCH 21 MG/24 HR TD SCH ×2 (08:33→11:47)
[2016-12-08] MEDS: PEPCID 20 MG IV PREMIX* 20 MG/50 ML BAG IV SCH ×2 (08:45→20:44)
[2016-12-08] MEDS: PROTONIX INJ 40 MG VIAL IVP SCH ×2 (08:46→20:41)
[2016-12-08] MEDS: LIPITOR TAB 40 MG PO SCH (20:42)
[2016-12-09] MEDS: VALIUM PO SCH ×3 (05:57→21:15)
[2016-12-09 06:15] LABS: BASOPHILS # (AUTO) 0.1 X10^3/uL (0.0-0.1); BASOPHILS % (AUTO) 1.4 % (0.2-1.0); EOSINOPHILS % (AUTO) 0.5 % (0.9-2.9); HEMATOCRIT 31.5 % (42.0-54.0); HEMOGLOBIN 10.5 g/dL (13.5-18.0); LYMPHOCYTES # (AUTO) 0.8 X10^3/uL (1.3-2.9); LYMPHOCYTES % (AUTO) 10.6 % (21.0-51.0); MEAN CORPUSCULAR HEMOGLOBIN 29.6 pg (27.0-34.0); MEAN CORPUSCULAR HGB CONC 33.4 g/dL (33.0-35.0); MEAN CORPUSCULAR VOLUME 88.5 fL (80.0-100.0); MEAN PLATELET VOLUME 8.2 fL (7.4-11.0); MONOCYTES # (AUTO) 1.2 x10^3/uL (0.3-0.8); MONOCYTES % (AUTO) 16.2 % (0.0-13.0); NEUTROPHILS # (AUTO) 5.2 x10^3/uL (2.2-4.8); NEUTROPHILS % (AUTO) 71.3 % (42.0-75.0); PLATELET COUNT 269 X10^3/uL (150.0-450.0); RED BLOOD COUNT 3.56 X10^6/uL (4.7-6.0); WHITE BLOOD COUNT 7.4 X10^3/uL (3.6-10.0)
[2016-12-09 06:31] LABS: ALANINE AMINOTRANSFERASE 16 Units/L (12-78); ALBUMIN 3.9 g/dL (3.4-5.0); ALKALINE PHOSPHATASE 103 Units/L (46-116); ASPARTATE AMINO TRANSFERASE 18 Units/L (15-37); BLOOD UREA NITROGEN 16 mg/dL (7-18); CALCIUM 9.8 mg/dL (8.5-10.1); CARBON DIOXIDE 25.9 mmol/L (21-32); CHLORIDE 101 mmol/L (98-107); CREATININE 1.41 mg/dL (0.70-1.30); GLUCOSE 105 mg/dL (65-99); SODIUM 139 mmol/L (136-145); eGFR BLACK RACES > 60 (>60); eGFR NON BLACK RACES 54 (>60)
[2016-12-09] MEDS: PROTONIX INJ 40 MG VIAL IVP SCH ×2 (08:06→19:43)
[2016-12-09] MEDS: ALBUMIN HUMAN 25%- 100ML 100 ML IV SCH (08:06)
[2016-12-09] MEDS: PEPCID 20 MG IV PREMIX* 20 MG/50 ML BAG IV SCH ×2 (08:06→19:43)
[2016-12-09] MEDS: NEURONTIN CAP 300 MG PO SCH (08:07)
[2016-12-09] MEDS: ALDACTONE TAB 25 MG PO SCH (08:07)
[2016-12-09] MEDS: COLACE CAP 100 MG PO SCH ×2 (08:08→19:43)
[2016-12-09] MEDS: LASIX PO SCH (08:08)
[2016-12-09] MEDS: LOPRESSOR TAB 25 MG PO SCH ×2 (08:08→19:44)
[2016-12-09] MEDS: MILK OF MAGNESIA PO SCH ×4 (08:11→21:15)
[2016-12-09] MEDS: NICODERM PATCH 21 MG/24 HR TD SCH (08:11)
[2016-12-09] MEDS: MIRALAX POWDER (1 DOSE 17GM) PO SCH (08:11)
[2016-12-09] MEDS: MORPHINE SULFATE INJ 2 MG IVP PRN (09:30)
[2016-12-09] MEDS: PHENOBARBITAL SODIUM INJ 65 MG VIAL IVP PRN (19:43)
[2016-12-09] MEDS: LIPITOR TAB 40 MG PO SCH (19:43)
[2016-12-10] MEDS: COLACE CAP 100 MG PO SCH ×3 (02:06→21:33)
[2016-12-10] MEDS: PROTONIX INJ 40 MG VIAL IVP SCH ×3 (02:07→21:34)
[2016-12-10] MEDS: PEPCID 20 MG IV PREMIX* 20 MG/50 ML BAG IV SCH ×3 (02:07→21:34)
[2016-12-10] MEDS: LIPITOR TAB 40 MG PO SCH ×2 (02:08→21:33)
[2016-12-10] MEDS: LOPRESSOR TAB 25 MG PO SCH ×3 (02:08→21:33)
[2016-12-10] MEDS: HALDOL INJ IVP PRN (02:15)
[2016-12-10] MEDS: VALIUM PO SCH ×3 (05:50→21:33)
[2016-12-10 06:36] LABS: BASOPHILS # (AUTO) 0.1 X10^3/uL (0.0-0.1); BASOPHILS % (AUTO) 1.3 % (0.2-1.0); EOSINOPHILS # (AUTO) 0.1 x10^3/uL (0.0-0.2); EOSINOPHILS % (AUTO) 0.9 % (0.9-2.9); HEMATOCRIT 31.5 % (42.0-54.0); HEMOGLOBIN 10.1 g/dL (13.5-18.0); LYMPHOCYTES # (AUTO) 0.7 X10^3/uL (1.3-2.9); LYMPHOCYTES % (AUTO) 11.4 % (21.0-51.0); MEAN CORPUSCULAR HEMOGLOBIN 29.1 pg (27.0-34.0); MEAN CORPUSCULAR HGB CONC 32.1 g/dL (33.0-35.0); MEAN CORPUSCULAR VOLUME 90.4 fL (80.0-100.0); MEAN PLATELET VOLUME 8.2 fL (7.4-11.0); MONOCYTES # (AUTO) 1.2 x10^3/uL (0.3-0.8); MONOCYTES % (AUTO) 20.3 % (0.0-13.0); NEUTROPHILS % (AUTO) 66.1 % (42.0-75.0); PLATELET COUNT 222 X10^3/uL (150.0-450.0); RED BLOOD COUNT 3.49 X10^6/uL (4.7-6.0); RED CELL DISTRIBUTION WIDTH 18.6 % (11.6-16.5)
[2016-12-10 06:44] LABS: ALANINE AMINOTRANSFERASE 14 Units/L (12-78); ALBUMIN 3.9 g/dL (3.4-5.0); ALKALINE PHOSPHATASE 92 Units/L (46-116); ASPARTATE AMINO TRANSFERASE 20 Units/L (15-37); BLOOD UREA NITROGEN 18 mg/dL (7-18); CALCIUM 10.1 mg/dL (8.5-10.1); CARBON DIOXIDE 25.9 mmol/L (21-32); CHLORIDE 102 mmol/L (98-107); CREATININE 1.53 mg/dL (0.70-1.30); GLUCOSE 105 mg/dL (65-99); SODIUM 139 mmol/L (136-145); TOTAL PROTEIN 7.8 g/dL (6.4-8.2); eGFR BLACK RACES 60 (>60); eGFR NON BLACK RACES 49 (>60)
[2016-12-10 07:00] LABS: PLATELET MORPHOLOGY COMMENT NORMAL (NORMAL)
[2016-12-10] MEDS ORDERED: NS 500 ML IV 500 ML IV ONE (07:40)
[2016-12-10] MEDS: ALDACTONE TAB 25 MG PO SCH (08:04)
[2016-12-10] MEDS: NICODERM PATCH 21 MG/24 HR TD SCH (08:04)
[2016-12-10] MEDS: NEURONTIN CAP 300 MG PO SCH (08:05)
[2016-12-10] MEDS: ALBUMIN HUMAN 25%- 100ML 100 ML IV SCH (08:05)
[2016-12-10] MEDS: LASIX PO SCH (08:05)
[2016-12-10] MEDS: MIRALAX POWDER (1 DOSE 17GM) PO SCH (08:10)
[2016-12-10] MEDS: MILK OF MAGNESIA PO SCH ×3 (08:10→16:44)
--- NOTE | 2016-12-10 13:34 | PCM.PROG ---
Progress Note - Progress Note for Day of Date: 12/10/16 - Subjective Subjective: PATIENT IS A 61-YEAR-OLD MALE WHO IS CURRENTLY IN icu, PATIENT OF dR. Hester'S, STATUS POST PARACENTESIS DUE TO SEVERE ASCITES. pATIENT WAS ORIGINALLY ADMITTED WITH A gi BLEED WHICH IS CURRENTLY CONTROLLED AND PATIENT IS HEMODYNAMICALLY STABLE. pATIENT CONTINUES WITH MILD EXPIRATORY WHEEZES AND DIMINISHED LUNG BASES. pATIENT'S ABDOMEN DISTENDED PLAN TO REPEAT PARACENTESIS TODAY PER RADIOLOGIST. cONTINUE WITH PLAN FOR DISCHARGE FOR THERAPY PATIENT IS STABLE - Past Medical Family Social History Past Med/Fam/Surg Hx: No changes since H&P Allergies: Allergies No Known Drug Allergy Allergy (Verified 11/24/16 07:17) - Review of Systems ROS: No change since H&P - Vital Signs and I&O's Vital Signs: Temperature 99.6 F Pulse Rate [Apical] 83 Pulse Rate [Right Brachial] 137 Pulse Rate [Left Brachial] 99 Pulse Rate 84 Respiratory Rate 20 Blood Pressure [Right Calf] 126/74 Blood Pressure [Right Arm] 120/73 Blood Pressure [Left Arm] 132/91 Blood Pressure 135/76 O2 Sat by Pulse Oximetry 100 Intake and Output: Intake & Output 12/08/16 12/09/16 12/10/16 12/11/16 11:59 11:59 11:59 11:59 Intake Total 1621 1661 1485 Output Total 750 Balance 1621 1661 735 - Physical Exam Oriented: Normal, Time, Person, Place Eyes: Normal. negative: Blurred Vision, Diplopia, Discharge, Pain, Redness, Photophobia Ear: Normal. negative: Swelling, Ecchymosis, Hemotypanum, Abrasion, Laceration Nose: Normal. negative: Discharge, Blood Throat: Normal. negative: Tonsillar Hypertrophy, Exudate Respiratory: Diminished Cardiovascular: Normal. negative: Murmur, Edema : Normal. negative: Dysuria, Hematuria, Testicular Pain Auscultation: Bowel Sounds: Decreased. negative: Bruit Tenderness: Normal. negative: Rebound, Guarding, Rigidity Skin: Normal, Bruising (scattered). negative: Wound, Ecchymosis Musculoskeletal: Instability Psychiatric: Normal Mood Description: Calm Affect: Normal Speech Pattern: Clear, Appropriate - Laboratory and Diagnostics Result Diagrams: 12/10/16 05:55 12/10/16 05:55 Labs: Laboratory WBC 6.0 X10^3/uL (3.6-10.0) 12/10/16 05:55 RBC 3.49 X10^6/uL (4.7-6.0) L 12/10/16 05:55 Hgb 10.1 g/dL (13.5-18.0) L 12/10/16 05:55 Hct 31.5 % (42.0-54.0) L 12/10/16 05:55 MCV 90.4 fL (80.0-100.0) 12/10/16 05:55 MCH 29.1 pg (27.0-34.0) 12/10/16 05:55 MCHC 32.1 g/dL (33.0-35.0) L 12/10/16 05:55 RDW 18.6 % (11.6-16.5) H 12/10/16 05:55 Plt Count 222 X10^3/uL (150.0-450.0) 12/10/16 05:55 Plt Count Comment Adequate (ADEQUATE) 12/10/16 05:55 MPV 8.2 fL (7.4-11.0) 12/10/16 05:55 Neut % 66.1 % (42.0-75.0) 12/10/16 05:55 Lymph % 11.4 % (21.0-51.0) L 12/10/16 05:55 [place] % 20.3 % (0.0-13.0) H 12/10/16 05:55 Eos % 0.9 % (0.9-2.9) 12/10/16 05:55 Baso % 1.3 % (0.2-1.0) H 12/10/16 05:55 Neut # 4.0 x10^3/uL (2.2-4.8) 12/10/16 05:55 Lymph # 0.7 X10^3/uL (1.3-2.9) L 12/10/16 05:55 [place] # 1.2 x10^3/uL (0.3-0.8) H 12/10/16 05:55 Eos # 0.1 x10^3/uL (0.0-0.2) 12/10/16 05:55 Baso # 0.1 X10^3/uL (0.0-0.1) 12/10/16 05:55 Absolute Nucleated RBC 0.1 /100WBC 12/10/16 05:55 Total Counted 100 12/10/16 05:55 Neutrophils % (Manual) 80 % (39-76) H 12/10/16 05:55 Band Neutrophils % 4 % (0-10) 12/04/16 04:45 Lymphocytes % (Manual) 11 % (13-43) L 12/10/16 05:55 Monocytes % (Manual) 6 % (4-9) 12/10/16 05:55 Eosinophils % (Manual) 3 % (0-6) 12/10/16 05:55 Plt Morphology Comment Normal (NORMAL) 12/10/16 05:55 RBC Morphology Normal (NORMAL) 12/10/16 05:55 Dimorphic RBCs Present 11/25/16 04:05 Hypochromasia Slight A 12/03/16 03:30 Anisocytosis Slight A 12/03/16 03:30 INR Target Range - 12/09/16 05:22 INR 1.03 (0.8-1.3) 12/09/16 05:22 Sodium 139 mmol/L (136-145) 12/10/16 05:55 Corrected Sodium TNP 12/10/16 05:55 Potassium 4.3 mmol/L (3.5-5.1) 12/10/16 05:55 Chloride 102 mmol/L (98-107) 12/10/16 05:55 Carbon Dioxide 25.9 mmol/L (21-32) 12/10/16 05:55 BUN 18 mg/dL (7-18) 12/10/16 05:55 Creatinine 1.53 mg/dL (0.70-1.30) H 12/10/16 05:55 Est GFR (MDRD) Af Amer 60 (>60) 12/10/16 05:55 Est GFR (MDRD) Non-Af 49 (>60) L 12/10/16 05:55 Glucose 105 mg/dL (65-99) H 12/10/16 05:55 Calcium 10.1 mg/dL (8.5-10.1) 12/10/16 05:55 Corrected Calcium TNP 12/10/16 05:55 Magnesium 1.8 mg/dL (1.7-2.9) 11/29/16 05:01 Total Bilirubin 1.10 mg/dL (0.2-1.0) H 12/10/16 05:55 AST 20 Units/L (15-37) 12/10/16 05:55 ALT 14 Units/L (12-78) 12/10/16 05:55 Alkaline Phosphatase 92 Units/L (46-116) 12/10/16 05:55 Ammonia 22 umol/L (11-32) 11/27/16 07:45 Creatine Kinase 120 Units/L (39-308) 11/24/16 18:33 CK-MB (CK-2) 1.0 ng/mL (0-4.0) 11/24/16 18:33 CK/CKMB % Calc 0.8 % (<4) 11/24/16 18:33 Troponin I 0.06 ng/mL (0-1.5) 11/24/16 18:33 Total Protein 7.8 g/dL (6.4-8.2) 12/10/16 05:55 Albumin 3.9 g/dL (3.4-5.0) 12/10/16 05:55 Globulin 3.9 g/dL (2.5-4.5) 12/10/16 05:55 Albumin/Globulin Ratio 1.0 Ratio (1.1-2.1) L 12/10/16 05:55 Carcinoembryonic Ag 4.3 ng/mL (0.0-3.0) H 11/26/16 04:05 CA 19-9 Antigen 39 U/mL (0-37) H 11/26/16 04:05 Free PSA 0.1 ng/mL 11/26/16 04:05 % Free PSA Calc 25 % 11/26/16 04:05 Total PSA 0.4 ng/mL (0.0-4.0) 11/26/16 04:05 Specimen Type Clean catch urine 11/24/16 15: Urine Color Brenna (YELLOW) 11/24/16 15: Urine Appearance Slightly hazy (CLEAR) 11/24/16 15: Urine pH 5.0 (5.0 - 8.0) 11/24/16 15:19 Ur Specific [place] 1.020 (1.000-1.030) 11/24/16 15: Urine Protein 2+ (NEGATIVE) 11/24/16 15:19 Urine Glucose (UA) Negative (NEGATIVE) 11/24/16 15:19 Urine Ketones 2+ (NEGATIVE) 11/24/16 15:19 Urine Occult Blood 1+ (NEGATIVE) 11/24/16 15:19 Urine Nitrite Negative (NEGATIVE) 11/24/16 15:19 Urine Bilirubin Negative (NEGATIVE) 11/24/16 15:19 Urine Urobilinogen Normal (NORMAL) 11/24/16 15:19 Ur Leukocyte Esterase Negative (NEGATIVE) 11/24/16 15:19 Urine RBC 1 - 3 /HPF (NEGATIVE) 11/24/16 15:19 Urine WBC Rare /HPF (NEGATIVE) 11/24/16 15:19 Ur Squamous Epith Cells Few /HPF (NEGATIVE) 11/24/16 15:19 Urine Bacteria Trace /HPF (NEGATIVE) 11/24/16 15:19 Hyaline Casts Few /LPF (NEGATIVE) 11/24/16 15:19 Coarse Granular Casts Moderate /HPF (NEGATIVE) 11/24/16 15:19 Urine Mucus Few /HPF (NEGATIVE) 11/24/16 15:19 Ur Culture Indicated? No/not indicated 11/24/16 15:19 Fluid WBC 187 Cubic/mm 12/03/16 13:46 Fluid RBC 199 Cubic/mm 12/03/16 13:46 Fluid Albumin 1.2 12/03/16 13:46 Stool Description Fob tube 11/24/16 07:53 Stl Occult Blood (IFOB) Positive (NEGATIVE) A 11/24/16 07:53 Hepatitis A IgM Ab Negative (Negative) 12/03/16 14:28 Hep Bs Antigen Negative (Negative) 12/03/16 14:28 Hep Bs Ag Confirmation TNP 12/03/16 14:28 Hep B Core IgM Ab Negative (Negative) 12/03/16 14:28 Hepatitis C Ab Index 0.21 IV 12/03/16 14:28 Hepatitis C Interp Negative (Negative) 12/03/16 14:28 Hepatitis Interpret See note 12/03/16 14:28 Cytology Specimen To follow 12/03/16 13:46 Blood Type A NEGATIVE 11/24/16 10:01 Antibody Screen Negative 11/24/16 10:01 Crossmatch See Detail 11/24/16 10:01 - Plan (1) Ascites Status: Acute Qualifiers: Ascites type: A Plan: REPEAT PARACENTESIS PER RADIOLOGIST, REPEAT AM LABS. STRICT I&O'S (2) Anemia due to GI blood loss Status: Acute Plan: CONTINUE TO MONITOR. (3) Hypoalbuminemia Status: Acute Plan: CONTINUE ALBUMIN IV DAILY, MONITOR LABS. (4) Hypokalemia Status: Acute Plan: CONTINUE POTASSIUM PROTOCOL, MONITOR LABS. (5) Hypomagnesemia Status: Acute Plan: MONITOR LABS. (6) Hypothyroidism Status: Chronic Qualifiers: Hypothyroidism type: acquired Qualified Code(s): E03.9 - Hypothyroidism, unspecified Plan: CONTINUE TO MONITOR (7) History of alcoholism Status: Chronic (8) Hypertension Status: Chronic Qualifiers: Hypertension type: essential hypertension Qualified Code(s): I10 - Essential (primary) hypertension Plan: CONTINUE TO MONITOR (9) PVD (peripheral vascular disease) Status: Chronic
--- NOTE | 2016-12-10 17:27 | US ---
HISTORY: Ascites Study: Ultrasound-guided paracentesis Comparison: December 03, 2016 Procedure: The risk, benefits, and alternatives were discussed. Informed consent was obtained. Time out was performed. Sonographic guidance was utilized to localize the optimal percutaneous paracentes is site in the left lower quadrant. The patient was prepped, draped, and anesthetized in the usual s terile fashion. Subsequently, an 8 [place] catheter was advanced into the peritoneal space, and 6 L o f serous fluid was withdrawn. The patient tolerated the procedure well without immediate postprocedu re complication. IMPRESSION: Technically successful ultrasound-guided paracentesis. Reported By:
[2016-12-11] MEDS: PHENOBARBITAL SODIUM INJ 65 MG VIAL IVP PRN ×2 (00:30→21:12)
[2016-12-11] MEDS: VALIUM PO SCH ×3 (05:15→21:12)
[2016-12-11 06:12] LABS: BASOPHILS # (AUTO) 0.1 X10^3/uL (0.0-0.1); BASOPHILS % (AUTO) 1.3 % (0.2-1.0); EOSINOPHILS # (AUTO) 0.1 x10^3/uL (0.0-0.2); EOSINOPHILS % (AUTO) 1.1 % (0.9-2.9); HEMATOCRIT 32.3 % (42.0-54.0); HEMOGLOBIN 10.7 g/dL (13.5-18.0); LYMPHOCYTES # (AUTO) 0.8 X10^3/uL (1.3-2.9); MEAN CORPUSCULAR HEMOGLOBIN 29.6 pg (27.0-34.0); MEAN CORPUSCULAR HGB CONC 33.3 g/dL (33.0-35.0); MEAN CORPUSCULAR VOLUME 89.1 fL (80.0-100.0); MONOCYTES # (AUTO) 1.3 x10^3/uL (0.3-0.8); MONOCYTES % (AUTO) 21.5 % (0.0-13.0); NEUTROPHILS # (AUTO) 3.9 x10^3/uL (2.2-4.8); NEUTROPHILS % (AUTO) 63.1 % (42.0-75.0); PLATELET COUNT 234 X10^3/uL (150.0-450.0); RED BLOOD COUNT 3.62 X10^6/uL (4.7-6.0); RED CELL DISTRIBUTION WIDTH 18.2 % (11.6-16.5); WHITE BLOOD COUNT 6.2 X10^3/uL (3.6-10.0)
--- NOTE | 2016-12-11 06:19 | RAD ---
HISTORY: Shortness of breath Study: Chest one view Comparison: December 07, 2016 Findings: The trachea is midline. The cardiac silhouette is unremarkable. The lungs are clear without focal infiltrate or effusion. The bony thorax is unremarkable. IMPRESSION: 1. No acute cardiopulmonary disease. Reported By:
[2016-12-11] MEDS: MILK OF MAGNESIA PO SCH ×5 (06:22→21:11)
[2016-12-11 06:23] LABS: ALANINE AMINOTRANSFERASE 15 Units/L (12-78); ALBUMIN 3.7 g/dL (3.4-5.0); ALKALINE PHOSPHATASE 88 Units/L (46-116); ASPARTATE AMINO TRANSFERASE 20 Units/L (15-37); BLOOD UREA NITROGEN 18 mg/dL (7-18); CALCIUM 9.6 mg/dL (8.5-10.1); CARBON DIOXIDE 26.4 mmol/L (21-32); CHLORIDE 103 mmol/L (98-107); CREATININE 1.42 mg/dL (0.70-1.30); GLUCOSE 102 mg/dL (65-99); SODIUM 140 mmol/L (136-145); TOTAL PROTEIN 7.6 g/dL (6.4-8.2); eGFR BLACK RACES > 60 (>60); eGFR NON BLACK RACES 54 (>60)
[2016-12-11 06:42] LABS: PLATELET MORPHOLOGY COMMENT NORMAL (NORMAL)
[2016-12-11] MEDS: PROTONIX INJ 40 MG VIAL IVP SCH ×2 (08:07→21:12)
[2016-12-11] MEDS: ALBUMIN HUMAN 25%- 100ML 100 ML IV SCH (08:13)
[2016-12-11] MEDS: PEPCID 20 MG IV PREMIX* 20 MG/50 ML BAG IV SCH ×2 (08:13→21:12)
[2016-12-11] MEDS: NEURONTIN CAP 300 MG PO SCH (08:14)
[2016-12-11] MEDS: ALDACTONE TAB 25 MG PO SCH (08:14)
[2016-12-11] MEDS: COLACE CAP 100 MG PO SCH ×2 (08:14→21:11)
[2016-12-11] MEDS: NICODERM PATCH 21 MG/24 HR TD SCH (08:14)
[2016-12-11] MEDS: LASIX PO SCH (08:14)
[2016-12-11] MEDS: MIRALAX POWDER (1 DOSE 17GM) PO SCH (08:15)
[2016-12-11] MEDS: LOPRESSOR TAB 25 MG PO SCH ×2 (08:15→21:12)
--- NOTE | 2016-12-11 17:55 | PCM.PROG ---
Progress Note - Progress Note for Day of Date: 12/11/16 - Subjective Subjective: PATIENT IS A 61-YEAR-OLD MALE WHO IS CURRENTLY IN icu, PATIENT OF dR. Hester'S, STATUS POST PARACENTESIS DUE TO SEVERE ASCITES. pATIENT WAS ORIGINALLY ADMITTED WITH A gi BLEED WHICH IS CURRENTLY CONTROLLED AND PATIENT IS HEMODYNAMICALLY STABLE. pATIENT CONTINUES WITH MILD EXPIRATORY WHEEZES AND DIMINISHED LUNG BASES. PATIENT HAD APPROXIMATELY 6 l OF FLUID REMOVED FROM PARACENTESIS YESTERDAY. pATIENT REMAINED STABLE POST PROCEDURE. pATIENT CURRENTLY AWAITING [facility] PLACEMENT. - Past Medical Family Social History Past Med/Fam/Surg Hx: No changes since H&P Allergies: Allergies No Known Drug Allergy Allergy (Verified 11/24/16 07:17) - Review of Systems ROS: No change since H&P - Vital Signs and I&O's Vital Signs: Temperature 98.4 F Pulse Rate [Apical] 83 Pulse Rate [Right Brachial] 137 Pulse Rate [Left Brachial] 82 Pulse Rate 84 Respiratory Rate 22 Blood Pressure [Right Calf] 126/74 Blood Pressure [Right Arm] 98/64 Blood Pressure [Left Arm] 132/91 Blood Pressure 135/76 O2 Sat by Pulse Oximetry 100 Intake and Output: Intake & Output 12/09/16 12/10/16 12/11/16 12/12/16 11:59 11:59 11:59 11:59 Intake Total 1661 1485 1800 890 Output Total 750 6600 Balance 1661 735 -4800 890 - Physical Exam Oriented: Normal, Time, Person, Place Eyes: Normal. negative: Blurred Vision, Diplopia, Discharge, Pain, Redness, Photophobia Ear: Normal. negative: Swelling, Ecchymosis, Hemotypanum, Abrasion, Laceration Nose: Normal. negative: Discharge, Blood Throat: Normal. negative: Tonsillar Hypertrophy, Exudate Respiratory: Diminished Cardiovascular: Normal. negative: Murmur, Edema : Normal. negative: Dysuria, Hematuria, Testicular Pain Auscultation: Bowel Sounds: Decreased. negative: Bruit Tenderness: Normal. negative: Rebound, Guarding, Rigidity Skin: Normal, Bruising (scattered). negative: Wound, Ecchymosis Musculoskeletal: Instability Psychiatric: Normal Mood Description: Calm Affect: Normal Speech Pattern: Clear, Appropriate - Laboratory and Diagnostics Result Diagrams: 12/11/16 04:15 12/11/16 04:15 Labs: Laboratory WBC 6.2 X10^3/uL (3.6-10.0) 12/11/16 04:15 RBC 3.62 X10^6/uL (4.7-6.0) L 12/11/16 04:15 Hgb 10.7 g/dL (13.5-18.0) L 12/11/16 04:15 Hct 32.3 % (42.0-54.0) L 12/11/16 04:15 MCV 89.1 fL (80.0-100.0) 12/11/16 04:15 MCH 29.6 pg (27.0-34.0) 12/11/16 04:15 MCHC 33.3 g/dL (33.0-35.0) 12/11/16 04:15 RDW 18.2 % (11.6-16.5) H 12/11/16 04:15 Plt Count 234 X10^3/uL (150.0-450.0) 12/11/16 04:15 Plt Count Comment Adequate (ADEQUATE) 12/11/16 04:15 MPV 8.0 fL (7.4-11.0) 12/11/16 04:15 Neut % 63.1 % (42.0-75.0) 12/11/16 04:15 Lymph % 13.0 % (21.0-51.0) L 12/11/16 04:15 [place] % 21.5 % (0.0-13.0) H 12/11/16 04:15 Eos % 1.1 % (0.9-2.9) 12/11/16 04:15 Baso % 1.3 % (0.2-1.0) H 12/11/16 04:15 Neut # 3.9 x10^3/uL (2.2-4.8) 12/11/16 04:15 Lymph # 0.8 X10^3/uL (1.3-2.9) L 12/11/16 04:15 [place] # 1.3 x10^3/uL (0.3-0.8) H 12/11/16 04:15 Eos # 0.1 x10^3/uL (0.0-0.2) 12/11/16 04:15 Baso # 0.1 X10^3/uL (0.0-0.1) 12/11/16 04:15 Absolute Nucleated RBC 0.0 /100WBC 12/11/16 04:15 Total Counted 100 12/11/16 04:15 Neutrophils % (Manual) 71 % (39-76) 12/11/16 04:15 Band Neutrophils % 4 % (0-10) 12/04/16 04:45 Lymphocytes % (Manual) 22 % (13-43) 12/11/16 04:15 Monocytes % (Manual) 5 % (4-9) 12/11/16 04:15 Eosinophils % (Manual) 2 % (0-6) 12/11/16 04:15 Plt Morphology Comment Normal (NORMAL) 12/11/16 04:15 RBC Morphology Normal (NORMAL) 12/11/16 04:15 Dimorphic RBCs Present 11/25/16 04:05 Hypochromasia Slight A 12/03/16 03:30 Anisocytosis Slight A 12/03/16 03:30 INR Target Range - 12/09/16 05:22 INR 1.03 (0.8-1.3) 12/09/16 05:22 Sodium 140 mmol/L (136-145) 12/11/16 04:15 Corrected Sodium TNP 12/11/16 04:15 Potassium 4.2 mmol/L (3.5-5.1) 12/11/16 04:15 Chloride 103 mmol/L (98-107) 12/11/16 04:15 Carbon Dioxide 26.4 mmol/L (21-32) 12/11/16 04:15 BUN 18 mg/dL (7-18) 12/11/16 04:15 Creatinine 1.42 mg/dL (0.70-1.30) H 12/11/16 04:15 Est GFR (MDRD) Af Amer > 60 (>60) 12/11/16 04:15 Est GFR (MDRD) Non-Af 54 (>60) L 12/11/16 04:15 Glucose 102 mg/dL (65-99) H 12/11/16 04:15 Calcium 9.6 mg/dL (8.5-10.1) 12/11/16 04:15 Corrected Calcium TNP 12/11/16 04:15 Magnesium 1.8 mg/dL (1.7-2.9) 11/29/16 05:01 Total Bilirubin 0.80 mg/dL (0.2-1.0) 12/11/16 04:15 AST 20 Units/L (15-37) 12/11/16 04:15 ALT 15 Units/L (12-78) 12/11/16 04:15 Alkaline Phosphatase 88 Units/L (46-116) 12/11/16 04:15 Ammonia 22 umol/L (11-32) 11/27/16 07:45 Creatine Kinase 120 Units/L (39-308) 11/24/16 18:33 CK-MB (CK-2) 1.0 ng/mL (0-4.0) 11/24/16 18:33 CK/CKMB % Calc 0.8 % (<4) 11/24/16 18:33 Troponin I 0.06 ng/mL (0-1.5) 11/24/16 18:33 Total Protein 7.6 g/dL (6.4-8.2) 12/11/16 04:15 Albumin 3.7 g/dL (3.4-5.0) 12/11/16 04:15 Globulin 3.9 g/dL (2.5-4.5) 12/11/16 04:15 Albumin/Globulin Ratio 0.9 Ratio (1.1-2.1) L 12/11/16 04:15 Carcinoembryonic Ag 4.3 ng/mL (0.0-3.0) H 11/26/16 04:05 CA 19-9 Antigen 39 U/mL (0-37) H 11/26/16 04:05 Free PSA 0.1 ng/mL 11/26/16 04:05 % Free PSA Calc 25 % 11/26/16 04:05 Total PSA 0.4 ng/mL (0.0-4.0) 11/26/16 04:05 Specimen Type Clean catch urine 11/24/16 15: Urine Color Brenna (YELLOW) 11/24/16 15: Urine Appearance Slightly hazy (CLEAR) 11/24/16 15: Urine pH 5.0 (5.0 - 8.0) 11/24/16 15:19 Ur Specific [place] 1.020 (1.000-1.030) 11/24/16 15:19 Urine Protein 2+ (NEGATIVE) 11/24/16 15:19 Urine Glucose (UA) Negative (NEGATIVE) 11/24/16 15:19 Urine Ketones 2+ (NEGATIVE) 11/24/16 15:19 Urine Occult Blood 1+ (NEGATIVE) 11/24/16 15:19 Urine Nitrite Negative (NEGATIVE) 11/24/16 15:19 Urine Bilirubin Negative (NEGATIVE) 11/24/16 15:19 Urine Urobilinogen Normal (NORMAL) 11/24/16 15:19 Ur Leukocyte Esterase Negative (NEGATIVE) 11/24/16 15:19 Urine RBC 1 - 3 /HPF (NEGATIVE) 11/24/16 15:19 Urine WBC Rare /HPF (NEGATIVE) 11/24/16 15:19 Ur Squamous Epith Cells Few /HPF (NEGATIVE) 11/24/16 15:19 Urine Bacteria Trace /HPF (NEGATIVE) 11/24/16 15:19 Hyaline Casts Few /LPF (NEGATIVE) 11/24/16 15:19 Coarse Granular Casts Moderate /HPF (NEGATIVE) 11/24/16 15:19 Urine Mucus Few /HPF (NEGATIVE) 11/24/16 15:19 Ur Culture Indicated? No/not indicated 11/24/16 15:19 Fluid WBC 187 Cubic/mm 12/03/16 13:46 Fluid RBC 199 Cubic/mm 12/03/16 13:46 Fluid Albumin 1.2 12/03/16 13:46 Stool Description Fob tube 11/24/16 07:53 Stl Occult Blood (IFOB) Positive (NEGATIVE) A 11/24/16 07:53 Hepatitis A IgM Ab Negative (Negative) 12/03/16 14:28 Hep Bs Antigen Negative (Negative) 12/03/16 14:28 Hep Bs Ag Confirmation TNP 12/03/16 14:28 Hep B Core IgM Ab Negative (Negative) 12/03/16 14:28 Hepatitis C Ab Index 0.21 IV 12/03/16 14:28 Hepatitis C Interp Negative (Negative) 12/03/16 14:28 Hepatitis Interpret See note 12/03/16 14:28 Cytology Specimen To follow 12/03/16 13:46 Blood Type A NEGATIVE 11/24/16 10:01 Antibody Screen Negative 11/24/16 10:01 Crossmatch See Detail 11/24/16 10:01 - Plan (1) Ascites Status: Acute Qualifiers: Ascites type: A Plan: S/P PARACENTESIS PER RADIOLOGIST, REPEAT AM LABS. STRICT I&O'S (2) Anemia due to GI blood loss Status: Acute Plan: CONTINUE TO MONITOR. (3) Hypoalbuminemia Status: Acute Plan: CONTINUE ALBUMIN IV DAILY, MONITOR LABS. (4) Hypokalemia Status: Acute Plan: CONTINUE POTASSIUM PROTOCOL, MONITOR LABS. (5) Hypomagnesemia Status: Acute Plan: MONITOR LABS. (6) Hypothyroidism Status: Chronic Qualifiers: Hypothyroidism type: acquired Qualified Code(s): E03.9 - Hypothyroidism, unspecified Plan: CONTINUE TO MONITOR (7) History of alcoholism Status: Chronic (8) Hypertension Status: Chronic Qualifiers: Hypertension type: essential hypertension Qualified Code(s): I10 - Essential (primary) hypertension Plan: CONTINUE TO MONITOR (9) PVD (peripheral vascular disease) Status: Chronic
[2016-12-11] MEDS: LIPITOR TAB 40 MG PO SCH (21:11)
[2016-12-12] MEDS: HALDOL INJ IVP PRN (00:20)
[2016-12-12] MEDS: VALIUM PO SCH ×3 (05:36→21:53)
[2016-12-12] MEDS: MILK OF MAGNESIA PO SCH ×4 (08:55→21:53)
[2016-12-12] MEDS: NICODERM PATCH 21 MG/24 HR TD SCH (08:55)
[2016-12-12] MEDS: ALBUMIN HUMAN 25%- 100ML 100 ML IV SCH (08:56)
[2016-12-12] MEDS: MIRALAX POWDER (1 DOSE 17GM) PO SCH (08:56)
[2016-12-12] MEDS: COLACE CAP 100 MG PO SCH ×2 (08:57→21:53)
[2016-12-12] MEDS: PROTONIX INJ 40 MG VIAL IVP SCH ×2 (08:57→21:53)
[2016-12-12] MEDS: PEPCID 20 MG IV PREMIX* 20 MG/50 ML BAG IV SCH ×2 (08:57→21:52)
[2016-12-12] MEDS: ALDACTONE TAB 25 MG PO SCH (08:58)
[2016-12-12] MEDS: LOPRESSOR TAB 25 MG PO SCH ×2 (08:59→21:53)
[2016-12-12] MEDS: LASIX PO SCH (08:59)
[2016-12-12] MEDS: NEURONTIN CAP 300 MG PO SCH (09:07)
[2016-12-12 12:17] LABS: BASOPHILS # (AUTO) 0.1 X10^3/uL (0.0-0.1); BASOPHILS % (AUTO) 0.9 % (0.2-1.0); EOSINOPHILS # (AUTO) 0.1 x10^3/uL (0.0-0.2); EOSINOPHILS % (AUTO) 2.1 % (0.9-2.9); HEMATOCRIT 32.3 % (42.0-54.0); HEMOGLOBIN 10.7 g/dL (13.5-18.0); LYMPHOCYTES # (AUTO) 0.9 X10^3/uL (1.3-2.9); LYMPHOCYTES % (AUTO) 16.1 % (21.0-51.0); MEAN CORPUSCULAR HGB CONC 33.1 g/dL (33.0-35.0); MEAN CORPUSCULAR VOLUME 87.7 fL (80.0-100.0); MEAN PLATELET VOLUME 7.7 fL (7.4-11.0); MONOCYTES # (AUTO) 0.8 x10^3/uL (0.3-0.8); MONOCYTES % (AUTO) 13.9 % (0.0-13.0); NEUTROPHILS # (AUTO) 3.7 x10^3/uL (2.2-4.8); PLATELET COUNT 208 X10^3/uL (150.0-450.0); RED BLOOD COUNT 3.68 X10^6/uL (4.7-6.0); RED CELL DISTRIBUTION WIDTH 18.5 % (11.6-16.5); WHITE BLOOD COUNT 5.5 X10^3/uL (3.6-10.0)
[2016-12-12 12:31] LABS: ALANINE AMINOTRANSFERASE 18 Units/L (12-78); ALBUMIN 3.9 g/dL (3.4-5.0); ALKALINE PHOSPHATASE 93 Units/L (46-116); ASPARTATE AMINO TRANSFERASE 22 Units/L (15-37); BLOOD UREA NITROGEN 21 mg/dL (7-18); CALCIUM 9.4 mg/dL (8.5-10.1); CARBON DIOXIDE 27.1 mmol/L (21-32); CHLORIDE 101 mmol/L (98-107); COR NA(FOR HYPERGLY) 138 mmol/L (136-145); CREATININE 1.36 mg/dL (0.70-1.30); GLUCOSE 120 mg/dL (65-99); SODIUM 138 mmol/L (136-145); TOTAL PROTEIN 7.4 g/dL (6.4-8.2); eGFR BLACK RACES > 60 (>60); eGFR NON BLACK RACES 57 (>60)
--- NOTE | 2016-12-12 14:42 | PCM.PROG ---
Progress Note - Progress Note for Day of Date: 12/12/16 - Subjective Subjective: PATIENT IS A 61-YEAR-OLD MALE WHO IS CURRENTLY IN icu, PATIENT OF dR. Hester'S, STATUS POST PARACENTESIS DUE TO SEVERE ASCITES. pATIENT WAS ORIGINALLY ADMITTED WITH A gi BLEED WHICH IS CURRENTLY CONTROLLED AND PATIENT IS HEMODYNAMICALLY STABLE. pATIENT CONTINUES WITH MILD EXPIRATORY WHEEZES AND DIMINISHED LUNG BASES. patient ambulating with physical therapy this a.m., using a walker. pATIENT CURRENTLY AWAITING [facility] PLACEMENT. - Past Medical Family Social History Past Med/Fam/Surg Hx: No changes since H&P Allergies: Allergies No Known Drug Allergy Allergy (Verified 11/24/16 07:17) - Review of Systems ROS: No change since H&P - Vital Signs and I&O's Vital Signs: Temperature 98.2 F Pulse Rate [Apical] 83 Pulse Rate [Right Brachial] 137 Pulse Rate [Left Brachial] 87 Pulse Rate 84 Respiratory Rate 22 Blood Pressure [Right Calf] 126/74 Blood Pressure [Right Arm] 105/78 Blood Pressure [Left Arm] 132/91 Blood Pressure 135/76 O2 Sat by Pulse Oximetry 100 Intake and Output: Intake & Output 12/10/16 12/11/16 12/12/16 12/13/16 11:59 11:59 11:59 11:59 Intake Total 1485 1800 1465 1104 Output Total 750 6600 651 Balance 735 -4800 814 1104 - Physical Exam Oriented: Normal, Time, Person, Place Eyes: Normal. negative: Blurred Vision, Diplopia, Discharge, Pain, Redness, Photophobia Ear: Normal. negative: Swelling, Ecchymosis, Hemotypanum, Abrasion, Laceration Nose: Normal. negative: Discharge, Blood Throat: Normal. negative: Tonsillar Hypertrophy, Exudate Respiratory: Diminished Cardiovascular: Normal. negative: Murmur, Edema : Normal. negative: Dysuria, Hematuria, Testicular Pain Auscultation: Bowel Sounds: Decreased. negative: Bruit Tenderness: Normal. negative: Rebound, Guarding, Rigidity Skin: Normal, Bruising (scattered). negative: Wound, Ecchymosis Musculoskeletal: Instability Psychiatric: Normal Mood Description: Calm Affect: Normal Speech Pattern: Clear, Appropriate - Laboratory and Diagnostics Result Diagrams: 12/12/16 12:05 12/12/16 12:05 Labs: Laboratory WBC 5.5 X10^3/uL (3.6-10.0) 12/12/16 12:05 RBC 3.68 X10^6/uL (4.7-6.0) L 12/12/16 12:05 Hgb 10.7 g/dL (13.5-18.0) L 12/12/16 12:05 Hct 32.3 % (42.0-54.0) L 12/12/16 12:05 MCV 87.7 fL (80.0-100.0) 12/12/16 12:05 MCH 29.0 pg (27.0-34.0) 12/12/16 12:05 MCHC 33.1 g/dL (33.0-35.0) 12/12/16 12:05 RDW 18.5 % (11.6-16.5) H 12/12/16 12:05 Plt Count 208 X10^3/uL (150.0-450.0) 12/12/16 12:05 Plt Count Comment Adequate (ADEQUATE) 12/11/16 04:15 MPV 7.7 fL (7.4-11.0) 12/12/16 12:05 Neut % 67.0 % (42.0-75.0) 12/12/16 12:05 Lymph % 16.1 % (21.0-51.0) L 12/12/16 12:05 [place] % 13.9 % (0.0-13.0) H 12/12/16 12:05 Eos % 2.1 % (0.9-2.9) 12/12/16 12:05 Baso % 0.9 % (0.2-1.0) 12/12/16 12:05 Neut # 3.7 x10^3/uL (2.2-4.8) 12/12/16 12:05 Lymph # 0.9 X10^3/uL (1.3-2.9) L 12/12/16 12:05 [place] # 0.8 x10^3/uL (0.3-0.8) 12/12/16 12:05 Eos # 0.1 x10^3/uL (0.0-0.2) 12/12/16 12:05 Baso # 0.1 X10^3/uL (0.0-0.1) 12/12/16 12:05 Absolute Nucleated RBC 0.1 /100WBC 12/12/16 12:05 Total Counted 100 12/11/16 04:15 Neutrophils % (Manual) 71 % (39-76) 12/11/16 04:15 Band Neutrophils % 4 % (0-10) 12/04/16 04:45 Lymphocytes % (Manual) 22 % (13-43) 12/11/16 04:15 Monocytes % (Manual) 5 % (4-9) 12/11/16 04:15 Eosinophils % (Manual) 2 % (0-6) 12/11/16 04:15 Plt Morphology Comment Normal (NORMAL) 12/11/16 04:15 RBC Morphology Normal (NORMAL) 12/11/16 04:15 Dimorphic RBCs Present 11/25/16 04:05 Hypochromasia Slight A 12/03/16 03:30 Anisocytosis Slight A 12/03/16 03:30 INR Target Range - 12/09/16 05:22 INR 1.03 (0.8-1.3) 12/09/16 05:22 Sodium 138 mmol/L (136-145) 12/12/16 12:05 Corrected Sodium 138 mmol/L (136-145) 12/12/16 12:05 Potassium 3.9 mmol/L (3.5-5.1) 12/12/16 12:05 Chloride 101 mmol/L (98-107) 12/12/16 12:05 Carbon Dioxide 27.1 mmol/L (21-32) 12/12/16 12:05 BUN 21 mg/dL (7-18) H 12/12/16 12:05 Creatinine 1.36 mg/dL (0.70-1.30) H 12/12/16 12:05 Est GFR (MDRD) Af Amer > 60 (>60) 12/12/16 12:05 Est GFR (MDRD) Non-Af 57 (>60) L 12/12/16 12:05 Glucose 120 mg/dL (65-99) H 12/12/16 12:05 Calcium 9.4 mg/dL (8.5-10.1) 12/12/16 12:05 Corrected Calcium TNP 12/12/16 12:05 Magnesium 1.8 mg/dL (1.7-2.9) 11/29/16 05:01 Total Bilirubin 0.80 mg/dL (0.2-1.0) 12/12/16 12:05 AST 22 Units/L (15-37) 12/12/16 12:05 ALT 18 Units/L (12-78) 12/12/16 12:05 Alkaline Phosphatase 93 Units/L (46-116) 12/12/16 12:05 Ammonia 41 umol/L (11-32) H 12/12/16 04:55 Creatine Kinase 120 Units/L (39-308) 11/24/16 18:33 CK-MB (CK-2) 1.0 ng/mL (0-4.0) 11/24/16 18:33 CK/CKMB % Calc 0.8 % (<4) 11/24/16 18:33 Troponin I 0.06 ng/mL (0-1.5) 11/24/16 18:33 Total Protein 7.4 g/dL (6.4-8.2) 12/12/16 12:05 Albumin 3.9 g/dL (3.4-5.0) 12/12/16 12:05 Globulin 3.5 g/dL (2.5-4.5) 12/12/16 12:05 Albumin/Globulin Ratio 1.1 Ratio (1.1-2.1) 12/12/16 12:05 Carcinoembryonic Ag 4.3 ng/mL (0.0-3.0) H 11/26/16 04:05 CA 19-9 Antigen 39 U/mL (0-37) H 11/26/16 04:05 Free PSA 0.1 ng/mL 11/26/16 04:05 % Free PSA Calc 25 % 11/26/16 04:05 Total PSA 0.4 ng/mL (0.0-4.0) 11/26/16 04:05 Specimen Type Clean catch urine 11/24/16 15: Urine Color Brenna (YELLOW) 11/24/16 15: Urine Appearance Slightly hazy (CLEAR) 11/24/16 15: Urine pH 5.0 (5.0 - 8.0) 11/24/16 15: Ur Specific [place] 1.020 (1.000-1.030) 11/24/16 15:19 Urine Protein 2+ (NEGATIVE) 11/24/16 15:19 Urine Glucose (UA) Negative (NEGATIVE) 11/24/16 15:19 Urine Ketones 2+ (NEGATIVE) 11/24/16 15:19 Urine Occult Blood 1+ (NEGATIVE) 11/24/16 15:19 Urine Nitrite Negative (NEGATIVE) 11/24/16 15:19 Urine Bilirubin Negative (NEGATIVE) 11/24/16 15:19 Urine Urobilinogen Normal (NORMAL) 11/24/16 15:19 Ur Leukocyte Esterase Negative (NEGATIVE) 11/24/16 15:19 Urine RBC 1 - 3 /HPF (NEGATIVE) 11/24/16 15:19 Urine WBC Rare /HPF (NEGATIVE) 11/24/16 15:19 Ur Squamous Epith Cells Few /HPF (NEGATIVE) 11/24/16 15:19 Urine Bacteria Trace /HPF (NEGATIVE) 11/24/16 15:19 Hyaline Casts Few /LPF (NEGATIVE) 11/24/16 15:19 Coarse Granular Casts Moderate /HPF (NEGATIVE) 11/24/16 15:19 Urine Mucus Few /HPF (NEGATIVE) 11/24/16 15:19 Ur Culture Indicated? No/not indicated 11/24/16 15:19 Fluid WBC 187 Cubic/mm 12/03/16 13:46 Fluid RBC 199 Cubic/mm 12/03/16 13:46 Fluid Albumin 1.2 12/03/16 13:46 Stool Description Fob tube 11/24/16 07:53 Stl Occult Blood (IFOB) Positive (NEGATIVE) A 11/24/16 07:53 Hepatitis A IgM Ab Negative (Negative) 12/03/16 14:28 Hep Bs Antigen Negative (Negative) 12/03/16 14:28 Hep Bs Ag Confirmation TNP 12/03/16 14:28 Hep B Core IgM Ab Negative (Negative) 12/03/16 14:28 Hepatitis C Ab Index 0.21 IV 12/03/16 14:28 Hepatitis C Interp Negative (Negative) 12/03/16 14:28 Hepatitis Interpret See note 12/03/16 14:28 Cytology Specimen To follow 12/03/16 13:46 Blood Type A NEGATIVE 11/24/16 10:01 Antibody Screen Negative 11/24/16 10:01 Crossmatch See Detail 11/24/16 10:01 - Plan (1) Ascites Status: Acute Qualifiers: Ascites type: A Plan: S/P PARACENTESIS PER RADIOLOGIST, REPEAT AM LABS. STRICT I&O'S (2) Anemia due to GI blood loss Status: Acute Plan: CONTINUE TO MONITOR. (3) Hypoalbuminemia Status: Acute Plan: CONTINUE ALBUMIN IV DAILY, MONITOR LABS. (4) Hypokalemia Status: Acute Plan: CONTINUE POTASSIUM PROTOCOL, MONITOR LABS. (5) Hypomagnesemia Status: Acute Plan: MONITOR LABS. (6) Hypothyroidism Status: Chronic Qualifiers: Hypothyroidism type: acquired Qualified Code(s): E03.9 - Hypothyroidism, unspecified Plan: CONTINUE TO MONITOR (7) History of alcoholism Status: Chronic (8) Hypertension Status: Chronic Qualifiers: Hypertension type: essential hypertension Qualified Code(s): I10 - Essential (primary) hypertension Plan: CONTINUE TO MONITOR (9) PVD (peripheral vascular disease) Status: Chronic
[2016-12-12] MEDS: LIPITOR TAB 40 MG PO SCH (21:53)
[2016-12-13] MEDS: VALIUM PO SCH ×3 (05:38→20:59)
[2016-12-13 06:32] LABS: BASOPHILS # (AUTO) 0.1 X10^3/uL (0.0-0.1); BASOPHILS % (AUTO) 1.3 % (0.2-1.0); EOSINOPHILS # (AUTO) 0.2 x10^3/uL (0.0-0.2); EOSINOPHILS % (AUTO) 3.1 % (0.9-2.9); HEMATOCRIT 33.1 % (42.0-54.0); HEMOGLOBIN 10.9 g/dL (13.5-18.0); LYMPHOCYTES % (AUTO) 19.7 % (21.0-51.0); MEAN CORPUSCULAR HGB CONC 32.9 g/dL (33.0-35.0); MEAN CORPUSCULAR VOLUME 88.2 fL (80.0-100.0); MEAN PLATELET VOLUME 7.8 fL (7.4-11.0); MONOCYTES # (AUTO) 0.7 x10^3/uL (0.3-0.8); MONOCYTES % (AUTO) 14.1 % (0.0-13.0); NEUTROPHILS # (AUTO) 3.2 x10^3/uL (2.2-4.8); NEUTROPHILS % (AUTO) 61.8 % (42.0-75.0); PLATELET COUNT 244 X10^3/uL (150.0-450.0); RED BLOOD COUNT 3.76 X10^6/uL (4.7-6.0); RED CELL DISTRIBUTION WIDTH 18.2 % (11.6-16.5); WHITE BLOOD COUNT 5.2 X10^3/uL (3.6-10.0)
[2016-12-13 06:50] LABS: ALANINE AMINOTRANSFERASE 19 Units/L (12-78); ALBUMIN 4.1 g/dL (3.4-5.0); ALKALINE PHOSPHATASE 91 Units/L (46-116); ASPARTATE AMINO TRANSFERASE 22 Units/L (15-37); BLOOD UREA NITROGEN 25 mg/dL (7-18); CARBON DIOXIDE 30.1 mmol/L (21-32); CHLORIDE 102 mmol/L (98-107); CREATININE 1.26 mg/dL (0.70-1.30); GLUCOSE 92 mg/dL (65-99); SODIUM 139 mmol/L (136-145); TOTAL PROTEIN 7.8 g/dL (6.4-8.2); eGFR BLACK RACES > 60 (>60); eGFR NON BLACK RACES > 60 (>60)
[2016-12-13] MEDS: MILK OF MAGNESIA PO SCH ×4 (08:14→20:59)
[2016-12-13] MEDS: PEPCID 20 MG IV PREMIX* 20 MG/50 ML BAG IV SCH ×2 (08:14→20:59)
[2016-12-13] MEDS: ALBUMIN HUMAN 25%- 100ML 100 ML IV SCH (08:14)
[2016-12-13] MEDS: LOPRESSOR TAB 25 MG PO SCH ×2 (08:15→20:59)
[2016-12-13] MEDS: PROTONIX INJ 40 MG VIAL IVP SCH ×2 (08:15→21:12)
[2016-12-13] MEDS: LASIX PO SCH (08:15)
[2016-12-13] MEDS: ALDACTONE TAB 25 MG PO SCH (08:15)
[2016-12-13] MEDS: MIRALAX POWDER (1 DOSE 17GM) PO SCH (08:15)
[2016-12-13] MEDS: NEURONTIN CAP 300 MG PO SCH (08:16)
[2016-12-13] MEDS: NICODERM PATCH 21 MG/24 HR TD SCH (08:16)
[2016-12-13] MEDS: COLACE CAP 100 MG PO SCH ×2 (08:17→20:59)
[2016-12-13] MEDS: LIPITOR TAB 40 MG PO SCH (20:57)
[2016-12-14] MEDS: VALIUM PO SCH ×3 (05:01→21:30)
[2016-12-14 05:28] LABS: ALANINE AMINOTRANSFERASE 20 Units/L (12-78); ALBUMIN 4.4 g/dL (3.4-5.0); ALKALINE PHOSPHATASE 95 Units/L (46-116); ASPARTATE AMINO TRANSFERASE 28 Units/L (15-37); BLOOD UREA NITROGEN 27 mg/dL (7-18); CALCIUM 10.2 mg/dL (8.5-10.1); CARBON DIOXIDE 25.2 mmol/L (21-32); CHLORIDE 100 mmol/L (98-107); CREATININE 1.26 mg/dL (0.70-1.30); GLUCOSE 98 mg/dL (65-99); SODIUM 136 mmol/L (136-145); TOTAL PROTEIN 8.1 g/dL (6.4-8.2); eGFR BLACK RACES > 60 (>60); eGFR NON BLACK RACES > 60 (>60)
[2016-12-14 05:32] LABS: BASOPHILS # (AUTO) 0.1 X10^3/uL (0.0-0.1); BASOPHILS % (AUTO) 1.3 % (0.2-1.0); EOSINOPHILS # (AUTO) 0.1 x10^3/uL (0.0-0.2); EOSINOPHILS % (AUTO) 2.4 % (0.9-2.9); HEMATOCRIT 33.8 % (42.0-54.0); HEMOGLOBIN 11.3 g/dL (13.5-18.0); LYMPHOCYTES # (AUTO) 0.9 X10^3/uL (1.3-2.9); LYMPHOCYTES % (AUTO) 14.5 % (21.0-51.0); MEAN CORPUSCULAR HEMOGLOBIN 29.6 pg (27.0-34.0); MEAN CORPUSCULAR HGB CONC 33.4 g/dL (33.0-35.0); MEAN CORPUSCULAR VOLUME 88.7 fL (80.0-100.0); MEAN PLATELET VOLUME 8.7 fL (7.4-11.0); MONOCYTES # (AUTO) 0.7 x10^3/uL (0.3-0.8); MONOCYTES % (AUTO) 11.1 % (0.0-13.0); NEUTROPHILS # (AUTO) 4.4 x10^3/uL (2.2-4.8); NEUTROPHILS % (AUTO) 70.7 % (42.0-75.0); PLATELET COUNT 158 X10^3/uL (150.0-450.0); RED BLOOD COUNT 3.81 X10^6/uL (4.7-6.0); RED CELL DISTRIBUTION WIDTH 18.1 % (11.6-16.5); WHITE BLOOD COUNT 6.2 X10^3/uL (3.6-10.0)
[2016-12-14] MEDS: ALBUMIN HUMAN 25%- 100ML 100 ML IV SCH (08:31)
[2016-12-14] MEDS: MIRALAX POWDER (1 DOSE 17GM) PO SCH (08:31)
[2016-12-14] MEDS: PEPCID 20 MG IV PREMIX* 20 MG/50 ML BAG IV SCH ×2 (08:31→21:29)
[2016-12-14] MEDS: LOPRESSOR TAB 25 MG PO SCH ×2 (08:31→21:30)
[2016-12-14] MEDS: PROTONIX INJ 40 MG VIAL IVP SCH ×2 (08:31→21:29)
[2016-12-14] MEDS: LASIX PO SCH (08:32)
[2016-12-14] MEDS: NEURONTIN CAP 300 MG PO SCH (08:32)
[2016-12-14] MEDS: NICODERM PATCH 21 MG/24 HR TD SCH (08:32)
[2016-12-14] MEDS: ALDACTONE TAB 25 MG PO SCH (08:32)
[2016-12-14] MEDS: COLACE CAP 100 MG PO SCH ×2 (08:33→21:29)
[2016-12-14] MEDS: MILK OF MAGNESIA PO SCH ×4 (08:33→21:29)
[2016-12-14] MEDS ORDERED: NS 250 ML IV 250 ML IV ONE (21:17)
[2016-12-14] MEDS: HALDOL INJ IVP PRN (21:28)
[2016-12-14] MEDS: LIPITOR TAB 40 MG PO SCH (21:29)
[2016-12-14] MEDS ORDERED: NS 250 ML IV 250 ML IV PRN (21:57)
[2016-12-14] MEDS ORDERED: NS 250 ML IV 250 ML IV SCH (22:00)
[2016-12-15] MEDS: PHENOBARBITAL SODIUM INJ 65 MG VIAL IVP PRN (00:01)
[2016-12-15] MEDS: VALIUM PO SCH ×2 (05:48→14:55)
[2016-12-15 05:50] LABS: ALANINE AMINOTRANSFERASE 22 Units/L (12-78); ALBUMIN 4.4 g/dL (3.4-5.0); ALKALINE PHOSPHATASE 96 Units/L (46-116); ASPARTATE AMINO TRANSFERASE 33 Units/L (15-37); BASOPHILS # (AUTO) 0.1 X10^3/uL (0.0-0.1); BLOOD UREA NITROGEN 27 mg/dL (7-18); CALCIUM 10.3 mg/dL (8.5-10.1); CHLORIDE 100 mmol/L (98-107); CREATININE 1.42 mg/dL (0.70-1.30); EOSINOPHILS # (AUTO) 0.1 x10^3/uL (0.0-0.2); GLUCOSE 98 mg/dL (65-99); LYMPHOCYTES # (AUTO) 0.9 X10^3/uL (1.3-2.9); NEUTROPHILS # (AUTO) 4.9 x10^3/uL (2.2-4.8); RED CELL DISTRIBUTION WIDTH 18.1 % (11.6-16.5); SODIUM 138 mmol/L (136-145); TOTAL PROTEIN 8.4 g/dL (6.4-8.2); eGFR BLACK RACES > 60 (>60); eGFR NON BLACK RACES 54 (>60)
[2016-12-15 05:52] LABS: BASOPHILS % (AUTO) 0.9 % (0.2-1.0); HEMATOCRIT 33.6 % (42.0-54.0); HEMOGLOBIN 11.1 g/dL (13.5-18.0); LYMPHOCYTES % (AUTO) 13.5 % (21.0-51.0); MEAN CORPUSCULAR HEMOGLOBIN 29.7 pg (27.0-34.0); MEAN CORPUSCULAR HGB CONC 33.2 g/dL (33.0-35.0); MEAN CORPUSCULAR VOLUME 89.5 fL (80.0-100.0); MEAN PLATELET VOLUME 8.6 fL (7.4-11.0); MONOCYTES # (AUTO) 0.7 x10^3/uL (0.3-0.8); MONOCYTES % (AUTO) 10.9 % (0.0-13.0); NEUTROPHILS % (AUTO) 72.7 % (42.0-75.0); PLATELET COUNT 199 X10^3/uL (150.0-450.0); RED BLOOD COUNT 3.75 X10^6/uL (4.7-6.0)
[2016-12-15 06:15] LABS: WHITE BLOOD COUNT 7.7 X10^3/uL (3.6-10.0)
[2016-12-15] MEDS: MILK OF MAGNESIA PO SCH ×2 (08:36→14:00)
[2016-12-15] MEDS: COLACE CAP 100 MG PO SCH (08:36)
[2016-12-15] MEDS: ALDACTONE TAB 25 MG PO SCH (08:36)
[2016-12-15] MEDS: LASIX PO SCH (08:37)
[2016-12-15] MEDS: PROTONIX INJ 40 MG VIAL IVP SCH (08:37)
[2016-12-15] MEDS: ALBUMIN HUMAN 25%- 100ML 100 ML IV SCH (08:37)
[2016-12-15] MEDS: MIRALAX POWDER (1 DOSE 17GM) PO SCH (08:37)
[2016-12-15] MEDS: LOPRESSOR TAB 25 MG PO SCH (08:37)
[2016-12-15] MEDS: NEURONTIN CAP 300 MG PO SCH (08:37)
[2016-12-15] MEDS: PEPCID 20 MG IV PREMIX* 20 MG/50 ML BAG IV SCH (08:37)
[2016-12-15] MEDS: NICODERM PATCH 21 MG/24 HR TD SCH (08:37)
[2016-12-15 12:55] VITALS: BP 116/72
--- NOTE | 2016-12-15 15:36 | DR.CARTERD ---
- Discharge Summary for: Discharge Summary for Date of:: 12/15/16 - Admission Date Date of Admission: 11/24/16 - Admission Diagnoses Admission Diagnosis: GI Bleed. Ascites - Discharge Date Discharge Date: 12/15/16 - Discharge Diagnoses Discharge Diagnosis: GI Bleed Ascites Hypokalemia Hypomagnesia Anemia Hypoalbuminemia - Hospital Course Hospital Course: Patient is a 61year old male who presented o the ermegency room with complaints of vomiting blood and having large amounts of bright red stool, he has been off of his coumadin for 1 week. On arrival INR was 12 which has since normalized, Patient was also noted to have ascites for which he under went 2 parcentsis for with 6L of fluid drawn off and then 7 L on the next. Patient also received 4 units of PRBC during this hospitalization which brought his hgb up from 6.9 to 11.1 currently. Patient has also been treated for hypokalemia with potassium replacement protocol, hypomagnesia with Mag Riders, and hypoalbuminemia with albumin IV. Patient has significantly improved and is being discharged to [facility] in stable condition. Patient is to continue home medication with the exception of coumadin. Labs: Labs within normal limits wiht the exception of Hgb 11.1, Hct 33.6, Potassium 5.8, BUN 27, Creatinine 1.42, Calcium 10.3, Total Protein 8.4 - Discharge Medications Discharge Medications: Furosemide [LASIX TAB 20 MG *] 1 tab PO DAILY 11/24/16 [History] Spironolactone 4 tabs PO DAILY 11/24/16 [History] Tramadol HCl 1 tab PO BID PRN 11/24/16 [History] Docusate Sodium [COLACE CAP 100 MG *] 100 mg PO BID #60 cap 12/15/16 [Rx] Magnesium Hydroxide Susp [MILK of MAGNESIA SUSP *] 10 ml PO QID 30 Days [Rx] Polyethylene Glycol Pwd Ud [MIRALAX POWDER (17 GM DOSE) *] 17 gm PO DAILY #30 udp 12/15/16 [Rx] - Discharge Disposition Discharge Disposition: [facility] penitentiary facility
== END 2016-12-15 14:40 | DRG 378 ==
LOC: ER 07:02 → ICU 08:08
PROVIDERS: ADMIT Internal Medicine; ATTEND Internal Medicine
PROC: 0D9670Z Drainage of Stomach with Drainage Device, Via Natural or Artificial Opening (ICD-10-PCS; principal; 2016-11-24)
PROC: 30233N1 Transfusion of Nonautologous Red Blood Cells into Peripheral Vein, Percutaneous Approach (ICD-10-PCS; 2016-11-24)
PROC: 30233N1 Transfusion of Nonautologous Red Blood Cells into Peripheral Vein, Percutaneous Approach (ICD-10-PCS; 2016-11-24)
PROC: 30233K1 Transfusion of Nonautologous Frozen Plasma into Peripheral Vein, Percutaneous Approach (ICD-10-PCS; 2016-11-24)
PROC: 30233K1 Transfusion of Nonautologous Frozen Plasma into Peripheral Vein, Percutaneous Approach (ICD-10-PCS; 2016-11-24)
PROC: 30233N1 Transfusion of Nonautologous Red Blood Cells into Peripheral Vein, Percutaneous Approach (ICD-10-PCS; 2016-11-25)
PROC: 30233N1 Transfusion of Nonautologous Red Blood Cells into Peripheral Vein, Percutaneous Approach (ICD-10-PCS; 2016-11-25)
PROC: 30233K1 Transfusion of Nonautologous Frozen Plasma into Peripheral Vein, Percutaneous Approach (ICD-10-PCS; 2016-11-25)
PROC: 30233K1 Transfusion of Nonautologous Frozen Plasma into Peripheral Vein, Percutaneous Approach (ICD-10-PCS; 2016-11-25)
PROC: 0DJ08ZZ Inspection of Upper Intestinal Tract, Via Natural or Artificial Opening Endoscopic (ICD-10-PCS; 2016-11-27)
PROC: 0W9G3ZX Drainage of Peritoneal Cavity, Percutaneous Approach, Diagnostic (ICD-10-PCS; 2016-12-03)
PROC: 0W9G3ZX Drainage of Peritoneal Cavity, Percutaneous Approach, Diagnostic (ICD-10-PCS; 2016-12-10)
DX: K92.0 Hematemesis (principal); F10.159 Alcohol abuse with alcohol-induced psychotic disorder, unspecified; K76.6 Portal hypertension; K70.31 Alcoholic cirrhosis of liver with ascites; K62.5 Hemorrhage of anus and rectum; D50.0 Iron deficiency anemia secondary to blood loss (chronic); M13.89 Other specified arthritis, multiple sites; E78.2 Mixed hyperlipidemia; K21.9 Gastro-esophageal reflux disease without esophagitis; I10 Essential (primary) hypertension; Z79.01 Long term (current) use of anticoagulants; F41.8 Other specified anxiety disorders; E03.8 Other specified hypothyroidism; Z86.718 Personal history of other venous thrombosis and embolism; F10.10 Alcohol abuse, uncomplicated; E87.6 Hypokalemia; K31.9 Disease of stomach and duodenum, unspecified; I85.00 Esophageal varices without bleeding; R26.89 Other abnormalities of gait and mobility; R26.2 Difficulty in walking, not elsewhere classified; R41.0 Disorientation, unspecified; K52.89 Other specified noninfective gastroenteritis and colitis; K59.01 Slow transit constipation; I73.89 Other specified peripheral vascular diseases; Z78.1 Physical restraint status
CPT/HCPCS: 36415; 36430; 43753; 49082; 71010; 71260; 74000; 74176; 74177; 80053; 80074; 81001; 82040; 82140; 82270; 82378; 82550; 82553; 83735; 84132; 84153; 84154; 84484; 85014; 85018; 85025; 85610; 86316; 86850; 86900; 86901; 86922; 88305; 88312; 89050; 89051; 93005; 93970; 96365; 97535; 99231; 99284; 99285; A4222; C9113; P9016; P9017; P9047; S0028; A4217; J1200; J1630; J1940; J2001; J2270; J2560; J3360; J3430; J3480; J3490; J7120

== ENCOUNTER 2016-12-17 03:40 | Emergency (ER) | payer BC, OTHER ==
[2016-12-17 04:14] VITALS: BP 101/59; BMI 23.5
--- NOTE | 2016-12-17 04:49 | CT ---
CT head without contrast CT cervical spine without contrast Indication: Fall with head injury. Comparison: None Technique: CT images of the head and cervical spine were obtained without contrast. Automatic exposu re control was utilized. Findings: CT head: There is no acute bleed, mass effect, or abnormal extra-axial collection. There is generali zed age-appropriate brain atrophy with concomitant ventricular and sulcal enlargement. No acute calv arial fracture identified. The visualized paranasal sinuses and mastoid air cells are clear. CT cervical spine: Cervical spine alignment is within normal limits. No acute fracture or subluxatio n is seen. There is generalized osteopenia. Marked spondylosis is noted, with advanced discogenic DJ D at C6-7 and multilevel facet arthropathy bilaterally. Mild emphysema seen within the lung apices. Impression: No acute intracranial abnormality or cervical spine injury identified. Cervical spondylosis. Emphysema. Reported By:
[2016-12-17] MEDS ORDERED: NEOSPORIN OINT ONE (05:16)
[2016-12-17] MEDS ORDERED: NEOSPORIN OINT TOP ONE (05:16)
[2016-12-17] MEDS ORDERED: ADACEL TDaP IM ONE ×2 (05:17→05:18)
--- NOTE | 2016-12-17 05:23 | DR.GENAD ---
HPI - PCP Primary Care Physician: EVY - HPI Comment HPI Comment: PATIENT GOT UP TO GO TO THE BATHROOM AND FELL SUSTAINING A LACERATION TO LEFT EYEBROW. GOT DAZED BUT NO LOC. TD NOT UTD. - Complaint/Symptoms Chief Complaint Doctors Comments: FALL, INJURY LT EYEBROW. Chief Complaint:: FALL AT HALF-WAY - Nurses notes reviewed Nurses Notes Review: Yes - Source History Provided: Correction - Mode of Arrival Mode of Arrival: Wheelchair - Timing Onset of Chief Complaint: 12/17/16 Came on: Suddenly - Duration Duration: Constant Duration: Hours - Severity Severity: Moderate PMH - PMH Past Medical History: Yes Past Medical History: Angina, Anxiety, Arthritis, Dyslipidemia, GERD, Hypertension, Kidney Stones, [place] Past Surgical History: Yes Surgical History: Angioplasty/Stents - Family History History of Family Medical Conditions: Yes Family Medical History: Coronary Artery Disease, Heart Failure, Sudden Cardiac , Hypertension - Social History Does patient currently use any type of tobacco product: Yes Have you used tobacco products in the last 12 months: Yes Type of Tobacco Use: Cigarettes Does any household member use tobacco: No Alcohol Use: None Do you use any recreational Drugs:: No Lives With: Other Lives Where: Correction - infectious screening In the last 2 months have you had wt loss of >10#?: NO Have you had fever, night sweats or hemotysis?: No Have you traveled outside the country in the last 6 months?: No Isolation: Standard ROS - Review of Systems Constitutional: No Symptoms Reported Eyes: No Symptoms Reported, Eye Pain (PAIN LEFT UPPER PERIORBITAL AREA.) ENTM: No Symptoms Reported Respiratoy: No Symptoms Reported Cardiovascular: No Symptoms Reported Gastrointestinal/Abdominal: No Symptoms Reported Genitourinary: No Symptoms Reported Neurological: Problems Walking Musculoskeletal: Other (LT FOREHEAD.PAIN) Integumentary: Other (LAC LT EYEBROW) Hematologic/Lymphatic: Easy Bruising Endocrine: negative: Flushing All Other Systems: Reviewed and Negative PE - Vital Signs Vitals: Temperature 98.2 F Pulse Rate 89 Respiratory Rate 16 Blood Pressure [Right Calf] 126/74 Blood Pressure [Right Arm] 116/72 Blood Pressure [Left Arm] 132/91 Blood Pressure 101/59 O2 Sat by Pulse Oximetry 100 - General Limitations: No Limitations General Appearance: Alert - Head Head Exam: Normal Inspection - Eyes Eye exam: Normal Appearance, PERRL, EOMI, Periorbital Swelling (LT UPPER), Periorbital Tenderness (LT UPPER). negative: Conjunctival Injection - ENT ENT Exam: Normal External Ear Exam External Ear Exam: Normal External Inspection TM/Canal Exam: Bilateral Normal Nose Exam: Normal Nose Exam Mouth Exam: Normal Inspection Throat Exam: Normal Inspection - Neck Neck Exam: Trachea Midline - Chest Chest Inspection: Symmetric Chest Wall Rise - Respiratory Respiratory Exam: Normal Lung Sounds Bilat Respiratory Exam: Bilateral Rhonchi, Lower Rhonchi - Cardiovascular Cardiovascular Exam: Regular Rate, Normal Rhythm, Normal Heart Sounds - Abdominal Exam Abdominal Exam: Normal Bowel Sounds, Soft. negative: Tenderness - Extremities Extremities Exam: Normal Inspection - Back Back Exam: Paraspinal Tenderness - Neurologic Neurological Exam: Alert, Oriented X3 - Psychiatric Psychiatric Exam: Normal Affect, Normal Mood - Skin Skin Exam: Erythema MDM - Differential Diagnosis Differential Diagnosis: LAC LT EYEBROW, CONTUSION LT FACE. Course - Treatment Treatment: SEE ORDERS - Education/Counseling Education/Counseling: Patient Educated On: Treatment, Diagnosis ROR - XRAY XRAY Interpreted by: Radiologist XRAY Findings: REPORT DISCUSS WITH PATIENT - Diagnosis Discharge Problem: Laceration of left eyebrow - Discharge Plan Condition: Stable - Follow ups/Referrals Follow ups/Referrals: NFD,None [Primary Care Provider] - 3 days - Instructions Instructions: Laceration Care, Adult, [id number] Additional Instructions: RETURN TO ED IF WORSE. SUTURE OUT IN 10 DAYS
== END 2016-12-17 05:47 | disposition home or self-care (01) ==
LOC: ER 03:40
PROC: 08QP0ZZ Repair Left Upper Eyelid, Open Approach (ICD-10-PCS; principal; 2016-12-17)
DX: S01.112A Laceration without foreign body of left eyelid and periocular area, initial encounter (principal); W19.XXXA Unspecified fall, initial encounter; Y92.89 Other specified places as the place of occurrence of the external cause
CPT/HCPCS: 12011; 70450; 72125; 99282

== ENCOUNTER 2016-12-19 00:11 | Emergency (ER) | payer OTHER ==
[2016-12-19 00:31] VITALS: BP 108/56; BMI 21.6
--- NOTE | 2016-12-19 00:49 | DR.LACERAT ---
HPI - Primary Care Physician Primary Care Physician: roger - Complaints Chief Complaint Doctors Comments: laceration to chin after falling in the restroom. Chief Complaint:: fall per [facility] staff. note laceration to underneath left jaw. no active bleeding - Source History Provided: Long-Term - Mode of Arrival Mode of Arrival: Wheelchair - Timing Onset of Chief Complaint: 12/19/16 - Context Mechanism: Fall Circumstance: Unknown - Severity Pain Severity: None Bleeding:: Controlled - Associated Signs and Symptoms Associated Signs and Symptoms: denies: Foreign Body PMH - PMH Past Medical History: Yes Past Medical History: Angina, Anxiety, Arthritis, Dyslipidemia, GERD, Hypertension, Kidney Stones, [place] Past Surgical History: Yes Surgical History: Angioplasty/Stents - Family History History of Family Medical Conditions: Yes Family Medical History: Coronary Artery Disease, Heart Failure, Sudden Cardiac , Hypertension - Social History Type of Tobacco Use: None Alcohol Use: None Do you use any recreational Drugs:: No Lives Where: Home - infectious screening Have you traveled outside the country in the last 6 months?: No Isolation: Standard ROS - Review of Systems Constitutional: No Symptoms Reported Respiratoy: No Symptoms Reported Cardiovascular: No Symptoms Reported Unable to Obtain Due To: Dementia PE - Vital Signs Vitals: Temperature 99.1 F Pulse Rate 78 Respiratory Rate 16 Blood Pressure [] 126/74 Blood Pressure [] 116/72 Blood Pressure [] 132/91 Blood Pressure 108/56 O2 Sat by Pulse Oximetry 100 - General Limitations: Other (dementia) General Appearance: Alert, In No Apparent Distress - ENT ENT Exam: Other (left anterior linear mandibular laceration, bleeding abated,no foreign body is noted.) - Chest Chest Inspection: Normal Inspection - Respiratory Respiratory Exam: Normal Lung Sounds Bilat - Cardiovascular Cardiovascular Exam: Regular Rate, Normal Rhythm, Normal Heart Sounds - Abdominal Exam Abdominal Exam: Normal Inspection, Normal Bowel Sounds, Soft - Extremities Extremities Exam: Normal Inspection - Back Back Exam: Normal Inspection - Neurologic Neurological Exam: Alert - Psychiatric Psychiatric Exam: Flat Affect - Skin Skin Exam: Warm, Dry, Intact, Normal Color Type of Lesion: Laceration Distribution: Other (chin) Procedures - Laceration/Wound Repair Left Anterior Jaw Wound's Depth, Shape: Superficial, Linear Wound Explored: clean Betadine Prep?: Yes Anesthesia: 1% Lidocaine, 1% Lidocaine w/ Epi Volume Anesthetic (ccs): 8 Wound Debrided: minimal Wound Repaired With: sutures Suture Size/Type: 5:0, Vicryl Number of Sutures: 3 Layer Closure?: No Sterile Dressing Applied?: Yes Splint Applied?: No Sling Applied?: No - Diagnosis Discharge Problem: Laceration of chin without complication, Fall - Discharge Plan Condition: Stable - Follow ups/Referrals Follow ups/Referrals: Bronson Zhao [Primary Care Provider] - 3 days - Instructions
--- NOTE | 2016-12-19 03:31 | RAD ---
Facial bones, four views Indication: Fall with facial laceration Findings: The patient had altered mental status during image acquisition, resulting in suboptimal po sitioning. No obvious cortical disruption or malalignment of the facial bones identified. No gross opacificatio n of the major paranasal sinuses observed. Impression: Suboptimal positioning without evidence for displaced facial fracture. Reported By:
== END 2016-12-19 02:45 | disposition home or self-care (01) ==
LOC: ER 00:11
PROC: 0WQ Anatomical Regions, General, Repair (ICD-10-PCS; principal; 2016-12-19)
DX: S01.81XA Laceration without foreign body of other part of head, initial encounter (principal); W19.XXXA Unspecified fall, initial encounter; Y92.89 Other specified places as the place of occurrence of the external cause
CPT/HCPCS: 12011; 70150; 99282

== ENCOUNTER 2018-12-09 20:28 | Inpatient (IN) ==
--- NOTE | 2018-12-09 20:59 | DR.AMS ---
HPI Time Seen Time Seen by Provider: 12/09/18 20:41 HPI Comment HPI Comment: PATIENT IS 63YR OLD MALE WHO FELL AND INJURED HEAD AT THE BACK AND HAVE SMALL LACERATION BACK OF THE HEAD. DENIES LOC. HAVE 5/10 HEADACHE AND PAIN BACK OF SCALP. NO ACTIVE BLEEDING NOTED. Complaint Cheif Complaint Doctors Comments: FALL, AMS. Reviewed Nurses Notes Reviewed: Yes Source History Provided: Patient and EMS Mode of Arrival Mode of Arrival: Stretcher Timing Came On: Suddenly Symptoms: Improving Duration Duration: Constant Duration: Hours Quality Quality: Confusion Severity Severity: Moderate Context Recent: Trauma History Of: None Associated Signs and Symptoms Associated Signs and Symptoms: None PMH PMH Past Medical History: Angina, Anxiety, Arthritis, Dyslipidemia, GERD, Hypertension, Kidney Stones and [place] Past Surgical History: Yes Surgical History: Angioplasty/Stents Family History Family Medical History: Coronary Artery Disease, Heart Failure, Sudden Cardiac D eath and Hypertension Social History Do you use any recreational Drugs:: No ROS Review of Systems Constitutional: No Symptoms Reported Eyes: No Symptoms Reported ENTM: No Symptoms Reported Respiratoy: No Symptoms Reported Cardiovascular: No Symptoms Reported Gastrointestinal/Abdominal: No Symptoms Reported Genitourinary: No Symptoms Reported Neurological: No Symptoms Reported Musculoskeletal: No Symptoms Reported Integumentary: No Symptoms Reported Hematologic/Lymphatic: No Symptoms Reported Endocrine: No Symptoms Reported Psychiatric: No Symptoms Reported All Other Systems: Reviewed and Negative PE Vitals Vital Signs: Temp Pulse Pulse Pulse Pulse Resp BP 12/21/18 08:00 98.1 F 89 12/21/18 04:00 97.6 F 90 12/20/18 23:56 97.9 F 99 H 12/20/18 20:00 98.2 F 105 H 12/20/18 16:00 98.2 F 106 H 12/20/18 12:00 98.7 F 50 L 12/20/18 08:00 97.8 F 89 12/20/18 04:00 97.4 F L 97 H 12/20/18 00:00 97.5 F L 102 H 12/19/18 20:00 97.8 F 101 H 12/19/18 16:00 97.1 F L 95 H 12/19/18 12:00 97.3 F L 93 H 12/19/18 10:00 97.9 F 99 H 19 04:00 97.7 F 99 H 20 12/19/18 00:00 97.9 F 102 H 12/18/18 20:00 98.2 F 105 H 20 12/18/18 16:00 98.2 F 93 H 20 12/18/18 12:00 98 F 106 H 18 12/18/18 08:00 97.7 F 94 H 12/18/18 04:00 97.7 F 89 20 12/18/18 00:00 97.8 F 99 H 20 12/17/18 20:00 97.8 F 98 H 20 12/17/18 16:00 98 F 98 H 20 12/17/18 12:00 97.8 F 104 H 12/17/18 08:00 98 F 96 H 12/17/18 04:00 97.8 F 97 H 12/17/18 00:00 97.8 F 98 H 12/16/18 20:00 98.4 F 99 H 12/16/18 16:00 97.5 F L 96 H 12/16/18 12:00 97 F L 91 H 12/16/18 07:45 98.1 F 96 H 12/16/18 04:00 97.7 F 83 20 12/16/18 00:00 97.7 F 91 H 12/15/18 22:05 12/15/18 21:35 12/15/18 20:00 97.7 F 88 20 12/15/18 16:00 98.0 F 90 20 12/15/18 12:00 98.0 F 82 20 12/15/18 08:00 97.5 F L 80 20 12/15/18 04:00 97.8 F 81 18 12/15/18 00:00 97.8 F 91 H 12/14/18 20:00 98.0 F 96 H 12/14/18 16:00 98 F 89 18 12/14/18 12:00 98 F 87 18 12/14/18 08:00 97.8 F 82 18 12/14/18 04:28 18 12/14/18 04:00 97.8 F 82 18 12/14/18 03:58 12/14/18 00:00 97.7 F 86 20 12/13/18 20:00 98.9 F 102 H 18 12/13/18 16:00 98.2 F 87 18 12/13/18 12:30 97.7 F 91 H 18 12/13/18 12:00 97.8 F 90 20 12/13/18 08:00 97.7 F 81 18 12/13/18 04:00 97.6 F 84 20 12/13/18 00:00 97.7 F 91 H 22 12/12/18 20:00 97.8 F 89 20 12/12/18 16:00 98 F 83 18 12/12/18 12:00 98 F 95 H 18 12/12/18 08:00 98 F 82 18 12/12/18 04:00 97.4 F L 96 H 20 12/12/18 00:00 97.5 F L 96 H 20 12/11/18 20:00 97.5 F L 98 H 22 12/11/18 16:00 98.3 F 95 H 18 12/11/18 12:00 97.7 F 109 H 18 12/11/18 08:00 98 F 90 18 12/11/18 04:00 97.5 F L 88 20 12/11/18 00:00 98.6 F 88 20 12/10/18 20:00 98.3 F 96 H 18 12/10/18 16:00 98.0 F 98 H 18 133/67 12/10/18 12:00 94 H 14 119/73 12/10/18 11:00 94 H 16 111/75 12/10/18 10:00 94 H 14 123/67 12/10/18 09:00 92 H 20 108/69 12/10/18 08:15 98 H 24 12/10/18 08:00 92 H 17 12/10/18 07:45 91 H 21 12/10/18 07:30 84 20 12/10/18 07:15 83 21 12/10/18 07:00 86 27 H 12/10/18 06:15 85 9 L 12/10/18 06:01 86 22 12/10/18 06:00 86 22 127/68 12/10/18 05:00 84 22 137/68 12/10/18 04:00 85 20 119/83 12/10/18 03:01 129/80 12/10/18 03:00 98.3 F 84 23 129/80 12/10/18 02:52 92 H 18 12/10/18 02:36 98.8 F 89 20 12/10/18 02:10 98.8 F 89 20 12/10/18 01:19 98.8 F 90 20 12/09/18 22:07 95 H 20 12/09/18 21:51 98.8 F 94 H 20 12/09/18 21:20 97 H 23 12/09/18 20:59 98.9 F 98 H 20 12/09/18 20:30 98.9 F 98 H 18 129/90 10/09/18 21:25 176/99 12/01/16 16:00 11/27/16 08:00 BP BP BP Pulse Ox 12/21/18 08:00 142/87 99 12/21/18 04:00 130/83 97 12/20/18 23:56 140/77 99 12/20/18 20:00 119/79 95 12/20/18 16:00 106/72 100 12/20/18 12:00 115/79 98 12/20/18 08:00 130/60 100 12/20/18 04:00 121/85 100 12/20/18 00:00 122/76 98 12/19/18 20:00 139/74 100 12/19/18 16:00 116/72 100 12/19/18 12:00 131/86 100 12/19/18 10:00 135/80 99 12/19/18 04:00 131/79 100 12/19/18 00:00 140/74 100 12/18/18 20:00 132/81 100 12/18/18 16:00 124/82 100 12/18/18 12:00 132/78 100 12/18/18 08:00 134/87 100 12/18/18 04:00 143/79 100 12/18/18 00:00 134/82 100 12/17/18 20:00 134/74 96 12/17/18 16:00 134/73 100 12/17/18 12:00 119/63 100 12/17/18 08:00 136/72 136/72 100 12/17/18 04:00 131/80 99 12/17/18 00:00 125/76 100 12/16/18 20:00 141/63 100 12/16/18 16:00 121/77 100 12/16/18 12:00 121/71 100 12/16/18 07:45 105/76 100 12/16/18 04:00 108/68 100 12/16/18 00:00 126/82 100 12/15/18 22:05 12/15/18 21:35 12/15/18 20:00 134/81 100 12/15/18 16:00 101/62 97 12/15/18 12:00 124/76 100 12/15/18 08:00 115/68 100 12/15/18 04:00 132/75 100 12/15/18 00:00 115/64 100 12/14/18 20:00 117/74 100 12/14/18 16:00 110/74 100 12/14/18 12:00 116/74 100 12/14/18 08:00 116/78 95 12/14/18 04:28 12/14/18 04:00 134/82 100 12/14/18 03:58 12/14/18 00:00 115/74 100 12/13/18 20:00 107/69 99 12/13/18 16:00 113/61 100 12/13/18 12:30 96 12/13/18 12:00 109/67 99 12/13/18 08:00 98/68 100 12/13/18 04:00 120/64 99 12/13/18 00:00 111/63 100 12/12/18 20:00 116/86 98 12/12/18 16:00 122/68 94 L 12/12/18 12:00 141/84 95 12/12/18 08:00 151/88 96 12/12/18 04:00 142/87 97 12/12/18 00:00 138/81 93 L 12/11/18 20:00 122/83 98 12/11/18 16:00 143/95 98 12/11/18 12:00 166/72 97 12/11/18 08:00 139/80 99 12/11/18 04:00 117/66 100 12/11/18 00:00 133/87 96 12/10/18 20:00 127/82 100 12/10/18 16:00 97 12/10/18 12:00 98 12/10/18 11:00 99 05/31/19 10:00 98 12/10/18 09:00 98 12/10/18 08:15 100 12/10/18 08:00 97 12/10/18 07:45 100 12/10/18 07:30 100 12/10/18 07:15 100 12/10/18 07:00 100 12/10/18 06:15 100 12/10/18 06:01 100 12/10/18 06:00 100 12/10/18 05:00 98 12/10/18 04:00 100 12/10/18 03:01 12/10/18 03:00 99 12/10/18 02:52 149/85 96 12/10/18 02:36 168/86 96 12/10/18 02:10 149/85 95 12/10/18 01:19 141/85 96 12/09/18 22:07 133/77 95 12/09/18 21:51 142/85 96 12/09/18 21:20 150/85 96 12/09/18 20:59 140/82 96 12/09/18 20:30 97 10/09/18 21:25 176/99 12/01/16 16:00 132/91 11/27/16 08:00 126/74 General Limitations: Language Barrier General Appearance: Alert and In No Apparent Distress Head Head Exam: Other (ABRASION BACK OF SCALP WITH TENDERNESS) Eyes Eye exam: Normal Appearance, PERRL and EOMI; negative Scleral Icterus and Conjunctival Injection Pupils: Regular, Round: Bilateral and Reactive: Bilateral ENT ENT Exam: Normal Exam, Normal Oropharynx, Normal External Ear Exam and TM's Normal Bilaterally External Ear Exam: Normal External Inspection; negative Mastoid Tenderness, Pain with Movement and External Tenderness TM/Canal Exam: Bilateral: Normal Nose Exam: Normal Nose Exam; negative Sinus Tenderness, Nasal Deviation and Septal Hematoma Mouth Exam: Normal Inspection; negative Drooling, Trismus, Lip Swelling and Tongue Swelling Throat Exam: Normal Inspection; negative Tonsillar Erythema, Tonsillomegaly and Tonsillar Exudate Neck Neck Exam: Normal Inspection and Trachea Midline; negative Tenderness, Meni ngismus and Lymphadenopathy Chest Chest Inspection: Normal Inspection and Symmetric Chest Wall Rise; negative Tenderness Respiratory Respiratory Exam: Normal Lung Sounds Bilat; negative Accessory Muscle Use, Chest Wall Tenderness and Respiratory Distress Respiratory Exam: Bilateral: Rhonchi and Lower: Rhonchi Cardiovascular Cardiovascular Exam: Regular Rate, Normal Rhythm and Normal Heart Sounds; negative Systolic Murmur, Diastolic Murmur, Rubs and Gallop Abdominal Exam Abdominal Exam: Normal Inspection, Normal Bowel Sounds and Soft; negative Tenderness Extremities Extremities Exam: Normal Inspection and Normal Capillary Refill; negative Tenderness, Edema and Calf Tenderness Back Back Exam: Normal Inspection Neurological Neurological Exam: Alert and Oriented X3; negative Motor Sensory Deficit Patient Oriented To: Person and Place Speech: Fluid Speech Cranial Nerve Exam: EOM Function (II, III, IV, ): Normal, Facial Sensation (V): Normal, Facial Palsy (VII): Normal, Gag reflex (XI): Normal and Tongue Deviation: Normal Motor Strength - LUE: 5/5 Motor Strength - RUE: 5/5 Motor Strength - LLE: 5/5 Motor Strength - RLE: 5/5 Upper Motor Neuron Exam: Babinski Sign: Normal Psychological Psychiatric Exam: Normal Affect and Normal Mood Skin Skin Exam: Warm, Dry, Intact and Normal Color MDM Differential Diagnosis Metabolic: Dehydration, Hypercalcemia, Hypernatremia, Hypoglycemia and Hyponatremia Structural: C-spine Injury, Closed Head Injury, CVA and Mass Lesion Infectious: UTI Environmental: Hypothermia COURSE Treatment Treatment: SEE ORDERS. Education/Counseling Education/Counseling: Patient Educated On: Diagnosis ROR Labs Reviewed Laboratory Results Reviewed?: Yes Result Diagrams: 12/21/18 04:06 12/21/18 04:06 Laboratory: 12/13/18 14:40 Sputum - Expectorated Sputum Sputum Culture - Final 12/13/18 14:40 Sputum - Expectorated Sputum - Final 12/09/18 21:20 Blood Blood Culture - Final 12/09/18 21:00 Blood Blood Culture - Final 12/09/18 23:41 Urine,Catheterized Urine Culture - Final WBC 8.1 X10^3/uL (3.6-10.0) 12/21/18 04:06 RBC 2.91 X10^6/uL (4.7-6.0) L 12/21/18 04:06 Hgb 9.5 g/dL (13.5-18.0) L 12/21/18 04:06 Hct 29.0 % (42.0-54.0) L 12/21/18 04:06 MCV 99.7 fL (80.0-100.0) 12/21/18 04:06 MCH 32.7 pg (27.0-34.0) 12/21/18 04:06 MCHC 32.8 g/dL (33.0-35.0) L 12/21/18 04:06 RDW 19.1 % (11.6-16.5) H 12/21/18 04:06 Plt Count 134 X10^3/uL (150.0-450.0) L 12/21/18 04:06 MPV 8.5 fL (7.4-11.0) 12/21/18 04:06 Neut % (Auto) 79.8 % (42.0-75.0) H 12/21/18 04:06 Lymph % (Auto) 9.6 % (21.0-51.0) L 12/21/18 04:06 [place] % (Auto) 8.8 % (0.0-13.0) 12/21/18 04:06 Eos % (Auto) 0.7 % (0.9-2.9) L 12/21/18 04:06 Baso % (Auto) 1.1 % (0.2-1.0) H 12/21/18 04:06 Neut # (Auto) 6.5 x10^3/uL (2.2-4.8) H 12/21/18 04:06 Lymph # (Auto) 0.8 X10^3/uL (1.3-2.9) L 12/21/18 04:06 [place] # (Auto) 0.7 x10^3/uL (0.3-0.8) 12/21/18 04:06 Eos # (Auto) 0.1 x10^3/uL (0.0-0.2) 12/21/18 04:06 Baso # (Auto) 0.1 X10^3/uL (0.0-0.1) 12/21/18 04:06 Absolute Nucleated RBC 0.0 /100WBC 12/21/18 04:06 INR Target Range - 12/09/18 21:00 INR 1.13 (0.8-1.3) 12/09/18 21:00 APTT 33.9 SECONDS (22.9-36.5) 12/09/18 21:00 PTT Comment - 12/09/18 21:00 Sodium 142 mmol/L (136-145) 12/21/18 04:06 Corrected Sodium TNP 12/21/18 04:06 Potassium 4.1 mmol/L (3.5-5.1) 12/21/18 04:06 Chloride 106 mmol/L (98-107) 12/21/18 04:06 Carbon Dioxide 24.6 mmol/L (21-32) 12/21/18 04:06 BUN 17 mg/dL (7-18) 12/21/18 04:06 Creatinine 1.07 mg/dL (0.70-1.30) 12/21/18 04:06 Est GFR (MDRD) Af Amer > 60 (>60) 12/21/18 04:06 Est GFR (MDRD) Non-Af > 60 (>60) 12/21/18 04:06 Glucose 100 mg/dL (65-99) H 12/21/18 04:06 Lactic Acid 1.9 mmol/L (0.4-2.0) 12/09/18 21:00 Calcium 9.3 mg/dL (8.5-10.1) 12/21/18 04:06 Corrected Calcium 10.3 mg/dL (8.5-10.1) H 12/21/18 04:06 Magnesium 1.8 mg/dL (1.7-2.9) 12/20/18 04:00 Total Bilirubin 1.30 mg/dL (0.2-1.0) H 12/21/18 04:06 AST 51 Units/L (15-37) H 12/21/18 04:06 ALT 25 Units/L (12-78) 12/21/18 04:06 Alkaline Phosphatase 160 Units/L (46-116) H 12/21/18 04:06 Ammonia 35 umol/L (11-32) H 12/16/18 21:50 Creatine Kinase 59 Units/L (39-308) 12/10/18 11:28 CK-MB (CK-2) < 1.0 ng/mL (0-4.0) 12/10/18 11:28 CK/CKMB % Calc 1.7 % (<4) 12/10/18 11:28 Troponin I 0.05 ng/mL (0-1.5) 12/10/18 11:28 C-Reactive Protein 32.00 mg/L (0-3.0) H 12/09/18 21:00 Total Protein 6.2 g/dL (6.4-8.2) L 12/21/18 04:06 Albumin 2.7 g/dL (3.4-5.0) L 12/21/18 04:06 Globulin 3.5 g/dL (2.5-4.5) 12/21/18 04:06 Albumin/Globulin Ratio 0.8 Ratio (1.1-2.1) L 12/21/18 04:06 Alpha Fetoprotein 4 ng/mL (0-9) 12/11/18 05:30 Carcinoembryonic Ag 6.7 ng/mL (0.0-3.0) H 12/11/18 05:30 Specimen Type Catherized urine 12/19/18 15:11 Urine Color Dark yellow (YELLOW) 12/19/18 15:11 Urine Appearance Clear (CLEAR) 12/19/18 15:11 Urine pH 5.0 (5.0 - 8.0) 12/19/18 15:11 Ur Specific [place] 1.025 (1.000-1.030) 12/19/18 15:11 Urine Protein 2+ (NEGATIVE) 12/19/18 15:11 Urine Glucose (UA) Negative (NEGATIVE) 12/19/18 15:11 Urine Ketones Negative (NEGATIVE) 12/19/18 15:11 Urine Occult Blood 3+ (NEGATIVE) 12/19/18 15:11 Urine Nitrite Negative (NEGATIVE) 12/19/18 15:11 Urine Bilirubin Negative (NEGATIVE) 12/19/18 15:11 Urine Urobilinogen 1+ (NORMAL) 12/19/18 15:11 Ur Leukocyte Esterase 1+ (NEGATIVE) 12/19/18 15:11 Urine RBC 10-20 /HPF (NONE SEEN) 12/19/18 15:11 Urine WBC 3-5 /HPF (NONE SEEN) 12/19/18 15:11 Ur Squamous Epith Cells Rare /HPF (NEGATIVE) 12/19/18 15:11 Amorphous Sediment Trace /HPF (NEGATIVE) 12/19/18 15:11 Urine Bacteria Negative /HPF (NEGATIVE) 12/19/18 15:11 Hyaline Casts Few /LPF (NEGATIVE) 12/19/18 15:11 Other Casts Rare /LPF (NEGATIVE) 12/09/18 23:41 Urine Mucus Numerous /HPF (NEGATIVE) 12/09/18 23:41 Ur Culture Indicated? No/not indicated 12/19/18 15:11 Stool Description 50g,brown,semisolid 12/15/18 19:00 Stl Occult Blood (IFOB) Negative (NEGATIVE) 12/15/18 19:00 Cytology Specimen To follow 12/12/18 10:09 Blood Type A NEGATIVE 12/10/18 04:20 Antibody Screen Negative 12/10/18 04:20 XRAY XRAY Interpreted by: Radiologist XRAY Findings: REPORT NOTED AND DISCUSS WITH PATIENT. Diagnosis Discharge Problem: Generalized weakness, Cirrhosis of liver Ascites Qualifiers: Ascites type: other type Qualified Code(s): R18.8 - Other ascites Abdominal pain Qualifiers: Abdominal location: generalized Qualified Code(s): R10.84 - Generalized abdominal pain
[2018-12-09 21:33] LABS: BASOPHILS % (AUTO) 0.4 % (0.2-1.0); HEMOGLOBIN 9.8 g/dL (13.5-18.0); LYMPHOCYTES # (AUTO) 0.6 X10^3/uL (1.3-2.9); LYMPHOCYTES % (AUTO) 5.9 % (21.0-51.0); MEAN CORPUSCULAR HEMOGLOBIN 34.2 pg (27.0-34.0); MEAN CORPUSCULAR HGB CONC 33.7 g/dL (33.0-35.0); MEAN CORPUSCULAR VOLUME 101.4 fL (80.0-100.0); MEAN PLATELET VOLUME 8.1 fL (7.4-11.0); MONOCYTES # (AUTO) 1.1 x10^3/uL (0.3-0.8); MONOCYTES % (AUTO) 10.6 % (0.0-13.0); NEUTROPHILS # (AUTO) 8.4 x10^3/uL (2.2-4.8); NEUTROPHILS % (AUTO) 83.1 % (42.0-75.0); PLATELET COUNT 175 X10^3/uL (150.0-450.0); RED BLOOD COUNT 2.86 X10^6/uL (4.7-6.0); RED CELL DISTRIBUTION WIDTH 18.3 % (11.6-16.5); WHITE BLOOD COUNT 10.1 X10^3/uL (3.6-10.0)
--- NOTE | 2018-12-09 21:48 | RAD ---
HISTORY: Found down Study: Single view of the chest. Comparison: None. Findings: The cardiomediastinal silhouette is normal. No focal consolidations, pleural effusions or pneumothorax. Osseous structures demonstrate no acute abnormality. IMPRESSION: 1. No acute cardiopulmonary process. Reported By:
[2018-12-09 21:49] LABS: LACTIC ACID 1.9 mmol/L (0.4-2.0)
--- NOTE | 2018-12-09 21:49 | CT ---
HISTORY: Fall, laceration Study: CT brain without contrast Comparison: 12/17/2016 Technique: Multiple axial images of the brain were obtained without administration of IV contrast. Dose reduction techniques including Automated Exposure Control (AEC) and adjustment of mA and kV were utilized. Findings: There is cerebral volume loss and nonspecific white matter hypoattenuation likely related to chronic microvascular ischemic changes. There is calcified plaque in the carotid vertebral arteries No evidence of acute hemorrhage, midline shift, mass effect or abnormal extra-axial fluid collection. Prominence of the ventricles and cortical sulci is commensurate volume loss. The soft tissues and osseous structures are unremarkable. The visualized paranasal sinuses are clear. IMPRESSION: 1.No acute intracranial abnormality. Reported By:
--- NOTE | 2018-12-09 21:53 | CT ---
HISTORY: Fall, laceration Study: CT cervical spine without contrast Comparison: None Technique: Multiple axial images of the cervical spine were obtained from the skull base to the thoracic inlet without administration of IV contrast. Sagittal and coronal reformats were performed and reviewed. Dose reduction techniques including Automated Exposure Control (AEC) and adjustment of mA and kV were utilized. Findings: Normal cervical alignment. Vertebral body heights are preserved. Multilevel degenerative disc space narrowing and spondylosis is present with uncovertebral spurring and facet arthropathy resulting in varying degrees of foraminal stenosis. The posterior elements are intact. No evidence of acute fracture or dislocation. The odontoid process occipital are The visualized prevertebral and paraspinal soft tissues appear normal. The visualized lung apices are clear. IMPRESSION: 1. No acute osseous abnormality of the cervical spine. Reported By:
[2018-12-09 21:55] LABS: ALANINE AMINOTRANSFERASE 20 Units/L (12-78); ALBUMIN 2.4 g/dL (3.4-5.0); ALKALINE PHOSPHATASE 133 Units/L (46-116); ASPARTATE AMINO TRANSFERASE 67 Units/L (15-37); BLOOD UREA NITROGEN 24 mg/dL (7-18); CALCIUM 8.8 mg/dL (8.5-10.1); CARBON DIOXIDE 29.8 mmol/L (21-32); CHLORIDE 96 mmol/L (98-107); CKMB % 2.3 % (<4); COR CA(FOR HYPOALB) 10.1 mg/dL (8.5-10.1); CREATINE KINASE 44 Units/L (39-308); CREATINE KINASE MB < 1.0 ng/mL (0-4.0); CREATININE 1.78 mg/dL (0.70-1.30); SODIUM 136 mmol/L (136-145); TROPONIN I 0.03 ng/mL (0-1.5); eGFR NON BLACK RACES 41 (>60)
--- NOTE | 2018-12-09 22:04 | CT ---
CT pelvis without contrast Indication:back pain Comparison: None available Technique: Multiple axial images of the pelvis were obtained from the iliac crest to the proximal thigh without administration of IV contrast. Sagittal and coronal reformats were performed and reviewed. Dose reduction techniques including automated exposure control (AEC) and adjustment of mA and kV were utilized. Findings: There is no acute fracture, dislocation or diastasis within the pelvis. Both femoral heads are well seated with their respective acetabuli. Visualized alignment of the lower lumbar spine is maintained. Mild degenerative changes noted within bilateral SI and femoroacetabular joints. Enthesopathic change of the greater trochanters is noted bilaterally. Moderate amount of ascites is noted within the visualized abdomen and pelvis. Imaging of the deep pelvis demonstrates no acute inflammatory process, adenopathy or abnormal free fluid. IMPRESSION: 1. No acute osseous or soft tissue abnormality within the pelvis. Reported By:
[2018-12-09] MEDS ORDERED: NS 1000 ML 1,000 ML IV ONE (22:21)
[2018-12-09] MEDS ORDERED: NS 1000 ML 1,000 ML ONE ×2 (22:22→23:26)
[2018-12-09] MEDS: NS 1000 ML 1,000 ML IV SCH (23:45)
[2018-12-09 23:47] LABS: BILIRUBIN,URINE 2+ (NEGATIVE); BLOOD/HEMOGLOBIN,URINE 1+ (NEGATIVE); GLUCOSE, URINE NEGATIVE (NEGATIVE); KETONES,URINE 1+ (NEGATIVE); LEUKOCYTE ESTERASE ,URINE 1+ (NEGATIVE); NITRITES,URINE POSITIVE (NEGATIVE); PROTEIN,URINE 2+ (NEGATIVE); UROBILINOGEN,URINE 3+ (NORMAL)
[2018-12-09 23:56] LABS: APPEARANCE,URINE HAZY (CLEAR); COLOR,URINE BROWN (YELLOW)
[2018-12-09 23:57] LABS: BACTERIA,URINE TRACE /HPF (NEGATIVE); SQUAMOUS EPITHELIAL CELL,UR FEW /HPF (NEGATIVE)
[2018-12-09 23:58] LABS: AMORPHOUS SEDIMENT,UR 2+ /HPF (NEGATIVE); HYALINE CASTS, URINE MODERATE /LPF (NEGATIVE)
[2018-12-09 23:59] LABS: OTHER CASTS, URINE RARE /LPF (NEGATIVE)
[2018-12-10] LABS: MUCUS,URINE NUMEROUS /HPF (NEGATIVE)
[2018-12-10] MEDS ORDERED: K-LYTE EFFERVESCENT ONE (01:49)
[2018-12-10] MEDS ORDERED: K-LYTE EFFERVESCENT PO ONE (01:49)
[2018-12-10] MEDS ORDERED: ROCEPHIN VIAL 1 GRAM IVP ONE (02:26)
[2018-12-10 03:37] VITALS: BMI 22.4
[2018-12-10 04:33] LABS: BASOPHILS % (AUTO) 0.2 % (0.2-1.0); EOSINOPHILS % (AUTO) 0.1 % (0.9-2.9); HEMATOCRIT 31.5 % (42.0-54.0); HEMOGLOBIN 10.4 g/dL (13.5-18.0); LYMPHOCYTES # (AUTO) 0.7 X10^3/uL (1.3-2.9); LYMPHOCYTES % (AUTO) 7.5 % (21.0-51.0); MEAN CORPUSCULAR HEMOGLOBIN 33.6 pg (27.0-34.0); MEAN CORPUSCULAR HGB CONC 33.1 g/dL (33.0-35.0); MEAN CORPUSCULAR VOLUME 101.6 fL (80.0-100.0); MEAN PLATELET VOLUME 8.1 fL (7.4-11.0); NEUTROPHILS % (AUTO) 82.2 % (42.0-75.0); PLATELET COUNT 149 X10^3/uL (150.0-450.0); RED CELL DISTRIBUTION WIDTH 18.7 % (11.6-16.5); WHITE BLOOD COUNT 9.7 X10^3/uL (3.6-10.0)
[2018-12-10 04:43] LABS: ALBUMIN 2.4 g/dL (3.4-5.0); CALCIUM 8.7 mg/dL (8.5-10.1); CARBON DIOXIDE 33.1 mmol/L (21-32); CREATININE 1.67 mg/dL (0.70-1.30); TOTAL PROTEIN 6.3 g/dL (6.4-8.2)
[2018-12-10 04:55] LABS: CKMB % 1.6 % (<4); TROPONIN I 0.06 ng/mL (0-1.5)
[2018-12-10] MEDS ORDERED: NS 100 ML IV 100 ML ONE (05:02)
[2018-12-10] MEDS ORDERED: PROTONIX INJ 40 MG VIAL ONE (05:02)
[2018-12-10] MEDS: PROTONIX INJ 40 MG VIAL 80 MG in NS 100 ML IV 80 ML IV SCH ×2 (05:13→15:47)
--- NOTE | 2018-12-10 11:21 | CT ---
HISTORY: Abdominal distention, ascites Study: CT abdomen pelvis without contrast Comparison: 11/25/2016 Technique: Axial noncontrast images with coronal and sagittal reformats. Dose reduction procedures were used with mA/kv adjusted for body size. THIS EXAMINATION IS LIMITED DUE TO THE LACK OF INTRAVENOUS AND ORAL CONTRAST. The examination was performed in this manner at the sole discretion of the ordering caregiver Findings: The lung bases are clear. There is a large amount of ascites present. The liver is normal in size however there appear to be some subtle lucencies throughout the hepatic parenchyma. Metastatic disease could not be excluded. The evaluation of the liver is limited due to the lack of intravenous contrast. Cholelithiasis is present. The spleen, adrenal glands, and pancreas are within normal limits to the limitations of an unenhanced examination. The kidneys are unobstructed. Bilateral tiny renal calculi are present. No ureteral calculi are identified. Calcific atherosclerotic change is present in a nondilated abdominal aorta. No intraperitoneal or retroperitoneal lymphadenopathy of significance is identified. There is thickening and stranding within the omentum. Omental metastatic disease as a cause of the ascites cannot be excluded. Examination of the pelvis demonstrated no evidence for pelvic masses or pelvic lymphadenopathy. No bladder abnormality is present. There is a Arora catheter within the bladder. No lytic or blastic skeletal lesions of significance are identified. IMPRESSION: Large amount of ascites. The etiology of the ascites is not clear. There is stranding and thickening in the omentum. Omental or peritoneal metastatic disease is a possible cause of the ascites in this patient. Subtle lucencies throughout the liver suspicious for metastatic disease however evaluation of the liver is limited due to the lack of intravenous contrast. Cholelithiasis Bilateral tiny nonobstructing renal calculi Reported By:
[2018-12-10 11:57] LABS: CREATINE KINASE 59 Units/L (39-308); CREATINE KINASE MB < 1.0 ng/mL (0-4.0); TROPONIN I 0.05 ng/mL (0-1.5)
[2018-12-10 12:13] LABS: CKMB % 1.7 % (<4)
[2018-12-10] MEDS: NS 1000 ML 1,000 ML IV SCH ×2 (14:16→20:13)
[2018-12-10] MEDS: ROCEPHIN VIAL 1 GRAM IVP SCH (21:30)
[2018-12-11] MEDS: PROTONIX INJ 40 MG VIAL 80 MG in NS 100 ML IV 80 ML IV SCH ×3 (02:26→21:41)
[2018-12-11] MEDS: NS 1000 ML 1,000 ML IV SCH ×4 (05:26→23:40)
[2018-12-11 06:21] LABS: BASOPHILS % (AUTO) 0.4 % (0.2-1.0); EOSINOPHILS # (AUTO) 0.1 x10^3/uL (0.0-0.2); EOSINOPHILS % (AUTO) 0.6 % (0.9-2.9); HEMATOCRIT 30.4 % (42.0-54.0); LYMPHOCYTES # (AUTO) 0.8 X10^3/uL (1.3-2.9); LYMPHOCYTES % (AUTO) 8.9 % (21.0-51.0); MEAN CORPUSCULAR HEMOGLOBIN 33.7 pg (27.0-34.0); MEAN CORPUSCULAR HGB CONC 32.7 g/dL (33.0-35.0); MEAN CORPUSCULAR VOLUME 103.1 fL (80.0-100.0); MEAN PLATELET VOLUME 8.8 fL (7.4-11.0); MONOCYTES # (AUTO) 0.8 x10^3/uL (0.3-0.8); MONOCYTES % (AUTO) 9.2 % (0.0-13.0); NEUTROPHILS # (AUTO) 7.2 x10^3/uL (2.2-4.8); NEUTROPHILS % (AUTO) 80.9 % (42.0-75.0); PLATELET COUNT 158 X10^3/uL (150.0-450.0); RED BLOOD COUNT 2.95 X10^6/uL (4.7-6.0); RED CELL DISTRIBUTION WIDTH 18.8 % (11.6-16.5); WHITE BLOOD COUNT 8.9 X10^3/uL (3.6-10.0)
[2018-12-11 06:31] LABS: ALANINE AMINOTRANSFERASE 23 Units/L (12-78); ALBUMIN 2.3 g/dL (3.4-5.0); ALKALINE PHOSPHATASE 130 Units/L (46-116); ASPARTATE AMINO TRANSFERASE 65 Units/L (15-37); BLOOD UREA NITROGEN 21 mg/dL (7-18); CALCIUM 8.2 mg/dL (8.5-10.1); CARBON DIOXIDE 27.5 mmol/L (21-32); CHLORIDE 102 mmol/L (98-107); COR CA(FOR HYPOALB) 9.6 mg/dL (8.5-10.1); COR NA(FOR HYPERGLY) 138 mmol/L (136-145); SODIUM 138 mmol/L (136-145); eGFR NON BLACK RACES 50 (>60)
--- NOTE | 2018-12-11 15:26 | CT ---
Exam: CT of the abdomen/pelvis with contrast History: 63-year-old male with history of cirrhosis. Ascites and abdominal pain. Comparison: CT of the abdomen/pelvis without contrast performed on the same date Technique: Axial imaging was performed through the abdomen and pelvis following administration of intravenous contrast. Sagittal and coronal reformations were generated. Automated exposure control techniques were used for this exam. Findings: Visualized lung bases are clear. A large amount ascites is again seen in the abdomen and pelvis. The liver is small with suggestion of surface nodularity consistent with known cirrhosis. Fatty changes are present as well. Ill-defined hypodense areas are present predominantly in the right hepatic lobe with the singular most confluent site located in the medial aspect of the right lobe, adjacent to the caudate lobe. Intrahepatic metastatic disease should be considered. Cholelithiasis is present. The spleen, pancreas, and adrenal glands are normal. Several tiny nonobstructing radiopaque calculi are noted bilaterally. However no evidence of hydronephrosis or solid renal mass is seen on either side. Three cysts measuring slightly greater than 1 cm are identified in the right kidney. Large and small bowel demonstrate no evidence of obstruction or inflammatory change. Thickening and stranding is again seen in the omentum. Possibility of omental metastatic disease cannot be excluded. No definite sign of intraperitoneal or retroperitoneal lymphadenopathy. Bladder is decompressed because the presence of a Arora catheter. Calcified plaque is again seen in a nondilated abdominal aorta. A healed fracture of the right 12th rib posteriorly is seen. No definite evidence of bony metastatic disease is seen on this exam however. Impression: 1. Large amount of ascites is again seen in the abdomen and pelvis. With stranding and thickening of the omentum, possibility of peritoneal or omental metastatic disease cannot be excluded. 2. Ill-defined hypodense areas in the liver, particularly the right hepatic lobe, are suspicious for metastatic disease. 3. Cholelithiasis 4. Small nonobstructing radiopaque renal calculi bilaterally Reported By:
[2018-12-11] MEDS ORDERED: VALIUM INJ IVP PRN (16:18)
[2018-12-11] MEDS: ROCEPHIN VIAL 1 GRAM IVP SCH (21:42)
[2018-12-11] MEDS: VALIUM PO PRN (22:37)
[2018-12-12] MEDS: VALIUM PO PRN (03:12)
[2018-12-12] MEDS: PROTONIX INJ 40 MG VIAL 80 MG in NS 100 ML IV 80 ML IV SCH ×3 (05:14→20:53)
[2018-12-12 06:20] LABS: ALANINE AMINOTRANSFERASE 28 Units/L (12-78); ALBUMIN 2.4 g/dL (3.4-5.0); ALKALINE PHOSPHATASE 135 Units/L (46-116); ASPARTATE AMINO TRANSFERASE 72 Units/L (15-37); BASOPHILS % (AUTO) 0.4 % (0.2-1.0); BLOOD UREA NITROGEN 17 mg/dL (7-18); CALCIUM 7.9 mg/dL (8.5-10.1); CARBON DIOXIDE 23.4 mmol/L (21-32); CHLORIDE 102 mmol/L (98-107); COR CA(FOR HYPOALB) 9.2 mg/dL (8.5-10.1); CREATININE 1.23 mg/dL (0.70-1.30); EOSINOPHILS % (AUTO) 0.4 % (0.9-2.9); HEMATOCRIT 32.6 % (42.0-54.0); HEMOGLOBIN 10.6 g/dL (13.5-18.0); LYMPHOCYTES # (AUTO) 0.7 X10^3/uL (1.3-2.9); LYMPHOCYTES % (AUTO) 6.4 % (21.0-51.0); MEAN CORPUSCULAR HEMOGLOBIN 33.5 pg (27.0-34.0); MEAN CORPUSCULAR HGB CONC 32.6 g/dL (33.0-35.0); MEAN CORPUSCULAR VOLUME 102.6 fL (80.0-100.0); MONOCYTES # (AUTO) 0.9 x10^3/uL (0.3-0.8); MONOCYTES % (AUTO) 8.7 % (0.0-13.0); NEUTROPHILS # (AUTO) 8.7 x10^3/uL (2.2-4.8); NEUTROPHILS % (AUTO) 84.1 % (42.0-75.0); PLATELET COUNT 152 X10^3/uL (150.0-450.0); RED BLOOD COUNT 3.18 X10^6/uL (4.7-6.0); RED CELL DISTRIBUTION WIDTH 18.3 % (11.6-16.5); SODIUM 138 mmol/L (136-145); TOTAL PROTEIN 6.1 g/dL (6.4-8.2); WHITE BLOOD COUNT 10.3 X10^3/uL (3.6-10.0); eGFR NON BLACK RACES > 60 (>60)
[2018-12-12] MEDS ORDERED: MICRO K EXTEN CAP 10 MEQ PO PRN (06:36)
[2018-12-12] MEDS ORDERED: POTASSIUM CHL 40 MEQ/NS 0.45% 500 ML IV PRN (06:36)
[2018-12-12] MEDS ORDERED: KLOR-CON PO PRN (06:36)
[2018-12-12] MEDS ORDERED: POTASSIUM CHL 60 MEQ/NS 0.45% 500 ML IV PRN (06:36)
[2018-12-12] MEDS ORDERED: POTASSIUM CHLORIDE LIQ 20 MEQ UDC PO PRN (06:36)
[2018-12-12] MEDS ORDERED: K-RIDER 10 MEQ/NS 100 ML 10 MEQ/100 ML BAG IV PRN (06:36)
--- NOTE | 2018-12-12 09:08 | DR.H&P ---
H&P - History & Physical for Day of: H&P Date: 12/10/18 - Chief Complaint Chief Complaint: FALL, AMS - History of Present Illness History of Present Illness: IS A 63 YEAR OLD PATIENT OF OURS WHO PRESENTED TO THE ER VIA EMS AFTER FALLING AT HOME. ON ARRIVAL, HE WAS NOTED TO BE DISORIENTED AND HAD A SMALL LACERATION TO THE BACK OF HEAD WHERE HE HIT THE CONCRETE. NO ACTIVE BLEEDING NOTED. ON ARRIVAL, VITALS WERE 98.9-18-98-97%-129/90. LABS WERE OBTAINED. ABNORMAL LAB VALUES INCLUDE THE FOLLOWING: WBC 10.1, RBC 2.86, HGB 9.8, HCT 29.0, POTASSIUM 2.6, BUN 24, CREATININE 1.78, TOTAL BILI 2.70, AST 67, ALK PHOS 133, CRP 32.0, TOTAL PROTEIN 6.0, ALBUMIN 2.4. URINALYSIS REVEALED: WC 3-5, RBC 3-5, BACTERIA TRACE, LEUKOCYTES 1+. BLOOD AND URINE CULTURES PENDING. A CHEST XRAY WAS OBTAINED AND REVEALED: No acute cardiopulmonary process. CERVICAL SPINE CT REVEALED: No acute osseous abnormality of the cervical spine. HEAD CT REVEALED: No acute intracranial abnormality. PELVIS CT REVEALED: No acute osseous or soft tissue abnormality within the pelvis. AN EKG WAS OBTAINED AND REVEALED: SINUS TACHYCARDIA WITH HR 96. STAFF REPORTED THAT PATIENT PASSED A LARGE BLOOD CLOT FROM RECTUM IN THE ER. HE WAS STARTED ON NORMAL SALINE AT 125ML/HR, A PROTONIX DRIP, ROCEPHIN 1G IV DAILY, AND THE POTASSIUM PROTOCOL. HE WAS ADMITTED FOR FURTHER EVALUATION AND TREATMENT OF CIRRHOSIS, ABDOMINAL ASCITES, AND GENERALIZED WEAKNESS. WE WILL OBTAIN AN ABDOMEN/PELVIS CT WITH CONTRAST IN THE MORNING. OTHERWISE, WE WILL FOLLOW UP WITH AM LABS AND CONTINUE TO MONITOR. - Past Medical History Past Medical History: Angina, NC, Hypertension, Dyslipidemia, Anxiety, GERD, Arthritis, Kidney Stones Additional Medical History: Hx PVD, Hx DVT, Diarrhea, Back Pain - Past Surgical History Surgical History: Angioplasty/Stents Additional Surgical History: Cardiac Stent placement in December 2015 - Family History Family Medical History: Coronary Artery Disease, Heart Failure, Sudden Cardiac , Hypertension - Social History Does patient currently use any type of tobacco product: Yes Have you used tobacco products in the last 12 months: Yes Type of Tobacco Use: Cigarettes How many years tobacco product used: 25 Does any household member use tobacco: No Alcohol Use: Occasionally Drug Use: None - Medications Home Medications: No Known Drug Allergies Allergy (Verified 10/09/18 19:12) - Review of Systems Constitutional: Weakness, Malaise, Other (FALLS ) Eyes: No Symptoms Reported ENT: No Symptoms Reported Respiratory: Shortness of Breath Cardiovascular: No Symptoms Reported Gastrointestinal: Abdominal Pain Genitourinary: No Symptoms Reported Musculoskeletal: No Symptoms Reported Skin: Wound (OCCIPITAL LOBE LACERATION ) Neurological: See HPI, Weakness, Confusion - Physical Exam Vital Signs: Temperature 98 F Pulse Rate [Left Brachial] 82 Pulse Rate [Apical] 90 Pulse Rate 98 Respiratory Rate 18 Blood Pressure [Right Calf] 126/74 Blood Pressure [Right Arm] 139/80 Blood Pressure [Left Arm] 151/88 Blood Pressure 133/67 O2 Sat by Pulse Oximetry 96 Oriented: Not Oriented Eyes: Normal Ear: Normal Nose: Normal Throat: Normal Respiratory: Diminished Throughout Cardiovascular: Normal : Normal Auscultation: Bowel Sounds: Normal Palpation: Normal Tenderness: Diffuse Skin: Normal Musculoskeletal: Normal Psychiatric: Other (CONFUSION ) Mood Description: Calm Affect: Normal Speech Pattern: Inappropriate - Assessment/Plan (1) Cirrhosis Qualifiers: Hepatic cirrhosis type: alcoholic cirrhosis Ascites presence: with ascites Qualified Code(s): K70.31 - Alcoholic cirrhosis of liver with ascites Status: Acute Plan: ADMIT, ABDOMEN/PELVIS CT IN AM, CONTINUE TO MONITOR LABS (2) Altered mental status Qualifiers: Altered mental status type: transient alteration of awareness Qualified Code(s): R40.4 - Transient alteration of awareness Status: Acute (3) Hypokalemia Status: Acute Plan: POTASSIUM PROTOCOL, CONTINUE TO MONITOR (4) Generalized weakness Status: Acute (5) Fall Qualifiers: Encounter type: initial encounter Qualified Code(s): W19.XXXA - Unspecified fall, initial encounter Status: Acute - Allergies Allergies/Adverse Reactions: Allergies Allergy/AdvReac Type Severity Reaction Status Date / Time No Known Drug Allergies Allergy Verified 10/09/18 19:12
[2018-12-12] MEDS: K-DUR TAB 20 MEQ PO PRN (10:10)
[2018-12-12] MEDS: MAGNESIUM SULFATE 1 GRAM/100 mL PREMIX 1 GM/100 ML BAG IV PRN ×2 (10:10→11:10)
[2018-12-12] MEDS: ALBUMIN HUMAN 25%- 100 ML 100 ML IV SCH (10:18)
[2018-12-12] MEDS: NS 1000 ML 1,000 ML IV SCH ×3 (20:52→22:00)
[2018-12-12] MEDS: ROCEPHIN VIAL 1 GRAM IVP SCH (20:53)
--- NOTE | 2018-12-12 21:28 | PCM.PROG ---
Progress Note - Progress Note for Day of Date of Exam: 12/11/18 - Subjective Subjective: WAS ADMITTED FOR GENERALIZED WEAKNESS, FREQUENT FALLS, HYPOKALEMIA, AND CIRRHOSIS. HE HAS A HISTORY OF LIVER DISEASE. ON EXAMINATION, HEART IS REGULAR IN RATE AND RHYTHM. BILATERAL LUNGS ARE NOTED WITH DIMINISHED LUNG SOUNDS THROUGHOUT. ABDOMEN IS SEVERELY DISTENDED. HE REPORTS DIFFUSE TENDERNESS. HYPOACTIVE BOWEL SOUNDS NOTED. WE SUSPECTED THAT HE HAS A LARGE AMOUNT OF ASCITES PRESENT. HIS VITALS THIS MORNING ARE 98.0-90-18-99%-139/80. LABS WERE OBTAINED. ABNORMAL LAB VALUES INCLUDE THE FOLLOWING: RBC 2.95, HGB 10.0, HCT 30.4, POTASSIUM 3.3, BUN 21, CREATININE 1.50, GLUCOSE 114, CALCIUM 8.2, TOTAL BILI 1.50, AST 65, ALK PHOS 130, TOTAL PROTEIN 6.0, ALBUIN 2.3. URINE AND BLOOD CULTURES ARE PENDING. AN ABDOMEN/PELVIS CT WITH CONTRAST WAS OBTAINED AND REVEALED: Large amount of ascites is again seen in the abdomen and pelvis. With stranding and thickening of the omentum, possibility of peritoneal or omental metastatic disease cannot be excluded. Ill-defined hypodense areas in the liver, particularly the right hepatic lobe, are suspicious for metastatic disease. Cholelithiasis. Small nonobstructing radiopaque renal calculi bilaterally. HE IS CURRENTLY RECEIVING IV FLUIDS, IV ALBUMIN, ROCEPHIN 1G IV HS, AND A PROTONIX DRIP. WE WILL CONTINUE WITH CURRENT PLAN OF CARE TODAY. WE WILL CONSULT FOR POSSIBLE PARACENTESIS. OTHERWISE, WE PLAN TO FOLLOW UP WITH AM LABS AND CONTINUE TO MONITOR. - Past Medical Family Social History Past Med/Fam/Surg Hx: No changes since H&P Allergies: Allergies No Known Drug Allergies Allergy (Verified 10/09/18 19:12) - Review of Systems ROS: No change since H&P - Vital Signs and I&O's Vital Signs: Temperature 97.8 F Pulse Rate [Left Brachial] 89 Pulse Rate [Apical] 90 Pulse Rate 98 Respiratory Rate 20 Blood Pressure [Right Calf] 126/74 Blood Pressure [Right Arm] 139/80 Blood Pressure [Left Arm] 116/86 Blood Pressure 133/67 O2 Sat by Pulse Oximetry 98 Intake and Output: Intake & Output 12/10/18 12/11/18 12/12/18 12/13/18 11:59 11:59 11:59 11:59 Intake Total 430 / 430 2704 / 2704 3126 / 3126 1660 / 1660 Output Total 150 / 150 700 / 700 450 / 450 8100 / 8100 Balance 280 / 280 2003 2676 / 6416 -6440 / -6440 - Physical Exam Oriented: Not Oriented Eyes: Normal Ear: Normal Nose: Normal Throat: Normal Respiratory: Diminished Cardiovascular: Normal : Normal Auscultation: Bowel Sounds: Normal Palpation: Normal Tenderness: Diffuse Skin: Normal Musculoskeletal: Normal Psychiatric: Other (CONFUSION ) Mood Description: Calm Affect: Normal Speech Pattern: Clear, Appropriate - Laboratory and Diagnostics Result Diagrams: 12/12/18 05:20 12/12/18 13:10 Labs: 12/09/18 23:41 Urine,Catheterized Urine Culture - Final 12/09/18 21:20 Blood Blood Culture - Preliminary 12/09/18 21:00 Blood Blood Culture - Preliminary Laboratory WBC 10.3 X10^3/uL (3.6-10.0) H 12/12/18 05:20 RBC 3.18 X10^6/uL (4.7-6.0) L 12/12/18 05:20 Hgb 10.6 g/dL (13.5-18.0) L 12/12/18 05:20 Hct 32.6 % (42.0-54.0) L 12/12/18 05:20 MCV 102.6 fL (80.0-100.0) H 12/12/18 05:20 MCH 33.5 pg (27.0-34.0) 12/12/18 05:20 MCHC 32.6 g/dL (33.0-35.0) L 12/12/18 05:20 RDW 18.3 % (11.6-16.5) H 12/12/18 05:20 Plt Count 152 X10^3/uL (150.0-450.0) 12/12/18 05:20 MPV 9.0 fL (7.4-11.0) 12/12/18 05:20 Neut % (Auto) 84.1 % (42.0-75.0) H 12/12/18 05:20 Lymph % (Auto) 6.4 % (21.0-51.0) L 12/12/18 05:20 [place] % (Auto) 8.7 % (0.0-13.0) 12/12/18 05:20 Eos % (Auto) 0.4 % (0.9-2.9) L 12/12/18 05:20 Baso % (Auto) 0.4 % (0.2-1.0) 12/12/18 05:20 Neut # (Auto) 8.7 x10^3/uL (2.2-4.8) H 12/12/18 05:20 Lymph # (Auto) 0.7 X10^3/uL (1.3-2.9) L 12/12/18 05:20 [place] # (Auto) 0.9 x10^3/uL (0.3-0.8) H 12/12/18 05:20 Eos # (Auto) 0.0 x10^3/uL (0.0-0.2) 12/12/18 05:20 Baso # (Auto) 0.0 X10^3/uL (0.0-0.1) 12/12/18 05:20 Absolute Nucleated RBC 0.0 /100WBC 12/12/18 05:20 INR Target Range - 12/09/18 21:00 INR 1.13 (0.8-1.3) 12/09/18 21:00 APTT 33.9 SECONDS (22.9-36.5) 12/09/18 21:00 PTT Comment - 12/09/18 21:00 Sodium 138 mmol/L (136-145) 12/12/18 05:20 Corrected Sodium TNP 12/12/18 05:20 Potassium 3.5 mmol/L (3.5-5.1) 12/12/18 13:10 Chloride 102 mmol/L (98-107) 12/12/18 05:20 Carbon Dioxide 23.4 mmol/L (21-32) 12/12/18 05:20 BUN 17 mg/dL (7-18) 12/12/18 05:20 Creatinine 1.23 mg/dL (0.70-1.30) 12/12/18 05:20 Est GFR (MDRD) Af Amer > 60 (>60) 12/12/18 05:20 Est GFR (MDRD) Non-Af > 60 (>60) 12/12/18 05:20 Glucose 110 mg/dL (65-99) H 12/12/18 05:20 Lactic Acid 1.9 mmol/L (0.4-2.0) 12/09/18 21:00 Calcium 7.9 mg/dL (8.5-10.1) L 12/12/18 05:20 Corrected Calcium 9.2 mg/dL (8.5-10.1) 12/12/18 05:20 Magnesium 1.5 mg/dL (1.7-2.9) L 12/12/18 05:20 Total Bilirubin 1.60 mg/dL (0.2-1.0) H 12/12/18 05:20 AST 72 Units/L (15-37) H 12/12/18 05:20 ALT 28 Units/L (12-78) 12/12/18 05:20 Alkaline Phosphatase 135 Units/L (46-116) H 12/12/18 05:20 Ammonia 24 umol/L (11-32) 12/11/18 07:55 Creatine Kinase 59 Units/L (39-308) 12/10/18 11:28 CK-MB (CK-2) < 1.0 ng/mL (0-4.0) 12/10/18 11:28 CK/CKMB % Calc 1.7 % (<4) 12/10/18 11:28 Troponin I 0.05 ng/mL (0-1.5) 12/10/18 11:28 C-Reactive Protein 32.00 mg/L (0-3.0) H 12/09/18 21:00 Total Protein 6.1 g/dL (6.4-8.2) L 12/12/18 05:20 Albumin 2.4 g/dL (3.4-5.0) L 12/12/18 05:20 Globulin 3.7 g/dL (2.5-4.5) 12/12/18 05:20 Albumin/Globulin Ratio 0.6 Ratio (1.1-2.1) L 12/12/18 05:20 Specimen Type Catherized urine 12/09/18 23:41 Urine Color Brown (YELLOW) 12/09/18 23:41 Urine Appearance Hazy (CLEAR) 12/09/18 23:41 Urine pH 5.0 (5.0 - 8.0) 12/09/18 23:41 Ur Specific [place] 1.025 (1.000-1.030) 12/09/18 23:41 Urine Protein 2+ (NEGATIVE) 12/09/18 23:41 Urine Glucose (UA) Negative (NEGATIVE) 12/09/18 23:41 Urine Ketones 1+ (NEGATIVE) 12/09/18 23:41 Urine Occult Blood 1+ (NEGATIVE) 12/09/18 23:41 Urine Nitrite Positive (NEGATIVE) 12/09/18 23:41 Urine Bilirubin 2+ (NEGATIVE) 12/09/18 23:41 Urine Urobilinogen 3+ (NORMAL) 12/09/18 23:41 Ur Leukocyte Esterase 1+ (NEGATIVE) 12/09/18 23:41 Urine RBC 3-5 /HPF (NONE SEEN) 12/09/18 23:41 Urine WBC 3-5 /HPF (NONE SEEN) 12/09/18 23:41 Ur Squamous Epith Cells Few /HPF (NEGATIVE) 12/09/18 23:41 Amorphous Sediment 2+ /HPF (NEGATIVE) 12/09/18 23:41 Urine Bacteria Trace /HPF (NEGATIVE) 12/09/18 23:41 Hyaline Casts Moderate /LPF (NEGATIVE) 12/09/18 23:41 Other Casts Rare /LPF (NEGATIVE) 12/09/18 23:41 Urine Mucus Numerous /HPF (NEGATIVE) 12/09/18 23:41 Ur Culture Indicated? Yes/culture set up 12/09/18 23:41 Blood Type A NEGATIVE 12/10/18 04:20 Antibody Screen Negative 12/10/18 04:20 - Plan (1) Cirrhosis Status: Acute Qualifiers: Hepatic cirrhosis type: alcoholic cirrhosis Ascites presence: with ascites Qualified Code(s): K70.31 - Alcoholic cirrhosis of liver with ascites Plan: CONTINUE TO MONITOR LABS (2) Ascites due to alcoholic cirrhosis Status: Acute Plan: CONSULT GENERAL SURGERY, CONTINUE TO MONITOR (3) Liver disease due to alcohol Status: Acute (4) Altered mental status Status: Acute Qualifiers: Altered mental status type: transient alteration of awareness Qualified Code(s): R40.4 - Transient alteration of awareness (5) Hypokalemia Status: Acute Plan: POTASSIUM PROTOCOL, CONTINUE TO MONITOR (6) Generalized weakness Status: Acute (7) Fall Status: Acute Qualifiers: Encounter type: initial encounter Qualified Code(s): W19.XXXA - Unspecified fall, initial encounter
[2018-12-13] MEDS: PROTONIX INJ 40 MG VIAL 80 MG in NS 100 ML IV 80 ML IV SCH ×4 (06:04→23:23)
[2018-12-13] MEDS: NS 1000 ML 1,000 ML IV SCH ×3 (06:05→22:25)
[2018-12-13 06:10] LABS: BASOPHILS % (AUTO) 0.5 % (0.2-1.0); EOSINOPHILS # (AUTO) 0.1 x10^3/uL (0.0-0.2); EOSINOPHILS % (AUTO) 1.6 % (0.9-2.9); HEMATOCRIT 30.9 % (42.0-54.0); HEMOGLOBIN 10.1 g/dL (13.5-18.0); LYMPHOCYTES # (AUTO) 0.5 X10^3/uL (1.3-2.9); LYMPHOCYTES % (AUTO) 7.8 % (21.0-51.0); MEAN CORPUSCULAR HEMOGLOBIN 33.8 pg (27.0-34.0); MEAN CORPUSCULAR HGB CONC 32.9 g/dL (33.0-35.0); MEAN CORPUSCULAR VOLUME 102.8 fL (80.0-100.0); MEAN PLATELET VOLUME 8.2 fL (7.4-11.0); MONOCYTES # (AUTO) 0.6 x10^3/uL (0.3-0.8); MONOCYTES % (AUTO) 9.3 % (0.0-13.0); NEUTROPHILS # (AUTO) 5.5 x10^3/uL (2.2-4.8); NEUTROPHILS % (AUTO) 80.8 % (42.0-75.0); PLATELET COUNT 129 X10^3/uL (150.0-450.0); RED CELL DISTRIBUTION WIDTH 18.7 % (11.6-16.5); WHITE BLOOD COUNT 6.8 X10^3/uL (3.6-10.0)
[2018-12-13 06:43] LABS: ALANINE AMINOTRANSFERASE 21 Units/L (12-78); ALBUMIN 2.4 g/dL (3.4-5.0); ALKALINE PHOSPHATASE 119 Units/L (46-116); ASPARTATE AMINO TRANSFERASE 64 Units/L (15-37); BLOOD UREA NITROGEN 13 mg/dL (7-18); CARBON DIOXIDE 23.3 mmol/L (21-32); CHLORIDE 109 mmol/L (98-107); COR CA(FOR HYPOALB) 9.3 mg/dL (8.5-10.1); CREATININE 0.98 mg/dL (0.70-1.30); SODIUM 142 mmol/L (136-145); TOTAL PROTEIN 5.7 g/dL (6.4-8.2); eGFR NON BLACK RACES > 60 (>60)
[2018-12-13] MEDS: ALBUMIN HUMAN 25%- 100 ML 100 ML IV SCH (10:34)
[2018-12-13] MEDS: MILK OF MAGNESIA PO SCH ×2 (10:36→20:40)
--- NOTE | 2018-12-13 11:28 | CT ---
CT CHEST WITH IV CONTRAST HISTORY: Concern metastasis of uncertain origin Comparison: Abdomen CT 12/11/2018. Chest CT 09/07/2016 Technique: Multiple axial images of the chest were obtained from the thoracic inlet to the upper abdomen after the administration of IV contrast.Dose reduction techniques including Automated Exposure Control (AEC) and adjustment of mA and kV were utlized. Findings: The heart is normal in size. No pericardial effusion. Severe coronary calcification No suspicious mediastinal or axillary lymph nodes. Although not optimized to detect pulmonary embolism, no large central pulmonary emboli are seen. No focal consolidations, pleural effusions or pneumothorax. Two tiny patches of ground-glass in the left upper lobe on series 5, image 18 and 23. Airways are patent. No suspicious pulmonary nodules or masses. Very small bilateral calcified pleural plaques. Redemonstration of ascites within the upper abdomen as well as what appears to be omental infiltration. There is free air within the upper abdomen which may be secondary to patient's reported paracentesis 1 day prior. Again there is a mottled appearance of the liver. No aggressive osseous lesions. IMPRESSION: 1. No evidence of primary or metastatic malignancy within the chest. 2. Free air within the upper abdomen that is slightly in excess of would normally expect 1 day post paracentesis. Correlate with any abdominal symptoms as a perforation of viscus cannot be completely excluded. 3. 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 4. Patchy ground-glass in the left upper lobe which is very small in distribution and may represent focal inflammation or early infection. Reported By:
[2018-12-13] MEDS ORDERED: TUSSIONEX PENNKINETIC SUSP PO PRN (12:13)
[2018-12-13] MEDS: ROBITUSSIN DM PO SCH ×3 (14:04→20:40)
[2018-12-13] MEDS: FORTAZ or TAZICEF VIAL INJ IVP SCH ×2 (14:04→21:00)
--- NOTE | 2018-12-13 19:31 | PCM.PROG ---
Progress Note - Progress Note for Day of Date of Exam: 12/12/18 - Subjective Subjective: IS BEING TREATED FOR GENERALIZED WEAKNESS, FREQUENT FALLS, HYPOKALEMIA, AND CIRRHOSIS, AND SEVERE ASCITES. HE HAS A HISTORY OF ALCOHOLIC CIRRHOSIS. ON EXAMINATION, HEART IS REGULAR IN RATE AND RHYTHM. BILATERAL LUNGS ARE NOTED WITH DIMINISHED LUNG SOUNDS THROUGHOUT. ABDOMEN CONTINUES TO BE SEVERELY DISTENDED. HE REPORTS DIFFUSE TENDERNESS. HYPOACTIVE BOWEL SOUNDS NOTED. HE HAS A LARGE AMOUNT OF ASCITES PRESENT. HIS VITALS THIS MORNING ARE 98.0-82-18-96%-151/88. LABS WERE OBTAINED. ABNORMAL LAB VALUES INCLUDE THE FOLLOWING: WBC 10.3, RBC 3.18, HGB 10.6, HCT 32.6, POTASSIUM 2.9, GLUCOSE 110, CALCIUM 7.9, TOTAL BILI 1.60, MAGNESIUM 1.5, ALK PHOS 135, TOTAL PROTEIN 6.1, ALBUMIN 2.4. URINE AND BLOOD CULTURES ARE PENDING. WE CONSULTED . HE WILL SEE PATIENT THIS MORNING AND DRAIN ABDOMINAL FLUID. HE IS CURRENTLY RECEIVING IV FLUIDS, IV ALBUMIN, ROCEPHIN 1G IV HS, AND A PROTONIX DRIP. WE WILL CONTINUE WITH CURRENT PLAN OF CARE TODAY. WE WILL OBTAIN A CHEST CT, CEA LEVEL, AND ALPHA FETOPROTEIN LEVEL TO RULE OUT METASTATIC DISEASE. OTHERWISE, WE PLAN TO FOLLOW UP WITH AM LABS AND CONTINUE TO MONITOR. - Past Medical Family Social History Past Med/Fam/Surg Hx: No changes since H&P Allergies: Allergies No Known Drug Allergies Allergy (Verified 10/09/18 19:12) - Review of Systems ROS: No change since H&P - Vital Signs and I&O's Vital Signs: Temperature 98.2 F Pulse Rate [Right Brachial] 87 Pulse Rate [Left Brachial] 84 Pulse Rate [Apical] 90 Pulse Rate 91 Respiratory Rate 18 Blood Pressure [Right Calf] 126/74 Blood Pressure [Right Arm] 113/61 Blood Pressure [Left Arm] 98/68 Blood Pressure 133/67 O2 Sat by Pulse Oximetry 100 Intake and Output: Intake & Output 12/11/18 12/12/18 12/13/18 12/14/18 11:59 11:59 11:59 11:59 Intake Total 2704 / 2704 3126 / 3126 3890 / 3890 240 / 240 Output Total 700 / 700 450 / 450 8325 / 8325 1400 / 1400 Balance 2003 2676 / 5426 -4435 / -4435 -1160 / -1160 - Physical Exam Oriented: Not Oriented Eyes: Normal Ear: Normal Nose: Normal Throat: Normal Respiratory: Diminished Cardiovascular: Normal : Normal Auscultation: Bowel Sounds: Normal Palpation: Normal Tenderness: Diffuse Skin: Normal Musculoskeletal: Normal Psychiatric: Other (CONFUSION ) Mood Description: Calm Affect: Normal Speech Pattern: Clear, Appropriate - Laboratory and Diagnostics Result Diagrams: 12/13/18 05:14 12/13/18 05:14 Labs: 12/13/18 14:40 Sputum - Expectorated Sputum - Final 12/09/18 23:41 Urine,Catheterized Urine Culture - Final 12/09/18 21:20 Blood Blood Culture - Preliminary 12/09/18 21:00 Blood Blood Culture - Preliminary Laboratory WBC 6.8 X10^3/uL (3.6-10.0) 12/13/18 05:14 RBC 3.00 X10^6/uL (4.7-6.0) L 12/13/18 05:14 Hgb 10.1 g/dL (13.5-18.0) L 12/13/18 05:14 Hct 30.9 % (42.0-54.0) L 12/13/18 05:14 MCV 102.8 fL (80.0-100.0) H 12/13/18 05:14 MCH 33.8 pg (27.0-34.0) 12/13/18 05:14 MCHC 32.9 g/dL (33.0-35.0) L 12/13/18 05:14 RDW 18.7 % (11.6-16.5) H 12/13/18 05:14 Plt Count 129 X10^3/uL (150.0-450.0) L 12/13/18 05:14 MPV 8.2 fL (7.4-11.0) 12/13/18 05:14 Neut % (Auto) 80.8 % (42.0-75.0) H 12/13/18 05:14 Lymph % (Auto) 7.8 % (21.0-51.0) L 12/13/18 05:14 [place] % (Auto) 9.3 % (0.0-13.0) 12/13/18 05:14 Eos % (Auto) 1.6 % (0.9-2.9) 12/13/18 05:14 Baso % (Auto) 0.5 % (0.2-1.0) 12/13/18 05:14 Neut # (Auto) 5.5 x10^3/uL (2.2-4.8) H 12/13/18 05:14 Lymph # (Auto) 0.5 X10^3/uL (1.3-2.9) L 12/13/18 05:14 [place] # (Auto) 0.6 x10^3/uL (0.3-0.8) 12/13/18 05:14 Eos # (Auto) 0.1 x10^3/uL (0.0-0.2) 12/13/18 05:14 Baso # (Auto) 0.0 X10^3/uL (0.0-0.1) 12/13/18 05:14 Absolute Nucleated RBC 0.1 /100WBC 12/13/18 05:14 INR Target Range - 12/09/18 21:00 INR 1.13 (0.8-1.3) 12/09/18 21:00 APTT 33.9 SECONDS (22.9-36.5) 12/09/18 21:00 PTT Comment - 12/09/18 21:00 Sodium 142 mmol/L (136-145) 12/13/18 05:14 Corrected Sodium TNP 12/13/18 05:14 Potassium 4.0 mmol/L (3.5-5.1) 12/13/18 05:14 Chloride 109 mmol/L (98-107) H 12/13/18 05:14 Carbon Dioxide 23.3 mmol/L (21-32) 12/13/18 05:14 BUN 13 mg/dL (7-18) 12/13/18 05:14 Creatinine 0.98 mg/dL (0.70-1.30) 12/13/18 05:14 Est GFR (MDRD) Af Amer > 60 (>60) 12/13/18 05:14 Est GFR (MDRD) Non-Af > 60 (>60) 12/13/18 05:14 Glucose 84 mg/dL (65-99) 12/13/18 05:14 Lactic Acid 1.9 mmol/L (0.4-2.0) 12/09/18 21:00 Calcium 8.0 mg/dL (8.5-10.1) L 12/13/18 05:14 Corrected Calcium 9.3 mg/dL (8.5-10.1) 12/13/18 05:14 Magnesium 1.5 mg/dL (1.7-2.9) L 12/12/18 05:20 Total Bilirubin 1.50 mg/dL (0.2-1.0) H 12/13/18 05:14 AST 64 Units/L (15-37) H 12/13/18 05:14 ALT 21 Units/L (12-78) 12/13/18 05:14 Alkaline Phosphatase 119 Units/L (46-116) H 12/13/18 05:14 Ammonia 24 umol/L (11-32) 12/11/18 07:55 Creatine Kinase 59 Units/L (39-308) 12/10/18 11:28 CK-MB (CK-2) < 1.0 ng/mL (0-4.0) 12/10/18 11:28 CK/CKMB % Calc 1.7 % (<4) 12/10/18 11:28 Troponin I 0.05 ng/mL (0-1.5) 12/10/18 11:28 C-Reactive Protein 32.00 mg/L (0-3.0) H 12/09/18 21:00 Total Protein 5.7 g/dL (6.4-8.2) L 12/13/18 05:14 Albumin 2.4 g/dL (3.4-5.0) L 12/13/18 05:14 Globulin 3.3 g/dL (2.5-4.5) 12/13/18 05:14 Albumin/Globulin Ratio 0.7 Ratio (1.1-2.1) L 12/13/18 05:14 Specimen Type Catherized urine 12/09/18 23:41 Urine Color Brown (YELLOW) 12/09/18 23:41 Urine Appearance Hazy (CLEAR) 12/09/18 23:41 Urine pH 5.0 (5.0 - 8.0) 12/09/18 23:41 Ur Specific [place] 1.025 (1.000-1.030) 12/09/18 23:41 Urine Protein 2+ (NEGATIVE) 12/09/18 23:41 Urine Glucose (UA) Negative (NEGATIVE) 12/09/18 23:41 Urine Ketones 1+ (NEGATIVE) 12/09/18 23:41 Urine Occult Blood 1+ (NEGATIVE) 12/09/18 23:41 Urine Nitrite Positive (NEGATIVE) 12/09/18 23:41 Urine Bilirubin 2+ (NEGATIVE) 12/09/18 23:41 Urine Urobilinogen 3+ (NORMAL) 12/09/18 23:41 Ur Leukocyte Esterase 1+ (NEGATIVE) 12/09/18 23:41 Urine RBC 3-5 /HPF (NONE SEEN) 12/09/18 23:41 Urine WBC 3-5 /HPF (NONE SEEN) 12/09/18 23:41 Ur Squamous Epith Cells Few /HPF (NEGATIVE) 12/09/18 23:41 Amorphous Sediment 2+ /HPF (NEGATIVE) 12/09/18 23:41 Urine Bacteria Trace /HPF (NEGATIVE) 12/09/18 23:41 Hyaline Casts Moderate /LPF (NEGATIVE) 12/09/18 23:41 Other Casts Rare /LPF (NEGATIVE) 12/09/18 23:41 Urine Mucus Numerous /HPF (NEGATIVE) 12/09/18 23:41 Ur Culture Indicated? Yes/culture set up 12/09/18 23:41 Cytology Specimen To follow 12/12/18 10:09 Blood Type A NEGATIVE 12/10/18 04:20 Antibody Screen Negative 12/10/18 04:20 - Plan (1) Cirrhosis Status: Acute Qualifiers: Hepatic cirrhosis type: alcoholic cirrhosis Ascites presence: with ascites Qualified Code(s): K70.31 - Alcoholic cirrhosis of liver with ascites Plan: CONTINUE TO MONITOR LABS (2) Ascites due to alcoholic cirrhosis Status: Acute Plan: CONSULT GENERAL SURGERY, CONTINUE TO MONITOR (3) Liver disease due to alcohol Status: Acute (4) Altered mental status Status: Acute Qualifiers: Altered mental status type: transient alteration of awareness Qualified Code(s): R40.4 - Transient alteration of awareness (5) Hypokalemia Status: Acute Plan: POTASSIUM PROTOCOL, CONTINUE TO MONITOR (6) Generalized weakness Status: Acute (7) Fall Status: Acute Qualifiers: Encounter type: initial encounter Qualified Code(s): W19.XXXA - Unspecified fall, initial encounter
[2018-12-13] MEDS: COLACE CAP 100 MG PO SCH (20:40)
[2018-12-14] MEDS: MORPHINE SULFATE INJ 2 MG INJ IVP PRN (03:58)
[2018-12-14] MEDS: PROTONIX INJ 40 MG VIAL 80 MG in NS 100 ML IV 80 ML IV SCH ×2 (05:57→17:02)
[2018-12-14] MEDS: FORTAZ or TAZICEF VIAL INJ IVP SCH ×3 (05:57→21:49)
[2018-12-14] MEDS: NS 1000 ML 1,000 ML IV SCH ×2 (05:58→17:02)
[2018-12-14 06:33] LABS: BASOPHILS # (AUTO) 0.1 X10^3/uL (0.0-0.1); BASOPHILS % (AUTO) 0.8 % (0.2-1.0); EOSINOPHILS # (AUTO) 0.1 x10^3/uL (0.0-0.2); EOSINOPHILS % (AUTO) 0.8 % (0.9-2.9); HEMATOCRIT 30.7 % (42.0-54.0); LYMPHOCYTES # (AUTO) 0.6 X10^3/uL (1.3-2.9); MEAN CORPUSCULAR HEMOGLOBIN 33.3 pg (27.0-34.0); MEAN CORPUSCULAR HGB CONC 32.6 g/dL (33.0-35.0); MEAN CORPUSCULAR VOLUME 102.3 fL (80.0-100.0); MEAN PLATELET VOLUME 8.3 fL (7.4-11.0); MONOCYTES # (AUTO) 0.6 x10^3/uL (0.3-0.8); MONOCYTES % (AUTO) 9.1 % (0.0-13.0); NEUTROPHILS # (AUTO) 5.6 x10^3/uL (2.2-4.8); NEUTROPHILS % (AUTO) 81.3 % (42.0-75.0); PLATELET COUNT 138 X10^3/uL (150.0-450.0); WHITE BLOOD COUNT 6.9 X10^3/uL (3.6-10.0)
[2018-12-14 06:57] LABS: ALANINE AMINOTRANSFERASE 22 Units/L (12-78); ALBUMIN 2.9 g/dL (3.4-5.0); ALKALINE PHOSPHATASE 120 Units/L (46-116); ASPARTATE AMINO TRANSFERASE 58 Units/L (15-37); BLOOD UREA NITROGEN 11 mg/dL (7-18); CALCIUM 8.2 mg/dL (8.5-10.1); CHLORIDE 108 mmol/L (98-107); COR CA(FOR HYPOALB) 9.1 mg/dL (8.5-10.1); COR NA(FOR HYPERGLY) 141 mmol/L (136-145); CREATININE 1.11 mg/dL (0.70-1.30); SODIUM 141 mmol/L (136-145); TOTAL PROTEIN 6.1 g/dL (6.4-8.2); eGFR NON BLACK RACES > 60 (>60)
[2018-12-14] MEDS: ALBUMIN HUMAN 25%- 100 ML 100 ML IV SCH (09:12)
[2018-12-14] MEDS: LEVAQUIN PREMIX IV 500 MG 500 MG/100 ML BAG IV SCH (09:12)
[2018-12-14] MEDS: MILK OF MAGNESIA PO SCH ×2 (09:12→21:49)
[2018-12-14] MEDS: ROBITUSSIN DM PO SCH ×4 (09:13→21:49)
[2018-12-14] MEDS: COLACE CAP 100 MG PO SCH (21:49)
[2018-12-15] MEDS: NS 1000 ML 1,000 ML IV SCH ×7 (01:37→21:36)
[2018-12-15] MEDS: VALIUM PO PRN (01:40)
[2018-12-15] MEDS: PROTONIX INJ 40 MG VIAL 80 MG in NS 100 ML IV 80 ML IV SCH ×3 (03:35→05:02)
[2018-12-15] MEDS: FORTAZ or TAZICEF VIAL INJ IVP SCH ×3 (05:03→21:30)
[2018-12-15 06:39] LABS: BASOPHILS # (AUTO) 0.1 X10^3/uL (0.0-0.1); BASOPHILS % (AUTO) 0.9 % (0.2-1.0); EOSINOPHILS # (AUTO) 0.1 x10^3/uL (0.0-0.2); EOSINOPHILS % (AUTO) 1.7 % (0.9-2.9); HEMATOCRIT 29.7 % (42.0-54.0); HEMOGLOBIN 9.7 g/dL (13.5-18.0); LYMPHOCYTES # (AUTO) 0.6 X10^3/uL (1.3-2.9); LYMPHOCYTES % (AUTO) 9.2 % (21.0-51.0); MEAN CORPUSCULAR HEMOGLOBIN 33.2 pg (27.0-34.0); MEAN CORPUSCULAR HGB CONC 32.6 g/dL (33.0-35.0); MEAN CORPUSCULAR VOLUME 101.9 fL (80.0-100.0); MEAN PLATELET VOLUME 8.7 fL (7.4-11.0); MONOCYTES # (AUTO) 0.7 x10^3/uL (0.3-0.8); MONOCYTES % (AUTO) 10.7 % (0.0-13.0); NEUTROPHILS # (AUTO) 4.8 x10^3/uL (2.2-4.8); NEUTROPHILS % (AUTO) 77.5 % (42.0-75.0); PLATELET COUNT 106 X10^3/uL (150.0-450.0); RED BLOOD COUNT 2.91 X10^6/uL (4.7-6.0); RED CELL DISTRIBUTION WIDTH 19.1 % (11.6-16.5); WHITE BLOOD COUNT 6.2 X10^3/uL (3.6-10.0)
[2018-12-15 06:53] LABS: ALANINE AMINOTRANSFERASE 19 Units/L (12-78); ALBUMIN 2.7 g/dL (3.4-5.0); ALKALINE PHOSPHATASE 110 Units/L (46-116); ASPARTATE AMINO TRANSFERASE 53 Units/L (15-37); BLOOD UREA NITROGEN 10 mg/dL (7-18); CALCIUM 8.2 mg/dL (8.5-10.1); CARBON DIOXIDE 21.5 mmol/L (21-32); CHLORIDE 109 mmol/L (98-107); COR CA(FOR HYPOALB) 9.2 mg/dL (8.5-10.1); CREATININE 1.01 mg/dL (0.70-1.30); SODIUM 140 mmol/L (136-145); TOTAL PROTEIN 5.5 g/dL (6.4-8.2); eGFR NON BLACK RACES > 60 (>60)
[2018-12-15] MEDS: LEVAQUIN PREMIX IV 500 MG 500 MG/100 ML BAG IV SCH ×2 (06:59→08:41)
[2018-12-15] MEDS: MILK OF MAGNESIA PO SCH ×2 (08:40→20:30)
[2018-12-15] MEDS: ROBITUSSIN DM PO SCH ×4 (08:40→20:30)
[2018-12-15] MEDS: ALBUMIN HUMAN 25%- 100 ML 100 ML IV SCH (08:42)
[2018-12-15] MEDS: PROTONIX TAB 40 MG PO SCH (13:31)
[2018-12-15] MEDS: COLACE CAP 100 MG PO SCH (20:29)
[2018-12-15] MEDS: MORPHINE SULFATE INJ 2 MG INJ IVP PRN (21:35)
[2018-12-16] MEDS: FORTAZ or TAZICEF VIAL INJ IVP SCH ×3 (05:00→21:44)
[2018-12-16] MEDS: NS 1000 ML 1,000 ML IV SCH ×5 (05:00→17:07)
[2018-12-16 06:00] LABS: BASOPHILS # (AUTO) 0.1 X10^3/uL (0.0-0.1); EOSINOPHILS # (AUTO) 0.1 x10^3/uL (0.0-0.2); EOSINOPHILS % (AUTO) 1.6 % (0.9-2.9); HEMATOCRIT 27.9 % (42.0-54.0); HEMOGLOBIN 9.2 g/dL (13.5-18.0); LYMPHOCYTES # (AUTO) 0.6 X10^3/uL (1.3-2.9); LYMPHOCYTES % (AUTO) 8.5 % (21.0-51.0); MEAN CORPUSCULAR HEMOGLOBIN 33.6 pg (27.0-34.0); MEAN CORPUSCULAR HGB CONC 32.8 g/dL (33.0-35.0); MEAN CORPUSCULAR VOLUME 102.6 fL (80.0-100.0); MEAN PLATELET VOLUME 8.5 fL (7.4-11.0); MONOCYTES # (AUTO) 0.7 x10^3/uL (0.3-0.8); MONOCYTES % (AUTO) 9.4 % (0.0-13.0); NEUTROPHILS # (AUTO) 5.5 x10^3/uL (2.2-4.8); NEUTROPHILS % (AUTO) 79.5 % (42.0-75.0); PLATELET COUNT 117 X10^3/uL (150.0-450.0); RED BLOOD COUNT 2.72 X10^6/uL (4.7-6.0)
[2018-12-16 06:02] LABS: AMMONIA 15 umol/L (11-32)
[2018-12-16 06:18] LABS: ALANINE AMINOTRANSFERASE 22 Units/L (12-78); ALBUMIN 2.8 g/dL (3.4-5.0); ALKALINE PHOSPHATASE 111 Units/L (46-116); ASPARTATE AMINO TRANSFERASE 49 Units/L (15-37); BLOOD UREA NITROGEN 12 mg/dL (7-18); CALCIUM 8.1 mg/dL (8.5-10.1); CARBON DIOXIDE 21.6 mmol/L (21-32); CHLORIDE 109 mmol/L (98-107); COR CA(FOR HYPOALB) 9.1 mg/dL (8.5-10.1); CREATININE 1.12 mg/dL (0.70-1.30); SODIUM 140 mmol/L (136-145); TOTAL PROTEIN 5.5 g/dL (6.4-8.2); eGFR NON BLACK RACES > 60 (>60)
--- NOTE | 2018-12-16 08:36 | PCM.PROG ---
Progress Note - Progress Note for Day of Date of Exam: 12/13/18 - Subjective Subjective: IS BEING TREATED FOR GENERALIZED WEAKNESS, FREQUENT FALLS, HYPOKALEMIA, AND CIRRHOSIS, AND SEVERE ASCITES. HE HAS A HISTORY OF ALCOHOLIC CIRRHOSIS. PERFORMED A PARACENTESIS YESTERDAY DUE TO A LARGE AMOUNT OF ASCITES. A LARGE AMOUNT OF FLUID WAS DRAINED AND SENT FOR CYTOLOGY. ON EXAMINATION, HEART IS REGULAR IN RATE AND RHYTHM. BILATERAL LUNGS ARE NOTED WITH DIMINISHED LUNG SOUNDS THROUGHOUT. ABDOMEN CONTINUES TO BE SLIGHTLY DISTENDED. HE REPORTS DIFFUSE TENDERNESS. HYPOACTIVE BOWEL SOUNDS NOTED. HIS VITALS THIS MORNING ARE 97.7-81-18-100%-98/68. LABS WERE OBTAINED. ABNORMAL LAB VALUES INCLUDE THE FOLLOWING: WBC RBC 3.00, HGB 10.1, HCT 30.9, PLT COUNT 129, CHLORIDE 109, CALCIUM 8.0, TOTAL BILU 1.50, AST 64, ALK PHOS 119, TOTAL PROTEIN 5.7, ALBUMIN 2.4. URINE AND BLOOD CULTURES ARE PENDING. HE IS CURRENTLY RECEIVING IV FLUIDS, IV ALBUMIN, ROCEPHIN 1G IV HS, AND A PROTONIX DRIP. WE WILL CONTINUE WITH CURRENT PLAN OF CARE TODAY. WE WILL OBTAIN A CHEST CT TODAY TO RULE OUT METASTATIC DISEASE. OTHERWISE, WE PLAN TO FOLLOW UP WITH AM LABS AND CONTINUE TO MONITOR. - Past Medical Family Social History Past Med/Fam/Surg Hx: No changes since H&P Allergies: Allergies No Known Drug Allergies Allergy (Verified 10/09/18 19:12) - Review of Systems ROS: No change since H&P - Vital Signs and I&O's Vital Signs: Temperature 98.1 F Pulse Rate [Right Brachial] 96 Pulse Rate [Left Brachial] 84 Pulse Rate [Apical] 90 Pulse Rate 91 Respiratory Rate 20 Blood Pressure [Right Calf] 126/74 Blood Pressure [Right Arm] 105/76 Blood Pressure [Left Arm] 98/68 Blood Pressure 133/67 O2 Sat by Pulse Oximetry 100 Intake and Output: Intake & Output 12/13/18 12/14/18 12/15/18 12/16/18 11:59 11:59 11:59 11:59 Intake Total 3890 / 3890 3100 / 3100 3240 / 3240 4210 / 4210 Output Total 8325 / 8325 3000 / 3000 2945 / 2945 4400 / 4400 Balance -4435 / -4435 100 / 100 295 / 295 -190 / -190 - Physical Exam Oriented: Not Oriented Eyes: Normal Ear: Normal Nose: Normal Throat: Normal Respiratory: Diminished Cardiovascular: Normal : Normal Auscultation: Bowel Sounds: Normal Palpation: Normal Tenderness: Diffuse Skin: Normal Musculoskeletal: Normal Psychiatric: Other (CONFUSION ) Mood Description: Calm Affect: Normal Speech Pattern: Clear, Appropriate - Laboratory and Diagnostics Result Diagrams: 12/16/18 05:41 12/16/18 05:41 Labs: 12/13/18 14:40 Sputum - Expectorated Sputum Sputum Culture - Final 12/13/18 14:40 Sputum - Expectorated Sputum - Final 12/09/18 21:20 Blood Blood Culture - Final 12/09/18 21:00 Blood Blood Culture - Final 12/09/18 23:41 Urine,Catheterized Urine Culture - Final Laboratory WBC 7.0 X10^3/uL (3.6-10.0) 12/16/18 05:41 RBC 2.72 X10^6/uL (4.7-6.0) L 12/16/18 05:41 Hgb 9.2 g/dL (13.5-18.0) L 12/16/18 05:41 Hct 27.9 % (42.0-54.0) L 12/16/18 05:41 MCV 102.6 fL (80.0-100.0) H 12/16/18 05:41 MCH 33.6 pg (27.0-34.0) 12/16/18 05:41 MCHC 32.8 g/dL (33.0-35.0) L 12/16/18 05:41 RDW 19.0 % (11.6-16.5) H 12/16/18 05:41 Plt Count 117 X10^3/uL (150.0-450.0) L 12/16/18 05:41 MPV 8.5 fL (7.4-11.0) 12/16/18 05:41 Neut % (Auto) 79.5 % (42.0-75.0) H 12/16/18 05:41 Lymph % (Auto) 8.5 % (21.0-51.0) L 12/16/18 05:41 [place] % (Auto) 9.4 % (0.0-13.0) 12/16/18 05:41 Eos % (Auto) 1.6 % (0.9-2.9) 12/16/18 05:41 Baso % (Auto) 1.0 % (0.2-1.0) 12/16/18 05:41 Neut # (Auto) 5.5 x10^3/uL (2.2-4.8) H 12/16/18 05:41 Lymph # (Auto) 0.6 X10^3/uL (1.3-2.9) L 12/16/18 05:41 [place] # (Auto) 0.7 x10^3/uL (0.3-0.8) 12/16/18 05:41 Eos # (Auto) 0.1 x10^3/uL (0.0-0.2) 12/16/18 05:41 Baso # (Auto) 0.1 X10^3/uL (0.0-0.1) 12/16/18 05:41 Absolute Nucleated RBC 0.1 /100WBC 12/16/18 05:41 INR Target Range - 12/09/18 21:00 INR 1.13 (0.8-1.3) 12/09/18 21:00 APTT 33.9 SECONDS (22.9-36.5) 12/09/18 21:00 PTT Comment - 12/09/18 21:00 Sodium 140 mmol/L (136-145) 12/16/18 05:41 Corrected Sodium TNP 12/16/18 05:41 Potassium 3.5 mmol/L (3.5-5.1) 12/16/18 05:41 Chloride 109 mmol/L (98-107) H 12/16/18 05:41 Carbon Dioxide 21.6 mmol/L (21-32) 12/16/18 05:41 BUN 12 mg/dL (7-18) 12/16/18 05:41 Creatinine 1.12 mg/dL (0.70-1.30) 12/16/18 05:41 Est GFR (MDRD) Af Amer > 60 (>60) 12/16/18 05:41 Est GFR (MDRD) Non-Af > 60 (>60) 12/16/18 05:41 Glucose 94 mg/dL (65-99) 12/16/18 05:41 Lactic Acid 1.9 mmol/L (0.4-2.0) 12/09/18 21:00 Calcium 8.1 mg/dL (8.5-10.1) L 12/16/18 05:41 Corrected Calcium 9.1 mg/dL (8.5-10.1) 12/16/18 05:41 Magnesium 1.9 mg/dL (1.7-2.9) 12/15/18 06:01 Total Bilirubin 1.00 mg/dL (0.2-1.0) 12/16/18 05:41 AST 49 Units/L (15-37) H 12/16/18 05:41 ALT 22 Units/L (12-78) 12/16/18 05:41 Alkaline Phosphatase 111 Units/L (46-116) 12/16/18 05:41 Ammonia 15 umol/L (11-32) 12/16/18 05:41 Creatine Kinase 59 Units/L (39-308) 12/10/18 11:28 CK-MB (CK-2) < 1.0 ng/mL (0-4.0) 12/10/18 11:28 CK/CKMB % Calc 1.7 % (<4) 12/10/18 11:28 Troponin I 0.05 ng/mL (0-1.5) 12/10/18 11:28 C-Reactive Protein 32.00 mg/L (0-3.0) H 12/09/18 21:00 Total Protein 5.5 g/dL (6.4-8.2) L 12/16/18 05:41 Albumin 2.8 g/dL (3.4-5.0) L 12/16/18 05:41 Globulin 2.7 g/dL (2.5-4.5) 12/16/18 05:41 Albumin/Globulin Ratio 1.0 Ratio (1.1-2.1) L 12/16/18 05:41 Alpha Fetoprotein 4 ng/mL (0-9) 12/11/18 05:30 Carcinoembryonic Ag 6.7 ng/mL (0.0-3.0) H 12/11/18 05:30 Specimen Type Catherized urine 12/09/18 23:41 Urine Color Brown (YELLOW) 12/09/18 23:41 Urine Appearance Hazy (CLEAR) 12/09/18 23:41 Urine pH 5.0 (5.0 - 8.0) 12/09/18 23:41 Ur Specific [place] 1.025 (1.000-1.030) 12/09/18 23:41 Urine Protein 2+ (NEGATIVE) 12/09/18 23:41 Urine Glucose (UA) Negative (NEGATIVE) 12/09/18 23:41 Urine Ketones 1+ (NEGATIVE) 12/09/18 23:41 Urine Occult Blood 1+ (NEGATIVE) 12/09/18 23:41 Urine Nitrite Positive (NEGATIVE) 12/09/18 23:41 Urine Bilirubin 2+ (NEGATIVE) 12/09/18 23:41 Urine Urobilinogen 3+ (NORMAL) 12/09/18 23:41 Ur Leukocyte Esterase 1+ (NEGATIVE) 12/09/18 23:41 Urine RBC 3-5 /HPF (NONE SEEN) 12/09/18 23:41 Urine WBC 3-5 /HPF (NONE SEEN) 12/09/18 23:41 Ur Squamous Epith Cells Few /HPF (NEGATIVE) 12/09/18 23:41 Amorphous Sediment 2+ /HPF (NEGATIVE) 12/09/18 23:41 Urine Bacteria Trace /HPF (NEGATIVE) 12/09/18 23:41 Hyaline Casts Moderate /LPF (NEGATIVE) 12/09/18 23:41 Other Casts Rare /LPF (NEGATIVE) 12/09/18 23:41 Urine Mucus Numerous /HPF (NEGATIVE) 12/09/18 23:41 Ur Culture Indicated? Yes/culture set up 12/09/18 23:41 Stool Description 50g,brown,semisolid 12/15/18 19:00 Stl Occult Blood (IFOB) Negative (NEGATIVE) 12/15/18 19:00 Cytology Specimen To follow 12/12/18 10:09 Blood Type A NEGATIVE 12/10/18 04:20 Antibody Screen Negative 12/10/18 04:20 - Plan (1) Cirrhosis Status: Acute Qualifiers: Hepatic cirrhosis type: alcoholic cirrhosis Ascites presence: with ascites Qualified Code(s): K70.31 - Alcoholic cirrhosis of liver with ascites Plan: CONTINUE TO MONITOR LABS (2) Ascites due to alcoholic cirrhosis Status: Acute Plan: STATUS POST PARACENTESIS, CONTINUE TO MONITOR (3) Liver disease due to alcohol Status: Acute (4) Altered mental status Status: Acute Qualifiers: Altered mental status type: transient alteration of awareness Qualified Code(s): R40.4 - Transient alteration of awareness (5) Hypokalemia Status: Acute Plan: POTASSIUM PROTOCOL, CONTINUE TO MONITOR (6) Generalized weakness Status: Acute (7) Fall Status: Acute Qualifiers: Encounter type: initial encounter Qualified Code(s): W19.XXXA - Unspecified fall, initial encounter
[2018-12-16] MEDS: ALBUMIN HUMAN 25%- 100 ML 100 ML IV SCH (09:00)
[2018-12-16] MEDS: PROTONIX TAB 40 MG PO SCH (09:00)
[2018-12-16] MEDS: LEVAQUIN PREMIX IV 500 MG 500 MG/100 ML BAG IV SCH (09:00)
[2018-12-16] MEDS: ROBITUSSIN DM PO SCH ×4 (09:00→21:44)
[2018-12-16] MEDS: MILK OF MAGNESIA PO SCH ×2 (09:01→22:38)
--- NOTE | 2018-12-16 12:58 | PCM.PROG ---
Progress Note - Progress Note for Day of Date of Exam: 12/14/18 - Subjective Subjective: IS BEING TREATED FOR GENERALIZED WEAKNESS, FREQUENT FALLS, HYPOKALEMIA, AND CIRRHOSIS, AND SEVERE ASCITES. HE HAS A HISTORY OF ALCOHOLIC CIRRHOSIS. PERFORMED A PARACENTESIS DUE TO A LARGE AMOUNT OF ASCITES. A LARGE AMOUNT OF FLUID WAS DRAINED AND SENT FOR CYTOLOGY. STAFF REPORTS THAT HE IS NOTED WITH CONFUSION AND AGITATION AT TIMES. ON EXAMINATION, HEART IS REGULAR IN RATE AND RHYTHM. BILATERAL LUNGS ARE NOTED WITH DIMINISHED LUNG SOUNDS THROUGHOUT. ABDOMEN CONTINUES TO BE SLIGHTLY DISTENDED. HE REPORTS DIFFUSE TENDERNESS. HYPOACTIVE BOWEL SOUNDS NOTED. HIS VITALS THIS MORNING ARE 97.8-82-18-95%-116/78. LABS WERE OBTAINED. ABNORMAL LAB VALUES INCLUDE THE FOLLOWING: RBC 3.00, HGB 10.0, HCT 30.7, CHLORIDE 108, GLUCOSE 111, CALCIUM 8.2, TOTAL BILI 1.40, AST 58, ALK PHOS 120, TOTAL PROTEIN 6.1, ALBUMIN 2.9. URINE AND BLOOD CULTURES ARE PENDING. WE OBTAINED A CHEST CT TO RULE OUT METASTATIC DISEASE. IT REVEALED: No evidence of primary or metastatic malignancy within the chest. Free air within the upper abdomen that is slightly in excess of would expect 1 day post paracentesis. Correlate with any abdominal symptoms as a perforation of viscus cannot be completely excluded. 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 Patchy ground-glass in the left upper lobe which is very small in distribution and may represent focal inflammation or early infection. HE IS CURRENTLY RECEIVING IV FLUIDS, IV ALBUMIN, ROCEPHIN 1G IV HS, AND A PROTONIX DRIP. WE WILL DISCONTINUE THE ROCEPHIN TODAY AND START FORTAZ AND LEVAQUIN IV. WE WILL ALSO START ZYPREXA 2.5MG PO BID. OTHERWISE, WE PLAN TO FOLLOW UP WITH AM LABS AND CONTINUE TO MONITOR. - Past Medical Family Social History Past Med/Fam/Surg Hx: No changes since H&P Allergies: Allergies No Known Drug Allergies Allergy (Verified 10/09/18 19:12) - Review of Systems ROS: No change since H&P - Vital Signs and I&O's Vital Signs: Temperature 98.1 F Pulse Rate [Right Brachial] 96 Pulse Rate [Left Brachial] 84 Pulse Rate [Apical] 90 Pulse Rate 91 Respiratory Rate 20 Blood Pressure [Right Calf] 126/74 Blood Pressure [Right Arm] 105/76 Blood Pressure [Left Arm] 98/68 Blood Pressure 133/67 O2 Sat by Pulse Oximetry 100 Intake and Output: Intake & Output 12/14/18 12/15/18 12/16/18 12/17/18 11:59 11:59 11:59 11:59 Intake Total 3100 / 3100 3240 / 3240 4210 / 4210 Output Total 3000 / 3000 2945 / 2945 4400 / 4400 Balance 100 / 100 295 / 295 -190 / -190 - Physical Exam Oriented: Not Oriented Eyes: Normal Ear: Normal Nose: Normal Throat: Normal Respiratory: Diminished Cardiovascular: Normal : Normal Auscultation: Bowel Sounds: Normal Tenderness: Diffuse Skin: Normal Musculoskeletal: Normal Psychiatric: Other (CONFUSION ) Mood Description: Calm Affect: Normal Speech Pattern: Clear, Appropriate - Laboratory and Diagnostics Result Diagrams: 12/16/18 05:41 12/16/18 05:41 Labs: 12/13/18 14:40 Sputum - Expectorated Sputum Sputum Culture - Final 12/13/18 14:40 Sputum - Expectorated Sputum - Final 12/09/18 21:20 Blood Blood Culture - Final 12/09/18 21:00 Blood Blood Culture - Final 12/09/18 23:41 Urine,Catheterized Urine Culture - Final Laboratory WBC 7.0 X10^3/uL (3.6-10.0) 12/16/18 05:41 RBC 2.72 X10^6/uL (4.7-6.0) L 12/16/18 05:41 Hgb 9.2 g/dL (13.5-18.0) L 12/16/18 05:41 Hct 27.9 % (42.0-54.0) L 12/16/18 05:41 MCV 102.6 fL (80.0-100.0) H 12/16/18 05:41 MCH 33.6 pg (27.0-34.0) 12/16/18 05:41 MCHC 32.8 g/dL (33.0-35.0) L 12/16/18 05:41 RDW 19.0 % (11.6-16.5) H 12/16/18 05:41 Plt Count 117 X10^3/uL (150.0-450.0) L 12/16/18 05:41 MPV 8.5 fL (7.4-11.0) 12/16/18 05:41 Neut % (Auto) 79.5 % (42.0-75.0) H 12/16/18 05:41 Lymph % (Auto) 8.5 % (21.0-51.0) L 12/16/18 05:41 [place] % (Auto) 9.4 % (0.0-13.0) 12/16/18 05:41 Eos % (Auto) 1.6 % (0.9-2.9) 12/16/18 05:41 Baso % (Auto) 1.0 % (0.2-1.0) 12/16/18 05:41 Neut # (Auto) 5.5 x10^3/uL (2.2-4.8) H 12/16/18 05:41 Lymph # (Auto) 0.6 X10^3/uL (1.3-2.9) L 12/16/18 05:41 [place] # (Auto) 0.7 x10^3/uL (0.3-0.8) 12/16/18 05:41 Eos # (Auto) 0.1 x10^3/uL (0.0-0.2) 12/16/18 05:41 Baso # (Auto) 0.1 X10^3/uL (0.0-0.1) 12/16/18 05:41 Absolute Nucleated RBC 0.1 /100WBC 12/16/18 05:41 INR Target Range - 12/09/18 21:00 INR 1.13 (0.8-1.3) 12/09/18 21:00 APTT 33.9 SECONDS (22.9-36.5) 12/09/18 21:00 PTT Comment - 12/09/18 21:00 Sodium 140 mmol/L (136-145) 12/16/18 05:41 Corrected Sodium TNP 12/16/18 05:41 Potassium 3.5 mmol/L (3.5-5.1) 12/16/18 05:41 Chloride 109 mmol/L (98-107) H 12/16/18 05:41 Carbon Dioxide 21.6 mmol/L (21-32) 12/16/18 05:41 BUN 12 mg/dL (7-18) 12/16/18 05:41 Creatinine 1.12 mg/dL (0.70-1.30) 12/16/18 05:41 Est GFR (MDRD) Af Amer > 60 (>60) 12/16/18 05:41 Est GFR (MDRD) Non-Af > 60 (>60) 12/16/18 05:41 Glucose 94 mg/dL (65-99) 12/16/18 05:41 Lactic Acid 1.9 mmol/L (0.4-2.0) 12/09/18 21:00 Calcium 8.1 mg/dL (8.5-10.1) L 12/16/18 05:41 Corrected Calcium 9.1 mg/dL (8.5-10.1) 12/16/18 05:41 Magnesium 1.9 mg/dL (1.7-2.9) 12/15/18 06:01 Total Bilirubin 1.00 mg/dL (0.2-1.0) 12/16/18 05:41 AST 49 Units/L (15-37) H 12/16/18 05:41 ALT 22 Units/L (12-78) 12/16/18 05:41 Alkaline Phosphatase 111 Units/L (46-116) 12/16/18 05:41 Ammonia 15 umol/L (11-32) 12/16/18 05:41 Creatine Kinase 59 Units/L (39-308) 12/10/18 11:28 CK-MB (CK-2) < 1.0 ng/mL (0-4.0) 12/10/18 11:28 CK/CKMB % Calc 1.7 % (<4) 12/10/18 11:28 Troponin I 0.05 ng/mL (0-1.5) 12/10/18 11:28 C-Reactive Protein 32.00 mg/L (0-3.0) H 12/09/18 21:00 Total Protein 5.5 g/dL (6.4-8.2) L 12/16/18 05:41 Albumin 2.8 g/dL (3.4-5.0) L 12/16/18 05:41 Globulin 2.7 g/dL (2.5-4.5) 12/16/18 05:41 Albumin/Globulin Ratio 1.0 Ratio (1.1-2.1) L 12/16/18 05:41 Alpha Fetoprotein 4 ng/mL (0-9) 12/11/18 05:30 Carcinoembryonic Ag 6.7 ng/mL (0.0-3.0) H 12/11/18 05:30 Specimen Type Catherized urine 12/09/18 23:41 Urine Color Brown (YELLOW) 12/09/18 23:41 Urine Appearance Hazy (CLEAR) 12/09/18 23:41 Urine pH 5.0 (5.0 - 8.0) 12/09/18 23:41 Ur Specific [place] 1.025 (1.000-1.030) 12/09/18 23:41 Urine Protein 2+ (NEGATIVE) 12/09/18 23:41 Urine Glucose (UA) Negative (NEGATIVE) 12/09/18 23:41 Urine Ketones 1+ (NEGATIVE) 12/09/18 23:41 Urine Occult Blood 1+ (NEGATIVE) 12/09/18 23:41 Urine Nitrite Positive (NEGATIVE) 12/09/18 23:41 Urine Bilirubin 2+ (NEGATIVE) 12/09/18 23:41 Urine Urobilinogen 3+ (NORMAL) 12/09/18 23:41 Ur Leukocyte Esterase 1+ (NEGATIVE) 12/09/18 23:41 Urine RBC 3-5 /HPF (NONE SEEN) 12/09/18 23:41 Urine WBC 3-5 /HPF (NONE SEEN) 12/09/18 23:41 Ur Squamous Epith Cells Few /HPF (NEGATIVE) 12/09/18 23:41 Amorphous Sediment 2+ /HPF (NEGATIVE) 12/09/18 23:41 Urine Bacteria Trace /HPF (NEGATIVE) 12/09/18 23:41 Hyaline Casts Moderate /LPF (NEGATIVE) 12/09/18 23:41 Other Casts Rare /LPF (NEGATIVE) 12/09/18 23:41 Urine Mucus Numerous /HPF (NEGATIVE) 12/09/18 23:41 Ur Culture Indicated? Yes/culture set up 12/09/18 23:41 Stool Description 50g,brown,semisolid 12/15/18 19:00 Stl Occult Blood (IFOB) Negative (NEGATIVE) 12/15/18 19:00 Cytology Specimen To follow 12/12/18 10:09 Blood Type A NEGATIVE 12/10/18 04:20 Antibody Screen Negative 12/10/18 04:20 - Plan (1) Cirrhosis Status: Acute Qualifiers: Hepatic cirrhosis type: alcoholic cirrhosis Ascites presence: with ascites Qualified Code(s): K70.31 - Alcoholic cirrhosis of liver with ascites Plan: CONTINUE TO MONITOR LABS (2) Ascites due to alcoholic cirrhosis Status: Acute Plan: STATUS POST PARACENTESIS, CONTINUE TO MONITOR (3) Liver disease due to alcohol Status: Acute (4) Pneumonia Status: Acute Qualifiers: Pneumonia type: due to unspecified organism Laterality: left Lung location: upper lobe of lung Qualified Code(s): J18.1 - Lobar pneumonia, unspecified organism Plan: IV FORTAZ, IV LEVAQUIN, RESPIRATORY TX, SUPPLEMENTAL OXYGEN, CONTINUE TO MONITOR (5) Altered mental status Status: Acute Qualifiers: Altered mental status type: transient alteration of awareness Qualified Code(s): R40.4 - Transient alteration of awareness Plan: ZYPREXA 2.5MG PO BID (6) Hypokalemia Status: Acute Plan: POTASSIUM PROTOCOL, CONTINUE TO MONITOR (7) Generalized weakness Status: Acute (8) Fall Status: Acute Qualifiers: Encounter type: initial encounter Qualified Code(s): W19.XXXA - Unspecified fall, initial encounter
--- NOTE | 2018-12-16 14:04 | PCM.PROG ---
Progress Note - Progress Note for Day of Date of Exam: 12/15/18 - Subjective Subjective: IS BEING TREATED FOR GENERALIZED WEAKNESS, CIRRHOSIS, AND PNEUMONIA. HE HAS A HISTORY OF ALCOHOLIC CIRRHOSIS. PERFORMED A PARACENTESIS DUE TO A LARGE AMOUNT OF ASCITES. A LARGE AMOUNT OF FLUID WAS DRAINED AND SENT FOR CYTOLOGY. STAFF REPORTS THAT HE IS NOTED WITH CONFUSION AND AGITATION AT TIMES. ON EXAMINATION, HEART IS REGULAR IN RATE AND RHYTHM. BILATERAL LUNGS ARE NOTED WITH DIMINISHED LUNG SOUNDS THROUGHOUT. ABDOMEN CONTINUES TO BE SLIGHTLY DISTENDED. HE REPORTS DIFFUSE TENDERNESS. HYPOACTIVE BOWEL SOUNDS NOTED. HIS VITALS THIS MORNING ARE 97.5-80-20-100%-115/68. LABS WERE OBTAINED. ABNORMAL LAB VALUES INCLUDE THE FOLLOWING: RBC 2.91, HGB 9.7, HCT 29.7, CHLORIDE 109, CALCIUM 8.2, TOTAL BILI 1.40, AST 53, TOTAL PROTEIN 5.5, ALBUMIN 2.7. URINE AND BLOOD CULTURES ARE PENDING. HE IS CURRENTLY RECEIVING IV FLUIDS, IV ALBUMIN, FORTAZ IV AND LEVAQUIN IV, ZYPREXA, AND HOME MEDICATIONS WERE RESUMED. FAMILY REQUEST CUSTODIAL PLACEMENT DUE TO NOT BEING ABLE TO C ARE FOR PATIENT AT HOME ANYMORE. WE HAVE DISCUSSED WITH CASE MANAGEMENT AND THEY ARE ARRANGING PLACEMENT. OTHERWISE, WE PLAN TO FOLLOW UP WITH AM LABS AND CONTINUE TO MONITOR. - Past Medical Family Social History Past Med/Fam/Surg Hx: No changes since H&P Allergies: Allergies No Known Drug Allergies Allergy (Verified 10/09/18 19:12) - Review of Systems ROS: No change since H&P - Vital Signs and I&O's Vital Signs: Temperature 97 F Pulse Rate [Right Brachial] 91 Pulse Rate [Left Brachial] 84 Pulse Rate [Apical] 90 Pulse Rate 91 Respiratory Rate 20 Blood Pressure [Right Calf] 126/74 Blood Pressure [Right Arm] 121/71 Blood Pressure [Left Arm] 98/68 Blood Pressure 133/67 O2 Sat by Pulse Oximetry 100 Intake and Output: Intake & Output 12/14/18 12/15/18 12/16/18 12/17/18 11:59 11:59 11:59 11:59 Intake Total 3100 / 3100 3240 / 3240 4210 / 4210 Output Total 3000 / 3000 2945 / 2945 4400 / 4400 Balance 100 / 100 295 / 295 -190 / -190 - Physical Exam Oriented: Not Oriented Eyes: Normal Ear: Normal Nose: Normal Throat: Normal Respiratory: Diminished Cardiovascular: Normal : Normal Auscultation: Bowel Sounds: Normal Tenderness: Diffuse Skin: Normal Musculoskeletal: Normal Psychiatric: Other (CONFUSION ) Mood Description: Calm Affect: Normal Speech Pattern: Clear, Appropriate - Laboratory and Diagnostics Result Diagrams: 12/16/18 05:41 12/16/18 05:41 Labs: 12/13/18 14:40 Sputum - Expectorated Sputum Sputum Culture - Final 12/13/18 14:40 Sputum - Expectorated Sputum - Final 12/09/18 21:20 Blood Blood Culture - Final 12/09/18 21:00 Blood Blood Culture - Final 12/09/18 23:41 Urine,Catheterized Urine Culture - Final Laboratory WBC 7.0 X10^3/uL (3.6-10.0) 12/16/18 05:41 RBC 2.72 X10^6/uL (4.7-6.0) L 12/16/18 05:41 Hgb 9.2 g/dL (13.5-18.0) L 12/16/18 05:41 Hct 27.9 % (42.0-54.0) L 12/16/18 05:41 MCV 102.6 fL (80.0-100.0) H 12/16/18 05:41 MCH 33.6 pg (27.0-34.0) 12/16/18 05:41 MCHC 32.8 g/dL (33.0-35.0) L 12/16/18 05:41 RDW 19.0 % (11.6-16.5) H 12/16/18 05:41 Plt Count 117 X10^3/uL (150.0-450.0) L 12/16/18 05:41 MPV 8.5 fL (7.4-11.0) 12/16/18 05:41 Neut % (Auto) 79.5 % (42.0-75.0) H 12/16/18 05:41 Lymph % (Auto) 8.5 % (21.0-51.0) L 12/16/18 05:41 [place] % (Auto) 9.4 % (0.0-13.0) 12/16/18 05:41 Eos % (Auto) 1.6 % (0.9-2.9) 12/16/18 05:41 Baso % (Auto) 1.0 % (0.2-1.0) 12/16/18 05:41 Neut # (Auto) 5.5 x10^3/uL (2.2-4.8) H 12/16/18 05:41 Lymph # (Auto) 0.6 X10^3/uL (1.3-2.9) L 12/16/18 05:41 [place] # (Auto) 0.7 x10^3/uL (0.3-0.8) 12/16/18 05:41 Eos # (Auto) 0.1 x10^3/uL (0.0-0.2) 12/16/18 05:41 Baso # (Auto) 0.1 X10^3/uL (0.0-0.1) 12/16/18 05:41 Absolute Nucleated RBC 0.1 /100WBC 12/16/18 05:41 INR Target Range - 12/09/18 21:00 INR 1.13 (0.8-1.3) 12/09/18 21:00 APTT 33.9 SECONDS (22.9-36.5) 12/09/18 21:00 PTT Comment - 12/09/18 21:00 Sodium 140 mmol/L (136-145) 12/16/18 05:41 Corrected Sodium TNP 12/16/18 05:41 Potassium 3.5 mmol/L (3.5-5.1) 12/16/18 05:41 Chloride 109 mmol/L (98-107) H 12/16/18 05:41 Carbon Dioxide 21.6 mmol/L (21-32) 12/16/18 05:41 BUN 12 mg/dL (7-18) 12/16/18 05:41 Creatinine 1.12 mg/dL (0.70-1.30) 12/16/18 05:41 Est GFR (MDRD) Af Amer > 60 (>60) 12/16/18 05:41 Est GFR (MDRD) Non-Af > 60 (>60) 12/16/18 05:41 Glucose 94 mg/dL (65-99) 12/16/18 05:41 Lactic Acid 1.9 mmol/L (0.4-2.0) 12/09/18 21:00 Calcium 8.1 mg/dL (8.5-10.1) L 12/16/18 05:41 Corrected Calcium 9.1 mg/dL (8.5-10.1) 12/16/18 05:41 Magnesium 1.9 mg/dL (1.7-2.9) 12/15/18 06:01 Total Bilirubin 1.00 mg/dL (0.2-1.0) 12/16/18 05:41 AST 49 Units/L (15-37) H 12/16/18 05:41 ALT 22 Units/L (12-78) 12/16/18 05:41 Alkaline Phosphatase 111 Units/L (46-116) 12/16/18 05:41 Ammonia 15 umol/L (11-32) 12/16/18 05:41 Creatine Kinase 59 Units/L (39-308) 12/10/18 11:28 CK-MB (CK-2) < 1.0 ng/mL (0-4.0) 12/10/18 11:28 CK/CKMB % Calc 1.7 % (<4) 12/10/18 11:28 Troponin I 0.05 ng/mL (0-1.5) 12/10/18 11:28 C-Reactive Protein 32.00 mg/L (0-3.0) H 12/09/18 21:00 Total Protein 5.5 g/dL (6.4-8.2) L 12/16/18 05:41 Albumin 2.8 g/dL (3.4-5.0) L 12/16/18 05:41 Globulin 2.7 g/dL (2.5-4.5) 12/16/18 05:41 Albumin/Globulin Ratio 1.0 Ratio (1.1-2.1) L 12/16/18 05:41 Alpha Fetoprotein 4 ng/mL (0-9) 12/11/18 05:30 Carcinoembryonic Ag 6.7 ng/mL (0.0-3.0) H 12/11/18 05:30 Specimen Type Catherized urine 12/09/18 23:41 Urine Color Brown (YELLOW) 12/09/18 23:41 Urine Appearance Hazy (CLEAR) 12/09/18 23:41 Urine pH 5.0 (5.0 - 8.0) 12/09/18 23:41 Ur Specific [place] 1.025 (1.000-1.030) 12/09/18 23:41 Urine Protein 2+ (NEGATIVE) 12/09/18 23:41 Urine Glucose (UA) Negative (NEGATIVE) 12/09/18 23:41 Urine Ketones 1+ (NEGATIVE) 12/09/18 23:41 Urine Occult Blood 1+ (NEGATIVE) 12/09/18 23:41 Urine Nitrite Positive (NEGATIVE) 12/09/18 23:41 Urine Bilirubin 2+ (NEGATIVE) 12/09/18 23:41 Urine Urobilinogen 3+ (NORMAL) 12/09/18 23:41 Ur Leukocyte Esterase 1+ (NEGATIVE) 12/09/18 23:41 Urine RBC 3-5 /HPF (NONE SEEN) 12/09/18 23:41 Urine WBC 3-5 /HPF (NONE SEEN) 12/09/18 23:41 Ur Squamous Epith Cells Few /HPF (NEGATIVE) 12/09/18 23:41 Amorphous Sediment 2+ /HPF (NEGATIVE) 12/09/18 23:41 Urine Bacteria Trace /HPF (NEGATIVE) 12/09/18 23:41 Hyaline Casts Moderate /LPF (NEGATIVE) 12/09/18 23:41 Other Casts Rare /LPF (NEGATIVE) 12/09/18 23:41 Urine Mucus Numerous /HPF (NEGATIVE) 12/09/18 23:41 Ur Culture Indicated? Yes/culture set up 12/09/18 23:41 Stool Description 50g,brown,semisolid 12/15/18 19:00 Stl Occult Blood (IFOB) Negative (NEGATIVE) 12/15/18 19:00 Cytology Specimen To follow 12/12/18 10:09 Blood Type A NEGATIVE 12/10/18 04:20 Antibody Screen Negative 12/10/18 04:20 - Plan (1) Cirrhosis Status: Acute Qualifiers: Hepatic cirrhosis type: alcoholic cirrhosis Ascites presence: with ascites Qualified Code(s): K70.31 - Alcoholic cirrhosis of liver with ascites Plan: CONTINUE TO MONITOR LABS (2) Ascites due to alcoholic cirrhosis Status: Acute Plan: STATUS POST PARACENTESIS, CONTINUE TO MONITOR (3) Liver disease due to alcohol Status: Acute (4) Pneumonia Status: Acute Qualifiers: Pneumonia type: due to unspecified organism Laterality: left Lung location: upper lobe of lung Qualified Code(s): J18.1 - Lobar pneumonia, unspecified organism Plan: IV FORTAZ, IV LEVAQUIN, RESPIRATORY TX, SUPPLEMENTAL OXYGEN, CONTINUE TO MONITOR (5) Altered mental status Status: Acute Qualifiers: Altered mental status type: transient alteration of awareness Qualified Code(s): R40.4 - Transient alteration of awareness Plan: ZYPREXA 2.5MG PO BID (6) Hypokalemia Status: Acute Plan: POTASSIUM PROTOCOL, CONTINUE TO MONITOR (7) Generalized weakness Status: Acute (8) Fall Status: Acute Qualifiers: Encounter type: initial encounter Qualified Code(s): W19.XXXA - Unspecified fall, initial encounter
[2018-12-16] MEDS: COLACE CAP 100 MG PO SCH (21:44)
[2018-12-17] MEDS: NS 1000 ML 1,000 ML IV SCH ×3 (00:12→13:24)
[2018-12-17] MEDS ORDERED: MILK OF MAGNESIA PO PRN (01:20)
[2018-12-17] MEDS: FORTAZ or TAZICEF VIAL INJ IVP SCH ×2 (05:42→14:36)
[2018-12-17 05:49] LABS: BASOPHILS # (AUTO) 0.1 X10^3/uL (0.0-0.1); BASOPHILS % (AUTO) 1.2 % (0.2-1.0); EOSINOPHILS # (AUTO) 0.1 x10^3/uL (0.0-0.2); EOSINOPHILS % (AUTO) 1.6 % (0.9-2.9); HEMATOCRIT 27.4 % (42.0-54.0); LYMPHOCYTES # (AUTO) 0.7 X10^3/uL (1.3-2.9); LYMPHOCYTES % (AUTO) 10.3 % (21.0-51.0); MEAN CORPUSCULAR HEMOGLOBIN 33.2 pg (27.0-34.0); MEAN CORPUSCULAR VOLUME 100.8 fL (80.0-100.0); MEAN PLATELET VOLUME 8.2 fL (7.4-11.0); MONOCYTES # (AUTO) 0.7 x10^3/uL (0.3-0.8); MONOCYTES % (AUTO) 11.2 % (0.0-13.0); NEUTROPHILS % (AUTO) 75.7 % (42.0-75.0); PLATELET COUNT 108 X10^3/uL (150.0-450.0); RED BLOOD COUNT 2.72 X10^6/uL (4.7-6.0); RED CELL DISTRIBUTION WIDTH 19.1 % (11.6-16.5); WHITE BLOOD COUNT 6.6 X10^3/uL (3.6-10.0)
[2018-12-17 05:57] LABS: ALANINE AMINOTRANSFERASE 22 Units/L (12-78); ALBUMIN 2.9 g/dL (3.4-5.0); ALKALINE PHOSPHATASE 109 Units/L (46-116); ASPARTATE AMINO TRANSFERASE 53 Units/L (15-37); BLOOD UREA NITROGEN 13 mg/dL (7-18); CALCIUM 8.3 mg/dL (8.5-10.1); CHLORIDE 108 mmol/L (98-107); COR CA(FOR HYPOALB) 9.2 mg/dL (8.5-10.1); CREATININE 0.96 mg/dL (0.70-1.30); SODIUM 139 mmol/L (136-145); TOTAL PROTEIN 5.5 g/dL (6.4-8.2); eGFR NON BLACK RACES > 60 (>60)
[2018-12-17] MEDS: LEVAQUIN PREMIX IV 500 MG 500 MG/100 ML BAG IV SCH (08:47)
[2018-12-17] MEDS: ALBUMIN HUMAN 25%- 100 ML 100 ML IV SCH (08:47)
[2018-12-17] MEDS: PROTONIX TAB 40 MG PO SCH (08:48)
[2018-12-17] MEDS: ROBITUSSIN DM PO SCH ×4 (08:48→21:00)
[2018-12-17] MEDS ORDERED: DIFLUCAN 200 MG IV PREMIX* 200 MG/100 ML BAG IV SCH (11:00)
[2018-12-17] MEDS: PATIENT'S HOME MEDICATION PO SCH ×2 (11:18→21:00)
[2018-12-17] MEDS ORDERED: DIFLUCAN PO ONE (16:06)
[2018-12-17] MEDS ORDERED: PHARMACY CONSULT - DOSE _____ XX SCH (17:00)
[2018-12-17] MEDS: KLONOPIN TAB 0.5 MG PO SCH (21:00)
[2018-12-17] MEDS: COLACE CAP 100 MG PO SCH (21:00)
[2018-12-17] MEDS: K-DUR TAB 20 MEQ PO PRN (23:10)
[2018-12-17] MEDS: VALIUM PO PRN (23:30)
[2018-12-18 05:17] LABS: BASOPHILS # (AUTO) 0.1 X10^3/uL (0.0-0.1); BASOPHILS % (AUTO) 1.2 % (0.2-1.0); EOSINOPHILS # (AUTO) 0.1 x10^3/uL (0.0-0.2); EOSINOPHILS % (AUTO) 1.5 % (0.9-2.9); HEMOGLOBIN 9.3 g/dL (13.5-18.0); LYMPHOCYTES # (AUTO) 0.7 X10^3/uL (1.3-2.9); LYMPHOCYTES % (AUTO) 10.5 % (21.0-51.0); MEAN CORPUSCULAR HEMOGLOBIN 32.9 pg (27.0-34.0); MEAN CORPUSCULAR HGB CONC 32.1 g/dL (33.0-35.0); MEAN CORPUSCULAR VOLUME 102.3 fL (80.0-100.0); MEAN PLATELET VOLUME 8.7 fL (7.4-11.0); MONOCYTES # (AUTO) 0.7 x10^3/uL (0.3-0.8); MONOCYTES % (AUTO) 9.9 % (0.0-13.0); NEUTROPHILS # (AUTO) 5.3 x10^3/uL (2.2-4.8); NEUTROPHILS % (AUTO) 76.9 % (42.0-75.0); PLATELET COUNT 115 X10^3/uL (150.0-450.0); RED BLOOD COUNT 2.83 X10^6/uL (4.7-6.0); RED CELL DISTRIBUTION WIDTH 18.8 % (11.6-16.5); WHITE BLOOD COUNT 6.9 X10^3/uL (3.6-10.0)
[2018-12-18 05:32] LABS: ALANINE AMINOTRANSFERASE 27 Units/L (12-78); ALBUMIN 3.1 g/dL (3.4-5.0); ALKALINE PHOSPHATASE 122 Units/L (46-116); ASPARTATE AMINO TRANSFERASE 56 Units/L (15-37); BLOOD UREA NITROGEN 14 mg/dL (7-18); CALCIUM 8.8 mg/dL (8.5-10.1); CARBON DIOXIDE 19.3 mmol/L (21-32); CHLORIDE 106 mmol/L (98-107); COR CA(FOR HYPOALB) 9.5 mg/dL (8.5-10.1); COR NA(FOR HYPERGLY) 138 mmol/L (136-145); CREATININE 1.06 mg/dL (0.70-1.30); MAGNESIUM 1.3 mg/dL (1.7-2.9); SODIUM 138 mmol/L (136-145); TOTAL PROTEIN 5.9 g/dL (6.4-8.2); eGFR NON BLACK RACES > 60 (>60)
[2018-12-18] MEDS: DIFLUCAN PO SCH (09:52)
[2018-12-18] MEDS: LEVAQUIN TAB 500 MG PO SCH (09:52)
[2018-12-18] MEDS: ROBITUSSIN DM PO SCH ×4 (09:52→21:05)
[2018-12-18] MEDS: PROTONIX TAB 40 MG PO SCH (09:52)
[2018-12-18] MEDS: VALIUM PO PRN ×2 (09:54→21:04)
[2018-12-18] MEDS: MAG-OX TAB PO SCH (18:33)
--- NOTE | 2018-12-18 20:22 | PCM.PROG ---
Progress Note - Progress Note for Day of Date of Exam: 12/16/18 - Subjective Subjective: IS BEING TREATED FOR GENERALIZED WEAKNESS, CIRRHOSIS, AND PNEUMONIA. HE HAS A HISTORY OF ALCOHOLIC CIRRHOSIS. PERFORMED A PARACENTESIS DUE TO A LARGE AMOUNT OF ASCITES. A LARGE AMOUNT OF FLUID WAS DRAINED AND SENT FOR CYTOLOGY. STAFF REPORTS THAT HE IS NOTED WITH CONFUSION AND AGITATION AT TIMES. ON EXAMINATION, HEART IS REGULAR IN RATE AND RHYTHM. BILATERAL LUNGS ARE NOTED WITH DIMINISHED LUNG SOUNDS THROUGHOUT. ABDOMEN CONTINUES TO BE SLIGHTLY DISTENDED. HE REPORTS DIFFUSE TENDERNESS. HYPOACTIVE BOWEL SOUNDS NOTED. HIS VITALS THIS MORNING ARE 98.1-96-20-100%-105/76. LABS WERE OBTAINED. ABNORMAL LAB VALUES INCLUDE THE FOLLOWING: RBC 2.72, HGB 9.2, HCT 27.9, PLT COUNT 117, CHLORIDE 109, CALCIUM 8.1, AST 49, TOTAL PROTEIN 5.5, ALBUMIN 2.8. URINE AND BLOOD CULTURES ARE PENDING. SPUTUM CULTURE REPORTED GROWTH OF MODERATE YEAST. HE IS CURRENTLY RECEIVING IV FLUIDS, IV ALBUMIN, FORTAZ IV AND LEVAQUIN IV, ZYPREXA, AND HOME MEDICATIONS WERE RESUMED. FAMILY REQUEST [facility] DUE TO NOT BEING ABLE TO CARE FOR PATIENT AT HOME ANYMORE. WE HAVE DISCUSSED WITH CASE MANAGEMENT AND THEY ARE ARRANGING PLACEMENT. TODAY, WE WILL START DIFLUCAN 100MG PO DAILY. OTHERWISE, WE WILL CONTINUE WITH CURRENT PLAN OF CARE. WE PLAN TO FOLLOW UP WITH AM LABS AND CONTINUE TO MONITOR. - Past Medical Family Social History Past Med/Fam/Surg Hx: No changes since H&P Allergies: Allergies No Known Drug Allergies Allergy (Verified 10/09/18 19:12) - Review of Systems ROS: No change since H&P - Vital Signs and I&O's Vital Signs: Temperature 98.2 F Pulse Rate [Right Brachial] 93 Pulse Rate [Left Brachial] 84 Pulse Rate [Apical] 90 Pulse Rate 91 Respiratory Rate 20 Blood Pressure [Right Calf] 126/74 Blood Pressure [Right Arm] 124/82 Blood Pressure [Left Arm] 136/72 Blood Pressure 133/67 O2 Sat by Pulse Oximetry 100 Intake and Output: Intake & Output 12/16/18 12/17/18 12/18/18 12/19/18 11:59 11:59 11:59 11:59 Intake Total 4210 / 4210 3980 / 3980 1760 / 1760 480 / 480 Output Total 4400 / 4400 1850 / 1850 2150 / 2150 200 / 200 Balance -190 / -190 2130 / 2130 -390 / -390 280 / 280 - Physical Exam Oriented: Not Oriented Eyes: Normal Ear: Normal Nose: Normal Throat: Normal Respiratory: Diminished Cardiovascular: Normal : Normal Auscultation: Bowel Sounds: Normal Palpation: Normal Tenderness: Diffuse Skin: Normal Musculoskeletal: Normal Psychiatric: Other (CONFUSION ) Mood Description: Calm Affect: Normal Speech Pattern: Appropriate - Laboratory and Diagnostics Result Diagrams: 12/18/18 05:00 12/18/18 05:00 Labs: 12/13/18 14:40 Sputum - Expectorated Sputum Sputum Culture - Final 12/13/18 14:40 Sputum - Expectorated Sputum - Final 12/09/18 21:20 Blood Blood Culture - Final 12/09/18 21:00 Blood Blood Culture - Final 12/09/18 23:41 Urine,Catheterized Urine Culture - Final Laboratory WBC 6.9 X10^3/uL (3.6-10.0) 12/18/18 05:00 RBC 2.83 X10^6/uL (4.7-6.0) L 12/18/18 05:00 Hgb 9.3 g/dL (13.5-18.0) L 12/18/18 05:00 Hct 29.0 % (42.0-54.0) L 12/18/18 05:00 MCV 102.3 fL (80.0-100.0) H 12/18/18 05:00 MCH 32.9 pg (27.0-34.0) 12/18/18 05:00 MCHC 32.1 g/dL (33.0-35.0) L 12/18/18 05:00 RDW 18.8 % (11.6-16.5) H 12/18/18 05:00 Plt Count 115 X10^3/uL (150.0-450.0) L 12/18/18 05:00 MPV 8.7 fL (7.4-11.0) 12/18/18 05:00 Neut % (Auto) 76.9 % (42.0-75.0) H 12/18/18 05:00 Lymph % (Auto) 10.5 % (21.0-51.0) L 12/18/18 05:00 [place] % (Auto) 9.9 % (0.0-13.0) 12/18/18 05:00 Eos % (Auto) 1.5 % (0.9-2.9) 12/18/18 05:00 Baso % (Auto) 1.2 % (0.2-1.0) H 12/18/18 05:00 Neut # (Auto) 5.3 x10^3/uL (2.2-4.8) H 12/18/18 05:00 Lymph # (Auto) 0.7 X10^3/uL (1.3-2.9) L 12/18/18 05:00 [place] # (Auto) 0.7 x10^3/uL (0.3-0.8) 12/18/18 05:00 Eos # (Auto) 0.1 x10^3/uL (0.0-0.2) 12/18/18 05:00 Baso # (Auto) 0.1 X10^3/uL (0.0-0.1) 12/18/18 05:00 Absolute Nucleated RBC 0.1 /100WBC 12/18/18 05:00 INR Target Range - 12/09/18 21:00 INR 1.13 (0.8-1.3) 12/09/18 21:00 APTT 33.9 SECONDS (22.9-36.5) 12/09/18 21:00 PTT Comment - 12/09/18 21:00 Sodium 138 mmol/L (136-145) 12/18/18 05:00 Corrected Sodium 138 mmol/L (136-145) 12/18/18 05:00 Potassium 3.9 mmol/L (3.5-5.1) 12/18/18 05:00 Chloride 106 mmol/L (98-107) 12/18/18 05:00 Carbon Dioxide 19.3 mmol/L (21-32) L 12/18/18 05:00 BUN 14 mg/dL (7-18) 12/18/18 05:00 Creatinine 1.06 mg/dL (0.70-1.30) 12/18/18 05:00 Est GFR (MDRD) Af Amer > 60 (>60) 12/18/18 05:00 Est GFR (MDRD) Non-Af > 60 (>60) 12/18/18 05:00 Glucose 119 mg/dL (65-99) H 12/18/18 05:00 Lactic Acid 1.9 mmol/L (0.4-2.0) 12/09/18 21:00 Calcium 8.8 mg/dL (8.5-10.1) 12/18/18 05:00 Corrected Calcium 9.5 mg/dL (8.5-10.1) 12/18/18 05:00 Magnesium 1.3 mg/dL (1.7-2.9) L 12/18/18 05:00 Total Bilirubin 1.20 mg/dL (0.2-1.0) H 12/18/18 05:00 AST 56 Units/L (15-37) H 12/18/18 05:00 ALT 27 Units/L (12-78) 12/18/18 05:00 Alkaline Phosphatase 122 Units/L (46-116) H 12/18/18 05:00 Ammonia 35 umol/L (11-32) H 12/16/18 21:50 Creatine Kinase 59 Units/L (39-308) 12/10/18 11:28 CK-MB (CK-2) < 1.0 ng/mL (0-4.0) 12/10/18 11:28 CK/CKMB % Calc 1.7 % (<4) 12/10/18 11:28 Troponin I 0.05 ng/mL (0-1.5) 12/10/18 11:28 C-Reactive Protein 32.00 mg/L (0-3.0) H 12/09/18 21:00 Total Protein 5.9 g/dL (6.4-8.2) L 12/18/18 05:00 Albumin 3.1 g/dL (3.4-5.0) L 12/18/18 05:00 Globulin 2.8 g/dL (2.5-4.5) 12/18/18 05:00 Albumin/Globulin Ratio 1.1 Ratio (1.1-2.1) 12/18/18 05:00 Alpha Fetoprotein 4 ng/mL (0-9) 12/11/18 05:30 Carcinoembryonic Ag 6.7 ng/mL (0.0-3.0) H 12/11/18 05:30 Specimen Type Catherized urine 12/09/18 23:41 Urine Color Brown (YELLOW) 12/09/18 23:41 Urine Appearance Hazy (CLEAR) 12/09/18 23:41 Urine pH 5.0 (5.0 - 8.0) 12/09/18 23:41 Ur Specific [place] 1.025 (1.000-1.030) 12/09/18 23:41 Urine Protein 2+ (NEGATIVE) 12/09/18 23:41 Urine Glucose (UA) Negative (NEGATIVE) 12/09/18 23:41 Urine Ketones 1+ (NEGATIVE) 12/09/18 23:41 Urine Occult Blood 1+ (NEGATIVE) 12/09/18 23:41 Urine Nitrite Positive (NEGATIVE) 12/09/18 23:41 Urine Bilirubin 2+ (NEGATIVE) 12/09/18 23:41 Urine Urobilinogen 3+ (NORMAL) 12/09/18 23:41 Ur Leukocyte Esterase 1+ (NEGATIVE) 12/09/18 23:41 Urine RBC 3-5 /HPF (NONE SEEN) 12/09/18 23:41 Urine WBC 3-5 /HPF (NONE SEEN) 12/09/18 23:41 Ur Squamous Epith Cells Few /HPF (NEGATIVE) 12/09/18 23:41 Amorphous Sediment 2+ /HPF (NEGATIVE) 12/09/18 23:41 Urine Bacteria Trace /HPF (NEGATIVE) 12/09/18 23:41 Hyaline Casts Moderate /LPF (NEGATIVE) 12/09/18 23:41 Other Casts Rare /LPF (NEGATIVE) 12/09/18 23:41 Urine Mucus Numerous /HPF (NEGATIVE) 12/09/18 23:41 Ur Culture Indicated? Yes/culture set up 12/09/18 23:41 Stool Description 50g,brown,semisolid 12/15/18 19:00 Stl Occult Blood (IFOB) Negative (NEGATIVE) 12/15/18 19:00 Cytology Specimen To follow 12/12/18 10:09 Blood Type A NEGATIVE 12/10/18 04:20 Antibody Screen Negative 12/10/18 04:20 - Plan (1) Cirrhosis Status: Acute Qualifiers: Hepatic cirrhosis type: alcoholic cirrhosis Ascites presence: with ascites Qualified Code(s): K70.31 - Alcoholic cirrhosis of liver with ascites Plan: CONTINUE TO MONITOR LABS (2) Ascites due to alcoholic cirrhosis Status: Acute Plan: STATUS POST PARACENTESIS, CONTINUE TO MONITOR (3) Liver disease due to alcohol Status: Acute (4) Pneumonia Status: Acute Qualifiers: Pneumonia type: due to unspecified organism Laterality: left Lung location: upper lobe of lung Qualified Code(s): J18.1 - Lobar pneumonia, unspecified organism Plan: IV FORTAZ, IV LEVAQUIN, RESPIRATORY TX, SUPPLEMENTAL OXYGEN, CONTINUE TO MONITOR (5) Altered mental status Status: Acute Qualifiers: Altered mental status type: transient alteration of awareness Qualified Code(s): R40.4 - Transient alteration of awareness Plan: ZYPREXA 2.5MG PO BID (6) Yeast infection Status: Acute Plan: DIFLUCAN 100MG PO DAILY, CONTINUE TO MONITOR (7) Hypokalemia Status: Resolved Plan: POTASSIUM PROTOCOL, CONTINUE TO MONITOR (8) Generalized weakness Status: Acute (9) Fall Status: Acute Qualifiers: Encounter type: initial encounter Qualified Code(s): W19.XXXA - Unspecified fall, initial encounter
[2018-12-18] MEDS: COLACE CAP 100 MG PO SCH (21:03)
[2018-12-18] MEDS: KLONOPIN TAB 0.5 MG PO SCH (21:04)
[2018-12-19 05:04] LABS: BASOPHILS # (AUTO) 0.1 X10^3/uL (0.0-0.1); BASOPHILS % (AUTO) 1.2 % (0.2-1.0); EOSINOPHILS # (AUTO) 0.1 x10^3/uL (0.0-0.2); EOSINOPHILS % (AUTO) 1.4 % (0.9-2.9); HEMATOCRIT 28.5 % (42.0-54.0); HEMOGLOBIN 9.3 g/dL (13.5-18.0); LYMPHOCYTES # (AUTO) 0.8 X10^3/uL (1.3-2.9); LYMPHOCYTES % (AUTO) 9.8 % (21.0-51.0); MEAN CORPUSCULAR HEMOGLOBIN 32.9 pg (27.0-34.0); MEAN CORPUSCULAR HGB CONC 32.8 g/dL (33.0-35.0); MEAN CORPUSCULAR VOLUME 100.4 fL (80.0-100.0); MEAN PLATELET VOLUME 8.7 fL (7.4-11.0); MONOCYTES # (AUTO) 0.8 x10^3/uL (0.3-0.8); MONOCYTES % (AUTO) 10.2 % (0.0-13.0); NEUTROPHILS # (AUTO) 6.4 x10^3/uL (2.2-4.8); NEUTROPHILS % (AUTO) 77.4 % (42.0-75.0); PLATELET COUNT 127 X10^3/uL (150.0-450.0); RED BLOOD COUNT 2.84 X10^6/uL (4.7-6.0); WHITE BLOOD COUNT 8.2 X10^3/uL (3.6-10.0)
[2018-12-19 05:24] LABS: ALANINE AMINOTRANSFERASE 30 Units/L (12-78); ALKALINE PHOSPHATASE 145 Units/L (46-116); ASPARTATE AMINO TRANSFERASE 70 Units/L (15-37); BLOOD UREA NITROGEN 15 mg/dL (7-18); CALCIUM 9.3 mg/dL (8.5-10.1); CARBON DIOXIDE 20.1 mmol/L (21-32); CHLORIDE 105 mmol/L (98-107); COR CA(FOR HYPOALB) 10.1 mg/dL (8.5-10.1); CREATININE 1.02 mg/dL (0.70-1.30); SODIUM 137 mmol/L (136-145); TOTAL PROTEIN 6.1 g/dL (6.4-8.2); eGFR NON BLACK RACES > 60 (>60)
[2018-12-19] MEDS: MAG-OX TAB PO SCH ×2 (06:03→17:19)
[2018-12-19] MEDS: PROTONIX TAB 40 MG PO SCH (09:19)
[2018-12-19] MEDS: VALIUM PO PRN ×2 (09:19→21:53)
[2018-12-19] MEDS: DIFLUCAN PO SCH (09:19)
[2018-12-19] MEDS: ROBITUSSIN DM PO SCH ×4 (09:20→21:52)
[2018-12-19] MEDS: LEVAQUIN TAB 500 MG PO SCH (09:20)
--- NOTE | 2018-12-19 13:48 | PCM.PROG ---
Progress Note - Progress Note for Day of Date of Exam: 12/17/18 - Subjective Subjective: IS BEING TREATED FOR GENERALIZED WEAKNESS, CIRRHOSIS, AND PNEUMONIA. HE HAS A HISTORY OF ALCOHOLIC CIRRHOSIS. PERFORMED A PARACENTESIS DUE TO A LARGE AMOUNT OF ASCITES. A LARGE AMOUNT OF FLUID WAS DRAINED AND SENT FOR CYTOLOGY. STAFF REPORTS THAT HE CONTINUES WITH CONFUSION AND AGITATION. ON EXAMINATION, HEART IS REGULAR IN RATE AND RHYTHM. BILATERAL LUNGS ARE NOTED WITH DIMINISHED LUNG SOUNDS THROUGHOUT. ABDOMEN CONTINUES TO BE SLIGHTLY DISTENDED. HE REPORTS DIFFUSE TENDERNESS. HYPOACTIVE BOWEL SOUNDS NOTED. THERE IS A COLOSTOMY BAG ON ABDOMEN THAT IS COLLECTING DRAINAGE FROM PARACENTESIS SITE. HIS VITALS THIS MORNING ARE 98.0-96-20-100%-136/72. LABS WERE OBTAINED. ABNORMAL LAB VALUES INCLUDE THE FOLLOWING: RBC 2.72, HGB 9.0, HCT 27.4, POTASSIUM 3.4, CHLORIDE 108, CARBON DIOXIDE 19.0, CALCIUM 8.3, TOTAL BILI 1.30, AST 53, TOTAL PROTEIN 5.5, ALBUMIN 2.9. URINE AND BLOOD CULTURES ARE PENDING. SPUTUM CULTURE REPORTED GROWTH OF MODERATE YEAST. HE IS CURRENTLY RE CEIVING IV FLUIDS, IV ALBUMIN, FORTAZ IV AND LEVAQUIN IV, ZYPREXA, AND HOME MEDICATIONS WERE RESUMED. CASE MANAGEMENT IS ARRANGING FOR SKILLED NURSING PLACEMENT. TODAY, WE WILL ADD KLONOPIN 0.5MG PO HS, OTHERWISE, WE WILL CONTINUE WITH CURRENT PLAN OF CARE. WE PLAN TO FOLLOW UP WITH AM LABS AND CONTINUE TO MONITOR. - Past Medical Family Social History Past Med/Fam/Surg Hx: No changes since H&P Allergies: Allergies No Known Drug Allergies Allergy (Verified 10/09/18 19:12) - Review of Systems ROS: No change since H&P - Vital Signs and I&O's Vital Signs: Temperature 97.3 F Pulse Rate [Right Brachial] 93 Pulse Rate [Left Brachial] 84 Pulse Rate [Apical] 90 Pulse Rate 91 Respiratory Rate 20 Blood Pressure [Right Calf] 126/74 Blood Pressure [Right Arm] 124/82 Blood Pressure [Left Arm] 131/86 Blood Pressure 133/67 O2 Sat by Pulse Oximetry 100 Intake and Output: Intake & Output 12/17/18 12/18/18 12/19/18 12/20/18 11:59 11:59 11:59 11:59 Intake Total 3980 / 3980 1760 / 1760 795 / 795 Output Total 1850 / 1850 2150 / 2150 800 / 800 Balance 2130 / 2130 -390 / -390 -5 / -5 - Physical Exam Oriented: Not Oriented Eyes: Normal Ear: Normal Nose: Normal Throat: Normal Respiratory: Diminished Cardiovascular: Normal : Normal Auscultation: Bowel Sounds: Normal Tenderness: Diffuse Skin: Normal Musculoskeletal: Normal Psychiatric: Other (CONFUSION ) Mood Description: Calm Affect: Normal Speech Pattern: Appropriate - Laboratory and Diagnostics Result Diagrams: 12/19/18 04:17 12/19/18 04:17 Labs: 12/13/18 14:40 Sputum - Expectorated Sputum Sputum Culture - Final 12/13/18 14:40 Sputum - Expectorated Sputum - Final 12/09/18 21:20 Blood Blood Culture - Final 12/09/18 21:00 Blood Blood Culture - Final 12/09/18 23:41 Urine,Catheterized Urine Culture - Final Laboratory WBC 8.2 X10^3/uL (3.6-10.0) 12/19/18 04:17 RBC 2.84 X10^6/uL (4.7-6.0) L 12/19/18 04:17 Hgb 9.3 g/dL (13.5-18.0) L 12/19/18 04:17 Hct 28.5 % (42.0-54.0) L 12/19/18 04:17 MCV 100.4 fL (80.0-100.0) H 12/19/18 04:17 MCH 32.9 pg (27.0-34.0) 12/19/18 04:17 MCHC 32.8 g/dL (33.0-35.0) L 12/19/18 04:17 RDW 19.0 % (11.6-16.5) H 12/19/18 04:17 Plt Count 127 X10^3/uL (150.0-450.0) L 12/19/18 04:17 MPV 8.7 fL (7.4-11.0) 12/19/18 04:17 Neut % (Auto) 77.4 % (42.0-75.0) H 12/19/18 04:17 Lymph % (Auto) 9.8 % (21.0-51.0) L 12/19/18 04:17 [place] % (Auto) 10.2 % (0.0-13.0) 12/19/18 04:17 Eos % (Auto) 1.4 % (0.9-2.9) 12/19/18 04:17 Baso % (Auto) 1.2 % (0.2-1.0) H 12/19/18 04:17 Neut # (Auto) 6.4 x10^3/uL (2.2-4.8) H 12/19/18 04:17 Lymph # (Auto) 0.8 X10^3/uL (1.3-2.9) L 12/19/18 04:17 [place] # (Auto) 0.8 x10^3/uL (0.3-0.8) 12/19/18 04:17 Eos # (Auto) 0.1 x10^3/uL (0.0-0.2) 12/19/18 04:17 Baso # (Auto) 0.1 X10^3/uL (0.0-0.1) 12/19/18 04:17 Absolute Nucleated RBC 0.0 /100WBC 12/19/18 04:17 INR Target Range - 12/09/18 21:00 INR 1.13 (0.8-1.3) 12/09/18 21:00 APTT 33.9 SECONDS (22.9-36.5) 12/09/18 21:00 PTT Comment - 12/09/18 21:00 Sodium 137 mmol/L (136-145) 12/19/18 04:17 Corrected Sodium TNP 12/19/18 04:17 Potassium 4.1 mmol/L (3.5-5.1) 12/19/18 04:17 Chloride 105 mmol/L (98-107) 12/19/18 04:17 Carbon Dioxide 20.1 mmol/L (21-32) L 12/19/18 04:17 BUN 15 mg/dL (7-18) 12/19/18 04:17 Creatinine 1.02 mg/dL (0.70-1.30) 12/19/18 04:17 Est GFR (MDRD) Af Amer > 60 (>60) 12/19/18 04:17 Est GFR (MDRD) Non-Af > 60 (>60) 12/19/18 04:17 Glucose 90 mg/dL (65-99) 12/19/18 04:17 Lactic Acid 1.9 mmol/L (0.4-2.0) 12/09/18 21:00 Calcium 9.3 mg/dL (8.5-10.1) 12/19/18 04:17 Corrected Calcium 10.1 mg/dL (8.5-10.1) 12/19/18 04:17 Magnesium 1.3 mg/dL (1.7-2.9) L 12/19/18 04:17 Total Bilirubin 1.30 mg/dL (0.2-1.0) H 12/19/18 04:17 AST 70 Units/L (15-37) H 12/19/18 04:17 ALT 30 Units/L (12-78) 12/19/18 04:17 Alkaline Phosphatase 145 Units/L (46-116) H 12/19/18 04:17 Ammonia 35 umol/L (11-32) H 12/16/18 21:50 Creatine Kinase 59 Units/L (39-308) 12/10/18 11:28 CK-MB (CK-2) < 1.0 ng/mL (0-4.0) 12/10/18 11:28 CK/CKMB % Calc 1.7 % (<4) 12/10/18 11:28 Troponin I 0.05 ng/mL (0-1.5) 12/10/18 11:28 C-Reactive Protein 32.00 mg/L (0-3.0) H 12/09/18 21:00 Total Protein 6.1 g/dL (6.4-8.2) L 12/19/18 04:17 Albumin 3.0 g/dL (3.4-5.0) L 12/19/18 04:17 Globulin 3.1 g/dL (2.5-4.5) 12/19/18 04:17 Albumin/Globulin Ratio 1.0 Ratio (1.1-2.1) L 12/19/18 04:17 Alpha Fetoprotein 4 ng/mL (0-9) 12/11/18 05:30 Carcinoembryonic Ag 6.7 ng/mL (0.0-3.0) H 12/11/18 05:30 Specimen Type Catherized urine 12/09/18 23:41 Urine Color Brown (YELLOW) 12/09/18 23:41 Urine Appearance Hazy (CLEAR) 12/09/18 23:41 Urine pH 5.0 (5.0 - 8.0) 12/09/18 23:41 Ur Specific [place] 1.025 (1.000-1.030) 12/09/18 23:41 Urine Protein 2+ (NEGATIVE) 12/09/18 23:41 Urine Glucose (UA) Negative (NEGATIVE) 12/09/18 23:41 Urine Ketones 1+ (NEGATIVE) 12/09/18 23:41 Urine Occult Blood 1+ (NEGATIVE) 12/09/18 23:41 Urine Nitrite Positive (NEGATIVE) 12/09/18 23:41 Urine Bilirubin 2+ (NEGATIVE) 12/09/18 23:41 Urine Urobilinogen 3+ (NORMAL) 12/09/18 23:41 Ur Leukocyte Esterase 1+ (NEGATIVE) 12/09/18 23:41 Urine RBC 3-5 /HPF (NONE SEEN) 12/09/18 23:41 Urine WBC 3-5 /HPF (NONE SEEN) 12/09/18 23:41 Ur Squamous Epith Cells Few /HPF (NEGATIVE) 12/09/18 23:41 Amorphous Sediment 2+ /HPF (NEGATIVE) 12/09/18 23:41 Urine Bacteria Trace /HPF (NEGATIVE) 12/09/18 23:41 Hyaline Casts Moderate /LPF (NEGATIVE) 12/09/18 23:41 Other Casts Rare /LPF (NEGATIVE) 12/09/18 23:41 Urine Mucus Numerous /HPF (NEGATIVE) 12/09/18 23:41 Ur Culture Indicated? Yes/culture set up 12/09/18 23:41 Stool Description 50g,brown,semisolid 12/15/18 19:00 Stl Occult Blood (IFOB) Negative (NEGATIVE) 12/15/18 19:00 Cytology Specimen To follow 12/12/18 10:09 Blood Type A NEGATIVE 12/10/18 04:20 Antibody Screen Negative 12/10/18 04:20 - Plan (1) Cirrhosis Status: Acute Qualifiers: Hepatic cirrhosis type: alcoholic cirrhosis Ascites presence: with ascites Qualified Code(s): K70.31 - Alcoholic cirrhosis of liver with ascites Plan: CONTINUE TO MONITOR LABS (2) Ascites due to alcoholic cirrhosis Status: Acute Plan: STATUS POST PARACENTESIS, CONTINUE TO MONITOR (3) Liver disease due to alcohol Status: Acute (4) Pneumonia Status: Acute Qualifiers: Pneumonia type: due to unspecified organism Laterality: left Lung locat ion: upper lobe of lung Qualified Code(s): J18.1 - Lobar pneumonia, unspecified organism Plan: IV FORTAZ, IV LEVAQUIN, RESPIRATORY TX, SUPPLEMENTAL OXYGEN, CONTINUE TO MONITOR (5) Altered mental status Status: Acute Qualifiers: Altered mental status type: transient alteration of awareness Qualified Code(s): R40.4 - Transient alteration of awareness Plan: ZYPREXA 2.5MG PO BID (6) Yeast infection Status: Acute Plan: DIFLUCAN 100MG PO DAILY, CONTINUE TO MONITOR (7) Generalized weakness Status: Acute (8) Fall Status: Acute Qualifiers: Encounter type: initial encounter Qualified Code(s): W19.XXXA - Unspecified fall, initial encounter
[2018-12-19 15:18] LABS: BILIRUBIN,URINE NEGATIVE (NEGATIVE); BLOOD/HEMOGLOBIN,URINE 3+ (NEGATIVE); GLUCOSE, URINE NEGATIVE (NEGATIVE); KETONES,URINE NEGATIVE (NEGATIVE); LEUKOCYTE ESTERASE ,URINE 1+ (NEGATIVE); NITRITES,URINE NEGATIVE (NEGATIVE); PROTEIN,URINE 2+ (NEGATIVE); UROBILINOGEN,URINE 1+ (NORMAL)
[2018-12-19 15:28] LABS: APPEARANCE,URINE CLEAR (CLEAR); COLOR,URINE DARK YELLOW (YELLOW)
[2018-12-19 15:35] LABS: AMORPHOUS SEDIMENT,UR TRACE /HPF (NEGATIVE); BACTERIA,URINE NEGATIVE /HPF (NEGATIVE); HYALINE CASTS, URINE FEW /LPF (NEGATIVE); SQUAMOUS EPITHELIAL CELL,UR RARE /HPF (NEGATIVE)
[2018-12-19] MEDS: MILK OF MAGNESIA PO SCH (21:52)
[2018-12-19] MEDS: COLACE CAP 100 MG PO SCH (21:53)
[2018-12-19] MEDS: KLONOPIN TAB 0.5 MG PO SCH (21:53)
[2018-12-20 05:19] LABS: BASOPHILS # (AUTO) 0.1 X10^3/uL (0.0-0.1); BASOPHILS % (AUTO) 1.2 % (0.2-1.0); EOSINOPHILS # (AUTO) 0.1 x10^3/uL (0.0-0.2); HEMATOCRIT 28.4 % (42.0-54.0); HEMOGLOBIN 9.4 g/dL (13.5-18.0); LYMPHOCYTES # (AUTO) 0.8 X10^3/uL (1.3-2.9); LYMPHOCYTES % (AUTO) 10.3 % (21.0-51.0); MEAN CORPUSCULAR HEMOGLOBIN 33.2 pg (27.0-34.0); MEAN CORPUSCULAR HGB CONC 33.2 g/dL (33.0-35.0); MEAN CORPUSCULAR VOLUME 99.9 fL (80.0-100.0); MEAN PLATELET VOLUME 8.5 fL (7.4-11.0); MONOCYTES # (AUTO) 0.9 x10^3/uL (0.3-0.8); MONOCYTES % (AUTO) 10.6 % (0.0-13.0); NEUTROPHILS # (AUTO) 6.4 x10^3/uL (2.2-4.8); NEUTROPHILS % (AUTO) 76.9 % (42.0-75.0); PLATELET COUNT 127 X10^3/uL (150.0-450.0); RED BLOOD COUNT 2.84 X10^6/uL (4.7-6.0); RED CELL DISTRIBUTION WIDTH 18.9 % (11.6-16.5); WHITE BLOOD COUNT 8.3 X10^3/uL (3.6-10.0)
[2018-12-20 05:33] LABS: ALANINE AMINOTRANSFERASE 27 Units/L (12-78); ALBUMIN 2.7 g/dL (3.4-5.0); ALKALINE PHOSPHATASE 149 Units/L (46-116); ASPARTATE AMINO TRANSFERASE 61 Units/L (15-37); BLOOD UREA NITROGEN 17 mg/dL (7-18); CALCIUM 9.1 mg/dL (8.5-10.1); CARBON DIOXIDE 22.8 mmol/L (21-32); CHLORIDE 106 mmol/L (98-107); COR CA(FOR HYPOALB) 10.1 mg/dL (8.5-10.1); CREATININE 1.07 mg/dL (0.70-1.30); SODIUM 139 mmol/L (136-145); TOTAL PROTEIN 5.9 g/dL (6.4-8.2); eGFR NON BLACK RACES > 60 (>60)
[2018-12-20] MEDS: MAG-OX TAB PO SCH ×2 (06:06→17:31)
[2018-12-20] MEDS: DIFLUCAN PO SCH (08:40)
[2018-12-20] MEDS: LEVAQUIN TAB 500 MG PO SCH (08:40)
[2018-12-20] MEDS: PROTONIX TAB 40 MG PO SCH (08:40)
[2018-12-20] MEDS: ROBITUSSIN DM PO SCH ×4 (08:40→20:12)
[2018-12-20] MEDS: MILK OF MAGNESIA PO SCH ×2 (08:40→20:12)
[2018-12-20] MEDS ORDERED: APLISOL ID ONE (13:31)
--- NOTE | 2018-12-20 15:27 | RAD ---
History: Shortness of breath Study: Portable AP chest Comparison: December 09, 2018 Findings: The lungs are grossly clear and the heart and mediastinum are unremarkable. There is no edema or effusion. Impression: No acute cardiopulmonary disease Reported By:
--- NOTE | 2018-12-20 19:07 | PCM.PROG ---
Progress Note - Progress Note for Day of Date of Exam: 12/18/18 - Subjective Subjective: IS BEING TREATED FOR GENERALIZED WEAKNESS, CIRRHOSIS, AND PNEUMONIA. HE HAS A HISTORY OF ALCOHOLIC CIRRHOSIS. PERFORMED A PARACENTESIS DUE TO A LARGE AMOUNT OF ASCITES. A LARGE AMOUNT OF FLUID WAS DRAINED AND SENT FOR CYTOLOGY. STAFF REPORTS THAT HE CONTINUES WITH CONFUSION AND AGITATION. THEY REPORT THAT HE APPEARS TO BE MORE AGITATED AND HAS BEEN PULLING HIS CLOTHES OFF AND ATTEMPTING TO GET OUT OF BED. ON EXAMINATION, HEART IS REGULAR IN RATE AND RHYTHM. BILATERAL LUNGS ARE NOTED WITH DIMINISHED LUNG SOUNDS THROUGHOUT. ABDOMEN IS ROUND, SOFT, AND NON-TENDER TODAY. HYPOACTIVE BOWEL SOUNDS NOTED. THERE IS A COLOSTOMY BAG ON ABDOMEN THAT IS COLLECTING DRAINAGE FROM PARACENTESIS SITE. HIS VITALS THIS MORNING ARE 97.7-94-18-100%-134/87. LABS WERE OBTAINED. ABNORMAL LAB VALUES INCLUDE THE FOLLOWING: RBC 2.83, HGB 9.3, HCT 29.0, PTL COUNT 115, CARBON DIOXIDE 19.3, GLUCOSE 119, MAGNESIUM 1.3, TOTAL BILI 1.20, ALK PHOS 122, TOTAL PROTEIN 5.9, ALBUMIN 3.1. SPUTUM CULTURE REPORTED GROWTH OF MODERATE YEAST. HE IS CURRENTLY RECEIVING IV FLUIDS, IV ALBUMIN, FORTAZ IV AND LEVAQUIN IV, ZYPREXA, AND HOME MEDICATIONS WERE RESUMED. CASE MANAGEMENT IS ARRANGING FOR JAIL PLACEMENT. TODAY, WE WILL INCREASE HIS ZYPREXA TO 5MG PO BID. OTHERWISE, WE WILL CONTINUE WITH CURRENT PLAN OF CARE. WE PLAN TO FOLLOW UP WITH AM LABS AND CONTINUE TO MONITOR. - Past Medical Family Social History Past Med/Fam/Surg Hx: No changes since H&P Allergies: Allergies No Known Drug Allergies Allergy (Verified 10/09/18 19:12) - Review of Systems ROS: No change since H&P - Vital Signs and I&O's Vital Signs: Temperature 98.2 F Pulse Rate [Right Brachial] 106 Pulse Rate [Left Brachial] 84 Pulse Rate [Apical] 90 Pulse Rate 91 Respiratory Rate 18 Blood Pressure [Right Calf] 126/74 Blood Pressure [Right Arm] 106/72 Blood Pressure [Left Arm] 115/79 Blood Pressure 133/67 O2 Sat by Pulse Oximetry 100 Intake and Output: Intake & Output 12/18/18 12/19/18 12/20/18 12/21/18 11:59 11:59 11:59 11:59 Intake Total 1760 / 1760 795 / 795 580 / 580 200 / 200 Output Total 2150 / 2150 800 / 800 400 / 400 100 / 100 Balance -390 / -390 -5 / -5 180 / 180 100 / 100 - Physical Exam Oriented: Not Oriented Eyes: Normal Ear: Normal Nose: Normal Throat: Normal Respiratory: Diminished Cardiovascular: Normal : Normal Auscultation: Bowel Sounds: Normal Palpation: Normal Tenderness: Diffuse Skin: Normal Musculoskeletal: Normal Psychiatric: Other (CONFUSION ) Mood Description: Calm Affect: Normal Speech Pattern: Clear, Appropriate - Laboratory and Diagnostics Result Diagrams: 12/20/18 04:00 12/20/18 04:00 Labs: 12/13/18 14:40 Sputum - Expectorated Sputum Sputum Culture - Final 12/13/18 14:40 Sputum - Expectorated Sputum - Final 12/09/18 21:20 Blood Blood Culture - Final 12/09/18 21:00 Blood Blood Culture - Final 12/09/18 23:41 Urine,Catheterized Urine Culture - Final Laboratory WBC 8.3 X10^3/uL (3.6-10.0) 12/20/18 04:00 RBC 2.84 X10^6/uL (4.7-6.0) L 12/20/18 04:00 Hgb 9.4 g/dL (13.5-18.0) L 12/20/18 04:00 Hct 28.4 % (42.0-54.0) L 12/20/18 04:00 MCV 99.9 fL (80.0-100.0) 12/20/18 04:00 MCH 33.2 pg (27.0-34.0) 12/20/18 04:00 MCHC 33.2 g/dL (33.0-35.0) 12/20/18 04:00 RDW 18.9 % (11.6-16.5) H 12/20/18 04:00 Plt Count 127 X10^3/uL (150.0-450.0) L 12/20/18 04:00 MPV 8.5 fL (7.4-11.0) 12/20/18 04:00 Neut % (Auto) 76.9 % (42.0-75.0) H 12/20/18 04:00 Lymph % (Auto) 10.3 % (21.0-51.0) L 12/20/18 04:00 [place] % (Auto) 10.6 % (0.0-13.0) 12/20/18 04:00 Eos % (Auto) 1.0 % (0.9-2.9) 12/20/18 04:00 Baso % (Auto) 1.2 % (0.2-1.0) H 12/20/18 04:00 Neut # (Auto) 6.4 x10^3/uL (2.2-4.8) H 12/20/18 04:00 Lymph # (Auto) 0.8 X10^3/uL (1.3-2.9) L 12/20/18 04:00 [place] # (Auto) 0.9 x10^3/uL (0.3-0.8) H 12/20/18 04:00 Eos # (Auto) 0.1 x10^3/uL (0.0-0.2) 12/20/18 04:00 Baso # (Auto) 0.1 X10^3/uL (0.0-0.1) 12/20/18 04:00 Absolute Nucleated RBC 0.0 /100WBC 12/20/18 04:00 INR Target Range - 12/09/18 21:00 INR 1.13 (0.8-1.3) 12/09/18 21:00 APTT 33.9 SECONDS (22.9-36.5) 12/09/18 21:00 PTT Comment - 12/09/18 21:00 Sodium 139 mmol/L (136-145) 12/20/18 04:00 Corrected Sodium TNP 12/20/18 04:00 Potassium 4.5 mmol/L (3.5-5.1) 12/20/18 04:00 Chloride 106 mmol/L (98-107) 12/20/18 04:00 Carbon Dioxide 22.8 mmol/L (21-32) 12/20/18 04:00 BUN 17 mg/dL (7-18) 12/20/18 04:00 Creatinine 1.07 mg/dL (0.70-1.30) 12/20/18 04:00 Est GFR (MDRD) Af Amer > 60 (>60) 12/20/18 04:00 Est GFR (MDRD) Non-Af > 60 (>60) 12/20/18 04:00 Glucose 95 mg/dL (65-99) 12/20/18 04:00 Lactic Acid 1.9 mmol/L (0.4-2.0) 12/09/18 21:00 Calcium 9.1 mg/dL (8.5-10.1) 12/20/18 04:00 Corrected Calcium 10.1 mg/dL (8.5-10.1) 12/20/18 04:00 Magnesium 1.8 mg/dL (1.7-2.9) 12/20/18 04:00 Total Bilirubin 1.30 mg/dL (0.2-1.0) H 12/20/18 04:00 AST 61 Units/L (15-37) H 12/20/18 04:00 ALT 27 Units/L (12-78) 12/20/18 04:00 Alkaline Phosphatase 149 Units/L (46-116) H 12/20/18 04:00 Ammonia 35 umol/L (11-32) H 12/16/18 21:50 Creatine Kinase 59 Units/L (39-308) 12/10/18 11:28 CK-MB (CK-2) < 1.0 ng/mL (0-4.0) 12/10/18 11:28 CK/CKMB % Calc 1.7 % (<4) 12/10/18 11:28 Troponin I 0.05 ng/mL (0-1.5) 12/10/18 11:28 C-Reactive Protein 32.00 mg/L (0-3.0) H 12/09/18 21:00 Total Protein 5.9 g/dL (6.4-8.2) L 12/20/18 04:00 Albumin 2.7 g/dL (3.4-5.0) L 12/20/18 04:00 Globulin 3.2 g/dL (2.5-4.5) 12/20/18 04:00 Albumin/Globulin Ratio 0.8 Ratio (1.1-2.1) L 12/20/18 04:00 Alpha Fetoprotein 4 ng/mL (0-9) 12/11/18 05:30 Carcinoembryonic Ag 6.7 ng/mL (0.0-3.0) H 12/11/18 05:30 Specimen Type Catherized urine 12/19/18 15:11 Urine Color Dark yellow (YELLOW) 12/19/18 15:11 Urine Appearance Clear (CLEAR) 12/19/18 15:11 Urine pH 5.0 (5.0 - 8.0) 12/19/18 15:11 Ur Specific [place] 1.025 (1.000-1.030) 12/19/18 15:11 Urine Protein 2+ (NEGATIVE) 12/19/18 15:11 Urine Glucose (UA) Negative (NEGATIVE) 12/19/18 15:11 Urine Ketones Negative (NEGATIVE) 12/19/18 15:11 Urine Occult Blood 3+ (NEGATIVE) 12/19/18 15:11 Urine Nitrite Negative (NEGATIVE) 12/19/18 15:11 Urine Bilirubin Negative (NEGATIVE) 12/19/18 15:11 Urine Urobilinogen 1+ (NORMAL) 12/19/18 15:11 Ur Leukocyte Esterase 1+ (NEGATIVE) 12/19/18 15:11 Urine RBC 10-20 /HPF (NONE SEEN) 12/19/18 15:11 Urine WBC 3-5 /HPF (NONE SEEN) 12/19/18 15:11 Ur Squamous Epith Cells Rare /HPF (NEGATIVE) 12/19/18 15:11 Amorphous Sediment Trace /HPF (NEGATIVE) 12/19/18 15:11 Urine Bacteria Negative /HPF (NEGATIVE) 12/19/18 15:11 Hyaline Casts Few /LPF (NEGATIVE) 12/19/18 15:11 Other Casts Rare /LPF (NEGATIVE) 12/09/18 23:41 Urine Mucus Numerous /HPF (NEGATIVE) 12/09/18 23:41 Ur Culture Indicated? No/not indicated 12/19/18 15:11 Stool Description 50g,brown,semisolid 12/15/18 19:00 Stl Occult Blood (IFOB) Negative (NEGATIVE) 12/15/18 19:00 Cytology Specimen To follow 12/12/18 10:09 Blood Type A NEGATIVE 12/10/18 04:20 Antibody Screen Negative 12/10/18 04:20 - Plan (1) Cirrhosis Status: Acute Qualifiers: Hepatic cirrhosis type: alcoholic cirrhosis Ascites presence: with ascites Qualified Code(s): K70.31 - Alcoholic cirrhosis of liver with ascites Plan: CONTINUE TO MONITOR LABS (2) Ascites due to alcoholic cirrhosis Status: Acute Plan: STATUS POST PARACENTESIS, CONTINUE TO MONITOR (3) Liver disease due to alcohol Status: Acute (4) Pneumonia Status: Acute Qualifiers: Pneumonia type: due to unspecified organism Laterality: left Lung location: upper lobe of lung Qualified Code(s): J18.1 - Lobar pneumonia, unspecified organism Plan: IV FORTAZ, IV LEVAQUIN, RESPIRATORY TX, SUPPLEMENTAL OXYGEN, CONTINUE TO MONITOR (5) Altered mental status Status: Acute Qualifiers: Altered mental status type: transient alteration of awareness Qualified Code(s): R40.4 - Transient alteration of awareness Plan: ZYPREXA 5MG PO BID (6) Yeast infection Status: Acute Plan: DIFLUCAN 100MG PO DAILY, CONTINUE TO MONITOR (7) Generalized weakness Status: Acute (8) Fall Status: Acute Qualifiers: Encounter type: initial encounter Qualified Code(s): W19.XXXA - Unspecified fall, initial encounter
--- NOTE | 2018-12-20 20:05 | PCM.PROG ---
Progress Note - Progress Note for Day of Date of Exam: 12/19/18 - Subjective Subjective: IS BEING TREATED FOR GENERALIZED WEAKNESS, CIRRHOSIS, AND PNEUMONIA. HE HAS A HISTORY OF ALCOHOLIC CIRRHOSIS. PERFORMED A PARACENTESIS DUE TO A LARGE AMOUNT OF ASCITES. A LARGE AMOUNT OF FLUID WAS DRAINED AND SENT FOR CYTOLOGY. STAFF REPORTS THAT HE HAS BEEN LESS AGITATED SINCE INCREASING THE ZYPREXA. ON EXAMINATION, HEART IS REGULAR IN RATE AND RHYTHM. BILATERAL LUNGS ARE NOTED WITH DIMINISHED LUNG SOUNDS THROUGHOUT. ABDOMEN IS ROUND, SOFT, AND NON-TENDER TODAY. HYPOACTIVE BOWEL SOUNDS NOTED. THERE IS A COLOSTOMY BAG ON ABDOMEN THAT IS COLLECTING DRAINAGE FROM PARAC ENTESIS SITE. HIS VITALS THIS MORNING ARE 97.9-99-20-99%-135/80. LABS WERE OBTAINED. ABNORMAL LAB VALUES INCLUDE THE FOLLOWING: RBC 2.84, HGB 9.3, HCT 28.5, PLT COUNT 127, CARBON DIOXIDE 20.1, TOTAL BILI 1.30, AST 70, ALK PHOS 145, TOTAL PROTEIN 6.1, ALBUMIN 3.0. SPUTUM CULTURE REPORTED GROWTH OF MODERATE YEAST. HE IS CURRENTLY RECEIVING IV FLUIDS, IV ALBUMIN, FORTAZ IV AND LEVAQUIN IV, ZYPREXA, AND HOME MEDICATIONS WERE RESUMED. CASE MANAGEMENT IS ARRANGING FOR CORRECTION PLACEMENT. WE WILL CONTINUE WITH CURRENT PLAN OF CARE TODAY. OTHERWISE, WE PLAN TO FOLLOW UP WITH AM LABS AND CONTINUE TO MONITOR. - Past Medical Family Social History Past Med/Fam/Surg Hx: No changes since H&P Allergies: Allergies No Known Drug Allergies Allergy (Verified 10/09/18 19:12) - Review of Systems ROS: No change since H&P - Vital Signs and I&O's Vital Signs: Temperature 98.2 F Pulse Rate [Right Brachial] 106 Pulse Rate [Left Brachial] 84 Pulse Rate [Apical] 90 Pulse Rate 91 Respiratory Rate 18 Blood Pressure [Right Calf] 126/74 Blood Pressure [Right Arm] 106/72 Blood Pressure [Left Arm] 115/79 Blood Pressure 133/67 O2 Sat by Pulse Oximetry 100 Intake and Output: Intake & Output 12/18/18 12/19/18 12/20/18 12/21/18 11:59 11:59 11:59 11:59 Intake Total 1760 / 1760 795 / 795 580 / 580 200 / 200 Output Total 2150 / 2150 800 / 800 400 / 400 100 / 100 Balance -390 / -390 -5 / -5 180 / 180 100 / 100 - Physical Exam Oriented: Not Oriented Eyes: Normal Ear: Normal Nose: Normal Throat: Normal Respiratory: Diminished Cardiovascular: Normal : Normal Auscultation: Bowel Sounds: Normal Palpation: Normal Tenderness: Diffuse Skin: Normal Musculoskeletal: Normal Psychiatric: Other (CONFUSION ) Mood Description: Calm Affect: Normal Speech Pattern: Clear, Appropriate - Laboratory and Diagnostics Result Diagrams: 12/20/18 04:00 12/20/18 04:00 Labs: 12/13/18 14:40 Sputum - Expectorated Sputum Sputum Culture - Final 12/13/18 14:40 Sputum - Expectorated Sputum - Final 12/09/18 21:20 Blood Blood Culture - Final 12/09/18 21:00 Blood Blood Culture - Final 12/09/18 23:41 Urine,Catheterized Urine Culture - Final Laboratory WBC 8.3 X10^3/uL (3.6-10.0) 12/20/18 04:00 RBC 2.84 X10^6/uL (4.7-6.0) L 12/20/18 04:00 Hgb 9.4 g/dL (13.5-18.0) L 12/20/18 04:00 Hct 28.4 % (42.0-54.0) L 12/20/18 04:00 MCV 99.9 fL (80.0-100.0) 12/20/18 04:00 MCH 33.2 pg (27.0-34.0) 12/20/18 04:00 MCHC 33.2 g/dL (33.0-35.0) 12/20/18 04:00 RDW 18.9 % (11.6-16.5) H 12/20/18 04:00 Plt Count 127 X10^3/uL (150.0-450.0) L 12/20/18 04:00 MPV 8.5 fL (7.4-11.0) 12/20/18 04:00 Neut % (Auto) 76.9 % (42.0-75.0) H 12/20/18 04:00 Lymph % (Auto) 10.3 % (21.0-51.0) L 12/20/18 04:00 [place] % (Auto) 10.6 % (0.0-13.0) 12/20/18 04:00 Eos % (Auto) 1.0 % (0.9-2.9) 12/20/18 04:00 Baso % (Auto) 1.2 % (0.2-1.0) H 12/20/18 04:00 Neut # (Auto) 6.4 x10^3/uL (2.2-4.8) H 12/20/18 04:00 Lymph # (Auto) 0.8 X10^3/uL (1.3-2.9) L 12/20/18 04:00 [place] # (Auto) 0.9 x10^3/uL (0.3-0.8) H 12/20/18 04:00 Eos # (Auto) 0.1 x10^3/uL (0.0-0.2) 12/20/18 04:00 Baso # (Auto) 0.1 X10^3/uL (0.0-0.1) 12/20/18 04:00 Absolute Nucleated RBC 0.0 /100WBC 12/20/18 04:00 INR Target Range - 12/09/18 21:00 INR 1.13 (0.8-1.3) 12/09/18 21:00 APTT 33.9 SECONDS (22.9-36.5) 12/09/18 21:00 PTT Comment - 12/09/18 21:00 Sodium 139 mmol/L (136-145) 12/20/18 04:00 Corrected Sodium TNP 12/20/18 04:00 Potassium 4.5 mmol/L (3.5-5.1) 12/20/18 04:00 Chloride 106 mmol/L (98-107) 12/20/18 04:00 Carbon Dioxide 22.8 mmol/L (21-32) 12/20/18 04:00 BUN 17 mg/dL (7-18) 12/20/18 04:00 Creatinine 1.07 mg/dL (0.70-1.30) 12/20/18 04:00 Est GFR (MDRD) Af Amer > 60 (>60) 12/20/18 04:00 Est GFR (MDRD) Non-Af > 60 (>60) 12/20/18 04:00 Glucose 95 mg/dL (65-99) 12/20/18 04:00 Lactic Acid 1.9 mmol/L (0.4-2.0) 12/09/18 21:00 Calcium 9.1 mg/dL (8.5-10.1) 12/20/18 04:00 Corrected Calcium 10.1 mg/dL (8.5-10.1) 12/20/18 04:00 Magnesium 1.8 mg/dL (1.7-2.9) 12/20/18 04:00 Total Bilirubin 1.30 mg/dL (0.2-1.0) H 12/20/18 04:00 AST 61 Units/L (15-37) H 12/20/18 04:00 ALT 27 Units/L (12-78) 12/20/18 04:00 Alkaline Phosphatase 149 Units/L (46-116) H 12/20/18 04:00 Ammonia 35 umol/L (11-32) H 12/16/18 21:50 Creatine Kinase 59 Units/L (39-308) 12/10/18 11:28 CK-MB (CK-2) < 1.0 ng/mL (0-4.0) 12/10/18 11:28 CK/CKMB % Calc 1.7 % (<4) 12/10/18 11:28 Troponin I 0.05 ng/mL (0-1.5) 12/10/18 11:28 C-Reactive Protein 32.00 mg/L (0-3.0) H 12/09/18 21:00 Total Protein 5.9 g/dL (6.4-8.2) L 12/20/18 04:00 Albumin 2.7 g/dL (3.4-5.0) L 12/20/18 04:00 Globulin 3.2 g/dL (2.5-4.5) 12/20/18 04:00 Albumin/Globulin Ratio 0.8 Ratio (1.1-2.1) L 12/20/18 04:00 Alpha Fetoprotein 4 ng/mL (0-9) 12/11/18 05:30 Carcinoembryonic Ag 6.7 ng/mL (0.0-3.0) H 12/11/18 05:30 Specimen Type Catherized urine 12/19/18 15:11 Urine Color Dark yellow (YELLOW) 12/19/18 15:11 Urine Appearance Clear (CLEAR) 12/19/18 15:11 Urine pH 5.0 (5.0 - 8.0) 12/19/18 15:11 Ur Specific [place] 1.025 (1.000-1.030) 12/19/18 15:11 Urine Protein 2+ (NEGATIVE) 12/19/18 15:11 Urine Glucose (UA) Negative (NEGATIVE) 12/19/18 15:11 Urine Ketones Negative (NEGATIVE) 12/19/18 15:11 Urine Occult Blood 3+ (NEGATIVE) 12/19/18 15:11 Urine Nitrite Negative (NEGATIVE) 12/19/18 15:11 Urine Bilirubin Negative (NEGATIVE) 12/19/18 15:11 Urine Urobilinogen 1+ (NORMAL) 12/19/18 15:11 Ur Leukocyte Esterase 1+ (NEGATIVE) 12/19/18 15:11 Urine RBC 10-20 /HPF (NONE SEEN) 12/19/18 15:11 Urine WBC 3-5 /HPF (NONE SEEN) 12/19/18 15:11 Ur Squamous Epith Cells Rare /HPF (NEGATIVE) 12/19/18 15:11 Amorphous Sediment Trace /HPF (NEGATIVE) 12/19/18 15:11 Urine Bacteria Negative /HPF (NEGATIVE) 12/19/18 15:11 Hyaline Casts Few /LPF (NEGATIVE) 12/19/18 15:11 Other Casts Rare /LPF (NEGATIVE) 12/09/18 23:41 Urine Mucus Numerous /HPF (NEGATIVE) 12/09/18 23:41 Ur Culture Indicated? No/not indicated 12/19/18 15:11 Stool Description 50g,brown,semisolid 12/15/18 19:00 Stl Occult Blood (IFOB) Negative (NEGATIVE) 12/15/18 19:00 Cytology Specimen To follow 12/12/18 10:09 Blood Type A NEGATIVE 12/10/18 04:20 Antibody Screen Negative 12/10/18 04:20 - Plan (1) Cirrhosis Status: Acute Qualifiers: Hepatic cirrhosis type: alcoholic cirrhosis Ascites presence: with ascites Qualified Code(s): K70.31 - Alcoholic cirrhosis of liver with ascites Plan: CONTINUE TO MONITOR LABS (2) Ascites due to alcoholic cirrhosis Status: Acute Plan: STATUS POST PARACENTESIS, CONTINUE TO MONITOR (3) Liver disease due to alcohol Status: Acute (4) Pneumonia Status: Acute Qualifiers: Pneumonia type: due to unspecified organism Laterality: left Lung location: upper lobe of lung Qualified Code(s): J18.1 - Lobar pneumonia, unspecified organism Plan: IV FORTAZ, IV LEVAQUIN, RESPIRATORY TX, SUPPLEMENTAL OXYGEN, CONTINUE TO MONITOR (5) Altered mental status Status: Acute Qualifiers: Altered mental status type: transient alteration of awareness Qualified Code(s): R40.4 - Transient alteration of awareness Plan: ZYPREXA 5MG PO BID (6) Yeast infection Status: Acute Plan: DIFLUCAN 100MG PO DAILY, CONTINUE TO MONITOR (7) Generalized weakness Status: Acute (8) Fall Status: Acute Qualifiers: Encounter type: initial encounter Qualified Code(s): W19.XXXA - Unspecified fall, initial encounter
[2018-12-20] MEDS: KLONOPIN TAB 0.5 MG PO SCH (20:12)
[2018-12-20] MEDS: COLACE CAP 100 MG PO SCH (20:12)
[2018-12-21] MEDS: VALIUM PO PRN (03:26)
[2018-12-21 05:18] LABS: BASOPHILS # (AUTO) 0.1 X10^3/uL (0.0-0.1); BASOPHILS % (AUTO) 1.1 % (0.2-1.0); EOSINOPHILS # (AUTO) 0.1 x10^3/uL (0.0-0.2); EOSINOPHILS % (AUTO) 0.7 % (0.9-2.9); HEMOGLOBIN 9.5 g/dL (13.5-18.0); LYMPHOCYTES # (AUTO) 0.8 X10^3/uL (1.3-2.9); LYMPHOCYTES % (AUTO) 9.6 % (21.0-51.0); MEAN CORPUSCULAR HEMOGLOBIN 32.7 pg (27.0-34.0); MEAN CORPUSCULAR HGB CONC 32.8 g/dL (33.0-35.0); MEAN CORPUSCULAR VOLUME 99.7 fL (80.0-100.0); MEAN PLATELET VOLUME 8.5 fL (7.4-11.0); MONOCYTES # (AUTO) 0.7 x10^3/uL (0.3-0.8); MONOCYTES % (AUTO) 8.8 % (0.0-13.0); NEUTROPHILS # (AUTO) 6.5 x10^3/uL (2.2-4.8); NEUTROPHILS % (AUTO) 79.8 % (42.0-75.0); PLATELET COUNT 134 X10^3/uL (150.0-450.0); RED BLOOD COUNT 2.91 X10^6/uL (4.7-6.0); RED CELL DISTRIBUTION WIDTH 19.1 % (11.6-16.5); WHITE BLOOD COUNT 8.1 X10^3/uL (3.6-10.0)
[2018-12-21 05:23] LABS: ALANINE AMINOTRANSFERASE 25 Units/L (12-78); ALBUMIN 2.7 g/dL (3.4-5.0); ALKALINE PHOSPHATASE 160 Units/L (46-116); ASPARTATE AMINO TRANSFERASE 51 Units/L (15-37); BLOOD UREA NITROGEN 17 mg/dL (7-18); CALCIUM 9.3 mg/dL (8.5-10.1); CARBON DIOXIDE 24.6 mmol/L (21-32); CHLORIDE 106 mmol/L (98-107); COR CA(FOR HYPOALB) 10.3 mg/dL (8.5-10.1); CREATININE 1.07 mg/dL (0.70-1.30); SODIUM 142 mmol/L (136-145); TOTAL PROTEIN 6.2 g/dL (6.4-8.2); eGFR NON BLACK RACES > 60 (>60)
[2018-12-21] MEDS: PROTONIX TAB 40 MG PO SCH (09:23)
[2018-12-21] MEDS: DIFLUCAN PO SCH (09:23)
[2018-12-21] MEDS: MILK OF MAGNESIA PO SCH (09:23)
[2018-12-21] MEDS: LEVAQUIN TAB 500 MG PO SCH (09:23)
[2018-12-21] MEDS: ROBITUSSIN DM PO SCH (09:23)
[2018-12-21 09:45] VITALS: BP 142/87
== END 2018-12-21 13:10 | DRG 432 ==
LOC: ICU 20:30 → ER 20:30 → OBSVTOIN 12-10 01:58 → ICU 12-10 02:45 → MED/SURG 12-10 14:01
PROVIDERS: ADMIT Internal Medicine; ATTEND Internal Medicine
DX: B37.89 Other sites of candidiasis; S01.81XA Laceration without foreign body of other part of head, initial encounter; K62.5 Hemorrhage of anus and rectum; Z91.81 History of falling; K76.9 Liver disease, unspecified; E87.6 Hypokalemia; Z93.3 Colostomy status; R26.89 Other abnormalities of gait and mobility; W19.XXXA Unspecified fall, initial encounter; R53.1 Weakness; K70.31 Alcoholic cirrhosis of liver with ascites; J18.9 Pneumonia, unspecified organism; R40.4 Transient alteration of awareness; Y92.9 Unspecified place or not applicable
CPT/HCPCS: 36415; 70450; 71010; 71045; 71260; 72125; 72192; 74160; 74176; 74177; 80053; 81001; 82105; 82140; 82270; 82378; 82550; 82553; 83605; 83735; 84132; 84484; 85025; 85610; 85730; 86140; 86850; 86900; 86901; 87040; 87070; 87086; 87205; 88112; 88305; 93005; 94760; 96365; 96367; 96374; 97110; 97116; 97162; 97166; 97530; 97535; 99284; A4222; C9113; P9047; J0696; J0713; J1450; J1956; J2270; J3475; J7030; J7050; J8499